=== PATIENT | male | born 2005 | race African-American/Black ===

== ENCOUNTER 2024-05-06 15:43 | Inpatient (IN) | payer MEDICAID, SELFPAY ==
--- NOTE | ~2024-05-06 | XR_ITS ---
XR abdomen obstructive series Ordering provider: MARY KAY Vides History: . Small bowel obstruction FU . Comparison: None. FINDINGS: BOWEL: Nasogastric tube with the tip in the fundus of the stomach. Dilated small bowel loops with air -fluid levels suggestive of early or incomplete obstruction. Ileus is also possible although less lik tia. Follow-up advised. ORGANOMEGALY: None. SIGNIFICANT PATHOLOGIC CALCIFICATIONS: None. OTHER: No free air is seen under the diaphragm. IMPRESSION: Early or incomplete obstruction. Other differential includes ileus and diarrhea. Clinical correlation and follow-up advised. Reviewed, dictated and finalized at location A. IMPRESSION: Early or incomplete obstruction. Other differential includes ileus and diarrhea . Clinical correlation and follow-up advised.
--- NOTE | ~2024-05-06 | XR_ITS ---
XR chest 2V Ordering provider: Ga Ramos MD History: 18 years Male with . r/o TBC . Comparison: None. FINDINGS: MEDIASTINUM: The cardiac silhouette is not enlarged. Nasogastric tube is seen in the inferior to the stomach. LUNGS: No infiltrates, effusions or pneumothorax. OTHER: No free air under the diaphragm. IMPRESSION: No acute cardiopulmonary pathology. Reviewed, dictated and finalized at location A.
--- NOTE | ~2024-05-06 | XR_ITS ---
EXAM: XR abdomen gastric tube insert DATE: 05/06/2024 21:43 HISTORY: NG TUBE . COMPARISON: CT abdomen pelvis, same date. FINDINGS: Clear lung bases. NG tube, tip projects over the stomach, side port at the distal esophagu s. No small bowel obstruction less well seen radiographically due to multiple fluid-filled loops of b owel. Excreted contrast in the renal collecting systems. Regional bones and soft tissues normal for a ge. IMPRESSION: Shallow positioning of the NG tube, consider 6 cm advancement. Reviewed, dictated and finalized at location K.
--- NOTE | ~2024-05-06 | XR_ITS ---
Upright portable view of the abdomen Clinical history: NG tube placement Findings: NG tube is in satisfactory position, side port below the diaphragm. Mildly distended centra l small bowel loops are noted. No free air evident. No abnormal mass lesion or calcification is seen. Osseous structures are intact. Impression: NG tube in satisfactory position. Reviewed, dictated and finalized at location . Impression: NG tube in satisfactory position.
--- NOTE | ~2024-05-06 | XR_ITS ---
EXAMINATION: XR sm bowel follow through [facility] DATE: 05/08/2024 14:41 INDICATION: Small bowel obstruction TECHNIQUE: Bed Teacher radiograph(s) of the abdomen was/were obtained. Oral contrast was administered, and sequential radiographs of the abdomen were obtained until oral contrast was noted to be in the proxi mal colon. COMPARISON: CT dated 05/06/2024 and obstructive series dated 05/08/2024 FINDINGS: Transit time from the stomach to proximal colon was approximately 1 hour. The proximal half of the sm all bowel is of normal caliber. There is increasing dilation of the more distal small bowel which rem ains most prominent at the terminal ileum which fills the pelvis. There is a normal mucosal fold segun idalmis throughout the small bowel with no evident nodularity or fold thickening. Contrast can be seen at the hepatic flexure the colon at 1 hour with contrast in the descending colon at 2 hours.. IMPRESSION: 1. Progressive dilation of the distal small bowel most prominent at the terminal ileum but without de layed transit time to the colon of one hour suggesting partial small bowel obstruction. Reviewed, dictated and finalized at location A. IMPRESSION: 1. Progressive dilation of the distal small bowel most prominent at the termina l ileum but without delayed transit time to the colon of one hour suggesting pa rtial small bowel obstruction.
--- NOTE | ~2024-05-06 | CT_ITS ---
EXAMINATION: CT abdomen pelvis w con DATE: 05/06/2024 19:28 INDICATION: ABD PAIN TECHNIQUE: Computed tomography (CT) of the abdomen and pelvis was performed with 100 mL Omnipaque-350 intravenous contrast. Automated exposure control and iterative reconstruction technique were employe d. The dose-length product was 208.02 mGy-cm. COMPARISON: None. FINDINGS: Lower thorax: Unremarkable Liver: Normal. Biliary/Gallbladder: Gallbladder is normal. No bile duct dilation. Pancreas: No mass or duct dilation. Spleen: Normal. Adrenals:No mass. Kidneys: No suspicious mass, obstructing stone, or hydronephrosis. GI tract: Moderate distal esophageal and gastric wall edema. Severe diffuse dilation of small bowel. Segmental irregular wall edema in the distal ileum, with irregular mucosal enhancement and possible b reakdown. Mid and distal small bowel mucosal hyperemia. No pneumatosis The cecum is displaced into th e right upper quadrant. The appendix is probably partially visualized and appears normal. Mesentery/Peritoneum: Diffuse mesenteric stranding. Small volume mesenteric fluid. No free air. Innum erable prominent mesenteric lymph nodes. Retroperitoneum: No mass. Multiple enlarged intraperitoneal lymph nodes. Pelvis: Pelvic organs are within normal limits. Soft Tissues: Soft tissues and body wall unremarkable. Bones: No acute osseous finding. IMPRESSION: Moderate esophagitis/gastritis. Severe segmental distal ileal enteritis, with findings concerning for wall breakdown and possible con tained or imminent perforation Severe obstruction of the more proximal small bowel. No definite evidence of bowel wall ischemia note d at this time. Small volume ascites. Reviewed, dictated and finalized at location K. IMPRESSION: Moderate esophagitis/gastritis. Severe segmental distal ileal enteritis, with findings concerning for wall mary kdown and possible contained or imminent perforation Severe obstruction of the more proximal small bowel. No definite evidence of ryne wel wall ischemia noted at this time. Small volume ascites.
[2024-05-06 15:48] VITALS: BP 126/91; PULSE 108; RESP 15; TEMP 36.9; O2SAT 98
--- NOTE | 2024-05-06 18:22 | ED.ABDPAIN ---
HPI - Abdominal Pain General Chief Complaint: Abdominal Pain <Ajay Marin MD - Last Filed: 05/07/24 10:55> Stated Complaint: abd pain <Ajay Marin MD - Last Filed: 05/07/24 10:55> Time Seen by Provider: 05/06/24 18:22 <Ajay Marin MD - Last Filed: 05/07/24 10:55> Source: patient <Ajay Marin MD - Last Filed: 05/07/24 10:55> History of Present Illness HPI narrative: 18 YEARS OLD MALE CAME TO THE EMERGENCY ROOM WITH INTERMITTENT SUPRAPUBIC SHARP STABBING PAIN, LAST 15-20 SECONDS. HE DENIES AGGRAVATING OR RELIEVING FACTORS. HE DENIES ANY FEVER, CHILLS, , DIARRHEA, CONSTIPATION OR URINARY SYMPTOMS. PATIENT DENIES ANY RECENT NEW PHYSICAL ACTIVITIES. HISTORY OF GERD ON OMEPRAZOLE NEEDED, NO HISTORY OF ABDOMINAL SURGERY, DOES NOT SMOKE OR DRINK OR USES DRUGS. PATIENT REPORT 4-5 EPISODES OF VOMITING OVER THE LAST 3 DAYS. <Ajay Marin MD - Last Filed: 05/07/24 10:55> Related Data Home Medications: Home Medications Medication Instructions Recorded Confirmed omeprazole 20 mg capsule,delayed 20 mg PO DAILY 05/06/24 05/06/24 release ondansetron HCl 4 mg tablet 4 mg PO Q4-6H PRN nausea/vomiting 05/06/24 05/06/24 <Ajay Marin MD - Last Filed: 05/07/24 10:55> Allergies/Adverse Reactions: Allergies Allergy/AdvReac Type Severity Reaction Status Date / Time No Known Allergies Allergy Verified 05/06/24 21:38 <Ajay Marin MD - Last Filed: 05/07/24 10:55> Review of Systems Review of Systems: All systems reviewed & are unremarkable except as noted in HPI and below <Ajay Marin MD - Last Filed: 05/07/24 10:55> [facility] Social History Social History: Social History Smoking status: Never smoker Do You Feel Safe in your Home?: Yes Lack of Transportation: No Lack of Food: Never True Current Housing: I Have Housing Concerned About Future Housing: No Difficulty Paying Gas/Electric Bills: No Difficulty Paying for Meds: No Currently Unemployed: No Education: High School Diploma/GED Difficulty w/ Childcare or Family Care: No Spiritual care concerns: No <Ajay Marin MD - Last Filed: 05/07/24 10:55> Exam Narrative: GENERAL APPEARANCE: WELL-DEVELOPED, WELL-NOURISHED SKIN: NORMAL COLOR HEAD: NORMOCEPHALIC, NONTRAUMATIC EYES: CLEAR CONJUNCTIVA ENT: OROPHARYNX NORMAL, EARS NORMAL, NOSE NORMAL NECK: SUPPLE, NONTENDER CHEST AND RESPIRATORY: AIRWAY PATENT, NO RESPIRATORY DISTRESS, NO ACCESSORY MUSCLE USE HEART: REGULAR RATE/RHYTHM ABDOMEN: SOFT, NONTENDER, NO ORGANOMEGALY, QUIET BOWEL SOUNDS VASCULAR: NORMAL PERIPHERAL PULSES, NORMAL CAPILLARY REFILL. MUSCULOSKELETAL: NORMAL RANGE OF MOTION, NONTENDER BACK NEUROLOGIC: ALERT AND ORIENTED ?3, STOCKROOM HELPER IS NORMAL TESTED, NO GROSS MOTOR DEFICIT <Ajay Marin MD - Last Filed: 05/07/24 10:55> Course SOUND DESIGNER/PA Physician Supervision Patient signed out to me for previous physician pending CT imaging and re-evaluation. Briefly patient is a 18-year-old male with a past medical history of GERD with as needed Protonix at home. He has had 3 days of nausea vomiting and 5 episodes of vomiting total. Endorses some suprapubic pain. Soft nontender nondistended abdomen. Normal vital signs without any fever, tachycardia, blood pressure concerns. CT scan is pending but I did review it independently and saw air-fluid levels and what looked to be a potential obstruction with small bowel loops dilated but I cant identify clear transition area. Awaiting full radiological read at this time. Patient was given being control nausea control and re-evaluated with
[2024-05-06 18:24] VITALS: BP 125/81; PULSE 93; RESP 18; O2SAT 100
[2024-05-06 18:41] LABS: Basophils Percent Auto 0.2 % (0.2-1.2); Hematocrit 35.7 % (42.0-52.0); Hemoglobin 10.9 g/dL (14.0-18.0); Immature Granulocyte Absolute 0.01 K/mm3 (0.00-0.031); Immature Granulocyte Percent A 0.2 % (0-0.5); Lymphocytes Absolute Auto 1.13 K/mm3 (0.9-3.2); Lymphocytes Percent Auto 18.2 % (18.3-44.2); Mean Corpuscular HGB Conc 30.5 g/dl (32-36); Mean Corpuscular Hemoglobin 24.4 pg (26-34); Mean Corpuscular Volume 79.9 fl (80-100); Monocytes Absolute Auto 1.2 K/mm3 (0.1-0.6); Monocytes Percent Auto 19.6 % (2.6-8.5); Neutrophils Absolute Auto 3.8 K/mm3 (1.3-6.7); Neutrophils Percent Auto 61.8 % (45.5-73.1); Platelet Count Result 562 k/mm3 (150-375); Red Blood Count 4.47 M/mm3 (4.6-6.20); Red Cell Distribution Width 14.2 % (11.5-14.5); White Blood Count 6.2 K/mm3 (4.5-10.0)
[2024-05-06] MEDS: HYDROmorphone HCL INJ (*CRX) 1 MG/ML SYR 0.5 MG IV PUSH (18:41)
[2024-05-06] MEDS: ONDANSETRON INJ 4 MG/2 ML VIAL IV PUSH (18:41)
[2024-05-06] MEDS: SODIUM CHLORIDE 0.9% IV 1,000 ML 999 ML IV CONT (18:41)
[2024-05-06 18:55] LABS: Alanine Aminotransferase 10 U/L (6-50); Albumin Level 4.4 g/dL (3.7-5.6); Alkaline Phosphatase 100 U/L (58-237); Anion Gap 11 mmol/L (4-12); Aspartate Amino Transferase 25 U/L (17-59); Bilirubin,Total 0.7 mg/dL (0.2-1.3); Blood Urea Nitrogen 13 mg/dL (8-21); Calcium 8.8 mg/dL (8.9-10.7); Carbon Dioxide 26 mmol/L (22-30); Chloride 96 mmol/L (98-107); Estimated CRCL calculation 114 ml/min; Estimated Glomerular Filt Rate > 60; Glucose 86 mg/dL (65-110); Lipase 303 U/L (23-300); Potassium 4.2 mmol/L (3.4-5.0); Sodium 133 mmol/L (134-143)
[2024-05-06 19:36] VITALS: BP 121/82; PULSE 92; RESP 18; O2SAT 100
[2024-05-06 19:57] LABS: Add Urine Microscopic? YES; Appearance Urine Clear (Clear); Bacteria Urine None Seen /hpf; Bilirubin Urine Negative (Negative); Blood Urine 2+ (Negative); Color Urine Yellow (Yellow); Glucose Urine UA Negative (Negative); Ketones Urine 2+ mg/dL (Negative); Leukocyte Esterase Ur Negative LEU/UL (Negative); Nitrate Urine Negative (Negative); Non Pathogenic Casts 0-2; Protein Urine 1+ mg/dL (Negative); RBC Urine 51-100 /hpf (0-2); Specific Grav Ur > 1.045 (1.001-1.035); Squamous Epithelial Cell Urine None Seen /hpf (Few); WBC Urine 0-5 /hpf (0-3); pH Urine 5.5 (5.0-9.0)
[2024-05-06 20:41] VITALS: BP 108/78; PULSE 97; RESP 18; TEMP 36.9; O2SAT 100
[2024-05-06 21:20] VITALS: BP 123/85; PULSE 88; RESP 18; O2SAT 99
--- NOTE | 2024-05-06 21:23 | WPDGICN ---
Assessment and Plan Assessment and plan (1) Anemia: Code(s): D64.9 - Anemia, unspecified Status: Acute (2) SBO (small bowel obstruction): Code(s): K56.609 - Unspecified intestinal obstruction, unspecified as to partial versus complete obstruction Status: Acute (3) Enteritis: Code(s): K52.9 - Noninfective gastroenteritis and colitis, unspecified Status: Acute Assessment and Plan: Patient with new onset acute obstruction secondary to ileal inflammation. There is associated anemia with thrombocytosis, more likely compatible with iron deficiency. Differential diagnosis includes Crohn disease, lymphoma or TB of that area, in his case, most likely Crohn's disease. Will obtain CRP, ESR, and stool calprotectin if there is stool output. Will also obtain iron studies to confirm suspicion of iron deficiency anemia. Agree with plan of placing NG tube, IV hydration, antibiotics. We might initiate corticosteroids upon re-evaluation tomorrow. When clinically stable and if resolution of current picture is achieved with current management, will plan on a colonoscopy. Surgical intervention might be needed if there is no resolution of the clinical picture with above mentioned measures. Thank you for the consult. GI Consult Note Consult date/time: 05/06/24 21:23 Reason for consult: intestinal obstruction HPI: Previously healthy 18-year-old patient who was in his usual state of health until approximately 3 days ago when he started to experience postprandial vomiting, which over the past 24 hours became darker and more abundant. This is accompanied by diffuse abdominal pain, colicky type, severe, rated 8 or 9/10 in intensity. There is no stool output in the past 24 hours, he denies diarrhea, fever, rectal bleeding. Of note, during last year he was complaining of backache, mid abdominal pain and a diagnosis of H pylori infection was made, being treated with 2 weeks of antibiotics with resolution of the symptoms. He has been experiencing excessive borborygmi for several months but no abdominal pain, change in bowel habits or other major GI symptoms. Review of Systems Review of Systems: All systems reviewed & are unremarkable except as noted in HPI and below PMFSH Social History Social History Smoking status: Never smoker Do You Feel Safe in your Home?: Yes Lack of Transportation: No Lack of Food: Never True Current Housing: I Have Housing Concerned About Future Housing: No Difficulty Paying Gas/Electric Bills: No Difficulty Paying for Meds: No Currently Unemployed: No Education: High School Diploma/GED Difficulty w/ Childcare or Family Care: No Spiritual care concerns: No Meds Home Medications and Allergies Allergies Allergy/AdvReac Type Severity Reaction Status Date / Time No Known Allergies Allergy Verified 05/06/24 19:36 Vital Signs Vital Signs - 24 hr 05/06/24 15:48 05/06/24 18:24 05/06/24 19:36 Temperature 98.4 F Pulse Rate 108 H 93 92 Respiratory Rate 15 18 18 Blood Pressure 126/91 H 125/81 121/82 Pulse Oximetry 98 100 100 05/06/24 20:41 05/06/24 21:20 Temperature 98.5 F Pulse Rate 97 88 Respiratory Rate 18 18 Blood Pressure 108/78 123/85 Pulse Oximetry 100 99 Exam Const: General: no acute distress Eyes: General: appearance normal, both eyes and all related structures Neck: Neck: supple Resp: Effort & Inspection: normal respiratory effort Cardio: Rate: regular rate Rhythm: regular rhythm GI: GI Palp: Yes Soft to palpation, Yes Firmness to palpation present (GI), Yes Tenderness to palpation present (GI) (diffusely, mainly in the lower quadrants), No Guarding due to palpation present (GI) and No Hernia present Psych: Mental Status: mental status grossly normal Results Labs 05/06/24 18:31 05/06/24 18:31 Labs: Short CBC 05/06/24 Range/Units
[2024-05-06 21:35] LABS: Lactic Acid Reflex 1.2 mmol/L (0.7-2.0)
[2024-05-06 21:56] LABS: CRP 3.4 mg/dL (<1.0)
[2024-05-06 22:00] VITALS: BP 124/83; PULSE 95; RESP 18; TEMP 37.7; O2SAT 100
--- NOTE | 2024-05-06 22:09 | PC.NURSE ---
NG tube advanced by 5 per radiology instructions.
[2024-05-06 22:12] LABS: Erythrocyte Sedimentation Rate 13 mm/hr (0-20)
[2024-05-06] MEDS: metroNIDAZOLE 500 MG/ISO 100ML 500 MG/100 ML BAG 100 MG IVPB (22:14)
--- NOTE | 2024-05-06 22:17 | PC.NURSE ---
Addendum entered by Tre Vergara RN 05/06/24 22:56: [address] Matias about NGT placement and had her review the new xray. Per Dr Matias NGT in place and good to be hooked up to low intermittent suction. Original Note: NGT placed in ER. KUB stated NGT needed to be advanced 6cm. When patient got to the floor I asked if they had advanced the ngt after insertion and pt stated that they had shoved it further down. New order for KUB placed for ngt placement verification. Radiology called and notified of new order. Once new KUB is read Dr order will be obtained for okay to use NGT and suction rate.
[2024-05-07 00:44] LABS: Iron 21 ug/dL (49-181)
[2024-05-07 00:53] LABS: Percent Iron Saturation 7 % (20-50)
[2024-05-07 05:39] VITALS: BP 122/84; PULSE 92; RESP 18; TEMP 37.3; O2SAT 100
[2024-05-07 08:00] VITALS: PULSE 92; RESP 18; O2SAT 98
[2024-05-07 08:44] VITALS: O2SAT 98
--- NOTE | 2024-05-07 09:25 | PM.CNGS ---
History of Present Illness Consult details Consult date: 05/07/24 Narrative: entered in error, see H loretta P PMFSH Social History Social History Smoking status: Never smoker Do You Feel Safe in your Home?: Yes Lack of Transportation: No Lack of Food: Never True Current Housing: I Have Housing Concerned About Future Housing: No Difficulty Paying Gas/Electric Bills: No Difficulty Paying for Meds: No Currently Unemployed: No Education: High School Diploma/GED Difficulty w/ Childcare or Family Care: No Spiritual care concerns: No Meds Home Medications and Allergies Home Medications Medication Instructions Recorded Confirmed Type omeprazole 20 mg capsule,delayed 20 mg PO DAILY 05/06/24 05/06/24 History release ondansetron HCl 4 mg tablet 4 mg PO Q4-6H PRN nausea/vomiting 05/06/24 05/06/24 History Allergies Allergy/AdvReac Type Severity Reaction Status Date / Time No Known Allergies Allergy Verified 05/06/24 21:38 Vital Signs Vital Signs - 24 hr 05/06/24 15:48 05/06/24 18:24 05/06/24 19:36 Temperature 36.9 C Pulse Rate 108 H 93 92 Respiratory Rate 15 18 18 Blood Pressure 126/91 H 125/81 121/82 Pulse Oximetry 98 100 100 Oxygen Delivery 05/06/24 20:41 05/06/24 21:20 05/06/24 22:00 Temperature 36.9 C 37.7 C H Pulse Rate 97 88 95 Respiratory Rate 18 18 18 Blood Pressure 108/78 123/85 124/83 Pulse Oximetry 100 99 100 Oxygen Delivery 05/07/24 05:39 05/06/24 22:00 05/07/24 08:44 Temperature 37.3 C Pulse Rate 92 Respiratory Rate 18 Blood Pressure 122/84 Pulse Oximetry 100 98 Oxygen Delivery Room Air Room Air Results Labs 05/06/24 18:31 05/06/24 18:31 Labs: Abnormal lab results 05/06/24 05/06/24 05/06/24 Range/Units 18:31 19:41 23:51 RBC 4.47 L (4.6-6.20) M/mm3 Hgb 10.9 L (14.0-18.0) g/dL Hct 35.7 L (42.0-52.0) % MCV 79.9 L (80-100) fl MCH 24.4 L (26-34) pg MCHC 30.5 L (32-36) g/dl Plt Count 562 H (150-375) k/mm3 Lymph % (Auto) 18.2 L (18.3-44.2) % [place] % (Auto) 19.6 H (2.6-8.5) % [place] # (Auto) 1.2 H (0.1-0.6) K/mm3 Sodium 133 L (134-143) mmol/L Chloride 96 L (98-107) mmol/L Calcium 8.8 L (8.9-10.7) mg/dL Iron 21 L (49-181) ug/dL % Saturation 7 L (20-50) % C-Reactive Protein 3.4 H (<1.0) mg/dL Lipase 303 H (23-300) U/L Ur Specific [place] > 1.045 H (1.001-1.035) Urine Protein 1+ H (Negative) mg/dL Urine Ketones 2+ H (Negative) mg/dL Ur Blood (Man) 2+ H (Negative) Urine RBC 51-100 H (0-2) /hpf Diabetes panel 05/06/24 Range/Units 18:31 Sodium 133 L (134-143) mmol/L Potassium 4.2 (3.4-5.0) mmol/L Chloride 96 L (98-107) mmol/L Carbon Dioxide 26 (22-30) mmol/L BUN 13 (8-21) mg/dL Creatinine 0.70 (0.7-1.3) mg/dL Glucose 86 (65-110) mg/dL Calcium 8.8 L (8.9-10.7) mg/dL AST 25 (17-59) U/L ALT 10 (6-50) U/L Alkaline Phosphatase 100 (58-237) U/L Total Protein 8.0 (6.3-8.6) g/dL Albumin 4.4 (3.7-5.6) g/dL Calcium panel 05/06/24 Range/Units 18:31 Calcium 8.8 L (8.9-10.7) mg/dL Albumin 4.4 (3.7-5.6) g/dL Pituitary panel 05/06/24 Range/Units 18:31 Sodium 133 L (134-143) mmol/L Potassium 4.2 (3.4-5.0) mmol/L Chloride 96 L (98-107) mmol/L Carbon Dioxide 26 (22-30) mmol/L BUN 13 (8-21) mg/dL Creatinine 0.70 (0.7-1.3) mg/dL Glucose 86 (65-110) mg/dL Calcium 8.8 L (8.9-10.7) mg/dL Adrenal panel 05/06/24 Range/Units 18:31 Sodium 133 L (134-143) mmol/L Potassium 4.2 (3.4-5.0) mmol/L Chloride 96 L (98-107) mmol/L Carbon Dioxide 26 (22-30) mmol/L BUN 13 (8-21) mg/dL Creatinine 0.70 (0.7-1.3) mg/dL Glucose 86 (65-110) mg/dL Calcium 8.8 L (8.9-10.7) mg/dL Total Bilirubin 0.7 (0.2-1.3) mg/dL AST 25 (17-59) U/L ALT 10
--- NOTE | 2024-05-07 09:26 | PM.IMHP ---
H&P: HPI History of Present Illness Date/Time: 05/07/24 09:26 Chief Complaint: Abdominal pain, obstipation Narrative: The patient is a previously healthy 18-year-old male presenting to the emergency department complaining severe abdominal pain, obstipation, nausea and vomiting. The patient reports approximately 3-4 days ago he began with some postprandial nausea. Over the next few days he has been unable to really keep anything down. He reports that his last bowel movement was probably 3-4 days ago and he is not really passed any flatus. The patient denies any previous similar symptoms. The patient also complains of severe colicky abdominal pain. The patient reports very poor appetite over this period. The patient was treated for H pylori a few months ago. Review of Systems Review of Systems: All systems reviewed & are unremarkable except as noted in HPI and below PMFSH Social History Social History Smoking status: Never smoker Do You Feel Safe in your Home?: Yes Lack of Transportation: No Lack of Food: Never True Current Housing: I Have Housing Concerned About Future Housing: No Difficulty Paying Gas/Electric Bills: No Difficulty Paying for Meds: No Currently Unemployed: No Education: High School Diploma/GED Difficulty w/ Childcare or Family Care: No Spiritual care concerns: No Comments PMH - none PSH - none FH - no IBD, CRC Meds Home Medications and Allergies Home Medications Medication Instructions Recorded Confirmed Type omeprazole 20 mg capsule,delayed 20 mg PO DAILY 05/06/24 05/06/24 History release ondansetron HCl 4 mg tablet 4 mg PO Q4-6H PRN nausea/vomiting 05/06/24 05/06/24 History Allergies Allergy/AdvReac Type Severity Reaction Status Date / Time No Known Allergies Allergy Verified 05/06/24 21:38 Vital Signs Vital Signs - 24 hr 05/06/24 15:48 05/06/24 18:24 05/06/24 19:36 Temperature 36.9 C Pulse Rate 108 H 93 92 Respiratory Rate 15 18 18 Blood Pressure 126/91 H 125/81 121/82 Pulse Oximetry 98 100 100 Oxygen Delivery 05/06/24 20:41 05/06/24 21:20 05/06/24 22:00 Temperature 36.9 C 37.7 C H Pulse Rate 97 88 95 Respiratory Rate 18 18 18 Blood Pressure 108/78 123/85 124/83 Pulse Oximetry 100 99 100 Oxygen Delivery 05/07/24 05:39 05/06/24 22:00 05/07/24 08:44 Temperature 37.3 C Pulse Rate 92 Respiratory Rate 18 Blood Pressure 122/84 Pulse Oximetry 100 98 Oxygen Delivery Room Air Room Air Exam Const: General: cooperative, ill appearing, uncomfortable and thin HENMT: Head: normal to inspection, normocephalic and atraumatic Eyes: General: appearance normal, both eyes and all related structures Neck: Neck: normal visual inspection, full ROM and no lymphadenopathy Resp: Auscultation: clear to auscultation bilaterally Cardio: Rate: regular rate Rhythm: regular rhythm GI: Inspection: normal to inspection and distended GI Palp: Yes abdominal tenderness, Yes Soft to palpation, Yes Tenderness to palpation present (GI), No Guarding due to palpation present (GI) and No Rigid due to palpation Skin: General skin exam: normal color and no rashes or lesions noted Neuro: General: patient oriented x3 and CN's II-XI intact bilaterally Extrem: General: normal to inspection and full ROM H&P: Results Labs Labs: Short CBC 05/06/24 Range/Units 18:31 WBC 6.2 (4.5-10.0) K/mm3 Hgb 10.9 L (14.0-18.0) g/dL Hct 35.7 L (42.0-52.0) % Plt Count 562 H (150-375) k/mm3 BMP 05/06/24 18:31 Sodium 133 L Potassium 4.2 Chloride 96 L Carbon Dioxide 26 BUN 13 Creatinine 0.70 Glucose 86 Calcium 8.8 L Liver Function 05/06/24 Range/Units 18:31 Total Bilirubin 0.7 (0.2-1.3) mg/dL AST 25 (17-59) U/L ALT 10 (6-50) U/L Alkaline Phosphatase 100 (58-237) U/L Albumin 4.4 (3.7-5.6) g/dL Urine 05/06/24 Range/Units
[2024-05-07] MEDS: PANTOPRAZOLE SODIUM IV 40 MG VIAL IV PUSH (10:13)
[2024-05-07] MEDS: WATER FOR IRRIGATION, STERILE 500 ML BOTTLE (10:13)
[2024-05-07] MEDS: SODIUM CHLORIDE 0.9% IV 1,000 ML 130 ML IV CONT ×2 (10:13→20:30)
[2024-05-07 10:14] LABS: Hematocrit 33.7 % (42.0-52.0); Hemoglobin 10.3 g/dL (14.0-18.0); Mean Corpuscular HGB Conc 30.6 g/dl (32-36); Mean Corpuscular Hemoglobin 24.4 pg (26-34); Mean Corpuscular Volume 79.9 fl (80-100); Mean Platelet Volume 8.2 fl (7.4-10.4); Platelet Count Result 459 k/mm3 (150-375); Red Blood Count 4.22 M/mm3 (4.6-6.20); Red Cell Distribution Width 14.3 % (11.5-14.5); White Blood Count 6.1 K/mm3 (4.5-10.0)
[2024-05-07] MEDS: metroNIDAZOLE 500 MG/ISO 100ML 500 MG/100 ML BAG 100 MG IVPB ×3 (10:16→22:08)
[2024-05-07 10:25] LABS: Anion Gap 8 mmol/L (4-12); Blood Urea Nitrogen 8 mg/dL (8-21); Calcium 8.6 mg/dL (8.9-10.7); Carbon Dioxide 27 mmol/L (22-30); Chloride 98 mmol/L (98-107); Estimated CRCL calculation 131 ml/min; Estimated Glomerular Filt Rate > 60; Glucose 77 mg/dL (65-110); Sodium 133 mmol/L (134-143)
--- NOTE | 2024-05-07 10:30 | WPDGIPROGNO ---
Progress Note: A&P Assessment and Plan (1) SBO (small bowel obstruction): Code(s): K56.609 - Unspecified intestinal obstruction, unspecified as to partial versus complete obstruction Status: Acute (2) Enteritis: Code(s): K52.9 - Noninfective gastroenteritis and colitis, unspecified Status: Acute (3) Anemia: Qualifiers: Anemia type: iron deficiency Iron deficiency anemia type: unspecified iron deficiency Qualified Code(s): D50.9 - Iron deficiency anemia, unspecified Code(s): D64.9 - Anemia, unspecified Status: Acute (4) Elevated lipase: Code(s): R74.8 - Abnormal levels of other serum enzymes Status: Acute Plan 1. Anemia/SBO/enteritis: Patient has never had an EGD or colonoscopy. No family Hx of CRC or IBD. Patient with new onset acute obstruction secondary to ileal inflammation. There is associated anemia with thrombocytosis, more likely compatible with iron deficiency. Labs today showed Hgb 11-->10, Hct 36-->34, MCV 80, platelets 459. Total iron 21, TIBC 318, iron sat 7%.Sodium 133, potassium 4.0, calcium 8.6, albumin 4.4. Case reviewed with surgery. Inflammatory marker elevated with ESR 13, CRP 3.4. Differential diagnosis includes Crohn disease, lymphoma or TB of that area, in his case, most likely Crohn's disease. Still pending fecal calprotectin SoluMedrol 60 mg IV daily, order placed keep NG in place continue IV antibiotics continue IV hydration No plan for surgery at this time continue supportive care with pain management and antiemetics as needed Will need colonoscopy in the near future, inpatient vs outpatient based on clinical picture Serial imaging being managed by surgery Will check Hep B and TB in the event that biologic treatment may be needed in the future 2. Elevated lipase: Lipase on admission 303. May be secondary to nausea and vomiting prior to admission vs acute inflammatory process. Pancreas normal on imaging Primary care team to continue monitoring Thank you very much for allowing me to share in the care of this very nice patient. Time Spent With Patient Time with patient: 15 - 25 minutes Subjective Date/time seen: 05/07/24 10:30 Interval history: Patient seen with mother Heavenly and father Cortes at bedside throughout the visit. Patient denies any GI complaints at this time other than discomfort with NG tube. Denies abdominal pain, nausea, vomiting, bloating, or regurgitation. No BM today. Patient has been NPO. Per patient and mother he was diagnosis with H-Pylori via stool study ordered by PCP last year and completed treatment, since that time he has been having episodes of nausea, vomiting and inability to gain weight. Prior to admission he was having daily BM's that were formed and non urgent, denied constipation, diarrhea, hematochezia or melena. No family Hx of CRC or IBD. Denies frequent NSAID use. Review of Systems Constitutional: Constitutional: Reports fatigue ENT: Comments: NG tube in right nare Cardiovascular: Cardiovascular: Denies chest pain, Denies leg edema and Denies palpitations Respiratory: Respiratory: Denies chest congestion, Denies cough and Denies dyspnea on exertion Gastrointestinal: Gastrointestinal: Reports as per HPI Genitourinary: Genitourinary: Reports no additional male genitourinary complaints Musculoskeletal: Musculoskeletal: Denies arthralgias Integumentary/Breasts: Skin/Breast: Reports system reviewed and no additional complaints, except as docu Neurologic: Denies Abnormal speech present and Denies confusion Exam Const: General: comfortable and no acute distress HENMT: Face/Nose/Sinus: nares abnormal (NG tube right nare) Eyes: General: appearance normal, both eyes and all related structures Sclera: sclerae normal Pupils: Equal, round and reactive pupils present Neck: Neck: supple and no JVD Resp: Effort & Inspection: normal respiratory effort
[2024-05-07] MEDS: methylPREDNISolone SOD SUCC 125 MG VIAL 60 MG IV PUSH (11:20)
[2024-05-07 12:00] VITALS: BMI 16.9
[2024-05-07 12:00] LABS: Hepatitis B Surface Antigen Negative (Negative)
[2024-05-07 12:05] LABS: Hepatitis B Core IgM Result Negative (Negative)
[2024-05-07 12:18] LABS: Hepatitis B Surface Anti Res Negative
[2024-05-07 14:00] VITALS: BP 111/38; PULSE 62; RESP 18; TEMP 36; O2SAT 100
[2024-05-07 19:34] LABS: Hepatitis C Virus Antibody Negative (Negative)
[2024-05-07 20:00] VITALS: PULSE 62; RESP 18; O2SAT 100
[2024-05-07 22:00] VITALS: BP 135/71; PULSE 77; RESP 16; TEMP 37.1; O2SAT 100
[2024-05-08] MEDS: SODIUM CHLORIDE 0.9% IV 1,000 ML 130 ML IV CONT (05:11)
[2024-05-08] MEDS: metroNIDAZOLE 500 MG/ISO 100ML 500 MG/100 ML BAG 100 MG IVPB ×3 (05:11→21:31)
[2024-05-08 05:55] VITALS: BP 118/70; PULSE 79; RESP 14; TEMP 37.1; O2SAT 98
--- NOTE | 2024-05-08 08:02 | WPDGIPROGNO ---
Progress Note: A&P Assessment and Plan (1) Anemia: Qualifiers: Anemia type: iron deficiency Iron deficiency anemia type: unspecified iron deficiency Qualified Code(s): D50.9 - Iron deficiency anemia, unspecified Code(s): D64.9 - Anemia, unspecified Status: Acute (2) SBO (small bowel obstruction): Code(s): K56.609 - Unspecified intestinal obstruction, unspecified as to partial versus complete obstruction Status: Acute (3) Enteritis: Code(s): K52.9 - Noninfective gastroenteritis and colitis, unspecified Status: Acute Plan Pt with suspected Crohn's disease, favorable clinical course. Pending abdominal X ray to check progress of SBO, pt going now. Will obtain Chest X ray in anticipation to possible biologic therapy in addition to other routine pre biologic labs. If there is a favorable radiologic picture we will discuss trying oral tolerance and possibly schedule colonoscopy for tomorrow. Time Spent With Patient Time with patient: less than 15 minutes Subjective Date/time seen: 05/08/24 08:02 Interval history: The patient feels much better, no abdominal pain. He passes flatus but not stool yet. NG tube drainage looks clearer than yesterday. Review of Systems Review of Systems: All systems reviewed & are unremarkable except as noted in HPI and below Exam Const: General: comfortable and no acute distress Cardio: Rate: regular rate Rhythm: regular rhythm GI: GI Palp: Yes Soft to palpation, No Firmness to palpation present (GI), No Tenderness to palpation present (GI) and No Guarding due to palpation present (GI) Auscultation: normal bowel sounds Objective Data Vital Signs Vital Signs: Vital Signs - 24 hr 05/07/24 08:44 05/07/24 14:00 05/07/24 20:00 Temperature 96.8 F L Pulse Rate 62 62 Respiratory Rate 18 18 Blood Pressure 111/38 L Pulse Oximetry 98 100 100 Oxygen Delivery Room Air Room Air 05/07/24 22:00 05/08/24 05:55 Temperature 98.8 F 98.8 F Pulse Rate 77 79 Respiratory Rate 16 14 Blood Pressure 135/71 118/70 Pulse Oximetry 100 98 Oxygen Delivery Intake/Output Intake/Output: Intake & Output 05/05/24 05/06/24 05/07/24 05/08/24 23:59 23:59 23:59 23:59 Intake Total 1100 2690 1000 Output Total 500 Balance 1100 2690 500 Meds/Results Medications: Active Medications Generic Name Dose Route Start Last Admin Trade Name Freq PRN Reason Stop Dose Admin Hydromorphone HCl 0.5 mg 05/07/24 10:05 Hydromorphone Hcl Inj (*Crx) 1 Mg/Ml Syr IV PUSH Q3H PRN Pain Rated 7-10 Sodium Chloride 1,000 mls @ 130 mls/hr 05/07/24 10:00 05/08/24 05:11 Normal Saline Iv IV CONT 130 mls/hr .Q7H42M KISHORE Administration Ceftriaxone Sodium 1 gm in 50 mls @ 100 mls/hr 05/07/24 21:00 05/07/24 20:30 Rocephin 1 Gm/Ns 50 Ml IVPB 100 mls/hr Q24H KISHORE Administration Metronidazole 500 mg in 100 mls @ 100 mls/hr 05/07/24 10:05 05/08/24 05:11 Flagyl 500 Mg/Iso Soln 100 Ml IVPB 100 mls/hr Q8HR KISHORE Administration Methylprednisolone Sodium Succinate 60 mg 05/07/24 10:15 05/07/24 11:20 Methylprednisolone Sod Succ 125 Mg Vial IV PUSH 60 mg DAILY KISHORE Administration Ondansetron HCl 4 mg 05/07/24 10:05 Ondansetron Inj 4 Mg/2 Ml Vial IV PUSH Q6H PRN Nausea And Vomiting Pantoprazole Sodium 40 mg 05/07/24 09:00 05/07/24 10:13 Pantoprazole Sodium Iv 40 Mg Vial IV PUSH 40 mg QAM KISHORE Administration Radiology Results: ITS Impressions Abdomen/Pelvis CT 05/06/24 20:00 IMPRESSION: Moderate esophagitis/gastritis. Severe segmental distal ileal enteritis, with findings concerning for wall breakdown and possible contained or imminent perforation Severe obstruction of the more proximal small bowel. No definite evidence of bowel wall ischemia noted at this time. Small volume ascites. Abdomen X-Ray 05/07/24 05:53 Impression: NG tube in satisfactory position.
[2024-05-08] MEDS: PANTOPRAZOLE SODIUM IV 40 MG VIAL IV PUSH (09:08)
[2024-05-08] MEDS: methylPREDNISolone SOD SUCC 125 MG VIAL 60 MG IV PUSH (09:08)
--- NOTE | 2024-05-08 12:12 | WPDGIPROGNO ---
Progress Note: A&P Assessment and Plan (1) SBO (small bowel obstruction): Code(s): K56.609 - Unspecified intestinal obstruction, unspecified as to partial versus complete obstruction Status: Acute (2) Anemia: Qualifiers: Anemia type: iron deficiency Iron deficiency anemia type: unspecified iron deficiency Qualified Code(s): D50.9 - Iron deficiency anemia, unspecified Code(s): D64.9 - Anemia, unspecified Status: Acute Plan Abdominal x-ray reviewed, there are still some air-fluid levels. The patient continues to do well clinically. Discussed with surgeon in charge, Dr. Lanier, we agreed to order a small-bowel follow-through with hydro soluble contrast to assess patency of GI tract. We will leave NG tube in place clamped, in order to administer colonoscopy prep if there is good passage of contrast. Subjective Date/time seen: 05/08/24 12:12 Objective Data Vital Signs Vital Signs: Vital Signs - 24 hr 05/07/24 14:00 05/07/24 20:00 05/07/24 22:00 Temperature 96.8 F L 98.8 F Pulse Rate 62 62 77 Respiratory Rate 18 18 16 Blood Pressure 111/38 L 135/71 Pulse Oximetry 100 100 100 Oxygen Delivery Room Air 05/08/24 05:55 Temperature 98.8 F Pulse Rate 79 Respiratory Rate 14 Blood Pressure 118/70 Pulse Oximetry 98 Oxygen Delivery Intake/Output Intake/Output: Intake & Output 05/05/24 05/06/24 05/07/24 05/08/24 23:59 23:59 23:59 23:59 Intake Total 1100 2690 1000 Output Total 500 Balance 1100 2690 500 Meds/Results Medications: Active Medications Generic Name Dose Route Start Last Admin Trade Name Freq PRN Reason Stop Dose Admin Hydromorphone HCl 0.5 mg 05/07/24 10:05 Hydromorphone Hcl Inj (*Crx) 1 Mg/Ml Syr IV PUSH Q3H PRN Pain Rated 7-10 Sodium Chloride 1,000 mls @ 130 mls/hr 05/07/24 10:00 05/08/24 05:11 Normal Saline Iv IV CONT 130 mls/hr .Q7H42M KISHORE Administration Ceftriaxone Sodium 1 gm in 50 mls @ 100 mls/hr 05/07/24 21:00 05/07/24 20:30 Rocephin 1 Gm/Ns 50 Ml IVPB 100 mls/hr Q24H KISHORE Administration Metronidazole 500 mg in 100 mls @ 100 mls/hr 05/07/24 10:05 05/08/24 05:11 Flagyl 500 Mg/Iso Soln 100 Ml IVPB 100 mls/hr Q8HR KISHORE Administration Methylprednisolone Sodium Succinate 60 mg 05/07/24 10:15 05/08/24 09:08 Methylprednisolone Sod Succ 125 Mg Vial IV PUSH 60 mg DAILY KISHORE Administration Ondansetron HCl 4 mg 05/07/24 10:05 Ondansetron Inj 4 Mg/2 Ml Vial IV PUSH Q6H PRN Nausea And Vomiting Pantoprazole Sodium 40 mg 05/07/24 09:00 05/08/24 09:08 Pantoprazole Sodium Iv 40 Mg Vial IV PUSH 40 mg QAM KISHORE Administration Radiology Results: ITS Impressions Abdomen/Pelvis CT 05/06/24 20:00 IMPRESSION: Moderate esophagitis/gastritis. Severe segmental distal ileal enteritis, with findings concerning for wall breakdown and possible contained or imminent perforation Severe obstruction of the more proximal small bowel. No definite evidence of bowel wall ischemia noted at this time. Small volume ascites. Chest X-Ray 05/08/24 08:29 IMPRESSION: No acute cardiopulmonary pathology. Abdomen X-Ray 05/08/24 09:18 IMPRESSION: Early or incomplete obstruction. Other differential includes ileus and diarrhea. Clinical correlation and follow-up advised. Labs Labs: Laboratory Results - last 24 hr 05/06/24 05/07/24 23:46 18:00 Hep Bs Antibody Negative Hepatitis C Ab Screen Negative
[2024-05-08 14:00] VITALS: BP 130/60; PULSE 68; RESP 20; TEMP 35.8; O2SAT 96
--- NOTE | 2024-05-08 16:02 | PM.PNGS ---
Progress Note: A&P Assessment and Plan (1) SBO (small bowel obstruction): Code(s): K56.609 - Unspecified intestinal obstruction, unspecified as to partial versus complete obstruction Status: Acute Assessment and Plan: much improved, cont steroids per GI, poss scope tomorrow, will try clears and clamp NG tonight Subjective Subjective Date/Time Seen: 05/08/24 16:02 Interval history: feels much better, +bowel fxn, hungry Review of Systems Review of Systems: All systems reviewed & are unremarkable except as noted in HPI and below Exam Const: General: cooperative, comfortable and no acute distress Resp: Auscultation: clear to auscultation bilaterally Cardio: Rate: regular rate Rhythm: regular rhythm GI: Inspection: normal to inspection and non-distended GI Palp: No abdominal tenderness and Yes Soft to palpation Objective Data Vital Signs Vital Signs: Vital Signs - 24 hr 05/07/24 20:00 05/07/24 22:00 05/08/24 05:55 Temperature 37.1 C 37.1 C Pulse Rate 62 77 79 Respiratory Rate 18 16 14 Blood Pressure 135/71 118/70 Pulse Oximetry 100 100 98 Oxygen Delivery Room Air 05/08/24 14:00 Temperature 35.8 C L Pulse Rate 68 Respiratory Rate 20 Blood Pressure 130/60 Pulse Oximetry 96 Oxygen Delivery Intake/Output Intake/Output: Intake & Output 05/05/24 05/06/24 05/07/24 05/08/24 23:59 23:59 23:59 23:59 Intake Total 1100 2690 1100 Output Total 500 Balance 1100 2690 600 Meds/Results Medications: Active Medications Generic Name Dose Route Start Last Admin Trade Name Freq PRN Reason Stop Dose Admin Hydromorphone HCl 0.5 mg 05/07/24 10:05 Hydromorphone Hcl Inj (*Crx) 1 Mg/Ml Syr IV PUSH Q3H PRN Pain Rated 7-10 Sodium Chloride 1,000 mls @ 130 mls/hr 05/07/24 10:00 05/08/24 05:11 Normal Saline Iv IV CONT 130 mls/hr .Q7H42M KISHORE Administration Ceftriaxone Sodium 1 gm in 50 mls @ 100 mls/hr 05/07/24 21:00 05/07/24 20:30 Rocephin 1 Gm/Ns 50 Ml IVPB 100 mls/hr Q24H KISHORE Administration Metronidazole 500 mg in 100 mls @ 100 mls/hr 05/07/24 10:05 05/08/24 15:10 Flagyl 500 Mg/Iso Soln 100 Ml IVPB 100 mls/hr Q8HR KISHORE Administration Methylprednisolone Sodium Succinate 60 mg 05/07/24 10:15 05/08/24 09:08 Methylprednisolone Sod Succ 125 Mg Vial IV PUSH 60 mg DAILY KISHORE Administration Ondansetron HCl 4 mg 05/07/24 10:05 Ondansetron Inj 4 Mg/2 Ml Vial IV PUSH Q6H PRN Nausea And Vomiting Pantoprazole Sodium 40 mg 05/07/24 09:00 05/08/24 09:08 Pantoprazole Sodium Iv 40 Mg Vial IV PUSH 40 mg QAM KISHORE Administration Radiology Results: ITS Impressions Abdomen/Pelvis CT 05/06/24 20:00 IMPRESSION: Moderate esophagitis/gastritis. Severe segmental distal ileal enteritis, with findings concerning for wall breakdown and possible contained or imminent perforation Severe obstruction of the more proximal small bowel. No definite evidence of bowel wall ischemia noted at this time. Small volume ascites. Chest X-Ray 05/08/24 08:29 IMPRESSION: No acute cardiopulmonary pathology. Abdomen X-Ray 05/08/24 09:18 IMPRESSION: Early or incomplete obstruction. Other differential includes ileus and diarrhea. Clinical correlation and follow-up advised. Small Bowel X-Ray 05/08/24 14:54 IMPRESSION: 1. Progressive dilation of the distal small bowel most prominent at the terminal ileum but without delayed transit time to the colon of one hour suggesting partial small bowel obstruction. Labs Labs: Laboratory Results - last 24 hr 05/07/24 18:00 Hepatitis C Ab Screen Negative
[2024-05-08 17:05] VITALS: BP 96/56; PULSE 100; RESP 20; TEMP 36.8; O2SAT 100
[2024-05-08] MEDS: BISACODYL 5 MG TABLET EC PO (18:27)
[2024-05-08] MEDS: polyethylene glycoL 3350 238 GM BOTTLE PO (18:27)
--- NOTE | 2024-05-08 21:49 | PC.NURSE ---
Bowel prep initiated during day shift and Mickie NANCE was able to get 1 bottle of mirilax power pio down NGT with good tolerance from patient. Bowel prep continued by this RN. At this time 3/4 mirilax power ades completed (route NGT) with great tolerance by patient. Last bottle of prep to be administered at 2230 and mag citrate to be administered at 2300.
[2024-05-08 22:00] VITALS: BP 112/67; PULSE 85; RESP 16; TEMP 37.8; O2SAT 100
[2024-05-08] MEDS: MAGNESIUM CITRATE 300 ML BTL PO (23:37)
[2024-05-09] VITALS (8 sets, daily range): BP systolic 81–112; BP diastolic 47–77; PULSE 50–78; RESP 14–20; TEMP 36.2–37; O2SAT 98–100; BMI 15.7
[2024-05-09] MEDS: metroNIDAZOLE 500 MG/ISO 100ML 500 MG/100 ML BAG 100 MG IVPB (06:16)
[2024-05-09] MEDS: methylPREDNISolone SOD SUCC 125 MG VIAL 60 MG IV PUSH (07:58)
[2024-05-09] MEDS: SODIUM CHLORIDE 0.9% IV 1,000 ML 130 ML IV CONT (07:58)
[2024-05-09] MEDS: PANTOPRAZOLE SODIUM IV 40 MG VIAL IV PUSH (07:59)
[2024-05-09] MEDS: LACTATED RINGERS 1,000 ML 150 ML IV CONT (10:02)
--- NOTE | 2024-05-09 10:54 | WPDANESEPPF ---
Anes - Initial Pre Proc Eval Procedure: Operation Date: 05/09/24 11:00 Proposed Procedures p Colonoscopy - Ga Ramos MD Date/Time: 05/09/24 10:54 Surgeon: Nasreen Lanier MD Pre Op Diagnosis: Bowel obstruction, Severe enteritis Patient Data Age: 18 Gender: M Height: 1.8 m Weight: 51 kg Last Vital Signs Temp 97.6 F 05/09/24 09:59 Pulse 75 05/09/24 09:59 Resp 18 05/09/24 09:59 BP 102/62 05/09/24 09:59 Pulse Ox 100 05/09/24 09:59 O2 Del Method Room Air 05/09/24 09:59 Allergies Allergy/AdvReac Type Severity Reaction Status Date / Time No Known Allergies Allergy Verified 05/09/24 09:56 Home Medications Medication Instructions Recorded Confirmed Type omeprazole 20 mg capsule,delayed 20 mg PO DAILY 05/06/24 05/09/24 History release Patient hx anesthesia problems: none Family hx anesthesia problems: none Results Review: All pre-operative results and documents have been reviewed as part of the pre-operative evaluation. REPLACED BY [facility] Social History Social History Smoking status: Never smoker Do You Feel Safe in your Home?: Yes Lack of Transportation: No Lack of Food: Never True Current Housing: I Have Housing Concerned About Future Housing: No Difficulty Paying Gas/Electric Bills: No Difficulty Paying for Meds: No Currently Unemployed: No Education: High School Diploma/GED Difficulty w/ Childcare or Family Care: No Spiritual care concerns: No Anes - Eval Final PreProcedure Day of Procedure 05/09/24 10:54 Patient weight: normal Heart: regular rate and rhythm Lungs: clear to auscultation Airway: Mallampati scale class II Neurological: alert and oriented Last oral intake: >/= 8 hours ASA classification: II Emergent: no Anesthetic plan: proceed Anesthesia type and monitoring: general GIVS and standard monitoring Results Review: All pre-operative results and documents have been reviewed as part of the pre-operative evaluation. Informed Consent: The patient's anesthetic plan and its attendant risks and benefits were discussed with the patient/family/POA. Questions were solicited and answers provided to the satisfaction of the patient/family/POA.
--- NOTE | 2024-05-09 11:07 | PM.PNGS ---
Progress Note: A&P Assessment and Plan (1) SBO (small bowel obstruction): Code(s): K56.609 - Unspecified intestinal obstruction, unspecified as to partial versus complete obstruction Status: Acute Assessment and Plan: resolving, will likely dc NG and ADAT once colonoscopy complete (2) Enteritis: Code(s): K52.9 - Noninfective gastroenteritis and colitis, unspecified Status: Acute Assessment and Plan: colonoscopy today, cont steroids per GI for now, exam benign Subjective Subjective Date/Time Seen: 05/09/24 11:07 Interval history: feels pretty good, no abd pain, +bowel fxn, salazar clears yest Review of Systems Review of Systems: All systems reviewed & are unremarkable except as noted in HPI and below Exam Const: General: cooperative, comfortable and no acute distress Resp: Auscultation: clear to auscultation bilaterally Cardio: Rate: regular rate Rhythm: regular rhythm GI: Inspection: normal to inspection and non-distended GI Palp: No abdominal tenderness and Yes Soft to palpation Objective Data Vital Signs Vital Signs: Vital Signs - 24 hr 05/08/24 14:00 05/08/24 17:05 05/08/24 22:00 Temperature 35.8 C L 36.8 C 37.8 C H Pulse Rate 68 100 85 Respiratory Rate 20 20 16 Blood Pressure 130/60 96/56 L 112/67 Pulse Oximetry 96 100 100 Oxygen Delivery 05/09/24 06:00 05/09/24 09:59 05/09/24 07:54 Temperature 37.0 C 36.4 C Pulse Rate 50 L 75 Respiratory Rate 14 18 Blood Pressure 101/60 102/62 Pulse Oximetry 98 100 Oxygen Delivery Room Air Room Air Intake/Output Intake/Output: Intake & Output 05/06/24 05/07/24 05/08/24 05/09/24 23:59 23:59 23:59 23:59 Intake Total 1100 2740 1780 1000 Output Total 900 Balance 1100 2740 880 1000 Meds/Results Medications: Active Medications Generic Name Dose Route Start Last Admin Trade Name Freq PRN Reason Stop Dose Admin Hydromorphone HCl 0.5 mg 05/07/24 10:05 Hydromorphone Hcl Inj (*Crx) 1 Mg/Ml Syr IV PUSH Q3H PRN Pain Rated 7-10 Sodium Chloride 1,000 mls @ 130 mls/hr 05/07/24 10:00 05/09/24 07:58 Normal Saline Iv IV CONT 130 mls/hr .Q7H42M KISHORE Administration Ceftriaxone Sodium 1 gm in 50 mls @ 100 mls/hr 05/07/24 21:00 05/08/24 20:22 Rocephin 1 Gm/Ns 50 Ml IVPB 100 mls/hr Q24H KISHORE Administration Metronidazole 500 mg in 100 mls @ 100 mls/hr 05/07/24 10:05 05/09/24 06:16 Flagyl 500 Mg/Iso Soln 100 Ml IVPB 100 mls/hr Q8HR KISHORE Administration Lactated Ringer's 1,000 mls @ 150 mls/hr 05/09/24 10:00 05/09/24 10:02 Lr - Lactated Ringers Iv IV CONT 150 mls/hr .Q6H40M KISHORE Administration Methylprednisolone Sodium Succinate 60 mg 05/07/24 10:15 05/09/24 07:58 Methylprednisolone Sod Succ 125 Mg Vial IV PUSH 60 mg DAILY KISHORE Administration Ondansetron HCl 4 mg 05/07/24 10:05 Ondansetron Inj 4 Mg/2 Ml Vial IV PUSH Q6H PRN Nausea And Vomiting Pantoprazole Sodium 40 mg 05/07/24 09:00 05/09/24 07:59 Pantoprazole Sodium Iv 40 Mg Vial IV PUSH 40 mg QAM KISHORE Administration Radiology Results: ITS Impressions Abdomen/Pelvis CT 05/06/24 20:00 IMPRESSION: Moderate esophagitis/gastritis. Severe segmental distal ileal enteritis, with findings concerning for wall breakdown and possible contained or imminent perforation Severe obstruction of the more proximal small bowel. No definite evidence of bowel wall ischemia noted at this time. Small volume ascites. Chest X-Ray 05/08/24 08:29 IMPRESSION: No acute cardiopulmonary pathology. Abdomen X-Ray 05/08/24 09:18 IMPRESSION: Early or incomplete obstruction. Other differential includes ileus and diarrhea. Clinical correlation and follow-up advised. Small Bowel X-Ray 05/08/24 14:54 IMPRESSION: 1. Progressive dilation of the distal small bowel most prominent at the terminal ileum but without delayed transit time to the colon of one hour s
[2024-05-09 11:44] LABS: NIL 0.04 IU/mL; Quantiferon TB Plus, 1T INDETERMINATE (NEGATIVE); TB2-NIL <0.00 IU/mL
[2024-05-09 12:38] LABS: NIL 0.03 IU/mL; Quantiferon TB Plus, 1T INDETERMINATE (NEGATIVE)
--- NOTE | 2024-05-09 13:03 | WPDGIPROGNO ---
Progress Note: A&P Assessment and Plan (1) Crohn's disease: Code(s): K50.90 - Crohn's disease, unspecified, without complications Status: Acute Plan The patient has confirmed Crohn's, explaining anemia and obstructive picture. Since he is iron deficient, I recommend administering a 1st dose of intravenous iron while he is in the hospital. He can be switched to prednisone 40 mg q.d.. I will see him in the office in 2 weeks to start tapering dose, while all the pre biologic labs are available. He has Medicaid coverage and we will try to see which biologic therapy will be covered by his insurance. In the meantime he could advance to soft diet and be discharged on PO steroids only. PPIs might be prescribed only if he does have heartburn or epigastric burning sensation on a p.r.n. basis. Subjective Date/time seen: 05/09/24 13:03 Interval history: Patient feels well, tolerating oral intake. Colonoscopy this morning showed severe ileocecal Crohn's. See report. Review of Systems Review of Systems: All systems reviewed & are unremarkable except as noted in HPI and below Exam Const: General: cooperative and healthy appearing Resp: Effort & Inspection: normal respiratory effort and able to speak in complete sentences Auscultation: clear to auscultation bilaterally Cardio: Rate: regular rate Rhythm: regular rhythm GI: Inspection: normal to inspection GI Palp: No No hepatosplenomegaly present Auscultation: normal bowel sounds Rectal Exam: deferred Skin: General skin exam: normal color Psych: Appearance: grossly normal Mental Status: mental status grossly normal Objective Data Vital Signs Vital Signs: Vital Signs - 24 hr 05/08/24 14:00 05/08/24 17:05 05/08/24 22:00 Temperature 96.4 F L 98.3 F 100.1 F H Pulse Rate 68 100 85 Respiratory Rate 20 20 16 Blood Pressure 130/60 96/56 L 112/67 Pulse Oximetry 96 100 100 Oxygen Delivery 05/09/24 06:00 05/09/24 09:59 05/09/24 07:54 Temperature 98.6 F 97.6 F Pulse Rate 50 L 75 Respiratory Rate 14 18 Blood Pressure 101/60 102/62 Pulse Oximetry 98 100 Oxygen Delivery Room Air Room Air 05/09/24 11:34 05/09/24 11:44 05/09/24 11:54 Temperature Pulse Rate 78 72 65 Respiratory Rate 18 18 20 Blood Pressure 81/47 L 91/60 L 106/77 Pulse Oximetry 98 98 100 Oxygen Delivery Room Air Room Air Room Air 05/09/24 12:30 Temperature 97.2 F L Pulse Rate 68 Respiratory Rate 20 Blood Pressure 100/63 Pulse Oximetry 100 Oxygen Delivery Intake/Output Intake/Output: Intake & Output 05/06/24 05/07/24 05/08/24 05/09/24 23:59 23:59 23:59 23:59 Intake Total 1100 2740 1780 1350 Output Total 900 Balance 1100 2740 880 1350 Meds/Results Medications: Active Medications Generic Name Dose Route Start Last Admin Trade Name Freq PRN Reason Stop Dose Admin Methylprednisolone Sodium Succinate 60 mg 05/07/24 10:15 05/09/24 07:58 Methylprednisolone Sod Succ 125 Mg Vial IV PUSH 60 mg DAILY KISHORE Administration Pantoprazole Sodium 40 mg 05/10/24 09:00 Pantoprazole 40 Mg Tablet PO DAILY [facility] Radiology Results: ITS Impressions Abdomen/Pelvis CT 05/06/24 20:00 IMPRESSION: Moderate esophagitis/gastritis. Severe segmental distal ileal enteritis, with findings concerning for wall breakdown and possible contained or imminent perforation Severe obstruction of the more proximal small bowel. No definite evidence of bowel wall ischemia noted at this time. Small volume ascites. Chest X-Ray 05/08/24 08:29 IMPRESSION: No acute cardiopulmonary pathology. Abdomen X-Ray 05/08/24 09:18 IMPRESSION: Early or incomplete obstruction. Other differential includes ileus and diarrhea. Clinical correlation and follow-up advised. Small Bowel X-Ray 05/08/24 14:54 IMPRESSION: 1. Progressive dilation of the distal small bowel most prominent at the terminal ileum but without delayed transit time to t
[2024-05-09] MEDS: IRON SUCROSE COMPLEX 100 MG in SODIUM CHLORIDE 0.9% IV 50 ML 220 MG IVPB (15:19)
[2024-05-10 04:16] VITALS: BP 110/74; PULSE 62; RESP 18; TEMP 36.4; O2SAT 100
[2024-05-10 08:00] VITALS: O2SAT 100
[2024-05-10] MEDS: PANTOPRAZOLE 40 MG TABLET PO (08:20)
[2024-05-10] MEDS: predniSONE 20 MG TABLET 40 MG PO (08:20)
--- NOTE | 2024-05-10 11:09 | PCNFU ---
Nutrition Follow-Up Complete: Inadequate energy intake related to NPO status as evidenced by diet order. Goal:Diet order with tolerance pt meeting goal, continue with diet advancement Pt current nutrition is Clear liquids to advance to full liquids at lunch. Nutrition recommendation: Add Ensure Enlive BID, chocolate Last recorded weight is 51 kg. Bowel Motility: +BM 05/09 Labs Reviewed: No new labs Meds Noted: prednison, protonix Skin: WNL Additional Notes: Pt diet advanced to clears, tolerating well, pt in pleasant mood during assessment, eager to advance to full liquids and willing to try Ensure Enlive for supplement. Prefers chocolate flavor. Encourage po intake. Monitor diet orders, intake, tolerance, wt, labs. Follow up in 3 days.
--- NOTE | 2024-05-10 12:19 | PM.DS ---
DS: Admitting Diagnosis Discharge Date 05/10/24 Admitting Diagnosis Small bowel obstruction Enteritis DS: Discharge Diagnosis Discharge Diagnosis (1) Crohn's disease: Code(s): K50.90 - Crohn's disease, unspecified, without complications Status: Acute (2) SBO (small bowel obstruction): Code(s): K56.609 - Unspecified intestinal obstruction, unspecified as to partial versus complete obstruction Status: Acute (3) Enteritis: Code(s): K52.9 - Noninfective gastroenteritis and colitis, unspecified Status: Acute DS: Summary Hospital Course Reason for hospitalization: This is a 18-year-old male who presented to the emergency department complaining severe abdominal pain, obstipation, nausea and vomiting. The patient was treated for H pylori a few months ago. Workup in the ED showed CT evidence of segmental distal ileal enteritis with possible contained or immanent perforation and small bowel obstruction. He was admitted in this setting. Hospital Course: He was admitted and started on broad-spectrum IV antibiotics for the enteritis. Findings on CT are concerning for Crohn's disease and GI was consulted for the enteritis. He was started on IV steroids as well. Small bowel obstruction was treated conservatively with NG tube decompression, bowel rest, and IV fluids. After decompression, he had a small bowel follow through that still showed some dilated small bowel but normal transit to the colon. He then had a colonoscopy on 05/09/24 that showed severe localized Crohn's disease in the terminal ileum, cecum, and proximal ascending colon with a deformed ileocecal valve. He also was found to have polyps which were biopsied. His NG tube was then removed and his diet has been advanced as tolerated. His bowels are moving and he is tolerating a diet well today. No longer having any abdominal pain. No nausea or vomiting. He is stable for discharge today. GI will follow-up with the patient as an outpatient. Status at Discharge Functional status at discharge: independent ambulation Overall status at discharge: patient is back to baseline Time Spent with Patient Time attestation: Total time spent providing and/or coordinating discharge services: Time spent: Greater than 30 minutes Exam Const: General: comfortable and no acute distress GI: Inspection: non-distended GI Palp: Yes Soft to palpation, No Tenderness to palpation present (GI), No Guarding due to palpation present (GI) and No Rebound tenderness present Auscultation: normal bowel sounds DS: Data Data Completed and Pending Completed studies during hospitalization: Pending at discharge 05/09/24 11:36 Surgical [PTH] Routine Labs on day of discharge: Labs from last 24 hours 05/07/24 18:00 TB Test (QFT) Gold Plus Indeterminate A TB Test (QFT) Nil 0.03 TB Test Mitogen - Nil 0.17 TB Test Ag - Nil 1 0.00 TB Test Ag - Nil 2 0.00 Procedures/Treatments: Procedures Operation Date: 05/09/24 11:00 Actual Procedure Side Surgeon p Colonoscopy- Cecal Bx's, cold biopsy forceps; Bx's ascending colon, cold biopsy forceps Ga Ramos MD Imaging Radiologist's impression: ITS Impressions Abdomen/Pelvis CT 05/06/24 20:00 IMPRESSION: Moderate esophagitis/gastritis. Severe segmental distal ileal enteritis, with findings concerning for wall breakdown and possible contained or imminent perforation Severe obstruction of the more proximal small bowel. No definite evidence of bowel wall ischemia noted at this time. Small volume ascites. Abdomen X-Ray 05/06/24 21:47 IMPRESSION: Shallow positioning of the NG tube, consider 6 cm advancement. Abdomen X-Ray 05/07/24 05:53 Impression: NG tube in satisfactory position. Chest X-Ray 05/08/24 08:29 IMPRESSION: No acute cardiopulmonary pathology. Abdomen X-Ray 05/08/24 09:18 IMPRESSION: Early or incomplete obstruction. Other differential inc
[2024-05-10 14:00] VITALS: BP 107/68; PULSE 96; RESP 14; TEMP 37.1; O2SAT 99
[2024-05-14 12:03] LABS: TPMT Activity 17
== END 2024-05-10 15:06 | disposition home or self-care (01) | DRG 245 ==
LOC: ANHED 20:40 → ANH3MEDSUR 21:22
PROVIDERS: Emergency Medicine; Internal Medicine Gastroenterology; Nurse Practitioner Family; Admitting Provider Surgery; Emergency Provider Student in an Organized Health Care Education/Training Program; Visit Provider Surgery
PROC: 0DJD8ZZ Inspection of Lower Intestinal Tract, Via Natural or Artificial Opening Endoscopic (ICD-10-PCS; CPT 45378; principal; 2024-05-09 11:00)
DX: K50.912 Crohn's disease, unspecified, with intestinal obstruction (principal); K52.9 Noninfective gastroenteritis and colitis, unspecified; K63.5 Polyp of colon; D50.9 Iron deficiency anemia, unspecified; K21.9 Gastro-esophageal reflux disease without esophagitis
CPT/HCPCS: 36415; 71046; 74019; 74177; 74250; 80048; 80053; 81001; 82657; 83540; 83550; 83605; 83690; 85025; 85027; 85652; 86140; 86480; 86705; 86706; 86803; 87340; 88305; 96361; 96374; 96375; 99285; A9270; J0696; J1171; J1756; J1836; J2003; J2405; J2470; J2704; J2919; J7030; J7120; J7512; Q9967

== ENCOUNTER 2024-05-22 08:33 | Outpatient (CLI) | payer MEDICAID, SELFPAY ==
[2024-05-22 09:29] LABS: Hematocrit 31.3 % (42.0-52.0); Hemoglobin 9.3 g/dL (14.0-18.0); Mean Corpuscular HGB Conc 29.7 g/dl (32-36); Mean Corpuscular Hemoglobin 24.2 pg (26-34); Mean Corpuscular Volume 81.5 fl (80-100); Mean Platelet Volume 10.6 fl (7.4-10.4); Platelet Count Result 277 k/mm3 (150-375); Red Blood Count 3.84 M/mm3 (4.6-6.20); Red Cell Distribution Width 16.6 % (11.5-14.5); White Blood Count 8.9 K/mm3 (4.5-10.0)
[2024-05-22 09:56] LABS: Alanine Aminotransferase 12 U/L (6-50); Albumin Level 3.6 g/dL (3.7-5.6); Alkaline Phosphatase 83 U/L (58-237); Anion Gap 7 mmol/L (4-12); Aspartate Amino Transferase 14 U/L (17-59); Bilirubin,Total 0.5 mg/dL (0.2-1.3); Blood Urea Nitrogen 9 mg/dL (8-21); Calcium 8.8 mg/dL (8.9-10.7); Carbon Dioxide 27 mmol/L (22-30); Chloride 104 mmol/L (98-107); Estimated Glomerular Filt Rate > 60; Glucose 91 mg/dL (65-110); Potassium 3.2 mmol/L (3.4-5.0); Sodium 138 mmol/L (134-143)
[2024-05-22 10:07] LABS: Iron 29 ug/dL (49-181)
[2024-05-22 10:18] LABS: Percent Iron Saturation 9 % (20-50)
== END 2024-05-22 08:34 | disposition home or self-care (01) ==
LOC: ANHLAB 08:34
PROVIDERS: Visit Provider Internal Medicine Gastroenterology
DX: K50.90 Crohn's disease, unspecified, without complications (principal)
CPT/HCPCS: 36415; 80053; 83540; 83550; 85027

== ENCOUNTER 2024-06-07 14:38 | Inpatient (IN) | payer MEDICAID, SELFPAY ==
[2024-06-07] VITALS (11 sets, daily range): BP systolic 101–130; BP diastolic 66–84; PULSE 108–140; RESP 13–20; TEMP 36.6–36.9; O2SAT 96–100
--- NOTE | ~2024-06-07 | XR_ITS ---
EXAMINATION: XR abdomen/kub 1V DATE: 06/09/2024 05:52 INDICATION: Small bowel obstruction. TECHNIQUE: A supine view of the abdomen on 2 radiographs was obtained. COMPARISON: Small bowel series 05/08/2024 FINDINGS: There are no dilated loops of bowel. The nasogastric tube tip is in the stomach. IMPRESSION: 1. Normal bowel gas pattern. Reviewed, dictated and finalized at location A. [employer] VENDOR
--- NOTE | ~2024-06-07 | XR_ITS ---
Exam: Abdomen 1V HISTORY: NG placement COMPARISON: None. TECHNIQUE: Supine images of the lower chest and upper abdomen FINDINGS: Nasogastric tube projects over the left upper quadrant, presumably within the stomach. IMPRESSION: Nasogastric tube in good position and ready for immediate use. Reviewed, dictated and finalized at location A. [employer]TE[employer] SUPERINTENDENT
--- NOTE | ~2024-06-07 | CT_ITS ---
CLINICAL INDICATION: 18-year-old gentleman with a history of Crohn's disease presents to the emergenc y department with abdominal pain, nausea and vomiting COMPARISON: 05/06/2024. TECHNIQUE: Multiple contiguous axial images of the abdomen and pelvis were performed following the ad ministration of with 100 mL Omnipaque-350 intravenous contrast The dose-length product (DLP) was 222.90 mGy-cm. Automated exposure control and iterative reconstruction technique were employed. FINDINGS/OBSERVATIONS: Visualized lower thorax: The bilateral lung bases are clear. The heart is of normal size, without pericardial effusion. Small hiatal hernia is present. Liver: The liver enhances homogeneously and is not enlarged measuring 16 cm in longitudinal dimension Gallbladder and biliary system: The gallbladder is only minimally distended, and otherwise unremarkable. Pancreas: The pancreas enhances homogeneously without ductal dilatation. Spleen: The spleen enhances homogeneously and is not enlarged measuring 8 cm in longitudinal dimension. Kidneys: The bilateral kidneys enhance symmetrically without hydronephrosis or renal calculi. Adrenal glands: Unremarkable. Gastrointestinal tract: Multiple loops of fluid-filled small bowel are identified with mural thickening and surrounding infla mmatory change consistent with high-grade small bowel obstruction. Mural thickening with hyperemic ryne wel wall and surrounding formation is identified within the distal small bowel suggesting a transitio n point in this location. Appendix: Appendix not seen Vasculature: Unremarkable. Lymph nodes: No pathologically enlarged or morphologically suspicious lymph nodes within the retroperitoneum or at the root of the mesentery. Pelvic structures: The bladder is decompressed and otherwise unremarkable. The prostate gland is not enlarged. Body wall and musculoskeletal: No significant degenerative disease within the lower thoracic or lumbosacral spine. IMPRESSION: High-grade small bowel obstruction with the transition point in the distal small bowel, as detailed a lino. Reviewed, dictated and finalized at location A. [place] MANAGER IMPRESSION: High-grade small bowel obstruction with the transition point in the distal smal l bowel, as detailed above.
--- NOTE | ~2024-06-07 | CT_ITS ---
Clinical indication:Indeterminate quantiferon. Latent TB suspected clinically. COMPARISON:Reference was made to plain film evaluation of the chest dated 05/08/2024 TECHNIQUE: Multiple contiguous axial images of the chest were performed following the administration of intravenous contrast. FINDINGS: LUNG:The bilateral lung brewer are clear. MEDIASTINUM:Mediastinum is unremarkable, without lymphadenopathy. HEART:The heart is of normal size, without pericardial effusion SOFT TISSUES OF THE CHEST: Unremarkable BONES OF THE CHEST: Unremarkable VISUALIZED PORTION OF THE UPPER ABDOMEN: Nasogastric tube within the stomach. Vicarious excretion of contrast into the gallbladder. IMPRESSION: Unremarkable CT examination of the chest, as detailed above. Reviewed, dictated and finalized at location A. UMER INSIGHT MANAGER
--- NOTE | 2024-06-07 15:04 | ED.ABDPAIN ---
HPI - Abdominal Pain General Chief Complaint: Abdominal Pain <Rhea Powers PA-C - Last Filed: 06/07/24 15:05> Stated Complaint: abd pain, n/v <Rhea Powers PA-C - Last Filed: 06/07/24 15:05> Time Seen by Provider: 06/07/24 18:20 <Rhea Powers PA-C - Last Filed: 06/07/24 15:05> Focused HPI: 18-year-old male with history of GERD presents to the emergency department for nausea, vomiting and diffuse abdominal pain that started 1 day ago. Patient denies prior abdominal surgeries, fever, diarrhea, dysuria or hematuria. Last bowel movement was yesterday normal. Denies alcohol or drug use. GENERAL: Well-appearing, well-nourished, and in no acute distress. HEAD: Normocephalic, atraumatic. CHEST: Clear to auscultation. ?No respiratory distress. ABD: Diffuse abdominal tenderness with voluntary guarding. No rebound or rigidity. HEART: Regular rate and rhythm.? NEURO: ?Alert and oriented x3. Patient screened in triage and initial orders placed.? ?Additional care and disposition to be based upon?diagnostic testing and treatment. <Rhea Powers PA-C - Last Filed: 06/07/24 15:05> Focused HPI: 18-year-old male with history of GERD presents to the emergency department for nausea, vomiting and diffuse abdominal pain that started 1 day ago. Patient denies prior abdominal surgeries, fever, diarrhea, dysuria or hematuria. Last bowel movement was yesterday normal. Denies alcohol or drug use. GENERAL: Well-appearing, well-nourished, and in no acute distress. HEAD: Normocephalic, atraumatic. CHEST: Clear to auscultation. ?No respiratory distress. ABD: Diffuse abdominal tenderness with voluntary guarding. No rebound or rigidity. HEART: Regular rate and rhythm.? NEURO: ?Alert and oriented x3. Patient screened in triage and initial orders placed.? ?Additional care and disposition to be based upon?diagnostic testing and treatment. <Elenita Abrams PA-C - Last Filed: 06/07/24 23:06> Source: patient <CHRISTELLE VaughnC - Last Filed: 06/07/24 23:06> Mode of arrival: ambulatory <Elenita Abrams PA-C - Last Filed: 06/07/24 23:06> Limitations: no limitations <Elenita Abrams PA-C - Last Filed: 06/07/24 23:06> History of Present Illness HPI narrative: Agree with above HPI. States pain began yesterday and became significantly worse today. Present throughout periumbilical and right lower abdomen. Patient reports he is being worked up for Crohn's disease. Is on prednisone. Sees Dr. Ramos. Denies rectal bleeding. <Elenita Abrams PA-C - Last Filed: 06/07/24 23:06> Related Data Allergies/Adverse Reactions: Allergies Allergy/AdvReac Type Severity Reaction Status Date / Time No Known Allergies Allergy Verified 05/22/24 08:01 <Rhea Powers PA-C - Last Filed: 06/07/24 15:05> Review of Systems Review of Systems: All systems reviewed & are unremarkable except as noted in HPI. <Elenita Abrams PA-C - Last Filed: 06/07/24 23:06> All systems reviewed & are unremarkable except as noted in HPI and below <Elenita Abrams PA-C - Last Filed: 06/07/24 23:06> [facility] Social History Social History: Social History Smoking status: Never smoker Alcohol intake: never Substance use: never Substance use type: does not use Do You Feel Safe in your Home?: Yes Lack of Transportation: No Lack of Food: Never True Current Housing: I Have Housing Concerned About Future Housing: No Difficulty Paying Gas/Electric Bills: No Difficulty Paying for Meds: No Currently Unemployed: No Education: High School Diploma/GED Difficulty w/ Childcare or Family Care: No Spiritual care concerns: No <Rhea Powers PA-C - Last Filed: 06/07/24 15:05> Exam Narrative: GENERAL: Mildly uncomfortable appearing, thin, non-toxic, in no acute distress. HEAD: Normocephalic, atraumatic. RESPIRATORY: Airway patent, respirations nonlabored. Clear to auscultation bilaterally, no rales, rhonchi, wheezing. CARDIOVASCULAR: Tachycardic with regular rhythm without murmurs, rubs, or gallops. ABDOMINAL: Soft, diffuse tenderness throughout abdomen, TTP in LLQ/periumbilical region/RLQ. Nondistended. Mild hypoactive BS. MUSCULOSKELETAL: Moves all extremities. No gross deformities. SKIN: Warm, dry, normal color. NEURO: A&O X3. Speech clear. PSYCHIATRIC: Appropriate mood and affect. Normal interaction. <AGNIESZKA Vaughn Last Filed: 06/07/24 23:06> Course Vital Signs Vital signs: Vital Signs Temperature 98.4 F 06/07/24 15:00 Pulse Rate 130 H 06/07/24 15:00 Respiratory Rate 18 06/07/24 15:00 Blood Pressure 101/66 06/07/24 15:00 Pulse Oximetry 100 06/07/24 15:00 Oxygen Delivery Room Air 06/07/24 15:00 Temperature 97.9 F 06/07/24 18:07 Pulse Rate 123 H 06/07/24 21:28 Respiratory Rate 13 06/07/24 21:28 Blood Pressure 126/81 06/07/24 21:28 Pulse Oximetry 99 06/07/24 21:28 Oxygen Delivery Room Air 06/07/24 19:24 <AGNIESZKA Mejia Last Filed: 06/07/24 15:05> Vital Signs Temperature 98.4 F 06/07/24 15:00 Pulse Rate 130 H 06/07/24 15:00 Respiratory Rate 18 06/07/24 15:00 Blood Pressure 101/66 06/07/24 15:00 Pulse Oximetry 100 06/07/24 15:00 Oxygen Delivery Room Air 06/07/24 15:00 Temperature 97.9 F 06/07/24 18:07 Pulse Rate 123 H 06/07/24 21:28 Respiratory Rate 13 06/07/24 21:28 Blood Pressure 126/81 06/07/24 21:28 Pulse Oximetry 99 06/07/24 21:28 Oxygen Delivery Room Air 06/07/24 19:24 <AGNIESZKA Vaughn Last Filed: 06/07/24 23:06> MDM - Abdominal Pain MDM Narrative Medical decision making narrative: Patient presented to ED with lower abdomen/periumbilical pain that began yesterday, worsening today, associated with nausea, vomiting. Patient is tachycardic upon arrival into the 130s and 140s. He is afebrile here. Resting fairly comfortably upon my exam with but diffuse tenderness on exam. Fluids initiated. Pain and nausea medicine given. Laboratory studies show marked leukocytosis of 23.5. Neutrophil predominance. 7% bands. Patient has been on steroids recently, likely at least contributing to this. Likely hemoconcentration with elevated hemoglobin and thrombocytosis. Fluids ongoing. CMP with anion gap of 14. Otherwise unremarkable. Normal electrolytes. Normal LFTs and lipase. Urinalysis with elev SG and 1+ ketones, fluids ongoing. CT scan of abdomen/pelvis was obtained and showing SBO with transition point. Consistent with clinical picture. Patient reports last bowel movement was yesterday and was small. He does report he was diagnosed with Crohn's only last month when he also had a SBO. He was seen here by surgery and GI. Will place NG tube and admit for further evaluation. Given profound leukocytosis, Zosyn was started in the ED. Blood cultures were obtained. Lactic acid is elevated to 2.8. Fluids ongoing. Patient is meeting sepsis criteria. Discussed case with Iveth WILSON hospitalist, accepted patient for admission. Discussed case with Dr. Wagn, general surgery, will consult. Advised will need GI on board. Discussed case with Dr. Paul, GI, will consult. No recommendation for steroids at this time. Will see tomorrow. Patient is in agreement with plan and need for admission. I discussed findings with patient's mother via phone as well. All questions answered at this time. <Elenita Abrams PA-C - Last Filed: 06/07/24 23:06> Medical Records Attestation: I reviewed the patient's medical records. <Elenita Abrams PA-C - Last Filed: 06/07/24 23:06> Lab Data Attestation: I reviewed the patient's lab results. <Elenita Abrams PA-C - Last Filed: 06/07/24 23:06> Result diagrams: 06/07/24 19:37 06/07/24 19:37 <Rhea Powers PA-C - Last Filed: 06/07/24 15:05> Labs: Lab Results 06/07/24 06/07/24 06/07/24 Range/Units 19:37 20:23 21:43 WBC 23.5 H (4.5-10.0) K/mm3 RBC 5.15 (4.6-6.20) M/mm3 Hgb 12.2 L (14.0-18.0) g/dL Hct 40.0 L (42.0-52.0) % MCV 77.7 L (80-100) fl MCH 23.7 L (26-34) pg MCHC 30.5 L (32-36) g/dl RDW 15.9 H (11.5-14.5) % Plt Count 656 H D (150-375) k/mm3 MPV 8.3 (7.4-10.4) fl Immature Gran % (Auto) Not Reportable Neut % (Auto) Not Reportable Lymph % (Auto) Not Reportable [place] % (Auto) Not Reportable Eos % (Auto) Not Reportable Baso % (Auto) Not Reportable Lymph # (Auto) Not Reportable [place] # (Auto) Not Reportable Eos # (Auto) Not Reportable Baso # (Auto) Not Reportable Abs Immat Gran (auto) Not Reportable Absolute Neuts (auto) Not Reportable Absolute Nucleated RBC Not Reportable Total Counted 100 Neutrophils % (Manual) 84 H (46-73) % Band Neutrophils % 7 H (0-6) % Lymphocytes % (Manual) 3.0 L (18-44) % Monocytes % (Manual) 5 (3-9) % Basophils % (Manual) 1 (0-1) % Nucleated RBC % Not Reportable Abs Neuts (Manual) 21.38 H (1.3-6.7) K/mm3 Abs Lymphs (Manual) 0.70 L (1.1-4.5) K/mm3 Abs Monocytes (Manual) 1.17 H (0.1-0.90) K/mm3 Abs Basophils (Manual) 0.23 H (0.0-0.1) K/mm3 Platelet Estimate Increased (Adequate) Hypochromasia 1+ Anisocytosis 1+ Schistocytes None seen Sodium 136 (134-143) mmol/L Potassium 5.0 (3.4-5.0) mmol/L Chloride 97 L (98-107) mmol/L Carbon Dioxide 25 (22-30) mmol/L Anion Gap 14 H (4-12) mmol/L BUN 14 D (8-21) mg/dL Creatinine 0.70 (0.7-1.3) mg/dL Estim Creat Clear Calc 111 ml/min Estimated GFR > 60 (59 - ) Glucose 106 (65-110) mg/dL Lactic Acid 2.8 H (0.7-2.0) mmol/L Calcium 9.2 (8.9-10.7) mg/dL Magnesium 2.1 (1.6-2.3) mg/dL Total Bilirubin 0.5 (0.2-1.3) mg/dL AST 20 (17-59) U/L ALT 11 (6-50) U/L Alkaline Phosphatase 98 (58-237) U/L Total Protein 8.0 (6.3-8.6) g/dL Albumin 4.3 (3.7-5.6) g/dL Lipase 28 (23-300) U/L Urine Color Dark yellow (Yellow) Urine Appearance Cloudy H (Clear) Urine pH 5.5 (5.0-9.0) Ur Specific [place] 1.039 H (1.001-1.035) Urine Protein 1+ H (Negative) mg/dL Urine Glucose (UA) Negative (Negative) mg/dL Urine Ketones 1+ H (Negative) mg/dL Ur Blood (Man) Trace (Negative) Urine Nitrate Negative (Negative) Urine Bilirubin 2+ H (Negative) Urine Urobilinogen 1.0 (<2.0) mg/dL Leukocyte Esterase Rfl Negative (Negative) LEISA/UL Urine RBC 3-5 H (0-2) /hpf Urine WBC 0-5 (0-3) /hpf Ur Squamous Epith Cells Few (Few) /hpf Urine Bacteria 1+ /hpf Urine Casts ---- <Rhea Powers PA-C - Last Filed: 06/07/24 15:05> Lab Results 06/07/24 06/07/24 06/07/24 Range/Units 19:37 20:23 21:43 WBC 23.5 H (4.5-10.0) K/mm3 RBC 5.15 (4.6-6.20) M/mm3 Hgb 12.2 L (14.0-18.0) g/dL Hct 40.0 L (42.0-52.0) % MCV 77.7 L (80-100) fl MCH 23.7 L (26-34) pg MCHC 30.5 L (32-36) g/dl RDW 15.9 H (11.5-14.5) % Plt Count 656 H D (150-375) k/mm3 MPV 8.3 (7.4-10.4) fl Immature Gran % (Auto) Not Reportable Neut % (Auto) Not Reportable Lymph % (Auto) Not Reportable [place] % (Auto) Not Reportable Eos % (Auto) Not Reportable Baso % (Auto) Not Reportable Lymph # (Auto) Not Reportable [place] # (Auto) Not Reportable Eos # (Auto) Not Reportable Baso # (Auto) Not Reportable Abs Immat Gran (auto) Not Reportable Absolute Neuts (auto) Not Reportable Absolute Nucleated RBC Not Reportable Total Counted 100 Neutrophils % (Manual) 84 H (46-73) % Band Neutrophils % 7 H (0-6) % Lymphocytes % (Manual) 3.0 L (18-44) % Monocytes % (Manual) 5 (3-9) % Basophils % (Manual) 1 (0-1) % Nucleated RBC % Not Reportable Abs Neuts (Manual) 21.38 H (1.3-6.7) K/mm3 Abs Lymphs (Manual) 0.70 L (1.1-4.5) K/mm3 Abs Monocytes (Manual) 1.17 H (0.1-0.90) K/mm3 Abs Basophils (Manual) 0.23 H (0.0-0.1) K/mm3 Platelet Estimate Increased (Adequate) Hypochromasia 1+ Anisocytosis 1+ Schistocytes None seen Sodium 136 (134-143) mmol/L Potassium 5.0 (3.4-5.0) mmol/L Chloride 97 L (98-107) mmol/L Carbon Dioxide 25 (22-30) mmol/L Anion Gap 14 H (4-12) mmol/L BUN 14 D (8-21) mg/dL Creatinine 0.70 (0.7-1.3) mg/dL Estim Creat Clear Calc 111 ml/min Estimated GFR > 60 (59 - ) Glucose 106 (65-110) mg/dL Lactic Acid 2.8 H (0.7-2.0) mmol/L Calcium 9.2 (8.9-10.7) mg/dL Magnesium 2.1 (1.6-2.3) mg/dL Total Bilirubin 0.5 (0.2-1.3) mg/dL AST 20 (17-59) U/L ALT 11 (6-50) U/L Alkaline Phosphatase 98 (58-237) U/L Total Protein 8.0 (6.3-8.6) g/dL Albumin 4.3 (3.7-5.6) g/dL Lipase 28 (23-300) U/L Urine Color Dark yellow (Yellow) Urine Appearance Cloudy H (Clear) Urine pH 5.5 (5.0-9.0) Ur Specific [place] 1.039 H (1.001-1.035) Urine Protein 1+ H (Negative) mg/dL Urine Glucose (UA) Negative (Negative) mg/dL Urine Ketones 1+ H (Negative) mg/dL Ur Blood (Man) Trace (Negative) Urine Nitrate Negative (Negative) Urine Bilirubin 2+ H (Negative) Urine Urobilinogen 1.0 (<2.0) mg/dL Leukocyte Esterase Rfl Negative (Negative) LEISA/UL Urine RBC 3-5 H (0-2) /hpf Urine WBC 0-5 (0-3) /hpf Ur Squamous Epith Cells Few (Few) /hpf Urine Bacteria 1+ /hpf Urine Casts ---- <Elenita Abrams PA-C - Last Filed: 06/07/24 23:06> Imaging Data Attestation: I personally reviewed and interpreted this imaging study as follows: <Elenita Abrams PA-C - Last Filed: 06/07/24 23:06> Radiologist's impression: ITS Impressions Abdomen/Pelvis CT 06/07/24 21:16 IMPRESSION: High-grade small bowel obstruction with the transition point in the distal small bowel, as detailed above. Abdomen X-Ray 06/07/24 22:26 IMPRESSION: Nasogastric tube in good position and ready for immediate use. <AGNIESZKA Mejia Last Filed: 06/07/24 15:05> ITS Impressions Abdomen/Pelvis CT 06/07/24 21:16 IMPRESSION: High-grade small bowel obstruction with the transition point in the distal small bowel, as detailed above. Abdomen X-Ray 06/07/24 22:26 IMPRESSION: Nasogastric tube in good position and ready for immediate use. <AGNIESZKA Vaughn Last Filed: 06/07/24 23:06> Discharge Plan Discharge Clinical Impression: SBO (small bowel obstruction), Crohn's disease, Sepsis <AGNIESZKA Mejia Last Filed: 06/07/24 15:05> Patient Disposition: Still a Patient <AGNIESZKA Mejia Last Filed: 06/07/24 15:05> Condition: Serious <AGNIESZKA Mejia Last Filed: 06/07/24 15:05> Prescriptions: No Action prednisone 20 mg Tablet 40 mg PO DAILY@0800 14 Days Qty: 30 0RF omeprazole 20 mg capsule,delayed release(DR/EC) 20 mg PO DAILY PRN (Reason: Indigestion) Qty: 14 0RF <AGNIESZKA Mejia Last Filed: 06/07/24 15:05> Follow-up/Referrals: PHYSICIAN NOT ON STAFF,NONSTAFF [Non-Staff] - <AGNIESZKA Mejia Last Filed: 06/07/24 15:05>
--- NOTE | 2024-06-07 17:00 | PC.NURSE ---
Pt refusing IV, lab draw and UA at this time.
[2024-06-07] MEDS: SODIUM CHLORIDE 0.9% IV 1,000 ML 999 ML IV CONT ×2 (19:36→21:42)
[2024-06-07] MEDS: ONDANSETRON INJ 4 MG/2 ML VIAL IV PUSH (19:36)
[2024-06-07] MEDS: MORPHINE SULFATE (*CRX) 2 MG/ML INJ IV PUSH ×2 (19:36→21:42)
[2024-06-07 19:43] LABS: Hemoglobin 12.2 g/dL (14.0-18.0); Mean Corpuscular HGB Conc 30.5 g/dl (32-36); Mean Corpuscular Hemoglobin 23.7 pg (26-34); Mean Corpuscular Volume 77.7 fl (80-100); Mean Platelet Volume 8.3 fl (7.4-10.4); Platelet Count Result 656 k/mm3 (150-375); Red Blood Count 5.15 M/mm3 (4.6-6.20); Red Cell Distribution Width 15.9 % (11.5-14.5); White Blood Count 23.5 K/mm3 (4.5-10.0)
[2024-06-07 20:08] LABS: Anisocytosis 1+; Band Neutrophils Percent 7 % (0-6); Basophils Absolute Manual 0.23 K/mm3 (0.0-0.1); Basophils Percent Manual 1 % (0-1); Hypochromasia 1+; Monocytes Absolute Manual 1.17 K/mm3 (0.1-0.90); Monocytes Percent Manual 5 % (3-9); Neutrophils Absolute Manual 21.38 K/mm3 (1.3-6.7); Neutrophils Percent Manual 84 % (46-73); Platelet Estimate Increased (Adequate); Schistocytes None Seen; Total Cells Counted 100
[2024-06-07 20:12] LABS: Alanine Aminotransferase 11 U/L (6-50); Albumin Level 4.3 g/dL (3.7-5.6); Alkaline Phosphatase 98 U/L (58-237); Anion Gap 14 mmol/L (4-12); Aspartate Amino Transferase 20 U/L (17-59); Bilirubin,Total 0.5 mg/dL (0.2-1.3); Blood Urea Nitrogen 14 mg/dL (8-21); Calcium 9.2 mg/dL (8.9-10.7); Carbon Dioxide 25 mmol/L (22-30); Chloride 97 mmol/L (98-107); Estimated CRCL calculation 111 ml/min; Estimated Glomerular Filt Rate > 60; Glucose 106 mg/dL (65-110); Lipase 28 U/L (23-300); Magnesium 2.1 mg/dL (1.6-2.3); Sodium 136 mmol/L (134-143)
[2024-06-07 20:42] LABS: Add Urine Microscopic? YES; Appearance Urine Cloudy (Clear); Bilirubin Urine 2+ (Negative); Blood Urine Trace (Negative); Color Urine Dark Yellow (Yellow); Glucose Urine UA Negative (Negative); Ketones Urine 1+ mg/dL (Negative); Leukocyte Esterase Ur Negative LEU/UL (Negative); Nitrate Urine Negative (Negative); Protein Urine 1+ mg/dL (Negative); Specific Grav Ur 1.039 (1.001-1.035); pH Urine 5.5 (5.0-9.0)
[2024-06-07 20:43] LABS: Bacteria Urine 1+ /hpf; Squamous Epithelial Cell Urine Few /hpf (Few); WBC Urine 0-5 /hpf (0-3)
[2024-06-07] MEDS: LORazepam INJ (*CRX) 2 MG/ML VIAL 0.5 MG IV PUSH (22:10)
[2024-06-07] MEDS: HYDROmorphone HCL INJ (*CRX) 1 MG/ML SYR 0.5 MG IV PUSH (22:10)
[2024-06-07 22:13] LABS: Lactic Acid Reflex 2.8 mmol/L (0.7-2.0)
[2024-06-07] MEDS: PIPERACILLN/TAZ 3.375GM/NS50ML 3.375 GM/50 ML BAG IVPB (22:25)
[2024-06-08] VITALS (11 sets, daily range): BP systolic 104–133; BP diastolic 62–80; PULSE 94–133; RESP 12–20; TEMP 36.9–37.6; O2SAT 97–100; BMI 16.8; BMI 17.9
--- NOTE | 2024-06-08 00:32 | ADMGEN ---
This patient, Cortes Orellana, was admitted to 3 [facility] Surg Room 302-01. Patient/family oriented to hospital policies and general routines including ID bracelet, bed and alarms, visiting hours, pain management, procedures, bathroom and other care routines, personal items, smoking policy, room service/diet, and visiting hours. Information on how to activate the Rapid Response Team has been discussed. Patient/Family are encouraged to report perceived risks to care and to ask questions if they do not understand what they are told or what they should do.
[2024-06-08] MEDS: HYDROmorphone HCL INJ (*CRX) 1 MG/ML SYR IV PUSH ×3 (00:55→10:42)
[2024-06-08] MEDS: SODIUM CHLORIDE 0.9% IV 1,000 ML 100 ML IV CONT ×3 (01:00→22:03)
[2024-06-08 01:02] LABS: Reflex Lactic Acid Yes or No Add Lactic
[2024-06-08 03:38] LABS: Hematocrit 34.2 % (42.0-52.0); Hemoglobin 10.2 g/dL (14.0-18.0); Mean Corpuscular HGB Conc 29.8 g/dl (32-36); Mean Corpuscular Hemoglobin 23.2 pg (26-34); Mean Corpuscular Volume 77.7 fl (80-100); Mean Platelet Volume 8.6 fl (7.4-10.4); Platelet Count Result 566 k/mm3 (150-375); White Blood Count 17.6 K/mm3 (4.5-10.0)
[2024-06-08 03:45] LABS: Anion Gap 8 mmol/L (4-12); Blood Urea Nitrogen 13 mg/dL (8-21); Carbon Dioxide 24 mmol/L (22-30); Chloride 104 mmol/L (98-107); Estimated CRCL calculation 130 ml/min; Estimated Glomerular Filt Rate > 60; Glucose 100 mg/dL (65-110); Lactic Acid Reflex 1.4 mmol/L (0.7-2.0); Potassium 4.2 mmol/L (3.4-5.0); Sodium 136 mmol/L (134-143)
[2024-06-08] MEDS: PIPERACILLN/TAZ 3.375GM/NS50ML 3.375 GM/50 ML BAG IVPB ×2 (05:23→12:08)
--- NOTE | 2024-06-08 08:11 | P.PNIM_ITS ---
Progress Note: A&P Assessment and Plan (1) Sepsis: Qualifiers: Sepsis acute organ dysfunction status: unspecified Sepsis type: sepsis due to unspecified organism Qualified Code(s): A41.9 - Sepsis, unspecified o rganism Code(s): A41.9 - Sepsis, unspecified organism Status: Acute Assessment and Plan: Patient initially meeting sepsis criteria with heart rate of 130, initial white blood cell count 23.5 with bandemia, lactic acidosis with a lactic acid level of 2.8, enteritis with history of Crohn's disease-here with Crohn's flare up. Patient was given IV fluids while in the ED and lactic acid improved back to baseline however patient remained tachycardic. * Continue Zosyn * Continue IV fluids * Blood cultures were obtained and are pending * White blood cell count today down to 17.6, likely reactive * Procalcitonin 0.4 (2) SBO (small bowel obstruction): Code(s): K56.609 - Unspecified intestinal obstruction, unspecified as to partial versus complete obstruction Status: Acute Assessment and Plan: * CT of the abdomen and pelvis show high-grade small bowel obstruction with a transition point in the distal small bowel. Multiple loops of fluid-filled small bowel with moral thickening and surrounding inflammatory changes seen. * Discontinue Zosyn as white blood cell count is likely reactive due to Crohn's disease and procalcitonin is less than 0.5 * GI consulted * General surgery consulted * NG tube to low intermittent suction * Continue NPO status * Continue pain and nausea control (3) Crohn's disease: Qualifiers: Digestive disease complication type: with intestinal obstruction Gastrointestinal tract location: unspecified location Qualified Code(s): K50.912 - Crohn's disease, unspecified, with intestinal obstruction Code(s): K50.90 - Crohn's disease, unspecified, without complications Status: Acute Assessment and Plan: * Hold prednisone * Continue Solu-Medrol 60 mg IV push daily per GI recommendation * GI consulted (4) Enteritis: Code(s): K52.9 - Noninfective gastroenteritis and colitis, unspecified Status: Acute Assessment and Plan: * See above for detail, likely secondary to Crohn's (5) Anemia: Qualifiers: Anemia type: iron deficiency Iron deficiency anemia type: unspecified iron deficiency Qualified Code(s): D50.9 - Iron deficiency anemia, unspecified Code(s): D64.9 - Anemia, unspecified Status: Chronic Assessment and Plan: * Hemoglobin currently 10.2 * Appears to be chronic * Labs from 05/22/2024 showing iron level of 29 * Will check vitamin B12, folic acid, ferritin today * TSH 3.100 Time Spent With Patient Time with patient: 25 - 35 minutes Subjective Date/time seen: 06/08/24 08:11 Interval history: Interval history: This is a 18-year-old male who presented to the hospital on 06/07/2024 with complaints of diffuse abdominal pain that started 1 day ago. Patient has histor y of Crohn's disease and is already on prednisone 40 mg daily. He is a patient of Dr. Ramos. Workup in the hospital included an abdomen/pelvis CT which shows high-grade small-bowel obstruction with a transition point in the distal small bowel. NG tube was placed. Initial labs showed a white blood cell count of 23.5 with bandemia, hemoglobin 12.2, platelet count 656, anion gap 14, creatinine 0.7. UA was obtained which showed cloudy urine appearance, urine specific gravity of 1.039, 1+ urine protein, 1+ urine ketone, 2+ urine bili, 3-5 urine RBC, 1+ bacteria. Lactic acid 2.8> 1.4. Blood cultures were obtained and are pending. Patient was given IV fluids, antiemetics, pain medication, and started on Zosyn while in the ED. GI and General surgery was consulted. Subjective: Patient denies any fever, chills, nausea, vomiting, diarrhea, abdominal pain, chest pain, shortness a breath. Patient endorses passing gas and having bowel movements today. Labs and imaging reviewed. Review of Systems Review of Systems: All systems reviewed & are unremarkable except as noted in HPI and below Constitutional: Constitutional: Reports as per HPI and Reports no additional constitutional complaints Eyes: Eyes: Reports as per HPI and Reports no additional eye complaints ENT: Reports system reviewed and no additional complaints, except as documented and Reports as per HPI Cardiovascular: Cardiovascular: Reports as per HPI and Reports no additional cardiovascular complaints Respiratory: Respiratory: Reports as per HPI and Reports no additional respiratory complaints Gastrointestinal: Gastrointestinal: Reports as per HPI and Reports no additional gastrointestinal complaints Genitourinary: Genitourinary: Reports no additional male genitourinary complaints and Reports as per HPI Musculoskeletal: Musculoskeletal: Reports no additional musculoskeletal complaints and Reports as per HPI Integumentary/Breasts: Skin/Breast: Reports system reviewed and no additional complaints, except as docu and Reports as per HPI Neurologic: Reports system reviewed and no additional complaints, except as documented and Reports as per HPI Psychiatric: Psychiatric: Reports no additional psychiatric complaints and Reports as per HPI Exam Narrative: General: In no acute distress, malnourished Head: atraumatic, no encephalopathy Eyes: PERRLA, sclera clear ENT: moist mucous membranes, nasal passages clear Neck: supple, no JVD, no adenopathy, trachea midline Cardiac: Normal S1 and S2. RRR, No murmur, gallops or friction rubs, peripheral pulses intact. Respiratory: Lungs clear to auscultation, no adventitious lung sounds, currently on room air Gastrointestinal: soft, non-distended, non-tender, normoactive bowel sounds. NG tube to low intermittent suction bilious fluid in tubing : voiding without difficulty. Extremities: moves all extremities well, no edema, good ROM, strength 5/5 Skin: clean, dry, intact. No wounds or lesions. Neuro: Alert and oriented x4, cranial nerves intact, no neuro deficits. Psych: normal mood, normal affect, interactive Objective Data Vital Signs Vital Signs: Vital Signs - 24 hr 06/07/24 15:00 06/07/24 18:07 06/07/24 19:24 Temperature 98.4 F 97.9 F Pulse Rate 130 H 140 H 125 H Respiratory Rate 18 20 14 Blood Pressure 101/66 130/84 101/66 Pulse Oximetry 100 96 100 Oxygen Delivery Room Air Room Air 06/07/24 18:31 06/07/24 19:12 06/07/24 19:15 Temperature Pulse Rate 122 H 118 H 119 H Respiratory Rate 20 20 20 Blood Pressure 104/79 Pulse Oximetry 100 98 99 Oxygen Delivery 06/07/24 19:16 06/07/24 20:00 06/07/24 20:15 Temperature Pulse Rate 121 H 108 H 121 H Respiratory Rate 18 18 20 Blood Pressure 101/66 Pulse Oximetry 99 99 100 Oxygen Delivery 06/07/24 21:14 06/07/24 21:28 06/08/24 00:00 Temperature Pulse Rate 118 H 123 H 114 H Respiratory Rate 20 13 17 Blood Pressure 126/81 133/79 Pulse Oximetry 99 99 98 Oxygen Delivery 06/08/24 00:31 06/08/24 03:40 06/08/24 04:50 Temperature 98.7 F 99.1 F Pulse Rate 118 H 122 H Respiratory Rate 20 18 Blood Pressure 125/80 104/62 Pulse Oximetry 99 97 Oxygen Delivery Room Air 06/08/24 04:00 Temperature Pulse Rate 108 H Respiratory Rate Blood Pressure Pulse Oximetry Oxygen Delivery Intake/Output Intake/Output: Intake & Output 06/05/24 06/06/24 06/07/24 06/08/24 23:59 23:59 23:59 23:59 Intake Total 2049 0 Balance 2049 0 Meds/Results Medications: Active Medications Generic Name Dose Route Start Last Admin Trade Name Freq PRN Reason Stop Dose Admin Acetaminophen 650 mg 06/07/24 22:30 Acetaminophen 650 Mg Suppository RECTAL Q6H PRN Mild Pain (1-3) or Fever Dextrose 12.5 gm 06/07/24 22:30 Dextrose 50% 25 Gm/50 Ml Syringe IV PUSH PRN PRN Hypoglycemia Protocol Glucagon 1 mg 06/07/24 22:30 Glucagon For Inj 1 Mg Vial IM PRN PRN Hypoglycemia Protocol Glucose 15 gm 06/07/24 22:30 Glucose Oral Gel 15 Gm Of Glucse In 37.5 Gm Tube PO PRN PRN Hypoglycemia Protocol Hydromorphone HCl 1 mg 06/08/24 00:40 06/08/24 06:13 Hydromorphone Hcl Inj (*Crx) 1 Mg/Ml Syr IV PUSH 1 mg Q3H PRN Administration Pain Rated 7-10 Hydromorphone HCl 0.5 mg 06/08/24 00:41 Hydromorphone Hcl Inj (*Crx) 1 Mg/Ml Syr IV PUSH Q3H PRN Pain Rated 4-6 Piperacillin/Tazobactam/Dextrose 3.375 gm in 50 mls @ 100 mls/hr 06/07/24 05:00 06/08/24 05:23 Zosyn 3.375 Gm/Ns 50 Ml IVPB 100 mls/hr Q6HR KISHORE Administration Sodium Chloride 1,000 mls @ 100 mls/hr 06/07/24 22:30 06/08/24 01:00 Normal Saline Iv IV CONT 100 mls/hr .Q10H KISHORE Administration Dextrose 1,000 mls @ 100 mls/hr 06/07/24 22:30 Dextrose 5% 1,000 Ml IVPB PRN PRN Hypoglycemia Protocol Ondansetron HCl 4 mg 06/08/24 00:40 Ondansetron Inj 4 Mg/2 Ml Vial IV PUSH Q6H PRN Nausea And Vomiting Pantoprazole Sodium 40 mg 06/08/24 09:00 06/08/24 07:27 Pantoprazole 40 Mg Tablet PO Not Given QAM [facility] Prednisone 40 mg 06/08/24 08:00 06/08/24 07:27 Prednisone 20 Mg Tablet PO Not Given DAILY@0800 [facility] Radiology Results: ITS Impressions Abdomen/Pelvis CT 06/07/24 21:16 IMPRESSION: High-grade small bowel obstruction with the transition point in the distal small bowel, as detailed above. Abdomen X-Ray 06/07/24 22:26 IMPRESSION: Nasogastric tube in good position and ready for immediate use. Labs Labs: Laboratory Results - last 24 hr 06/07/24 06/07/24 06/07/24 19:37 20:23 21:43 WBC 23.5 H RBC 5.15 Hgb 12.2 L Hct 40.0 L MCV 77.7 L MCH 23.7 L MCHC 30.5 L RDW 15.9 H Plt Count 656 H D MPV 8.3 Immature Gran % (Auto) Not Reportable Neut % (Auto) Not Reportable Lymph % (Auto) Not Reportable [place] % (Auto) Not Reportable Eos % (Auto) Not Reportable Baso % (Auto) Not Reportable Lymph # (Auto) Not Reportable [place] # (Auto) Not Reportable Eos # (Auto) Not Reportable Baso # (Auto) Not Reportable Abs Immat Gran (auto) Not Reportable Absolute Neuts (auto) Not Reportable Absolute Nucleated RBC Not Reportable Total Counted 100 Neutrophils % (Manual) 84 H Band Neutrophils % 7 H Lymphocytes % (Manual) 3.0 L Monocytes % (Manual) 5 Basophils % (Manual) 1 Nucleated RBC % Not Reportable Abs Neuts (Manual) 21.38 H Abs Lymphs (Manual) 0.70 L Abs Monocytes (Manual) 1.17 H Abs Basophils (Manual) 0.23 H Platelet Estimate Increased Hypochromasia 1+ Anisocytosis 1+ Schistocytes None seen Sodium 136 Potassium 5.0 Chloride 97 L Carbon Dioxide 25 Anion Gap 14 H BUN 14 D Creatinine 0.70 Estim Creat Clear Calc 111 Estimated GFR > 60 Glucose 106 Lactic Acid 2.8 H Calcium 9.2 Magnesium 2.1 Total Bilirubin 0.5 AST 20 ALT 11 Alkaline Phosphatase 98 Total Protein 8.0 Albumin 4.3 Lipase 28 TSH (Reflex) Urine Color Dark yellow Urine Appearance Cloudy H Urine pH 5.5 Ur Specific [place] 1.039 H Urine Protein 1+ H Urine Glucose (UA) Negative Urine Ketones 1+ H Ur Blood (Man) Trace Urine Nitrate Negative Urine Bilirubin 2+ H Urine Urobilinogen 1.0 Leukocyte Esterase Rfl Negative Urine RBC 3-5 H Urine WBC 0-5 Ur Squamous Epith Cells Few Urine Bacteria 1+ Urine Casts ---- 06/08/24 06/08/24 01:10 01:17 WBC 17.6 H RBC 4.40 L Hgb 10.2 L Hct 34.2 L MCV 77.7 L MCH 23.2 L MCHC 29.8 L RDW 16.0 H Plt Count 566 H MPV 8.6 Immature Gran % (Auto) Neut % (Auto) Lymph % (Auto) [place] % (Auto) Eos % (Auto) Baso % (Auto) Lymph # (Auto) [place] # (Auto) Eos # (Auto) Baso # (Auto) Abs Immat Gran (auto) Absolute Neuts (auto) Absolute Nucleated RBC Total Counted Neutrophils % (Manual) Band Neutrophils % Lymphocytes % (Manual) Monocytes % (Manual) Basophils % (Manual) Nucleated RBC % Abs Neuts (Manual) Abs Lymphs (Manual) Abs Monocytes (Manual) Abs Basophils (Manual) Platelet Estimate Hypochromasia Anisocytosis Schistocytes Sodium 136 Potassium 4.2 Chloride 104 Carbon Dioxide 24 Anion Gap 8 BUN 13 Creatinine 0.60 L Estim Creat Clear Calc 130 Estimated GFR > 60 Glucose 100 Lactic Acid 1.4 Calcium 8.0 L Magnesium Total Bilirubin AST ALT Alkaline Phosphatase Total Protein Albumin Lipase TSH (Reflex) 3.100 Urine Color Urine Appearance Urine pH Ur Specific [place] Urine Protein Urine Glucose (UA) Urine Ketones Ur Blood (Man) Urine Nitrate Urine Bilirubin Urine Urobilinogen Leukocyte Esterase Rfl Urine RBC Urine WBC Ur Squamous Epith Cells Urine Bacteria Urine Casts Imaging Radiologist's impression: Procedure(s): CT abdomen pelvis w con Accession Number(s): [id number] cc: Elenita Abrams PA-C; Rhea Powers PA-C; UNKNOWN,DOCTOR~ CLINICAL INDICATION: 18-year-old gentleman with a history of Crohn's disease presents to the emergency department with abdominal pain, nausea and vomiting COMPARISON: 05/06/2024. TECHNIQUE: Multiple contiguous axial images of the abdomen and pelvis were performed following the administration of with 100 mL Omnipaque-350 intravenous contrast The dose-length product (DLP) was 222.90 mGy-cm. Automated exposure control and iterative reconstruction technique were employed. FINDINGS/OBSERVATIONS: Visualized lower thorax: The bilateral lung bases are clear. The heart is of normal size, without pericardial effusion. Small hiatal hernia is present. Liver: The liver enhances homogeneously and is not enlarged measuring 16 cm in longitudinal dimension Gallbladder and biliary system: The gallbladder is only minimally distended, and otherwise unremarkable. Pancreas: The pancreas enhances homogeneously without ductal dilatation. Spleen: The spleen enhances homogeneously and is not enlarged measuring 8 cm in longitudinal dimension. Kidneys: The bilateral kidneys enhance symmetrically without hydronephrosis or renal calculi. Adrenal glands: Unremarkable. Gastrointestinal tract: Multiple loops of fluid-filled small bowel are identified with mural thickening and surrounding inflammatory change consistent with high-grade small bowel obstruction. Mural thickening with hyperemic bowel wall and surrounding formation is identified within the distal small bowel suggesting a transition point in this location. Appendix: Appendix not seen Vasculature: Unremarkable. Lymph nodes: No pathologically enlarged or morphologically suspicious lymph nodes within the retroperitoneum or at the root of the mesentery. Pelvic structures: The bladder is decompressed and otherwise unremarkable. The prostate gland is not enlarged. Body wall and musculoskeletal: No significant degenerative disease within the lower thoracic or lumbosacral spine. IMPRESSION: High-grade small bowel obstruction with the transition point in the distal small bowel, as detailed above. Reviewed, dictated and finalized at location A. E LININGS COATER Exam: Abdomen 1V HISTORY: NG placement COMPARISON: None. TECHNIQUE: Supine images of the lower chest and upper abdomen FINDINGS: Nasogastric tube projects over the left upper quadrant, presumably within the stomach. IMPRESSION: Nasogastric tube in good position and ready for immediate use. Reviewed, dictated and finalized at location A. E LININGS COATER Quality VTE Prophylaxis VTE prophylaxis: mechanical ordered
[2024-06-08 08:40] LABS: Immature Reticulocyte Fraction 24.5 % (3.0-15.9); Reticulocyte Hemoglobin Conten 24.3 pg (28.2-36.6); Reticulocytes Absolute 0.06 10^6/uL (0.02-0.10)
[2024-06-08 08:45] LABS: Iron 22 ug/dL (49-181)
[2024-06-08 08:55] LABS: Percent Iron Saturation 8 % (20-50)
--- NOTE | 2024-06-08 08:55 | WPDGICN ---
Assessment and Plan Assessment and plan (1) Crohn's disease: Qualifiers: Digestive disease complication type: with intestinal obstruction Gastrointestinal tract location: unspecified location Qualified Code(s): K50.912 - Crohn's disease, unspecified, with intestinal obstruction <Kenya MarxKateryna Ambriz APRN - Last Filed: 06/08/24 09:54> Code(s): K50.90 - Crohn's disease, unspecified, without complications <Kenya DKateryna Ambriz YOUTH CARE PROFESSIONAL - Last Filed: 06/08/24 09:54> Status: Acute <Kenya D. Monsejackie YOUTH CARE PROFESSIONAL - Last Filed: 06/08/24 09:54> (2) SBO (small bowel obstruction): Code(s): K56.609 - Unspecified intestinal obstruction, unspecified as to partial versus complete obstruction <Kenya D. VANGIE AmbrizN - Last Filed: 06/08/24 09:54> Status: Acute <Kenya DKateryna Ambriz YOUTH CARE PROFESSIONAL - Last Filed: 06/08/24 09:54> (3) Abnormal digestive system diagnostic imaging: Code(s): R93.3 - Abnormal findings on diagnostic imaging of other parts of digestive tract <Kenya D. VANGIE AmbrizN - Last Filed: 06/08/24 09:54> Status: Acute <Kenya D. Monsejackie YOUTH CARE PROFESSIONAL - Last Filed: 06/08/24 09:54> (4) Nausea and vomiting: Qualifiers: Vomiting type: unspecified Qualified Code(s): R11.2 - Nausea with vomiting, unspecified <Kenya D. VANGIE AmbrizN - Last Filed: 06/08/24 09:54> Code(s): R11.2 - Nausea with vomiting, unspecified <Kenya D. VANGIE AmbrizN - Last Filed: 06/08/24 09:54> Status: Acute <Kenya D. VANGIE AmbrizN - Last Filed: 06/08/24 09:54> (5) Abdominal pain: Qualifiers: Abdominal location: periumbilical Qualified Code(s): R10.33 - Periumbilical pain <Kenya D. VANGIE AmbrizN - Last Filed: 06/08/24 09:54> Code(s): R10.9 - Unspecified abdominal pain <Kenya D. VANGIE AmbrizN - Last Filed: 06/08/24 09:54> Status: Acute <Kenya D. VANGIE AmbrizN - Last Filed: 06/08/24 09:54> (6) Esophagitis: Code(s): K20.90 - Esophagitis, unspecified without bleeding <Kenya D. Pb, YOUTH CARE PROFESSIONAL - Last Filed: 06/08/24 09:54> Status: Acute <Kenya D. Pb YOUTH CARE PROFESSIONAL - Last Filed: 06/08/24 09:54> (7) Gastritis: Qualifiers: Chronicity: unspecified Gastritis bleeding: without bleeding Gastritis type: unspecified gastritis Qualified Code(s): K29.70 - Gastritis, unspecified, without bleeding <Kenya D. Pb, YOUTH CARE PROFESSIONAL - Last Filed: 06/08/24 09:54> Code(s): K29.70 - Gastritis, unspecified, without bleeding <Kenya D. Pb, YOUTH CARE PROFESSIONAL - Last Filed: 06/08/24 09:54> Status: Acute <Kenya Ambriz, YOUTH CARE PROFESSIONAL - Last Filed: 06/08/24 09:54> (8) LULU (iron deficiency anemia): Qualifiers: Iron deficiency anemia type: unspecified iron deficiency Qualified Code(s): D50.9 - Iron deficiency anemia, unspecified <Kenya Ambriz YOUTH CARE PROFESSIONAL - Last Filed: 06/08/24 09:54> Code(s): D50.9 - Iron deficiency anemia, unspecified <Kenya D. Pb, YOUTH CARE PROFESSIONAL - Last Filed: 06/08/24 09:54> Status: Acute <Kenya DKateryna Ambriz YOUTH CARE PROFESSIONAL - Last Filed: 06/08/24 09:54> Assessment and Plan: 1. Crohn's Disease/ Abnormal imaging digestive- SBO/ nausea/vomiting: Patient with new Crohn's disease Dx. No family Hx of CRC or IBD. Colonoscopy 05/06/2024 severe localized Crohn's disease was seen at the terminal ileum, and the cecum, and in the proximal ascending. Multiple pseudopolyps of average size 1 cm with whitish, scarred mucosa in between. Deformed ileocecal valve, could not visualized terminal ileum. There were some smaller pseudopolyps in the proximal ascending colon. TB QuantiFERON gold indeterminate and hepatitis B negative. Chest x-ray 05/08/2024 showed no acute cardiopulmonary pathology. Patient had improved on PO steroids outpatient until yesterday when he started having abdominal pain, nausea and vomiting. CT on admission showed high-grade small bowel obstruction with the transition point in the distal small bowel. Lactic acid 2.8-->1.4. NG tube in place to LIS. Denies nausea or vomiting since admission. Liquid BM today. Still having pain 03/03 on Dilaudid. Denies recent fevers, elevated WBC's likely secondary to steroids. Continue supportive care with pain management and antiemetics. Care with narcotics Continue NG to LIS Surgery consulted Change PO steroids to IV solumedrol 60 mg daily Check procalcitonin and if normal will discontinue Zosyn Plan is to start biologic outpatient if able to get it covered by insurance 2. LULU: Labs today show HGB 10, HCT 34, MCV 78, platelets 566. Recent work up with iron 29, TIBC 318, iron sat 9%. No signs of active GI bleeding. Anemia likely secondary to problem #1 Primary care team to continue monitoring and transfuse as needed to keep Hgb >7 3. Esophagitis/gastritis: CT 05/06/2024 showed moderate esophagitis/gastritis. 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 Protonix 40 mg IV daily Consider EGD as outpatient once stable Thank you very much for allowing me to share in the care of this very nice patient. This report may have been done utilizing a voice recognition system. Attempts have been made to correct errors. However, there may be uncorrected grammatical, spelling, and recognition errors present. <Kenya Ambriz, YOUTH CARE PROFESSIONAL - Last Filed: 06/08/24 09:54> GI Consult Note Consult date/time: 06/08/24 08:55 <Kenya Ambriz APRN - Last Filed: 06/08/24 09:54> Reason for consult: Crohns disease and SBO <Kenya Ambriz APRN - Last Filed: 06/08/24 09:54> Crohns disease and SBO Addedum : I have reviewed the note from our YOUTH CARE PROFESSIONAL, and saw the patient, physical examination performed, labs and imaging studies reviewed. The patient was seen by me on 05/22. He was asymptomatic on prednisone 40 mg and told to decrease dose by 5 mg each week, however apparently he misunderstood and he was now down to 5 mg daily (too quick taper). In any case, he started 48 h ago to have RLQ abdominal pain, very severe with vomiting. He was admitted last night with a recurrence of SBO. He is currently with an NG tube not draining dark fluid, and is comfortable after Dilaudid is given. He is covered with Zosyn due to fulltillment of sepsis criteria (probably from bacterial translocation secondary to SBO). The patient is currently receiving IV solumedrol, will continue NG suction and await surgical consultation. If there is no resolution within 24-36 h he might need ileal resection with right hemicolectomy since that is the area where the Crohn's disease was found during his last admission on colonoscopy. If there is resolution will give a few days-weeks to see if Skyrizi is covered by is insurance, and in the meanting will keep steroids. Semi elective surgery is also an attractive option. Will discuss with surgery once evaluated. <Ga Ramos MD - Last Filed: 06/08/24 11:56> HPI: Cortes Orellana is a 18 year old male with newly diagnosed Crohn's disease but otherwise unremarkable medical surgical history. He presented to the ER yesterday with complaints of abdominal pain, nausea and vomiting. GI has been consulted for Crohn's disease with SBO. Patient was last seen in the office by Dr. Ramos 05/17/2024 following a hospital admission May 06 for SBO and during that hospitalization he had a colonoscopy which showed some severe localized Crohn's disease was seen at the terminal ileum, and the cecum, and in the proximal ascending. Deformed ileocecal valve, could not visualized terminal ileum. At this office visit the patient was doing well on PO prednisone and the process was started to get the patient started on Skyrizi. TB QuantiFERON gold was indeterminate and hepatitis-B was negative. During today's visit the patient complains of sharp umbilical pain rated a 8/10 even after receiving pain medication. He was having nausea and vomiting prior to admission but denies any nausea or vomiting since admission. He has an NG tube in the right nare draining dark brown fluid. Admits to decreased appetite x 2 days. He was having formed non urgent BM's prior to admission. Liquid BM today. Denies fevers, bloating, odynophagia, dysphagia, reflux, regurgitation, early satiety, constipation, hematochezia, or melena. No family Hx of CRC or IBD. ENDOSCOPY HISTORY: EGD: Patient has never had an EGD COLONOSCOPY: 05/09/[address] Ramos for abnormal CT and suspected Crohn's disease Findings: Some severe localized Crohn's disease was seen at the terminal ileum, and the cecum, and in the proximal ascending. Multiple pseudopolyps of average size 1 cm with whitish, scarred mucosa in between. Deformed ileocecal valve, could not visualized terminal ileum. There were some smaller pseudopolyps in the proximal ascending colon The rest of the colonic mucosa appeared normal Multiple cold forceps biopsies were taken from the cecum in the ascending colon for pathology Bx results: A. Ascending colon, random biopsies: - Mild acute colitis with crypt abscess formation - No evidence of granulomatous or transmural inflammation. B. Cecum, random biopsies: - Chronic lymphocytic colitis with marked crypt distortion - No acute cryptitis, crypt abscess formation, granulomas or transmural inflammation is observed LABS AND STOOL STUDIES: Labs 06/08/2024: sodium 136, potassium 4.2, BUN 13, creatinine 0.60, GFR > 60. WBC is 18, HGB 10, HCT 34, MCV 78, platelets 566. Total bilirubin 0.5, AST 20, ALT 11, alkaline phosphatase 98, albumin 4.3 Lactic acid 2.8 -->1.4, calcium 8.0, magnesium 2.1, TSH 3.100. Labs 05/22/2024 showed iron 29, TIBC 318, iron saturation 9%. TB QuantiFERON gold indeterminate and hepatitis-B negative IMAGING: Abdominal Xray 06/07/2024 IMPRESSION: Nasogastric tube in good position and ready for immediate use. CT abd/pelvis w/contrast 06/07/2024 Visualized lower thorax: The bilateral lung bases are clear. The heart is of normal size, without pericardial effusion. Small hiatal hernia is present. Liver: The liver enhances homogeneously and is not enlarged measuring 16 cm in longitudinal dimension Gallbladder and biliary system: The gallbladder is only minimally distended, and otherwise unremarkable. Pancreas: The pancreas enhances homogeneously without ductal dilatation. Spleen: The spleen enhances homogeneously and is not enlarged measuring 8 cm in longitudinal dimension. Kidneys: The bilateral kidneys enhance symmetrically without hydronephrosis or renal calculi. Adrenal glands: Unremarkable. Gastrointestinal tract: Multiple loops of fluid-filled small bowel are identified with mural thickening and surrounding inflammatory change consistent with high-grade small bowel obstruction. Mural thickening with hyperemic bowel wall and surrounding formation is identified within the distal small bowel suggesting a transition point in this location. Appendix: Appendix not seen Vasculature: Unremarkable. Lymph nodes: No pathologically enlarged or morphologically suspicious lymph nodes within the retroperitoneum or at the root of the mesentery. Pelvic structures: The bladder is decompressed and otherwise unremarkable. The prostate gland is not enlarged. Body wall and musculoskeletal: No significant degenerative disease within the lower thoracic or lumbosacral spine. IMPRESSION: High-grade small bowel obstruction with the transition point in the distal small bowel, as detailed above. Small bowel Xray 05/08/2024 IMPRESSION: 1. Progressive dilation of the distal small bowel most prominent at the terminal ileum but without delayed transit time to the colon of one hour suggesting partial small bowel obstruction. Chest Xray 05/08/2024 MEDIASTINUM: The cardiac silhouette is not enlarged. Nasogastric tube is seen in the inferior to the stomach. LUNGS: No infiltrates, effusions or pneumothorax. OTHER: No free air under the diaphragm. IMPRESSION: No acute cardiopulmonary pathology. CT abd/pelvis w/contrast 05/06/2024 IMPRESSION: Moderate esophagitis/gastritis. Severe segmental distal ileal enteritis, with findings concerning for wall breakdown and possible contained or imminent perforation Severe obstruction of the more proximal small bowel. No definite evidence of bowel wall ischemia noted at this time. Small volume ascites. <Kenya Ambriz APRN - Last Filed: 06/08/24 09:54> Review of Systems Constitutional: Constitutional: Reports as per HPI and Reports fatigue <Kenya Ambriz APRN - Last Filed: 06/08/24 09:54> ENT: Reports as per HPI <Kenya Ambriz APRN Last Filed: 06/08/24 09:54> Cardiovascular: Cardiovascular: Reports as per HPI, Denies chest pain, Denies leg edema and Denies dyspnea <Kenya Ambriz APRN Last Filed: 06/08/24 09:54> Respiratory: Respiratory: Denies cough, Denies hemoptysis and Denies dyspnea <Kenya Ambriz APRN Last Filed: 06/08/24 09:54> Gastrointestinal: Gastrointestinal: Reports as per HPI, Reports abdominal pain, Denies melena, Denies bloating, Denies hematochezia, Reports nausea, Reports vomiting and Denies hematemesis <Kenya Ambriz APRN Last Filed: 06/08/24 09:54> Musculoskeletal: Musculoskeletal: Reports as per HPI <Kenya Ambriz APRN Last Filed: 06/08/24 09:54> Integumentary/Breasts: Skin/Breast: Reports as per HPI <Kenya Ambriz APRN Last Filed: 06/08/24 09:54> Psychiatric: Psychiatric: Reports as per HPI <Kenya Ambriz APRN Last Filed: 06/08/24 09:54> Endocrine: Endocrine: Reports no additional endocrine complaints <Kenya Ambriz APR Last Filed: 06/08/24 09:54> Hematologic/Lymphatic: Hematologic/Lymphatic: Reports no additional hematologic/lymphatic complaints <Kenya Ambriz APR Last Filed: 06/08/24 09:54> [facility] Social History Social History: Social History Smoking status: Never smoker Alcohol intake: never Substance use: never Substance use type: does not use Do You Feel Safe in your Home?: Yes Lack of Transportation: No Lack of Food: Never True Current Housing: I Have Housing Concerned About Future Housing: No Difficulty Paying Gas/Electric Bills: No Difficulty Paying for Meds: No Currently Unemployed: No Education: High School Diploma/GED Difficulty w/ Childcare or Family Care: No Spiritual care concerns: No <Kenya Ambriz APRN - Last Filed: 06/08/24 09:54> Meds Home Medications and Allergies Home medications: Home Medications Medication Instructions Recorded Confirmed Type omeprazole 20 mg capsule,delayed 20 mg PO DAILY PRN Indigestion #14 05/10/24 06/08/24 Rx release caps prednisone 20 mg tablet 40 mg PO DAILY@0800 14 days #30 05/10/24 06/08/24 Rx tabs <Kenya Ambriz APRN - Last Filed: 06/08/24 09:54> Allergies/Adverse reactions: Allergies Allergy/AdvReac Type Severity Reaction Status Date / Time No Known Allergies Allergy Verified 05/22/24 08:01 <Kenya Ambriz APRN - Last Filed: 06/08/24 09:54> Vital Signs Vital Signs - 24 hr 06/07/24 15:00 06/07/24 18:07 06/07/24 19:24 Temperature 98.4 F 97.9 F Pulse Rate 130 H 140 H 125 H Respiratory Rate 18 20 14 Blood Pressure 101/66 130/84 101/66 Pulse Oximetry 100 96 100 Oxygen Delivery Room Air Room Air 06/07/24 18:31 06/07/24 19:12 06/07/24 19:15 Temperature Pulse Rate 122 H 118 H 119 H Respiratory Rate 20 20 20 Blood Pressure 104/79 Pulse Oximetry 100 98 99 Oxygen Delivery 06/07/24 19:16 06/07/24 20:00 06/07/24 20:15 Temperature Pulse Rate 121 H 108 H 121 H Respiratory Rate 18 18 20 Blood Pressure 101/66 Pulse Oximetry 99 99 100 Oxygen Delivery 06/07/24 21:14 06/07/24 21:28 06/08/24 00:00 Temperature Pulse Rate 118 H 123 H 114 H Respiratory Rate 20 13 17 Blood Pressure 126/81 133/79 Pulse Oximetry 99 99 98 Oxygen Delivery 06/08/24 00:31 06/08/24 03:40 06/08/24 04:50 Temperature 98.7 F 99.1 F Pulse Rate 118 H 122 H Respiratory Rate 20 18 Blood Pressure 125/80 104/62 Pulse Oximetry 99 97 Oxygen Delivery Room Air 06/08/24 04:00 Temperature Pulse Rate 108 H Respiratory Rate Blood Pressure Pulse Oximetry Oxygen Delivery <Kenya Ambriz APRN - Last Filed: 06/08/24 09:54> Exam Const: General: cooperative, healthy appearing, comfortable, no acute distress, well developed and uncomfortable <PRABHAKAR Ferrer Last Filed: 06/08/24 09:54> Orientation/consciousness: oriented to person, oriented to place, oriented to time and patient oriented x3 <Kenya Ambriz APRN Last Filed: 06/08/24 09:54> HENMT: Head: normal to inspection, normocephalic and atraumatic <PRABHAKAR Ferrer Last Filed: 06/08/24 09:54> Face/Nose/Sinus: nares abnormal (NG tube in right nare to LIS draining brown fluid) <PRABHAKAR Ferrer Last Filed: 06/08/24 09:54> Mouth: Yes Normal oral and palatal mucosa present and Yes moist mucous membranes <Kenya Ambriz APRN Last Filed: 06/08/24 09:54> Eyes: General: appearance normal, both eyes and all related structures <PRABHAKAR Ferrer Last Filed: 06/08/24 09:54> Conjunctivae: conjunctivae normal <Kenya Ambriz APRN Last Filed: 06/08/24 09:54> Sclera: sclerae normal <Kenya Ambriz APRN Last Filed: 06/08/24 09:54> Pupils: Equal, round and reactive pupils present <Kenya Ambriz APRN Last Filed: 06/08/24 09:54> Neck: Neck: normal visual inspection <PRABHAKAR Ferrer Last Filed: 06/08/24 09:54> Chest: Chest palpation & inspection: normal inspection of the chest <PRABHAKAR Ferrer Last Filed: 06/08/24 09:54> Resp: Effort & Inspection: normal respiratory effort and able to speak in complete sentences <PRABHAKAR Ferrer Last Filed: 06/08/24 09:54> Auscultation: clear to auscultation bilaterally <Kenya Ambriz APRN - Last Filed: 06/08/24 09:54> Cardio: Jugular venous distension: no JVD <Kenya MarxKateryna Monesjackie YOUTH CARE PROFESSIONAL Last Filed: 06/08/24 09:54> Rate: regular rate <Kenya MarxKateryna Monseyaotristan YOUTH CARE PROFESSIONAL Last Filed: 06/08/24 09:54> Rhythm: regular rhythm <Kenya MarxKateryna Monseyaotristan YOUTH CARE PROFESSIONAL Last Filed: 06/08/24 09:54> Heart sounds: S1 normal heart sound present and S2 normal heart sound present <Kenya MarxKateryna Monseyaotristan YOUTH CARE PROFESSIONAL Last Filed: 06/08/24 09:54> GI: Inspection: normal to inspection <Kenya MarxKateryna Monsejackie YOUTH CARE PROFESSIONAL Last Filed: 06/08/24 09:54> GI Palp: Yes Soft to palpation, No Firmness to palpation present (GI), Yes Tenderness to palpation present (GI), No Guarding due to palpation present (GI) and Yes No hepatosplenomegaly present <Kenya MarxKateryna Monseyaotristan YOUTH CARE PROFESSIONAL Last Filed: 06/08/24 09:54> Auscultation: bowels sounds normal (hypoactive) <Kenya MarxKateryna Monseyaotristan YOUTH CARE PROFESSIONAL Last Filed: 06/08/24 09:54> Rectal Exam: deferred <Kenya MarxKateryna Monsejackie YOUTH CARE PROFESSIONAL Last Filed: 06/08/24 09:54> Skin: General skin exam: normal color and no rashes or lesions noted <Kenya MarxKateryna Monsejackie YOUTH CARE PROFESSIONAL Last Filed: 06/08/24 09:54> Neuro: General: oriented to person, oriented to place, oriented to time and patient oriented x3 <Kenya MarxKateryna Monsejackie YOUTH CARE PROFESSIONAL Last Filed: 06/08/24 09:54> Cranial nerves: Yes Equal, round and reactive pupils present <Kenya MarxKateryna MonseVANGIE mjeiaN Last Filed: 06/08/24 09:54> Speech: normal speech <Kenya MarxKateryna Monsejackie YOUTH CARE PROFESSIONAL Last Filed: 06/08/24 09:54> Extrem: General: normal to inspection and no clubbing, cyanosis or edema <Kenya Susanne Ambirz APRN Last Filed: 06/08/24 09:54> Psych: Appearance: grossly normal and well kempt <Kenya Ambriz APRN - Last Filed: 06/08/24 09:54> Affect: normal affect <Kenya Ambriz APRN - Last Filed: 06/08/24 09:54> Results Labs CBC & Chem 7: 06/08/24 01:17 06/08/24 01:10 <Kenya Ambriz APRN - Last Filed: 06/08/24 09:54> Labs: Short CBC 06/07/24 06/08/24 Range/Units 19:37 01:17 WBC 23.5 H 17.6 H (4.5-10.0) K/mm3 Hgb 12.2 L 10.2 L (14.0-18.0) g/dL Hct 40.0 L 34.2 L (42.0-52.0) % Plt Count 656 H D 566 H (150-375) k/mm3 BMP 06/07/24 06/08/24 19:37 01:10 Sodium 136 136 Potassium 5.0 4.2 Chloride 97 L 104 Carbon Dioxide 25 24 BUN 14 D 13 Creatinine 0.70 0.60 L Glucose 106 100 Calcium 9.2 8.0 L Liver Function 06/07/24 Range/Units 19:37 Total Bilirubin 0.5 (0.2-1.3) mg/dL AST 20 (17-59) U/L ALT 11 (6-50) U/L Alkaline Phosphatase 98 (58-237) U/L Albumin 4.3 (3.7-5.6) g/dL Urine 06/07/24 Range/Units 20:23 Urine Color Dark yellow (Yellow) Urine Appearance Cloudy H (Clear) Urine pH 5.5 (5.0-9.0) Ur Specific [place] 1.039 H (1.001-1.035) Urine Protein 1+ H (Negative) mg/dL Urine Glucose (UA) Negative (Negative) mg/dL <Kenya Ambriz APRN - Last Filed: 06/08/24 09:54>
[2024-06-08 10:00] LABS: Procalcitonin 0.4 ng/mL
[2024-06-08] MEDS: methylPREDNISolone SOD SUCC 125 MG VIAL 60 MG IV PUSH (10:41)
--- NOTE | 2024-06-08 16:00 | WPDGIPROGNO ---
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 therefore, Biologic therapy might remain ON HOLD until we balance risks and benefits. will obtain a chest CT scan and see if we can get a tuberculin skin test. In the meantime patient is receiving steroids por Crohn's. However, the possibility of intestinal TB is still something to consider.... Subjective Date/time seen: 06/08/24 16:00 Objective Data Vital Signs Vital Signs: Vital Signs - 24 hr 06/07/24 18:07 06/07/24 19:24 06/07/24 18:31 Temperature 97.9 F Pulse Rate 140 H 125 H 122 H Respiratory Rate 20 14 20 Blood Pressure 130/84 101/66 104/79 Pulse Oximetry 96 100 100 Oxygen Delivery Room Air Fraction of Inspired Oxygen 06/07/24 19:12 06/07/24 19:15 06/07/24 19:16 Temperature Pulse Rate 118 H 119 H 121 H Respiratory Rate 20 20 18 Blood Pressure 101/66 Pulse Oximetry 98 99 99 Oxygen Delivery Fraction of Inspired Oxygen 06/07/24 20:00 06/07/24 20:15 06/07/24 21:14 Temperature Pulse Rate 108 H 121 H 118 H Respiratory Rate 18 20 20 Blood Pressure Pulse Oximetry 99 100 99 Oxygen Delivery Fraction of Inspired Oxygen 06/07/24 21:28 06/08/24 00:00 06/08/24 00:31 Temperature 98.7 F Pulse Rate 123 H 114 H 118 H Respiratory Rate 13 17 20 Blood Pressure 126/81 133/79 125/80 Pulse Oximetry 99 98 99 Oxygen Delivery Fraction of Inspired Oxygen 06/08/24 03:40 06/08/24 04:50 06/08/24 04:00 Temperature 99.1 F Pulse Rate 122 H 108 H Respiratory Rate 18 Blood Pressure 104/62 Pulse Oximetry 97 Oxygen Delivery Room Air Fraction of Inspired Oxygen 06/08/24 08:00 06/08/24 08:42 06/08/24 08:03 Temperature Pulse Rate 133 H Respiratory Rate Blood Pressure Pulse Oximetry 98 Oxygen Delivery Room Air Room Air Fraction of Inspired Oxygen 21 06/08/24 12:02 06/08/24 14:00 Temperature 99.6 F Pulse Rate 112 H 102 H Respiratory Rate 18 Blood Pressure 109/74 Pulse Oximetry 98 Oxygen Delivery Fraction of Inspired Oxygen Intake/Output Intake/Output: Intake & Output 06/05/24 06/06/24 06/07/24 06/08/24 23:59 23:59 23:59 23:59 Intake Total 2049 105 Balance 2049 105 Meds/Results Medications: Active Medications Generic Name Dose Route Start Last Admin Trade Name Freq PRN Reason Stop Dose Admin Acetaminophen 650 mg 06/07/24 22:30 Acetaminophen 650 Mg Suppository RECTAL Q6H PRN Mild Pain (1-3) or Fever Dextrose 12.5 gm 06/07/24 22:30 Dextrose 50% 25 Gm/50 Ml Syringe IV PUSH PRN PRN Hypoglycemia Protocol Glucagon 1 mg 06/07/24 22:30 Glucagon For Inj 1 Mg Vial IM PRN PRN Hypoglycemia Protocol Glucose 15 gm 06/07/24 22:30 Glucose Oral Gel 15 Gm Of Glucse In 37.5 Gm Tube PO PRN PRN Hypoglycemia Protocol Hydromorphone HCl 1 mg 06/08/24 00:40 06/08/24 10:42 Hydromorphone Hcl Inj (*Crx) 1 Mg/Ml Syr IV PUSH 1 mg Q3H PRN Administration Pain Rated 7-10 Hydromorphone HCl 0.5 mg 06/08/24 00:41 Hydromorphone Hcl Inj (*Crx) 1 Mg/Ml Syr IV PUSH Q3H PRN Pain Rated 4-6 Sodium Chloride 1,000 mls @ 100 mls/hr 06/07/24 22:30 06/08/24 10:42 Normal Saline Iv IV CONT 100 mls/hr .Q10H KISHORE Administration Dextrose 1,000 mls @ 100 mls/hr 06/07/24 22:30 Dextrose 5% 1,000 Ml IVPB PRN PRN Hypoglycemia Protocol Methylprednisolone Sodium Succinate 60 mg 06/08/24 09:55 06/08/24 10:41 Methylprednisolone Sod Succ 125 Mg Vial IV PUSH 60 mg DAILY KISHORE Administration Ondansetron HCl 4 mg 06/08/24 00:40 Ondansetron Inj 4 Mg/2 Ml Vial IV PUSH Q6H PRN Nausea And Vomiting Pantoprazole Sodium 40 mg 06/08/24 09:00 06/08/24 07:27 Pantoprazole 40 Mg Table[place] [facility] [place] [facility] Sodium 40 mg 06/09/24 09:00 Pantoprazole Sodium Iv 40 Mg Vial IV [facility] [facility] [place]nisone 40 mg 06/08/24 08:00 06/08/24 07:27 Prednisone 20 Mg Tablet PO Not Given DAILY@0800 [facility] Radiology Results: ITS Impressions Abdomen/Pelvis CT 06/07/24 21:16 IMPRESSION: High-grade small bowel obstruction with the transition point in the distal small bowel, as detailed above. Abdomen X-Ray 06/07/24 22:26 IMPRESSION: Nasogastric tube in good position and ready for immediate use. Labs Labs: Laboratory Results - last 24 hr 06/07/24 06/07/24 06/07/24 19:37 20:23 21:43 WBC 23.5 H RBC 5.15 Hgb 12.2 L Hct 40.0 L MCV 77.7 L MCH 23.7 L MCHC 30.5 L RDW 15.9 H Plt Count 656 H D MPV 8.3 Immature Gran % (Auto) Not Reportable Neut % (Auto) Not Reportable Lymph % (Auto) Not Reportable Wallace % (Auto) Not Reportable Eos % (Auto) Not Reportable Baso % (Auto) Not Reportable Lymph # (Auto) Not Reportable Wallace # (Auto) Not Reportable Eos # (Auto) Not Reportable Baso # (Auto) Not Reportable Abs Immat Gran (auto) Not Reportable Absolute Neuts (auto) Not Reportable Absolute Nucleated RBC Not Reportable Total Counted 100 Neutrophils % (Manual) 84 H Band Neutrophils % 7 H Lymphocytes % (Manual) 3.0 L Monocytes % (Manual) 5 Basophils % (Manual) 1 Nucleated RBC % Not Reportable Abs Neuts (Manual) 21.38 H Abs Lymphs (Manual) 0.70 L Abs Monocytes (Manual) 1.17 H Abs Basophils (Manual) 0.23 H Platelet Estimate Increased Hypochromasia 1+ Anisocytosis 1+ Schistocytes None seen Absolute Retic Percent Retic Immature Retic Fraction Retic Hgb Content Sodium 136 Potassium 5.0 Chloride 97 L Carbon Dioxide 25 Anion Gap 14 H BUN 14 D Creatinine 0.70 Estim Creat Clear Calc 111 Estimated GFR > 60 Glucose 106 Lactic Acid 2.8 H Calcium 9.2 Magnesium 2.1 Iron TIBC % Saturation Ferritin Total Bilirubin 0.5 AST 20 ALT 11 Alkaline Phosphatase 98 Total Protein 8.0 Albumin 4.3 Lipase 28 Vitamin B12 Folate Procalcitonin TSH (Reflex) Urine Color Dark yellow Urine Appearance Cloudy H Urine pH 5.5 Ur Specific [place] 1.039 H Urine Protein 1+ H Urine Glucose (UA) Negative Urine Ketones 1+ H Ur Blood (Man) Trace Urine Nitrate Negative Urine Bilirubin 2+ H Urine Urobilinogen 1.0 Leukocyte Esterase Rfl Negative Urine RBC 3-5 H Urine WBC 0-5 Ur Squamous Epith Cells Few Urine Bacteria 1+ Urine Casts ---- 06/08/24 06/08/24 06/08/24 01:05 01:10 01:17 WBC 17.6 H RBC 4.40 L Hgb 10.2 L Hct 34.2 L MCV 77.7 L MCH 23.2 L MCHC 29.8 L RDW 16.0 H Plt Count 566 H MPV 8.6 Immature Gran % (Auto) Neut % (Auto) Lymph % (Auto) Wallace % (Auto) Eos % (Auto) Baso % (Auto) Lymph # (Auto) Wallace # (Auto) Eos # (Auto) Baso # (Auto) Abs Immat Gran (auto) Absolute Neuts (auto) Absolute Nucleated RBC Total Counted Neutrophils % (Manual) Band Neutrophils % Lymphocytes % (Manual) Monocytes % (Manual) Basophils % (Manual) Nucleated RBC % Abs Neuts (Manual) Abs Lymphs (Manual) Abs Monocytes (Manual) Abs Basophils (Manual) Platelet Estimate Hypochromasia Anisocytosis Schistocytes Absolute Retic 0.06 Percent Retic 1.40 Immature Retic Fraction 24.5 H Retic Hgb Content 24.3 L Sodium 136 Potassium 4.2 Chloride 104 Carbon Dioxide 24 Anion Gap 8 BUN 13 Creatinine 0.60 L Estim Creat Clear Calc 130 Estimated GFR > 60 Glucose 100 Lactic Acid 1.4 Calcium 8.0 L Magnesium Iron 22 L TIBC 284 % Saturation 8 L Ferritin 14.00 L Total Bilirubin AST ALT Alkaline Phosphatase Total Protein Albumin Lipase Vitamin B12 662.0 Folate 10.0 Procalcitonin 0.4 TSH (Reflex) 3.100 Urine Color Urine Appearance Urine pH Ur Specific [place] Urine Protein Urine Glucose (UA) Urine Ketones Ur Blood (Man) Urine Nitrate Urine Bilirubin Urine Urobilinogen Leukocyte Esterase Rfl Urine RBC Urine WBC Ur Squamous Epith Cells Urine Bacteria Urine Casts
[2024-06-08] MEDS: TUBERCULIN, PPD INJ 5 TU/0.1 ML INTRADERM (16:29)
--- NOTE | 2024-06-08 16:34 | PC.NURSE ---
Tuberculin skin test given on 06/08/2024 at 16:30. Administration site in left forearm, covered with bandaid.
--- NOTE | 2024-06-08 17:29 | PM.CNGS ---
Assessment and Plan Assessment and plan (1) Crohn's ileocolitis: Qualifiers: Digestive disease complication type: with intestinal obstruction Qualified Code(s): K50.812 - Crohn's disease of both small and large intestine with intestinal obstruction Code(s): K50.80 - Crohn's disease of both small and large intestine without complications Status: Acute Assessment and Plan: Even with severe Crohn's and high-grade small-bowel obstruction, this usually responds to medical treatment. Will continue to follow but hopefully no surgery will be required. (2) SBO (small bowel obstruction): Code(s): K56.609 - Unspecified intestinal obstruction, unspecified as to partial versus complete obstruction Status: Acute Assessment and Plan: Secondary to ileo colic Crohn's disease of a severe nature. Continue NPO NG tube and IV fluids. Consider TPN if not able to eat for prolonged period. (3) Anemia: Qualifiers: Anemia type: iron deficiency Iron deficiency anemia type: unspecified iron deficiency Qualified Code(s): D50.9 - Iron deficiency anemia, unspecified Code(s): D64.9 - Anemia, unspecified Status: Chronic Assessment and Plan: Appears to be iron deficient. History of Present Illness Consult details Consult date: 06/08/24 Reason for consult: abdominal pain Requesting physician: Elenita Abrams PA-C Narrative: Patient is a 18-year-old man who almost exactly 1 month ago was admitted with a small-bowel obstruction. There were suspicions of segmental enteritis on the CT scan. As he improved, he had a colonoscopy which showed Crohn's ileitis and colitis. He was treated with Solu-Medrol and made good progress eventually being discharged. He was followed by gastroenterology and seen in the office a couple of times doing well, will decreasing his prednisone dose steadily. Unfortunately, two days ago he began having more abdominal pain nausea vomiting and retching. He came back to the emergency room yesterday and again was found to have a high-grade small-bowel obstruction with evidence of severe acute Crohn's ileocolitis. He has been readmitted and restarted on Solu-Medrol. Gastroenterology is seeing and managing his inflammatory bowel disease. I was asked to see the patient in consultation due to the small bowel obstruction and the potential for possibly needing surgery. Patient denies any history of similar episodes prior to 1 month ago. He is exceedingly thin, suspicious for malnutrition of some source with a BMI of 18. Review of Systems Review of Systems: All systems reviewed & are unremarkable except as noted in HPI and below (HPI and those items noted below) Constitutional: Constitutional: Denies chills and Denies fever(s) Cardiovascular: Cardiovascular: Denies chest pain, Denies diaphoresis, Denies dyspnea and Denies paroxysmal nocturnal dyspnea Respiratory: Respiratory: Denies chest congestion, Denies cough and Denies dyspnea Integumentary/Breasts: Skin/Breast: Denies lesions and Denies rash PMFSH Social History Social History Smoking status: Never smoker Alcohol intake: never Substance use: never Substance use type: does not use Do You Feel Safe in your Home?: Yes Lack of Transportation: No Lack of Food: Never True Current Housing: I Have Housing Concerned About Future Housing: No Difficulty Paying Gas/Electric Bills: No Difficulty Paying for Meds: No Currently Unemployed: No Education: High School Diploma/GED Difficulty w/ Childcare or Family Care: No Spiritual care concerns: No Meds Home Medications and Allergies Home Medications Medication Instructions Recorded Confirmed Type omeprazole 20 mg capsule,delayed 20 mg PO DAILY PRN Indigestion #14 05/10/24 06/08/24 Rx release caps prednisone 20 mg tablet 40 mg PO DAILY@0800 14 days #30 05/10/24 06/08/24 Rx tabs Allergies Allergy/AdvReac Type Severity Reaction Status Date / Time No Known Allergies Allergy Verified 05/22/24 08:01 Vital Signs Vital Signs - 24 hr 06/07/24 18:07 06/07/24 19:24 06/07/24 18:31 Temperature 36.6 C Pulse Rate 140 H 125 H 122 H Respiratory Rate 20 14 20 Blood Pressure 130/84 101/66 104/79 Pulse Oximetry 96 100 100 Oxygen Delivery Room Air Fraction of Inspired Oxygen 06/07/24 19:12 06/07/24 19:15 06/07/24 19:16 Temperature Pulse Rate 118 H 119 H 121 H Respiratory Rate 20 20 18 Blood Pressure 101/66 Pulse Oximetry 98 99 99 Oxygen Delivery Fraction of Inspired Oxygen 06/07/24 20:00 06/07/24 20:15 06/07/24 21:14 Temperature Pulse Rate 108 H 121 H 118 H Respiratory Rate 18 20 20 Blood Pressure Pulse Oximetry 99 100 99 Oxygen Delivery Fraction of Inspired Oxygen 06/07/24 21:28 06/08/24 00:00 06/08/24 00:31 Temperature 37.1 C Pulse Rate 123 H 114 H 118 H Respiratory Rate 13 17 20 Blood Pressure 126/81 133/79 125/80 Pulse Oximetry 99 98 99 Oxygen Delivery Fraction of Inspired Oxygen 06/08/24 03:40 06/08/24 04:50 06/08/24 04:00 Temperature 37.3 C Pulse Rate 122 H 108 H Respiratory Rate 18 Blood Pressure 104/62 Pulse Oximetry 97 Oxygen Delivery Room Air Fraction of Inspired Oxygen 06/08/24 08:00 06/08/24 08:42 06/08/24 08:03 Temperature Pulse Rate 133 H Respiratory Rate Blood Pressure Pulse Oximetry 98 Oxygen Delivery Room Air Room Air Fraction of Inspired Oxygen 21 06/08/24 12:02 06/08/24 14:00 Temperature 37.6 C Pulse Rate 112 H 102 H Respiratory Rate 18 Blood Pressure 109/74 Pulse Oximetry 98 Oxygen Delivery Fraction of Inspired Oxygen Exam Const: General: comfortable, no acute distress, alert, awake and malnourished Nutritional Appearance: underweight Orientation/consciousness: patient oriented x3 and No confusion HENMT: Head: normocephalic and atraumatic Mouth: Yes Normal oral and palatal mucosa present Eyes: Conjunctivae: conjunctivae normal Pupils: Equal, round and reactive pupils present EOM: EOMs intact bilaterally Neck: Neck: normal visual inspection, no lymphadenopathy and nontender Resp: Effort & Inspection: normal respiratory effort Auscultation: clear to auscultation bilaterally Cardio: Rate: regular rate Rhythm: regular rhythm Heart sounds: no gallops, no murmurs and no rubs GI: Inspection: normal to inspection, non-distended, scaphoid and no scars GI Palp: Yes Firmness to palpation present (GI), Yes Tenderness to palpation present (GI) (Very tender right lower quadrant with inflammatory mass palpable), No Hepatomegaly present, No Splenomegaly present and Yes Palpable mass present (Right lower quadrant inflammatory mass) Auscultation: Hypoactive bowel sounds present Skin: Lesions: no lesions Rashes: no rashes Neuro: General: no focal motor deficits and CN's II-XI intact bilaterally Cranial nerves: Yes Equal, round and reactive pupils present, Yes Bilaterally intact EOM present, Yes facial symmetry and Yes Midline tongue present Speech: normal speech Motor exam (neuro): 5/5 motor strength present throughout and Motor abnormalities not present Extrem: General: no clubbing, cyanosis or edema and edema Psych: Affect: normal affect Thought process: Normal thought process present Insight: Good insight present (Psych) Results Labs 06/08/24 01:17 06/08/24 01:10 Labs: Abnormal lab results 06/07/24 06/07/24 06/07/24 Range/Units 19:37 20:23 21:43 WBC 23.5 H (4.5-10.0) K/mm3 RBC (4.6-6.20) M/mm3 Hgb 12.2 L (14.0-18.0) g/dL Hct 40.0 L (42.0-52.0) % MCV 77.7 L (80-100) fl MCH 23.7 L (26-34) pg MCHC 30.5 L (32-36) g/dl RDW 15.9 H (11.5-14.5) % Plt Count 656 H D (150-375) k/mm3 Neutrophils % (Manual) 84 H (46-73) % Band Neutrophils % 7 H (0-6) % Lymphocytes % (Manual) 3.0 L (18-44) % Abs Neuts (Manual) 21.38 H (1.3-6.7) K/mm3 Abs Lymphs (Manual) 0.70 L (1.1-4.5) K/mm3 Abs Monocytes (Manual) 1.17 H (0.1-0.90) K/mm3 Abs Basophils (Manual) 0.23 H (0.0-0.1) K/mm3 Immature Retic Fraction (3.0-15.9) % Retic Hgb Content (28.2-36.6) pg Chloride 97 L (98-107) mmol/L Anion Gap 14 H (4-12) mmol/L Creatinine (0.7-1.3) mg/dL Lactic Acid 2.8 H (0.7-2.0) mmol/L Calcium (8.9-10.7) mg/dL Iron (49-181) ug/dL % Saturation (20-50) % Ferritin (17.9-464) ng/mL Urine Appearance Cloudy H (Clear) Ur Specific [place] 1.039 H (1.001-1.035) Urine Protein 1+ H (Negative) mg/dL Urine Ketones 1+ H (Negative) mg/dL Urine Bilirubin 2+ H (Negative) Urine RBC 3-5 H (0-2) /hpf 06/08/24 06/08/24 06/08/24 Range/Units 01:05 01:10 01:17 WBC 17.6 H (4.5-10.0) K/mm3 RBC 4.40 L (4.6-6.20) M/mm3 Hgb 10.2 L (14.0-18.0) g/dL Hct 34.2 L (42.0-52.0) % MCV 77.7 L (80-100) fl MCH 23.2 L (26-34) pg MCHC 29.8 L (32-36) g/dl RDW 16.0 H (11.5-14.5) % Plt Count 566 H (150-375) k/mm3 Neutrophils % (Manual) (46-73) % Band Neutrophils % (0-6) % Lymphocytes % (Manual) (18-44) % Abs Neuts (Manual) (1.3-6.7) K/mm3 Abs Lymphs (Manual) (1.1-4.5) K/mm3 Abs Monocytes (Manual) (0.1-0.90) K/mm3 Abs Basophils (Manual) (0.0-0.1) K/mm3 Immature Retic Fraction 24.5 H (3.0-15.9) % Retic Hgb Content 24.3 L (28.2-36.6) pg Chloride (98-107) mmol/L Anion Gap (4-12) mmol/L Creatinine 0.60 L (0.7-1.3) mg/dL Lactic Acid (0.7-2.0) mmol/L Calcium 8.0 L (8.9-10.7) mg/dL Iron 22 L (49-181) ug/dL % Saturation 8 L (20-50) % Ferritin 14.00 L (17.9-464) ng/mL Urine Appearance (Clear) Ur Specific [place] (1.001-1.035) Urine Protein (Negative) mg/dL Urine Ketones (Negative) mg/dL Urine Bilirubin (Negative) Urine RBC (0-2) /hpf Diabetes panel 06/07/24 06/08/24 Range/Units 19:37 01:10 Sodium 136 136 (134-143) mmol/L Potassium 5.0 4.2 (3.4-5.0) mmol/L Chloride 97 L 104 (98-107) mmol/L Carbon Dioxide 25 24 (22-30) mmol/L BUN 14 D 13 (8-21) mg/dL Creatinine 0.70 0.60 L (0.7-1.3) mg/dL Glucose 106 100 (65-110) mg/dL Calcium 9.2 8.0 L (8.9-10.7) mg/dL AST 20 (17-59) U/L ALT 11 (6-50) U/L Alkaline Phosphatase 98 (58-237) U/L Total Protein 8.0 (6.3-8.6) g/dL Albumin 4.3 (3.7-5.6) g/dL Calcium panel 06/07/24 06/08/24 Range/Units 19:37 01:10 Calcium 9.2 8.0 L (8.9-10.7) mg/dL Albumin 4.3 (3.7-5.6) g/dL Pituitary panel 06/07/24 06/08/24 Range/Units 19:37 01:10 Sodium 136 136 (134-143) mmol/L Potassium 5.0 4.2 (3.4-5.0) mmol/L Chloride 97 L 104 (98-107) mmol/L Carbon Dioxide 25 24 (22-30) mmol/L BUN 14 D 13 (8-21) mg/dL Creatinine 0.70 0.60 L (0.7-1.3) mg/dL Glucose 106 100 (65-110) mg/dL Calcium 9.2 8.0 L (8.9-10.7) mg/dL Adrenal panel 06/07/24 06/08/24 Range/Units 19:37 01:10 Sodium 136 136 (134-143) mmol/L Potassium 5.0 4.2 (3.4-5.0) mmol/L Chloride 97 L 104 (98-107) mmol/L Carbon Dioxide 25 24 (22-30) mmol/L BUN 14 D 13 (8-21) mg/dL Creatinine 0.70 0.60 L (0.7-1.3) mg/dL Glucose 106 100 (65-110) mg/dL Calcium 9.2 8.0 L (8.9-10.7) mg/dL Total Bilirubin 0.5 (0.2-1.3) mg/dL AST 20 (17-59) U/L ALT 11 (6-50) U/L Alkaline Phosphatase 98 (58-237) U/L Total Protein 8.0 (6.3-8.6) g/dL Albumin 4.3 (3.7-5.6) g/dL All other labs normal. Imaging Abdominal x-ray: report reviewed and image reviewed (NG tube in good position) Abdomen CT scan report/results: report reviewed (Gastrointestinal tract: Multiple loops of fluid-filled small bowel are identified with mural thickening and surrounding inflammatory change consistent with high-grade small bowel obstruction. Mural thickening with hyperemic bowel wall and surrounding formation is identified within the distal small b) and image reviewed (Severe inflammation with mass effect, most likely phlegmon, right lower quadrant. Dilated fluid-filled loops of small intestine consistent with SBO.) CT scan - pelvis: report reviewed and image reviewed
[2024-06-09] VITALS (9 sets, daily range): BP systolic 99–106; BP diastolic 56–74; PULSE 76–100; RESP 12–18; TEMP 36.7–37.2; O2SAT 96–100
[2024-06-09 06:45] LABS: Hematocrit 28.4 % (42.0-52.0); Hemoglobin 8.3 g/dL (14.0-18.0); Mean Corpuscular HGB Conc 29.2 g/dl (32-36); Mean Corpuscular Volume 78.7 fl (80-100); Mean Platelet Volume 8.7 fl (7.4-10.4); Platelet Count Result 421 k/mm3 (150-375); Red Blood Count 3.61 M/mm3 (4.6-6.20); White Blood Count 9.1 K/mm3 (4.5-10.0)
[2024-06-09 07:09] LABS: Alanine Aminotransferase 7 U/L (6-50); Albumin Level 2.8 g/dL (3.7-5.6); Alkaline Phosphatase 70 U/L (58-237); Anion Gap 4 mmol/L (4-12); Aspartate Amino Transferase 15 U/L (17-59); Bilirubin,Total 0.6 mg/dL (0.2-1.3); Blood Urea Nitrogen 8 mg/dL (8-21); Carbon Dioxide 28 mmol/L (22-30); Chloride 103 mmol/L (98-107); Estimated CRCL calculation 111 ml/min; Estimated Glomerular Filt Rate > 60; Glucose 89 mg/dL (65-110); Lipase 55 U/L (23-300); Potassium 3.6 mmol/L (3.4-5.0); Sodium 135 mmol/L (134-143)
[2024-06-09 08:06] LABS: Band Neutrophils Percent 9 % (0-6); Eosinophils Absolute Manual 0.18 K/mm3 (0.02-0.50); Eosinophils Percent Manual 2 % (0-4); Hypochromasia 1+; Lymphocytes Absolute Manual 0.72 K/mm3 (1.1-4.5); Monocytes Absolute Manual 1.18 K/mm3 (0.1-0.90); Monocytes Percent Manual 13 % (3-9); Neutrophils Percent Manual 68 % (46-73); Platelet Estimate Increased (Adequate); Schistocytes None Seen; Total Cells Counted 100
[2024-06-09] MEDS: methylPREDNISolone SOD SUCC 125 MG VIAL 60 MG IV PUSH (09:44)
[2024-06-09] MEDS: SODIUM CHLORIDE 0.9% IV 1,000 ML 100 ML IV CONT ×2 (09:44→19:03)
[2024-06-09] MEDS: ENOXAPARIN 40 MG/0.4 ML SYRINGE SUB-Q (09:45)
[2024-06-09] MEDS: PANTOPRAZOLE SODIUM IV 40 MG VIAL IV PUSH (09:45)
--- NOTE | 2024-06-09 10:26 | P.PNGS_ITS ---
Progress Note: A&P Assessment and Plan (1) Crohn's ileocolitis: Qualifiers: Digestive disease complication type: with intestinal obstruction Qualified Code(s): K50.812 - Crohn's disease of both small and large intestine with intestinal obstruction Code(s): K50.80 - Crohn's disease of both small and large intestine without complications Status: Acute Assessment and Plan: Seems to be responding to treatment. No plans for surgery at this time. Removal of NGT tube and starting oral intake per gastroenterology. (2) SBO (small bowel obstruction): Code(s): K56.609 - Unspecified intestinal obstruction, unspecified as to partial versus complete obstruction Status: Acute Subjective Subjective Date/Time Seen: 06/09/24 10:26 Patient reports: pain is less (Denies abdominal pain or nausea) Review of Systems Review of Systems: All systems reviewed & are unremarkable except as noted in HPI and below (HPI) Exam Const: General: comfortable, alert and awake Nutritional Appearance: underweight GI: Inspection: normal to inspection and scaphoid GI Palp: Yes Soft to palpation, Yes Tenderness to palpation present (GI) (Still some right lower quadrant tenderness but less than before) and Yes Palpable mass present (Inflammatory mass still appreciated) Objective Data Vital Signs Vital Signs: Vital Signs - 24 hr 06/08/24 12:02 06/08/24 14:00 06/08/24 16:00 Temperature 37.6 C Pulse Rate 112 H 102 H 94 Respiratory Rate 18 Blood Pressure 109/74 Pulse Oximetry 98 Oxygen Delivery 06/08/24 20:00 06/08/24 20:00 06/08/24 22:00 Temperature 36.9 C Pulse Rate 103 H 98 Respiratory Rate 12 Blood Pressure 124/73 Pulse Oximetry 100 Oxygen Delivery Room Air 06/09/24 00:00 06/09/24 04:00 06/09/24 06:00 Temperature 37.2 C Pulse Rate 80 82 100 Respiratory Rate 13 Blood Pressure 99/74 L Pulse Oximetry 100 Oxygen Delivery 06/09/24 08:00 Temperature Pulse Rate 83 Respiratory Rate Blood Pressure Pulse Oximetry Oxygen Delivery Intake/Output Intake/Output: Intake & Output 06/06/24 06/07/24 06/08/24 06/09/24 23:59 23:59 23:59 23:59 Intake Total 2049 2169 1000 Output Total 300 Balance 2050 2170 700 Meds/Results Medications: Active Medications Generic Name Dose Route Start Last Admin Trade Name Freq PRN Reason Stop Dose Admin Acetaminophen 650 mg 06/07/24 22:30 Acetaminophen 650 Mg Suppository RECTAL Q6H PRN Mild Pain (1-3) or Fever Dextrose 12.5 gm 06/07/24 22:30 Dextrose 50% 25 Gm/50 Ml Syringe IV PUSH PRN PRN Hypoglycemia Protocol Enoxaparin Sodium 40 mg 06/09/24 09:00 06/09/24 09:45 Enoxaparin 40 Mg/0.4 Ml Syringe SUB-Q 40 mg DAILY KISHORE Administration Glucagon 1 mg 06/07/24 22:30 Glucagon For Inj 1 Mg Vial IM PRN PRN Hypoglycemia Protocol Glucose 15 gm 06/07/24 22:30 Glucose Oral Gel 15 Gm Of Glucse In 37.5 Gm Tube PO PRN PRN Hypoglycemia Protocol Hydromorphone HCl 1 mg 06/08/24 00:40 06/08/24 10:42 Hydromorphone Hcl Inj (*Crx) 1 Mg/Ml Syr IV PUSH 1 mg Q3H PRN Administration Pain Rated 7-10 Hydromorphone HCl 0.5 mg 06/08/24 00:41 Hydromorphone Hcl Inj (*Crx) 1 Mg/Ml Syr IV PUSH Q3H PRN Pain Rated 4-6 Sodium Chloride 1,000 mls @ 100 mls/hr 06/07/24 22:30 06/09/24 09:44 Normal Saline Iv IV CONT 100 mls/hr .Q10H KISHORE Administration Dextrose 1,000 mls @ 100 mls/hr 06/07/24 22:30 Dextrose 5% 1,000 Ml IVPB PRN PRN Hypoglycemia Protocol Methylprednisolone Sodium Succinate 60 mg 06/08/24 09:55 06/09/24 09:44 Methylprednisolone Sod Succ 125 Mg Vial IV PUSH 60 mg DAILY KISHORE Administration Ondansetron HCl 4 mg 06/08/24 00:40 Ondansetron Inj 4 Mg/2 Ml Vial IV PUSH Q6H PRN Nausea And Vomiting Pantoprazole Sodium 40 mg 06/08/24 09:00 06/08/24 07:27 Pantoprazole 40 Mg Tablet PO Not Given QAM KISHORE Pantoprazole Sodium 40 mg 06/09/24 09:00 06/09/24 09:45 Pantoprazole Sodium Iv 40 Mg Vial IV PUSH 40 mg QAM [facility] Administration Prednisone 40 mg 06/08/24 08:00 06/08/24 07:27 Prednisone 20 Mg Tablet PO Not Given DAILY@0800 [facility] Radiology Results: ITS Impressions Abdomen/Pelvis CT 06/07/24 21:16 IMPRESSION: High-grade small bowel obstruction with the transition point in the distal small bowel, as detailed above. Chest CT 06/08/24 22:21 IMPRESSION: Unremarkable CT examination of the chest, as detailed above. Abdomen X-Ray 06/09/24 06:15 IMPRESSION: 1. Normal bowel gas pattern. Labs Labs: Laboratory Results - last 24 hr 06/09/24 06:18 WBC 9.1 RBC 3.61 L Hgb 8.3 L Hct 28.4 L MCV 78.7 L MCH 23.0 L MCHC 29.2 L RDW 16.0 H Plt Count 421 H MPV 8.7 Immature Gran % (Auto) Not Reportable Neut % (Auto) Not Reportable Lymph % (Auto) Not Reportable [place] % (Auto) Not Reportable Eos % (Auto) Not Reportable Baso % (Auto) Not Reportable Lymph # (Auto) Not Reportable [place] # (Auto) Not Reportable Eos # (Auto) Not Reportable Baso # (Auto) Not Reportable Abs Immat Gran (auto) Not Reportable Absolute Neuts (auto) Not Reportable Absolute Nucleated RBC Not Reportable Total Counted 100 Neutrophils % (Manual) 68 Band Neutrophils % 9 H Lymphocytes % (Manual) 8.0 L Monocytes % (Manual) 13 H Eosinophils % (Manual) 2 Nucleated RBC % Not Reportable Abs Neuts (Manual) 7.00 H Abs Lymphs (Manual) 0.72 L Abs Monocytes (Manual) 1.18 H Absolute Eos (Manual) 0.18 Platelet Estimate Increased Hypochromasia 1+ Schistocytes None seen Sodium 135 Potassium 3.6 Chloride 103 Carbon Dioxide 28 Anion Gap 4 BUN 8 D Creatinine 0.70 Estim Creat Clear Calc 111 Estimated GFR > 60 Glucose 89 Calcium 8.0 L Total Bilirubin 0.6 AST 15 L ALT 7 Alkaline Phosphatase 70 Total Protein 6.0 L Albumin 2.8 L Lipase 55
--- NOTE | 2024-06-09 11:49 | P.PNGI_ITS ---
Progress Note: A&P Assessment and Plan (1) Crohn's ileocolitis: Qualifiers: Digestive disease complication type: with intestinal obstruction Qualified Code(s): K50.812 - Crohn's disease of both small and large intestine with intestinal obstruction Code(s): K50.80 - Crohn's disease of both small and large intestine without complications Status: Acute Plan Patient with ileo cecal Crohn's doing well on NG suction and IV Solumedrol. Results of intermediate Quantiferon commented yesterday. Chest CT normal, and P PD placed. will repeat quantiferon. If still intermediate, still reluctant to prescribe biologic therapy or even corticosteroids due to the risk of exacerbating latent TB. Will have a discussion with surgical team regarding semi elective surgical approach once more stable. For today, will keep NG tube clamped and try clear liquid diet. If tolerated, will advance tomorrow, remove NG tube and keep advancing diet. May switch to oral steroids on Tuesday. Time Spent With Patient Time with patient: less than 15 minutes Subjective Date/time seen: 06/09/24 11:49 Interval history: Cortes is doing much better today, no abdominal pain, passed gas and had 4 semi liquid bowel movements this morning. He is hungry and willing to try oral tolerance. Review of Systems Review of Systems: All systems reviewed & are unremarkable except as noted in HPI and below Exam Const: General: comfortable, alert and awake Nutritional Appearance: underweight GI: Inspection: normal to inspection GI Palp: Yes Soft to palpation, Yes Tenderness to palpation present (GI) (Still some right lower quadrant tenderness but less than before) and Yes Palpable mass present (Inflammatory mass still appreciated) Objective Data Vital Signs Vital Signs: Vital Signs - 24 hr 06/08/24 12:02 06/08/24 14:00 06/08/24 16:00 Temperature 99.6 F Pulse Rate 112 H 102 H 94 Respiratory Rate 18 Blood Pressure 109/74 Pulse Oximetry 98 Oxygen Delivery 06/08/24 20:00 06/08/24 20:00 06/08/24 22:00 Temperature 98.5 F Pulse Rate 103 H 98 Respiratory Rate 12 Blood Pressure 124/73 Pulse Oximetry 100 Oxygen Delivery Room Air 06/09/24 00:00 06/09/24 04:00 06/09/24 06:00 Temperature 98.9 F Pulse Rate 80 82 100 Respiratory Rate 13 Blood Pressure 99/74 L Pulse Oximetry 100 Oxygen Delivery 06/09/24 08:00 Temperature Pulse Rate 83 Respiratory Rate Blood Pressure Pulse Oximetry Oxygen Delivery Intake/Output Intake/Output: Intake & Output 06/06/24 06/07/24 06/08/24 06/09/24 23:59 23:59 23:59 23:59 Intake Total 2049 2169 1000 Output Total 300 Balance 2049 2169 700 Meds/Results Medications: Active Medications Generic Name Dose Route Start Last Admin Trade Name Freq PRN Reason Stop Dose Admin Acetaminophen 650 mg 06/07/24 22:30 Acetaminophen 650 Mg Suppository RECTAL Q6H PRN Mild Pain (1-3) or Fever Dextrose 12.5 gm 06/07/24 22:30 Dextrose 50% 25 Gm/50 Ml Syringe IV PUSH PRN PRN Hypoglycemia Protocol Enoxaparin Sodium 40 mg 06/09/24 09:00 06/09/24 09:45 Enoxaparin 40 Mg/0.4 Ml Syringe SUB-Q 40 mg DAILY KISHORE Administration Glucagon 1 mg 06/07/24 22:30 Glucagon For Inj 1 Mg Vial IM PRN PRN Hypoglycemia Protocol Glucose 15 gm 06/07/24 22:30 Glucose Oral Gel 15 Gm Of Glucse In 37.5 Gm Tube PO PRN PRN Hypoglycemia Protocol Hydromorphone HCl 1 mg 06/08/24 00:40 06/08/24 10:42 Hydromorphone Hcl Inj (*Crx) 1 Mg/Ml Syr IV PUSH 1 mg Q3H PRN Administration Pain Rated 7-10 Hydromorphone HCl 0.5 mg 06/08/24 00:41 Hydromorphone Hcl Inj (*Crx) 1 Mg/Ml Syr IV PUSH Q3H PRN Pain Rated 4-6 Sodium Chloride 1,000 mls @ 100 mls/hr 06/07/24 22:30 06/09/24 09:44 Normal Saline Iv IV CONT 100 mls/hr .Q10H KISHORE Administration Dextrose 1,000 mls @ 100 mls/hr 06/07/24 22:30 Dextrose 5% 1,000 Ml IVPB PRN PRN Hypoglycemia Protocol Methylprednisolone Sodium Succinate 60 mg 06/08/24 09:55 06/09/24 09:44 Methylprednisolone Sod Succ 125 Mg Vial IV PUSH 60 mg DAILY KISHORE Administration Ondansetron HCl 4 mg 06/08/24 00:40 Ondansetron Inj 4 Mg/2 Ml Vial IV PUSH Q6H PRN Nausea And Vomiting Pantoprazole Sodium 40 mg 06/08/24 09:00 06/08/24 07:27 Pantoprazole 40 Mg Tablet PO Not Given QAM [facility] Pantoprazole Sodium 40 mg 06/09/24 09:00 06/09/24 09:45 Pantoprazole Sodium Iv 40 Mg Vial IV PUSH 40 mg QAM [facility] Administration Prednisone 40 mg 06/08/24 08:00 06/08/24 07:27 Prednisone 20 Mg Tablet PO Not Given DAILY@0800 [facility] Radiology Results: ITS Impressions Abdomen/Pelvis CT 06/07/24 21:16 IMPRESSION: High-grade small bowel obstruction with the transition point in the distal small bowel, as detailed above. Chest CT 06/08/24 22:21 IMPRESSION: Unremarkable CT examination of the chest, as detailed above. Abdomen X-Ray 06/09/24 06:15 IMPRESSION: 1. Normal bowel gas pattern. Labs Labs: Laboratory Results - last 24 hr 06/09/24 06:18 WBC 9.1 RBC 3.61 L Hgb 8.3 L Hct 28.4 L MCV 78.7 L MCH 23.0 L MCHC 29.2 L RDW 16.0 H Plt Count 421 H MPV 8.7 Immature Gran % (Auto) Not Reportable Neut % (Auto) Not Reportable Lymph % (Auto) Not Reportable [place] % (Auto) Not Reportable Eos % (Auto) Not Reportable Baso % (Auto) Not Reportable Lymph # (Auto) Not Reportable [place] # (Auto) Not Reportable Eos # (Auto) Not Reportable Baso # (Auto) Not Reportable Abs Immat Gran (auto) Not Reportable Absolute Neuts (auto) Not Reportable Absolute Nucleated RBC Not Reportable Total Counted 100 Neutrophils % (Manual) 68 Band Neutrophils % 9 H Lymphocytes % (Manual) 8.0 L Monocytes % (Manual) 13 H Eosinophils % (Manual) 2 Nucleated RBC % Not Reportable Abs Neuts (Manual) 7.00 H Abs Lymphs (Manual) 0.72 L Abs Monocytes (Manual) 1.18 H Absolute Eos (Manual) 0.18 Platelet Estimate Increased Hypochromasia 1+ Schistocytes None seen Sodium 135 Potassium 3.6 Chloride 103 Carbon Dioxide 28 Anion Gap 4 BUN 8 D Creatinine 0.70 Estim Creat Clear Calc 111 Estimated GFR > 60 Glucose 89 Calcium 8.0 L Total Bilirubin 0.6 AST 15 L ALT 7 Alkaline Phosphatase 70 Total Protein 6.0 L Albumin 2.8 L Lipase 55
--- NOTE | 2024-06-09 12:01 | P.PNIM_ITS ---
Progress Note: A&P Assessment and Plan (1) Sepsis: Qualifiers: Sepsis acute organ dysfunction status: unspecified Sepsis type: sepsis due to unspecified organism Qualified Code(s): A41.9 - Sepsis, unspecified o rganism Code(s): A41.9 - Sepsis, unspecified organism Status: Acute Assessment and Plan: Patient initially meeting sepsis criteria with heart rate of 130, initial white blood cell count 23.5 with bandemia, lactic acidosis with a lactic acid level of 2.8, enteritis with history of Crohn's disease-here with Crohn's flare up. Patient was given IV fluids while in the ED and lactic acid improved back to baseline however patient remained tachycardic. * Zosyn discontinued * Continue IV fluids * Blood cultures were obtained and are pending * White blood cell count today down to 9.1 * Procalcitonin 0.4 (2) SBO (small bowel obstruction): Code(s): K56.609 - Unspecified intestinal obstruction, unspecified as to partial versus complete obstruction Status: Acute Assessment and Plan: * CT of the abdomen and pelvis show high-grade small bowel obstruction with a transition point in the distal small bowel. Multiple loops of fluid-filled small bowel with moral thickening and surrounding inflammatory changes seen. * Discontinue Zosyn as white blood cell count is likely reactive due to Crohn's disease and procalcitonin is less than 0.5 * GI following * General surgery following * NG tube to low intermittent suction bilious drainage * Continue NPO status * Continue pain and nausea control (3) Crohn's disease: Qualifiers: Digestive disease complication type: with intestinal obstruction Gastrointestinal tract location: unspecified location Qualified Code(s): K50.912 - Crohn's disease, unspecified, with intestinal obstruction Code(s): K50.90 - Crohn's disease, unspecified, without complications Status: Acute Assessment and Plan: * Hold prednisone * Continue Solu-Medrol 60 mg IV push daily per GI recommendation * GI consulted (4) Enteritis: Code(s): K52.9 - Noninfective gastroenteritis and colitis, unspecified Status: Acute Assessment and Plan: * See above for detail, likely secondary to Crohn's (5) Anemia: Qualifiers: Anemia type: iron deficiency Iron deficiency anemia type: unspecified iron deficiency Qualified Code(s): D50.9 - Iron deficiency anemia, unspecified Code(s): D64.9 - Anemia, unspecified Status: Chronic Assessment and Plan: * Hemoglobin currently 8.3 * MCV 78.7 * Appears to be chronic * Labs from 05/22/2024 showing iron level of 29 * vitamin B12, folic acid, ferritin normal * TSH 3.100 Subjective Date/time seen: 06/09/24 12:01 Interval history: Interval history: This is a 18-year-old male who presented to the hospital on 06/07/2024 with complaints of diffuse abdominal pain that started 1 day ago. Patient has history of Crohn's disease and is already on prednisone 40 mg daily. He is a patient of Dr. Ramos. Workup in the hospital included an abdomen/pelvis CT which shows high-grade small-bowel obstruction with a transition point in the distal small bowel. NG tube was placed. Initial labs showed a white blood cell count of 23.5 with bandemia, hemoglobin 12.2, platelet count 656, anion gap 14, creatinine 0.7. UA was obtained which showed cloudy urine appearance, urine specific gravity of 1.039, 1+ urine protein, 1+ urine ketone, 2+ urine bili, 3-5 urine RBC, 1+ bacteria. Lactic acid 2.8> 1.4. Blood cultures were obtained and are pending. Patient was given IV fluids, antiemetics, pain medication, and sta rted on Zosyn while in the ED. GI and General surgery was consulted. Subjective: Denies any new complaints overnight. Bowel sounds are absent. He remains with NGT to [facility]. Labs reviewed. Review of Systems Review of Systems: All systems reviewed & are unremarkable except as noted in HPI and below Constitutional: Constitutional: Reports as per HPI and Reports no additional constitutional complaints Eyes: Eyes: Reports as per HPI and Reports no additional eye complaints ENT: Reports system reviewed and no additional complaints, except as documented and Reports as per HPI Cardiovascular: Cardiovascular: Reports as per HPI and Reports no additional cardiovascular complaints Respiratory: Respiratory: Reports as per HPI and Reports no additional respiratory complaints Gastrointestinal: Gastrointestinal: Reports as per HPI and Reports no additional gastrointestinal complaints Genitourinary: Genitourinary: Reports no additional male genitourinary complaints and Reports as per HPI Musculoskeletal: Musculoskeletal: Reports no additional musculoskeletal complaints and Reports as per HPI Integumentary/Breasts: Skin/Breast: Reports system reviewed and no additional complaints, except as docu and Reports as per HPI Neurologic: Reports system reviewed and no additional complaints, except as documented and Reports as per HPI Psychiatric: Psychiatric: Reports no additional psychiatric complaints and Reports as per HPI Exam Narrative: General: In no acute distress, malnourished Cardiac: Normal S1 and S2. RRR, No murmur, gallops or friction rubs, peripheral pulses intact. Respiratory: Lungs clear to auscultation, no adventitious lung sounds, currently on room air Gastrointestinal: soft, non-distended, non-tender, normoactive bowel sounds. NG tube to low intermittent suction bilious fluid in tubing Neuro: Alert and oriented x4 Objective Data Vital Signs Vital Signs: Vital Signs - 24 hr 06/08/24 12:02 06/08/24 14:00 06/08/24 16:00 Temperature 99.6 F Pulse Rate 112 H 102 H 94 Respiratory Rate 18 Blood Pressure 109/74 Pulse Oximetry 98 Oxygen Delivery 06/08/24 20:00 06/08/24 20:00 06/08/24 22:00 Temperature 98.5 F Pulse Rate 103 H 98 Respiratory Rate 12 Blood Pressure 124/73 Pulse Oximetry 100 Oxygen Delivery Room Air 06/09/24 00:00 06/09/24 04:00 06/09/24 06:00 Temperature 98.9 F Pulse Rate 80 82 100 Respiratory Rate 13 Blood Pressure 99/74 L Pulse Oximetry 100 Oxygen Delivery 06/09/24 08:00 Temperature Pulse Rate 83 Respiratory Rate Blood Pressure Pulse Oximetry Oxygen Delivery Intake/Output Intake/Output: Intake & Output 06/06/24 06/07/24 06/08/24 06/09/24 23:59 23:59 23:59 23:59 Intake Total 20490 1000 Output Total 300 Balance 20490 700 Meds/Results Medications: Active Medications Generic Name Dose Route Start Last Admin Trade Name Freq PRN Reason Stop Dose Admin Acetaminophen 650 mg 06/07/24 22:30 Acetaminophen 650 Mg Suppository RECTAL Q6H PRN Mild Pain (1-3) or Fever Dextrose 12.5 gm 06/07/24 22:30 Dextrose 50% 25 Gm/50 Ml Syringe IV PUSH PRN PRN Hypoglycemia Protocol Enoxaparin Sodium 40 mg 06/09/24 09:00 06/09/24 09:45 Enoxaparin 40 Mg/0.4 Ml Syringe SUB-Q 40 mg DAILY KISHORE Administration Glucagon 1 mg 06/07/24 22:30 Glucagon For Inj 1 Mg Vial IM PRN PRN Hypoglycemia Protocol Glucose 15 gm 06/07/24 22:30 Glucose Oral Gel 15 Gm Of Glucse In 37.5 Gm Tube PO PRN PRN Hypoglycemia Protocol Hydromorphone HCl 1 mg 06/08/24 00:40 06/08/24 10:42 Hydromorphone Hcl Inj (*Crx) 1 Mg/Ml Syr IV PUSH 1 mg Q3H PRN Administration Pain Rated 7-10 Hydromorphone HCl 0.5 mg 06/08/24 00:41 Hydromorphone Hcl Inj (*Crx) 1 Mg/Ml Syr IV PUSH Q3H PRN Pain Rated 4-6 Sodium Chloride 1,000 mls @ 100 mls/hr 06/07/24 22:30 06/09/24 09:44 Normal Saline Iv IV CONT 100 mls/hr .Q10H KISHORE Administration Dextrose 1,000 mls @ 100 mls/hr 06/07/24 22:30 Dextrose 5% 1,000 Ml IVPB PRN PRN Hypoglycemia Protocol Methylprednisolone Sodium Succinate 60 mg 06/08/24 09:55 06/09/24 09:44 Methylprednisolone Sod Succ 125 Mg Vial IV PUSH 60 mg DAILY KISHORE Administration Ondansetron HCl 4 mg 06/08/24 00:40 Ondansetron Inj 4 Mg/2 Ml Vial IV PUSH Q6H PRN Nausea And Vomiting Pantoprazole Sodium 40 mg 06/08/24 09:00 06/08/24 07:27 Pantoprazole 40 Mg Tablet PO Not Given QAM [facility] Pantoprazole Sodium 40 mg 06/09/24 09:00 06/09/24 09:45 Pantoprazole Sodium Iv 40 Mg Vial IV PUSH 40 mg QAM [facility] Administration Prednisone 40 mg 06/08/24 08:00 06/08/24 07:27 Prednisone 20 Mg Tablet PO Not Given DAILY@0800 [facility] Radiology Results: ITS Impressions Abdomen/Pelvis CT 06/07/24 21:16 IMPRESSION: High-grade small bowel obstruction with the transition point in the distal small bowel, as detailed above. Chest CT 06/08/24 22:21 IMPRESSION: Unremarkable CT examination of the chest, as detailed above. Abdomen X-Ray 06/09/24 06:15 IMPRESSION: 1. Normal bowel gas pattern. Labs Labs: Laboratory Results - last 24 hr 06/09/24 06:18 WBC 9.1 RBC 3.61 L Hgb 8.3 L Hct 28.4 L MCV 78.7 L MCH 23.0 L MCHC 29.2 L RDW 16.0 H Plt Count 421 H MPV 8.7 Immature Gran % (Auto) Not Reportable Neut % (Auto) Not Reportable Lymph % (Auto) Not Reportable [place] % (Auto) Not Reportable Eos % (Auto) Not Reportable Baso % (Auto) Not Reportable Lymph # (Auto) Not Reportable [place] # (Auto) Not Reportable Eos # (Auto) Not Reportable Baso # (Auto) Not Reportable Abs Immat Gran (auto) Not Reportable Absolute Neuts (auto) Not Reportable Absolute Nucleated RBC Not Reportable Total Counted 100 Neutrophils % (Manual) 68 Band Neutrophils % 9 H Lymphocytes % (Manual) 8.0 L Monocytes % (Manual) 13 H Eosinophils % (Manual) 2 Nucleated RBC % Not Reportable Abs Neuts (Manual) 7.00 H Abs Lymphs (Manual) 0.72 L Abs Monocytes (Manual) 1.18 H Absolute Eos (Manual) 0.18 Platelet Estimate Increased Hypochromasia 1+ Schistocytes None seen Sodium 135 Potassium 3.6 Chloride 103 Carbon Dioxide 28 Anion Gap 4 BUN 8 D Creatinine 0.70 Estim Creat Clear Calc 111 Estimated GFR > 60 Glucose 89 Calcium 8.0 L Total Bilirubin 0.6 AST 15 L ALT 7 Alkaline Phosphatase 70 Total Protein 6.0 L Albumin 2.8 L Lipase 55 Quality VTE Prophylaxis VTE prophylaxis: mechanical ordered
[2024-06-09] MEDS: IRON SUCROSE COMPLEX 400 MG, IRON SUCROSE COMPLEX 100 MG in SODIUM CHLORIDE 0.9% IV 250 ML 68 MG IVPB (21:53)
[2024-06-10] VITALS: PULSE 85
[2024-06-10 04:00] VITALS: PULSE 91
[2024-06-10 05:44] VITALS: BP 114/69; PULSE 78; RESP 16; TEMP 36.9; O2SAT 99
[2024-06-10 06:46] LABS: Iron 781 ug/dL (49-181); Percent Iron Saturation 343 % (20-50)
[2024-06-10 08:00] VITALS: PULSE 74
[2024-06-10] MEDS: PANTOPRAZOLE SODIUM IV 40 MG VIAL IV PUSH (08:47)
[2024-06-10] MEDS: methylPREDNISolone SOD SUCC 125 MG VIAL 60 MG IV PUSH (08:47)
[2024-06-10] MEDS: ENOXAPARIN 40 MG/0.4 ML SYRINGE SUB-Q (08:47)
[2024-06-10] MEDS: SODIUM CHLORIDE 0.9% IV 1,000 ML 100 ML IV CONT ×2 (08:52→17:43)
--- NOTE | 2024-06-10 10:19 | WPDGIPROGNO ---
Progress Note: A&P Assessment and Plan (1) Crohn's ileocolitis: Qualifiers: Digestive disease complication type: with intestinal obstruction Qualified Code(s): K50.812 - Crohn's disease of both small and large intestine with intestinal obstruction Code(s): K50.80 - Crohn's disease of both small and large intestine without complications Status: Acute Assessment and Plan: Patient with ileocecal Crohn's, doing well on Intravenous steroids. He tolerated liquid diet very well, therefore will remove nasogastric tube and advance to bland diet today. Tomorrow we will switch to prednisone, 40 mg q.d. and will wait for QuantiFERON results which are repeated since the previous one was indeterminate. Fortunately, his PPD is negative as well as his chest CT scan. He does not need to be in isolation since there was no active tuberculosis. His new insurance company will start covering him on June 24. Therefore, we will see if biologic therapy is approved, and, if that is the case, will start Humira injections. It does not seem like he has occult tuberculosis. In case there are difficulties with insurance company coverage, will present him to surgery for elective resection of the ileocecal diseased segment. Plan D/C NG tube and isolation (no active TB) - Tomorrow will start prednisone 40 mg qD - Advance to full liquid diet today Time Spent With Patient Time with patient: 15 - 25 minutes Subjective Date/time seen: 06/10/24 10:19 Interval history: The patient feels well today, tolerated feedings, and had a bowel movement this morning. Review of Systems Review of Systems: All systems reviewed & are unremarkable except as noted in HPI and below Exam Narrative: General: In no acute distress, malnourished Cardiac: Normal S1 and S2. RRR, No murmur, gallops or friction rubs, peripheral pulses intact. Respiratory: Lungs clear to auscultation, no adventitious lung sounds, currently on room air Gastrointestinal: soft, non-distended, non-tender, normoactive bowel sounds. NG tube to low intermittent suction bilious fluid in tubing Neuro: Alert and oriented x4 Objective Data Vital Signs Vital Signs: Vital Signs - 24 hr 06/09/24 14:00 06/09/24 12:00 06/09/24 16:00 Temperature 98.0 F Pulse Rate 93 86 97 Respiratory Rate 18 Blood Pressure 106/56 L Pulse Oximetry 96 Oxygen Delivery 11/16/24 21:16 06/09/24 20:00 06/09/24 20:00 Temperature 99.0 F Pulse Rate 79 76 Respiratory Rate 12 Blood Pressure 104/62 Pulse Oximetry 100 Oxygen Delivery Room Air 06/10/24 00:00 06/10/24 04:00 06/10/24 05:44 Temperature 98.5 F Pulse Rate 85 91 78 Respiratory Rate 16 Blood Pressure 114/69 Pulse Oximetry 99 Oxygen Delivery Intake/Output Intake/Output: Intake & Output 06/07/24 06/08/24 06/09/24 06/10/24 23:59 23:59 23:59 23:59 Intake Total 2049 2169 2681.7 1461.3 Output Total 500 Balance 2049 2169 2181.7 1461.3 Meds/Results Medications: Active Medications Generic Name Dose Route Start Last Admin Trade Name Freq PRN Reason Stop Dose Admin Acetaminophen 650 mg 06/07/24 22:30 Acetaminophen 650 Mg Suppository RECTAL Q6H PRN Mild Pain (1-3) or Fever Dextrose 12.5 gm 06/07/24 22:30 Dextrose 50% 25 Gm/50 Ml Syringe IV PUSH PRN PRN Hypoglycemia Protocol Enoxaparin Sodium 40 mg 06/09/24 09:00 06/10/24 08:47 Enoxaparin 40 Mg/0.4 Ml Syringe SUB-Q 40 mg DAILY KISHORE Administration Glucagon 1 mg 06/07/24 22:30 Glucagon For Inj 1 Mg Vial IM PRN PRN Hypoglycemia Protocol Glucose 15 gm 06/07/24 22:30 Glucose Oral Gel 15 Gm Of Glucse In 37.5 Gm Tube PO PRN PRN Hypoglycemia Protocol Hydromorphone HCl 1 mg 06/08/24 00:40 06/08/24 10:42 Hydromorphone Hcl Inj (*Crx) 1 Mg/Ml Syr IV PUSH 1 mg Q3H PRN Administration Pain Rated 7-10 Hydromorphone HCl 0.5 mg 06/08/24 00:41 Hydromorphone Hcl Inj (*Crx) 1 Mg/Ml Syr IV PUSH Q3H PRN Pain Rated 4-6 Sodium Chloride 1,000 mls @ 100 mls/hr 06/07/24 22:30 06/10/24 08:52 Normal Saline Iv IV CONT 100 mls/hr .Q10H K[facility] Administration Dextrose 1,000 mls @ 100 mls/hr 06/07/24 22:30 Dextrose 5% 1,000 Ml IVPB PRN PRN Hypoglycemia Protocol Iron Sucrose 400 mg/ Iron 275 mls @ 68.75 mls/hr 06/09/24 22:00 06/10/24 03:04 Sucrose 100 mg/ Sodium IVPB 06/24/24 01:59 Infused Chloride Q14D [facility] Infusion Methylprednisolone Sodium Succinate 60 mg 06/08/24 09:55 06/10/24 08:47 Methylprednisolone Sod Succ 125 Mg Vial IV PUSH 60 mg DAILY K[facility] Administration Ondansetron HCl 4 mg 06/08/24 00:40 Ondansetron Inj 4 Mg/2 Ml Vial IV PUSH Q6H PRN Nausea And Vomiting Pantoprazole Sodium 40 mg 06/08/24 09:00 06/08/24 07:27 Pantoprazole 40 Mg Tablet PO Not Given QAM [facility] Pantoprazole Sodium 40 mg 06/09/24 09:00 06/10/24 08:47 Pantoprazole Sodium Iv 40 Mg Vial IV PUSH 40 mg QAM [facility] Administration Prednisone 40 mg 06/08/24 08:00 06/08/24 07:27 Prednisone 20 Mg Tablet PO Not Given DAILY@0800 [facility] Radiology Results: ITS Impressions Abdomen/Pelvis CT 06/07/24 21:16 IMPRESSION: High-grade small bowel obstruction with the transition point in the distal small bowel, as detailed above. Chest CT 06/08/24 22:21 IMPRESSION: Unremarkable CT examination of the chest, as detailed above. Abdomen X-Ray 06/09/24 06:15 IMPRESSION: 1. Normal bowel gas pattern. Labs Labs: Laboratory Results - last 24 hr 06/10/24 06:03 Iron 781 H TIBC 228 L % Saturation 343 H
--- NOTE | 2024-06-10 13:51 | PM.PNGS ---
Progress Note: A&P Assessment and Plan (1) Crohn's ileocolitis: Qualifiers: Digestive disease complication type: with intestinal obstruction Qualified Code(s): K50.812 - Crohn's disease of both small and large intestine with intestinal obstruction Code(s): K50.80 - Crohn's disease of both small and large intestine without complications Status: Acute Assessment and Plan: improving. Patient tells me that he misunderstood how it was to take his prednisone after his discharge previously. He was taking 5 mg daily rather than tapering it by 5 mg daily. He feels much better and is tolerating oral intake. I talked to yesterday regarding long-term management of his Crohn's ileocolitis and resultant small bowel obstruction. Dr. Alex Whitt recommends that we resolve the acute inflammation or flare of Crohn's ileitis and proceed with ileocolic resection electively. I did discuss this with the patient. He called his mother and I spoke to her on the phone. I will see him in the office in 2 weeks. Unless treatment strategy changes, we will probably go ahead with laparoscopic ileocolic resection after that office visit. (2) SBO (small bowel obstruction): Code(s): K56.609 - Unspecified intestinal obstruction, unspecified as to partial versus complete obstruction Status: Acute Assessment and Plan: Resolved with steroid treatment of Crohn's. NG out and tolerating liquids. Home when okay with Dr. Alex Anna. Subjective Subjective Date/Time Seen: 06/10/24 13:51 Patient reports: feels better, pain is less and bowel movement Review of Systems Review of Systems: All systems reviewed & are unremarkable except as noted in HPI and below ( HPI) Exam Const: General: cooperative, comfortable, alert, awake, well groomed and thin; No ill appearing Orientation/consciousness: patient oriented x3 and No confusion GI: Inspection: normal to inspection and scaphoid GI Palp: Yes Soft to palpation, Yes Tenderness to palpation present (GI) ( minimal right lower quadrant tenderness) and Yes Palpable mass present ( still sensation of a mass in the right lower quadrant, probably phlegmon) Objective Data Vital Signs Vital Signs: Vital Signs - 24 hr 06/09/24 14:00 06/09/24 16:00 06/09/24 21:16 Temperature 36.7 C 37.2 C Pulse Rate 93 97 79 Respiratory Rate 18 12 Blood Pressure 106/56 L 104/62 Pulse Oximetry 96 100 Oxygen Delivery 06/09/24 20:00 06/09/24 20:00 06/10/24 00:00 Temperature Pulse Rate 76 85 Respiratory Rate Blood Pressure Pulse Oximetry Oxygen Delivery Room Air 06/10/24 04:00 06/10/24 05:44 06/10/24 08:00 Temperature 36.9 C Pulse Rate 91 78 74 Respiratory Rate 16 Blood Pressure 114/69 Pulse Oximetry 99 Oxygen Delivery Intake/Output Intake/Output: Intake & Output 06/07/24 06/08/24 06/09/24 06/10/24 23:59 23:59 23:59 23:59 Intake Total 2049 2169 2681.7 1701.3 Output Total 500 Balance 2049 2169 2181.7 1701.3 Meds/Results Medications: Active Medications Generic Name Dose Route Start Last Admin Trade Name Freq PRN Reason Stop Dose Admin Acetaminophen 650 mg 06/07/24 22:30 Acetaminophen 650 Mg Suppository RECTAL Q6H PRN Mild Pain (1-3) or Fever Dextrose 12.5 gm 06/07/24 22:30 Dextrose 50% 25 Gm/50 Ml Syringe IV PUSH PRN PRN Hypoglycemia Protocol Enoxaparin Sodium 40 mg 06/09/24 09:00 06/10/24 08:47 Enoxaparin 40 Mg/0.4 Ml Syringe SUB-Q 40 mg DAILY KISHORE Administration Glucagon 1 mg 06/07/24 22:30 Glucagon For Inj 1 Mg Vial IM PRN PRN Hypoglycemia Protocol Glucose 15 gm 06/07/24 22:30 Glucose Oral Gel 15 Gm Of Glucse In 37.5 Gm Tube PO PRN PRN Hypoglycemia Protocol Hydromorphone HCl 1 mg 06/08/24 00:40 06/08/24 10:42 Hydromorphone Hcl Inj (*Crx) 1 Mg/Ml Syr IV PUSH 1 mg Q3H PRN Administration Pain Rated 7-10 Hydromorphone HCl 0.5 mg 06/08/24 00:41 Hydromorphone Hcl Inj (*Crx) 1 Mg/Ml Syr IV PUSH Q3H PRN Pain Rated 4-6 Sodium Chloride 1,000 mls @ 100 mls/hr 06/07/24 22:30 06/10/24 08:52 Normal Saline Iv IV CONT 100 mls/hr .Q10H KISHORE Administration Dextrose 1,000 mls @ 100 mls/hr 06/07/24 22:30 Dextrose 5% 1,000 Ml IVPB PRN PRN Hypoglycemia Protocol Iron Sucrose 400 mg/ Iron 275 mls @ 68.75 mls/hr 06/09/24 22:00 06/10/24 03:04 Sucrose 100 mg/ Sodium IVPB 06/24/24 01:59 Infused Chloride Q14D [facility] Infusion Methylprednisolone Sodium Succinate 60 mg 06/08/24 09:55 06/10/24 08:47 Methylprednisolone Sod Succ 125 Mg Vial IV PUSH 60 mg DAILY K[facility] Administration Ondansetron HCl 4 mg 06/08/24 00:40 Ondansetron Inj 4 Mg/2 Ml Vial IV PUSH Q6H PRN Nausea And Vomiting Pantoprazole Sodium 40 mg 06/08/24 09:00 06/08/24 07:27 Pantoprazole 40 Mg Tablet PO Not Given QAM [facility] Pantoprazole Sodium 40 mg 06/09/24 09:00 06/10/24 08:47 Pantoprazole Sodium Iv 40 Mg Vial IV PUSH 40 mg QAM [facility] Administration Prednisone 40 mg 06/08/24 08:00 06/08/24 07:27 Prednisone 20 Mg Tablet PO Not Given DAILY@0800 [facility] Radiology Results: ITS Impressions Abdomen/Pelvis CT 06/07/24 21:16 IMPRESSION: High-grade small bowel obstruction with the transition point in the distal small bowel, as detailed above. Chest CT 06/08/24 22:21 IMPRESSION: Unremarkable CT examination of the chest, as detailed above. Abdomen X-Ray 06/09/24 06:15 IMPRESSION: 1. Normal bowel gas pattern. Labs Labs: Laboratory Results - last 24 hr 06/10/24 06:03 Iron 781 H TIBC 228 L % Saturation 343 H
[2024-06-10 14:00] VITALS: BP 111/66; PULSE 82; RESP 18; TEMP 36.7; O2SAT 100
--- NOTE | 2024-06-10 14:02 | P.PNIM_ITS ---
Progress Note: A&P Assessment and Plan (1) Sepsis: Qualifiers: Sepsis acute organ dysfunction status: unspecified Sepsis type: sepsis due to unspecified organism Qualified Code(s): A41.9 - Sepsis, unspecified o rganism Code(s): A41.9 - Sepsis, unspecified organism Status: Acute Assessment and Plan: Patient initially meeting sepsis criteria with heart rate of 130, initial white blood cell count 23.5 with bandemia, lactic acidosis with a lactic acid level of 2.8, enteritis with history of Crohn's disease-here with Crohn's flare up. Patient was given IV fluids while in the ED and lactic acid improved back to baseline however patient remained tachycardic. * Zosyn discontinued * Continue IV fluids * Blood cultures were obtained and are pending * White blood cell count today down to 9.1 * Procalcitonin 0.4 (2) SBO (small bowel obstruction): Code(s): K56.609 - Unspecified intestinal obstruction, unspecified as to partial versus complete obstruction Status: Acute Assessment and Plan: * CT of the abdomen and pelvis show high-grade small bowel obstruction with a transition point in the distal small bowel. Multiple loops of fluid-filled small bowel with moral thickening and surrounding inflammatory changes seen. * Discontinue Zosyn as white blood cell count is likely reactive due to Crohn's disease and procalcitonin is less than 0.5 * GI following * General surgery following * NG tube discontinued * Advance diet as tolerated * Continue pain and nausea control (3) Crohn's disease: Qualifiers: Digestive disease complication type: with intestinal obstruction Gastrointestinal tract location: unspecified location Qualified Code(s): K50.912 - Crohn's disease, unspecified, with intestinal obstruction Code(s): K50.90 - Crohn's disease, unspecified, without complications Status: Acute Assessment and Plan: * Hold prednisone * Continue Solu-Medrol 60 mg IV push daily per GI recommendation * GI consulted (4) Enteritis: Code(s): K52.9 - Noninfective gastroenteritis and colitis, unspecified Status: Acute Assessment and Plan: * See above for detail, likely secondary to Crohn's (5) Anemia: Qualifiers: Anemia type: iron deficiency Iron deficiency anemia type: unspecified iron deficiency Qualified Code(s): D50.9 - Iron deficiency anemia, unspecified Code(s): D64.9 - Anemia, unspecified Status: Chronic Assessment and Plan: * Hemoglobin currently 8.3 * MCV 78.7 * Appears to be chronic * Labs from 05/22/2024 showing iron level of 29 * vitamin B12, folic acid, ferritin normal * TSH 3.100 * Iron 781 after iron infusion Time Spent With Patient Time with patient: 25 - 35 minutes Subjective Date/time seen: 06/10/24 14:02 Interval history: Interval history: This is a 18-year-old male who presented to the hospital on 06/07/2024 with complaints of diffuse abdominal pain that started 1 day ago. Patient has history of Crohn's disease and is already on prednisone 40 mg daily. He is a patient of Dr. Ramos. Workup in the hospital included an abdomen/pelvis CT which shows high-grade small-bowel obstruction with a transition point in the distal small bowel. NG tube was placed. Initial labs showed a white blood cell count of 23.5 with bandemia, hemoglobin 12.2, platelet count 656, anion gap 14, creatinine 0.7. UA was obtained which showed cloudy urine appearance, urine specific gravity of 1.039, 1+ urine protein, 1+ urine ketone, 2+ urine bili, 3-5 urine RBC, 1+ bacteria. Lactic acid 2.8> 1.4. Blood cultures were obtained and are pending. Patient was given IV fluids, antiemetics, pain medication, and started on Zosyn while in the ED. GI and General surgery was consulted. Subjective: Denies any new complaints overnight. Bowel sounds hypoactive. NGT removed and he is now tolerating increase in his diet. Labs reviewed. Review of Systems Review of Systems: All systems reviewed & are unremarkable except as noted in HPI and below Constitutional: Constitutional: Reports as per HPI and Reports no additional constitutional complaints Eyes: Eyes: Reports as per HPI and Reports no additional eye complaints ENT: Reports system reviewed and no additional complaints, except as documented and Reports as per HPI Cardiovascular: Cardiovascular: Reports as per HPI and Reports no additional cardiovascular complaints Respiratory: Respiratory: Reports as per HPI and Reports no additional respiratory complaints Gastrointestinal: Gastrointestinal: Reports as per HPI and Reports no additional gastrointestinal complaints Genitourinary: Genitourinary: Reports no additional male genitourinary complaints and Reports as per HPI Musculoskeletal: Musculoskeletal: Reports no additional musculoskeletal complaints and Reports as per HPI Integumentary/Breasts: Skin/Breast: Reports system reviewed and no additional complaints, except as docu and Reports as per HPI Neurologic: Reports system reviewed and no additional complaints, except as documented and Reports as per HPI Psychiatric: Psychiatric: Reports no additional psychiatric complaints and Reports as per HPI Exam Narrative: General: In no acute distress, malnourished Cardiac: Normal S1 and S2. RRR, No murmur, gallops or friction rubs, peripheral pulses intact. Respiratory: Lungs clear to auscultation, no adventitious lung sounds, currently on room air Gastrointestinal: soft, non-distended, non-tender, hypoactive bowel sounds. Neuro: Alert and oriented x4 Objective Data Vital Signs Vital Signs: Vital Signs - 24 hr 06/09/24 16:00 06/09/24 21:16 06/09/24 20:00 Temperature 99.0 F Pulse Rate 97 79 Respiratory Rate 12 Blood Pressure 104/62 Pulse Oximetry 100 Oxygen Delivery Room Air 06/09/24 20:00 06/10/24 00:00 06/10/24 04:00 Temperature Pulse Rate 76 85 91 Respiratory Rate Blood Pressure Pulse Oximetry Oxygen Delivery 06/10/24 05:44 06/10/24 08:00 Temperature 98.5 F Pulse Rate 78 74 Respiratory Rate 16 Blood Pressure 114/69 Pulse Oximetry 99 Oxygen Delivery Intake/Output Intake/Output: Intake & Output 06/07/24 06/08/24 06/09/24 06/10/24 23:59 23:59 23:59 23:59 Intake Total 2049 2169 2681.7 1701.3 Output Total 500 Balance 2049 2169 2181.7 1701.3 Meds/Results Medications: Active Medications Generic Name Dose Route Start Last Admin Trade Name Freq PRN Reason Stop Dose Admin Acetaminophen 650 mg 06/07/24 22:30 Acetaminophen 650 Mg Suppository RECTAL Q6H PRN Mild Pain (1-3) or Fever Dextrose 12.5 gm 06/07/24 22:30 Dextrose 50% 25 Gm/50 Ml Syringe IV PUSH PRN PRN Hypoglycemia Protocol Enoxaparin Sodium 40 mg 06/09/24 09:00 06/10/24 08:47 Enoxaparin 40 Mg/0.4 Ml Syringe SUB-Q 40 mg DAILY KISHORE Administration Glucagon 1 mg 06/07/24 22:30 Glucagon For Inj 1 Mg Vial IM PRN PRN Hypoglycemia Protocol Glucose 15 gm 06/07/24 22:30 Glucose Oral Gel 15 Gm Of Glucse In 37.5 Gm Tube PO PRN PRN Hypoglycemia Protocol Hydromorphone HCl 1 mg 06/08/24 00:40 06/08/24 10:42 Hydromorphone Hcl Inj (*Crx) 1 Mg/Ml Syr IV PUSH 1 mg Q3H PRN Administration Pain Rated 7-10 Hydromorphone HCl 0.5 mg 06/08/24 00:41 Hydromorphone Hcl Inj (*Crx) 1 Mg/Ml Syr IV PUSH Q3H PRN Pain Rated 4-6 Sodium Chloride 1,000 mls @ 100 mls/hr 06/07/24 22:30 06/10/24 08:52 Normal Saline Iv IV CONT 100 mls/hr .Q10H [facility] Administration Dextrose 1,000 mls @ 100 mls/hr 06/07/24 22:30 Dextrose 5% 1,000 Ml IVPB PRN PRN Hypoglycemia Protocol Iron Sucrose 400 mg/ Iron 275 mls @ 68.75 mls/hr 06/09/24 22:00 06/10/24 03:04 Sucrose 100 mg/ Sodium IVPB 06/24/24 01:59 Infused Chloride Q14D [facility] Infusion Methylprednisolone Sodium Succinate 60 mg 06/08/24 09:55 06/10/24 08:47 Methylprednisolone Sod Succ 125 Mg Vial IV PUSH 60 mg DAILY [facility] Administration Ondansetron HCl 4 mg 06/08/24 00:40 Ondansetron Inj 4 Mg/2 Ml Vial IV PUSH Q6H PRN Nausea And Vomiting Pantoprazole Sodium 40 mg 06/08/24 09:00 06/08/24 07:27 Pantoprazole 40 Mg Tablet PO Not Given QAM [facility] Pantoprazole Sodium 40 mg 06/09/24 09:00 06/10/24 08:47 Pantoprazole Sodium Iv 40 Mg Vial IV PUSH 40 mg QAM [facility] Administration Prednisone 40 mg 06/08/24 08:00 06/08/24 07:27 Prednisone 20 Mg Tablet PO Not Given DAILY@0800 [facility] Radiology Results: ITS Impressions Abdomen/Pelvis CT 06/07/24 21:16 IMPRESSION: High-grade small bowel obstruction with the transition point in the distal small bowel, as detailed above. Chest CT 06/08/24 22:21 IMPRESSION: Unremarkable CT examination of the chest, as detailed above. Abdomen X-Ray 06/09/24 06:15 IMPRESSION: 1. Normal bowel gas pattern. Labs Labs: Laboratory Results - last 24 hr 06/10/24 06:03 Iron 781 H TIBC 228 L % Saturation 343 H Quality VTE Prophylaxis VTE prophylaxis: mechanical ordered
[2024-06-10 21:40] VITALS: BP 118/79; PULSE 72; RESP 20; TEMP 36.9; O2SAT 100
[2024-06-11] MEDS: SODIUM CHLORIDE 0.9% IV 1,000 ML 100 ML IV CONT (04:00)
[2024-06-11 05:58] VITALS: BP 113/68; PULSE 90; RESP 20; TEMP 36.9; O2SAT 100
[2024-06-11 06:27] LABS: Basophils Percent Auto 0.2 % (0.2-1.2); Hematocrit 28.2 % (42.0-52.0); Hemoglobin 8.2 g/dL (14.0-18.0); Immature Granulocyte Absolute 0.19 K/mm3 (0.00-0.031); Immature Granulocyte Percent A 1.5 % (0-0.5); Lymphocytes Absolute Auto 2.14 K/mm3 (0.9-3.2); Lymphocytes Percent Auto 16.9 % (18.3-44.2); Mean Corpuscular HGB Conc 29.1 g/dl (32-36); Mean Corpuscular Hemoglobin 23.2 pg (26-34); Mean Corpuscular Volume 79.7 fl (80-100); Mean Platelet Volume 8.6 fl (7.4-10.4); Monocytes Absolute Auto 0.8 K/mm3 (0.1-0.6); Monocytes Percent Auto 6.6 % (2.6-8.5); Neutrophils Absolute Auto 9.4 K/mm3 (1.3-6.7); Neutrophils Percent Auto 74.8 % (45.5-73.1); Nucleated Red Blood Cells Perc 0.2 % (0.0-0.2); Platelet Count Result 456 k/mm3 (150-375); Red Blood Count 3.54 M/mm3 (4.6-6.20); Red Cell Distribution Width 16.1 % (11.5-14.5); White Blood Count 12.6 K/mm3 (4.5-10.0)
[2024-06-11 06:39] LABS: Alanine Aminotransferase 7 U/L (6-50); Albumin Level 2.9 g/dL (3.7-5.6); Alkaline Phosphatase 79 U/L (58-237); Anion Gap 7 mmol/L (4-12); Aspartate Amino Transferase 15 U/L (17-59); Bilirubin,Total 0.1 mg/dL (0.2-1.3); Blood Urea Nitrogen 4 mg/dL (8-21); Calcium 8.2 mg/dL (8.9-10.7); Carbon Dioxide 24 mmol/L (22-30); Chloride 106 mmol/L (98-107); Estimated CRCL calculation 155 ml/min; Estimated Glomerular Filt Rate > 60; Glucose 94 mg/dL (65-110); Potassium 3.5 mmol/L (3.4-5.0); Sodium 137 mmol/L (134-143)
[2024-06-11 06:52] LABS: Anisocytosis 1+; Hypochromasia 1+; Platelet Estimate Increased (Adequate); Schistocytes None Seen
[2024-06-11] MEDS: methylPREDNISolone SOD SUCC 125 MG VIAL 60 MG IV PUSH (08:31)
[2024-06-11] MEDS: ENOXAPARIN 40 MG/0.4 ML SYRINGE SUB-Q (08:31)
[2024-06-11] MEDS: PANTOPRAZOLE SODIUM IV 40 MG VIAL IV PUSH (08:33)
--- NOTE | 2024-06-11 11:24 | PM.PNGS ---
Progress Note: A&P Assessment and Plan (1) Crohn's ileocolitis: Qualifiers: Digestive disease complication type: with intestinal obstruction Qualified Code(s): K50.812 - Crohn's disease of both small and large intestine with intestinal obstruction Code(s): K50.80 - Crohn's disease of both small and large intestine without complications Status: Acute Assessment and Plan: Continues to improve. Tolerating low fiber diet. Okay to discharge from a surgical standpoint when okay with Dr. Ramos. We will have him follow-up with Dr. Wang in our office in 2 weeks and plan to proceed with elective ileocolic resection as an outpatient following that appointment. (2) SBO (small bowel obstruction): Code(s): K56.609 - Unspecified intestinal obstruction, unspecified as to partial versus complete obstruction Status: Acute Assessment and Plan: Resolved with steroid treatment of Crohn's. Tolerating a low-fiber diet. Surgically stable for discharge when okay with GI. Plan I have discussed the patient's case and plan of care with Dr. Wang. Subjective Subjective Date/Time Seen: 06/11/24 11:24 Patient reports: no new complaints, feels better, tolerating a regular diet, flatus and bowel movement Interval history: Chart reviewed. Denies any abdominal pain. No nausea or vomiting. Exam Const: General: comfortable and no acute distress GI: Inspection: non-distended GI Palp: Yes Soft to palpation, No Tenderness to palpation present (GI), No Guarding due to palpation present (GI) and No Rebound tenderness present Auscultation: normal bowel sounds Objective Data Vital Signs Vital Signs: Vital Signs - 24 hr 06/10/24 14:00 06/10/24 21:40 06/11/24 05:58 Temperature 98.1 F 98.4 F 98.4 F Pulse Rate 82 72 90 Respiratory Rate 18 20 20 Blood Pressure 111/66 118/79 113/68 Pulse Oximetry 100 100 100 Oxygen Delivery 06/11/24 08:00 Temperature Pulse Rate Respiratory Rate Blood Pressure Pulse Oximetry Oxygen Delivery Room Air Intake/Output Intake/Output: Intake & Output 06/08/24 06/09/24 06/10/24 06/11/24 23:59 23:59 23:59 23:59 Intake Total 2170 2681.7 4566.3 1740 Output Total 500 Balance 2170 2181.7 4566.3 1740 Meds/Results Medications: Active Medications Generic Name Dose Route Start Last Admin Trade Name Freq PRN Reason Stop Dose Admin Acetaminophen 650 mg 06/07/24 22:30 Acetaminophen 650 Mg Suppository RECTAL Q6H PRN Mild Pain (1-3) or Fever Dextrose 12.5 gm 06/07/24 22:30 Dextrose 50% 25 Gm/50 Ml Syringe IV PUSH PRN PRN Hypoglycemia Protocol Enoxaparin Sodium 40 mg 06/09/24 09:00 06/11/24 08:31 Enoxaparin 40 Mg/0.4 Ml Syringe SUB-Q 40 mg DAILY KISHORE Administration Glucagon 1 mg 06/07/24 22:30 Glucagon For Inj 1 Mg Vial IM PRN PRN Hypoglycemia Protocol Glucose 15 gm 06/07/24 22:30 Glucose Oral Gel 15 Gm Of Glucse In 37.5 Gm Tube PO PRN PRN Hypoglycemia Protocol Hydromorphone HCl 1 mg 06/08/24 00:40 06/08/24 10:42 Hydromorphone Hcl Inj (*Crx) 1 Mg/Ml Syr IV PUSH 1 mg Q3H PRN Administration Pain Rated 7-10 Hydromorphone HCl 0.5 mg 06/08/24 00:41 Hydromorphone Hcl Inj (*Crx) 1 Mg/Ml Syr IV PUSH Q3H PRN Pain Rated 4-6 Sodium Chloride 1,000 mls @ 100 mls/hr 06/07/24 22:30 06/11/24 04:00 Normal Saline Iv IV CONT 100 mls/hr .Q10H KISHORE Administration Dextrose 1,000 mls @ 100 mls/hr 06/07/24 22:30 Dextrose 5% 1,000 Ml IVPB PRN PRN Hypoglycemia Protocol Iron Sucrose 400 mg/ Iron 275 mls @ 68.75 mls/hr 06/09/24 22:00 06/10/24 03:04 Sucrose 100 mg/ Sodium IVPB 06/24/24 01:59 Infused Chloride Q14D KISHORE Infusion Methylprednisolone Sodium Succinate 60 mg 06/08/24 09:55 06/11/24 08:31 Methylprednisolone Sod Succ 125 Mg Vial IV PUSH 60 mg DAILY KISHORE Administration Ondansetron HCl 4 mg 06/08/24 00:40 Ondansetron Inj 4 Mg/2 Ml Vial IV PUSH Q6H PRN Nausea And Vomiting Pantoprazole Sodium 40 mg 06/08/24 09:00 06/08/24 07:27 Pantoprazole 40 Mg Tablet PO Not Given QAM [facility] Pantoprazole Sodium 40 mg 06/09/24 09:00 06/11/24 08:33 Pantoprazole Sodium Iv 40 Mg Vial IV PUSH 40 mg QAM KISHORE Administration Prednisone 40 mg 06/08/24 08:00 06/08/24 07:27 Prednisone 20 Mg Tablet PO Not Given DAILY@0800 [facility] Radiology Results: ITS Impressions Abdomen/Pelvis CT 06/07/24 21:16 IMPRESSION: High-grade small bowel obstruction with the transition point in the distal small bowel, as detailed above. Chest CT 06/08/24 22:21 IMPRESSION: Unremarkable CT examination of the chest, as detailed above. Abdomen X-Ray 06/09/24 06:15 IMPRESSION: 1. Normal bowel gas pattern. Labs Labs: Laboratory Results - last 24 hr 06/11/24 06:09 WBC 12.6 H RBC 3.54 L Hgb 8.2 L Hct 28.2 L MCV 79.7 L MCH 23.2 L MCHC 29.1 L RDW 16.1 H Plt Count 456 H MPV 8.6 Immature Gran % (Auto) 1.5 H Neut % (Auto) 74.8 H Lymph % (Auto) 16.9 L [place] % (Auto) 6.6 Eos % (Auto) 0.0 Baso % (Auto) 0.2 Lymph # (Auto) 2.14 [place] # (Auto) 0.8 H Eos # (Auto) 0.0 Baso # (Auto) 0.0 Abs Immat Gran (auto) 0.19 H Absolute Neuts (auto) 9.4 H Absolute Nucleated RBC 0.020 H Nucleated RBC % 0.2 Platelet Estimate Increased Hypochromasia 1+ Anisocytosis 1+ Schistocytes None seen Sodium 137 Potassium 3.5 Chloride 106 Carbon Dioxide 24 Anion Gap 7 BUN 4 L Creatinine 0.50 L Estim Creat Clear Calc 155 Estimated GFR > 60 Glucose 94 Calcium 8.2 L Total Bilirubin 0.1 L AST 15 L ALT 7 Alkaline Phosphatase 79 Total Protein 6.0 L Albumin 2.9 L
--- NOTE | 2024-06-11 11:29 | PCNFU ---
Nutrition Follow-Up Complete: Underweight related to chronic Crohns as evidenced by BMI 18 Goal:Meet estimated nutrition needs Advance diet as medically able Pt meeting goals. Pt current nutrition is Low fiber. Nutrition recommendation: Add Ensure Enlive once daily, chocolate Last recorded weight is 55.3 kg. Bowel Motility: +BM 06/09 Labs Reviewed: Hgb:8.2, HCT:28.2, Alb:2.9, BUN:4, Cr:0.5 Meds Noted: lovenox, solumedrol, zofran, protonix, prednisone Skin: WNL Additional Notes: Pt diet advanced to low fiber, intake 75-100% of meals. Pt agreed to Ensure Enlive, chocolate once daily as he drinks those shakes at home regularly. Monitoring diet orders, intakes, weights, labs, plan of care Follow up in 7 days
[2024-06-11 14:00] VITALS: BP 102/55; PULSE 82; RESP 16; TEMP 36.5; O2SAT 100
--- NOTE | 2024-06-11 16:12 | WPDGIPROGNO ---
Progress Note: A&P Assessment and Plan (1) Crohn's ileocolitis: Qualifiers: Digestive disease complication type: with intestinal obstruction Qualified Code(s): K50.812 - Crohn's disease of both small and large intestine with intestinal obstruction Code(s): K50.80 - Crohn's disease of both small and large intestine without complications Status: Acute Assessment and Plan: patient's acute picture of small bowel obstruction resolved promptly with intravenous Solu-Medrol. Will start prednisone 40 mg once a day today, with taper of 5 mg each week. He should visit our office in 2 weeks. By that time, his new insurance company should be active and will find out if it will cover any of the biologic therapies that can be offered. We will probably start with Humira. TPMT activity pending. PPD is negative as well as chest CT therefore he probably does not have active or latent TB. However, his repeat QuantiFERON (because the first one was indeterminate) is still pending and will be checked during his next visit. On the other hand, he received 500 mg of IV Venofer yesterday. His Hb is 8.2 today. We are arranging for a 2nd dose as an outpatient in our infusion center. Subjective Date/time seen: 06/11/24 16:12 Interval history: The patient is doing well, tolerating food, no abdominal pain and Having normal bowel movements Exam Const: General: comfortable and no acute distress GI: Inspection: non-distended GI Palp: Yes Soft to palpation, No Tenderness to palpation present (GI), No Guarding due to palpation present (GI) and No Rebound tenderness present Auscultation: normal bowel sounds Objective Data Vital Signs Vital Signs: Vital Signs - 24 hr 06/10/24 21:40 06/11/24 05:58 06/11/24 08:00 Temperature 98.4 F 98.4 F Pulse Rate 72 90 Respiratory Rate 20 20 Blood Pressure 118/79 113/68 Pulse Oximetry 100 100 Oxygen Delivery Room Air 06/11/24 14:00 Temperature 97.7 F Pulse Rate 82 Respiratory Rate 16 Blood Pressure 102/55 L Pulse Oximetry 100 Oxygen Delivery Intake/Output Intake/Output: Intake & Output 06/08/24 06/09/24 06/10/24 06/11/24 23:59 23:59 23:59 23:59 Intake Total 2170 2681.7 4566.3 1920 Output Total 500 Balance 2170 2181.7 4566.3 1920 Meds/Results Medications: Active Medications Generic Name Dose Route Start Last Admin Trade Name Freq PRN Reason Stop Dose Admin Acetaminophen 650 mg 06/07/24 22:30 Acetaminophen 650 Mg Suppository RECTAL Q6H PRN Mild Pain (1-3) or Fever Dextrose 12.5 gm 06/07/24 22:30 Dextrose 50% 25 Gm/50 Ml Syringe IV PUSH PRN PRN Hypoglycemia Protocol Enoxaparin Sodium 40 mg 06/09/24 09:00 06/11/24 08:31 Enoxaparin 40 Mg/0.4 Ml Syringe SUB-Q 40 mg DAILY KISHORE Administration Glucagon 1 mg 06/07/24 22:30 Glucagon For Inj 1 Mg Vial IM PRN PRN Hypoglycemia Protocol Glucose 15 gm 06/07/24 22:30 Glucose Oral Gel 15 Gm Of Glucse In 37.5 Gm Tube PO PRN PRN Hypoglycemia Protocol Hydromorphone HCl 1 mg 06/08/24 00:40 06/08/24 10:42 Hydromorphone Hcl Inj (*Crx) 1 Mg/Ml Syr IV PUSH 1 mg Q3H PRN Administration Pain Rated 7-10 Hydromorphone HCl 0.5 mg 06/08/24 00:41 Hydromorphone Hcl Inj (*Crx) 1 Mg/Ml Syr IV PUSH Q3H PRN Pain Rated 4-6 Sodium Chloride 1,000 mls @ 100 mls/hr 06/07/24 22:30 06/11/24 04:00 Normal Saline Iv IV CONT 100 mls/hr .Q10H KISHORE Administration Dextrose 1,000 mls @ 100 mls/hr 06/07/24 22:30 Dextrose 5% 1,000 Ml IVPB PRN PRN Hypoglycemia Protocol Iron Sucrose 400 mg/ Iron 275 mls @ 68.75 mls/hr 06/09/24 22:00 06/10/24 03:04 Sucrose 100 mg/ Sodium IVPB 06/24/24 01:59 Infused Chloride Q14D KISHORE Infusion Methylprednisolone Sodium Succinate 60 mg 06/08/24 09:55 06/11/24 08:31 Methylprednisolone Sod Succ 125 Mg Vial IV PUSH 60 mg DAILY KISHORE Administration Ondansetron HCl 4 mg 06/08/24 00:40 Ondansetron Inj 4 Mg/2 Ml Vial IV PUSH Q6H PRN Nausea And Vomiting Pantoprazole Sodium 40 mg 06/08/24 09:00 06/08/24 07:27 Pantoprazole 40 Mg Tablet PO Not Given QAM [facility] Pantoprazole Sodium 40 mg 06/09/24 09:00 06/11/24 08:33 Pantoprazole Sodium Iv 40 Mg Vial IV PUSH 40 mg QAM [facility] Administration Prednisone 40 mg 06/08/24 08:00 06/08/24 07:27 Prednisone 20 Mg Tablet PO Not Given DAILY@0800 [facility] Radiology Results: ITS Impressions Abdomen/Pelvis CT 06/07/24 21:16 IMPRESSION: High-grade small bowel obstruction with the transition point in the distal small bowel, as detailed above. Chest CT 06/08/24 22:21 IMPRESSION: Unremarkable CT examination of the chest, as detailed above. Abdomen X-Ray 06/09/24 06:15 IMPRESSION: 1. Normal bowel gas pattern. Labs Labs: Laboratory Results - last 24 hr 06/11/24 06:09 WBC 12.6 H RBC 3.54 L Hgb 8.2 L Hct 28.2 L MCV 79.7 L MCH 23.2 L MCHC 29.1 L RDW 16.1 H Plt Count 456 H MPV 8.6 Immature Gran % (Auto) 1.5 H Neut % (Auto) 74.8 H Lymph % (Auto) 16.9 L [place] % (Auto) 6.6 Eos % (Auto) 0.0 Baso % (Auto) 0.2 Lymph # (Auto) 2.14 [place] # (Auto) 0.8 H Eos # (Auto) 0.0 Baso # (Auto) 0.0 Abs Immat Gran (auto) 0.19 H Absolute Neuts (auto) 9.4 H Absolute Nucleated RBC 0.020 H Nucleated RBC % 0.2 Platelet Estimate Increased Hypochromasia 1+ Anisocytosis 1+ Schistocytes None seen Sodium 137 Potassium 3.5 Chloride 106 Carbon Dioxide 24 Anion Gap 7 BUN 4 L Creatinine 0.50 L Estim Creat Clear Calc 155 Estimated GFR > 60 Glucose 94 Calcium 8.2 L Total Bilirubin 0.1 L AST 15 L ALT 7 Alkaline Phosphatase 79 Total Protein 6.0 L Albumin 2.9 L
--- NOTE | 2024-06-11 16:28 | P.DS_ITS ---
DS: Admitting Diagnosis Discharge Date 06/11/24 Admitting Diagnosis Sepsis Crohn's disease Enteritis Anemia DS: Discharge Diagnosis Discharge Diagnosis (1) Sepsis: Qualifiers: Sepsis acute organ dysfunction status: unspecified Sepsis type: sepsis due to unspecified organism Qualified Code(s): A41.9 - Sepsis, unspecified organism Code(s): A41.9 - Sepsis, unspecified organism Status: Acute (2) SBO (small bowel obstruction): Code(s): K56.609 - Unspecified intestinal obstruction, unspecified as to partial versus complete obstruction Status: Acute (3) Crohn's disease: Qualifiers: Digestive disease complication type: with intestinal obstruction Gastrointestinal tract location: unspecified location Qualified Code(s): K50.912 - Crohn's disease, unspecified, with intestinal obstruction Code(s): K50.90 - Crohn's disease, unspecified, without complications Status: Acute (4) Enteritis: Code(s): K52.9 - Noninfective gastroenteritis and colitis, unspecified Status: Acute (5) Anemia: Qualifiers: Anemia type: iron deficiency Iron deficiency anemia type: unspecified iron deficiency Qualified Code(s): D50.9 - Iron deficiency anemia, unspecified Code(s): D64.9 - Anemia, unspecified Status: Chronic DS: Summary Hospital Course Reason for hospitalization: Sepsis Crohn's disease Enteritis Anemia Hospital Course: This is a 18-year-old male who presented to the hospital on 06/07/2024 with complaints of diffuse abdominal pain that started 1 day ago. Patient has history of Crohn's disease and is already on prednisone 40 mg daily. He is a patient of Dr. Ramos. Workup in the hospital included an abdomen/pelvis CT which shows high-grade small-bowel obstruction with a transition point in the distal small bowel. NG tube was placed. Initial labs showed a white blood cell count of 23.5 with bandemia, hemoglobin 12.2, platelet count 656, anion gap 14, creatinine 0.7. UA was obtained which showed cloudy urine appearance, urine specific gravity of 1.039, 1+ urine protein, 1+ urine ketone, 2+ urine bili, 3-5 urine RBC, 1+ bacteria. Lactic acid 2.8> 1.4. Blood cultures were obtained and are pending. Patient was given IV fluids, antiemetics, pain medication, and started on Zosyn while in the ED. GI and General surgery was consulted.Patient was started on steroids and his small-bowel obstruction resolved with the use of steroids alone. Patient was advanced to a low-fiber diet and he is tolerating well. His Crohn's flareup 1 is related to TB however his PPD was negative as well as his chest CT therefore it was unlikely that he had active her latent TB. His QuantiFERON was indeterminate on his 1st read in her stool 1 pending. He will be given iron supplement at the outpatient infusion center and he will follow-up with GI regarding his 2nd QuantiFERON test. Final diagnosis: Crohn's ileocolitis, sepsis, Small bowel obstruction , iron deficiency anemia Status at Discharge Cognitive/behavioral status at discharge: Alert and oriented x3 Functional status at discharge: independent ambulation Overall status at discharge: patient is progressing back to baseline Time Spent with Patient Time attestation: Total time spent providing and/or coordinating discharge services: Time spent: Greater than 30 minutes Exam Narrative: General: In no acute distress, malnourished Cardiac: Normal S1 and S2. RRR, No murmur, gallops or friction rubs, peripheral pulses intact. Respiratory: Lungs clear to auscultation, no adventitious lung sounds, currently on room air Gastrointestinal: soft, non-distended, non-tender, normoactive bowel sounds. Neuro: Alert and oriented x4 DS: Data Data Completed and Pending Completed studies during hospitalization: Abdomen x-ray Chest CT Abdomen X-ray Abdomen/Pelvis CT Pending studies at discharge: Blood cultures Labs on day of discharge: Labs from last 24 hours 06/11/24 06:09 WBC 12.6 H RBC 3.54 L Hgb 8.2 L Hct 28.2 L MCV 79.7 L MCH 23.2 L MCHC 29.1 L RDW 16.1 H Plt Count 456 H MPV 8.6 Immature Gran % (Auto) 1.5 H Neut % (Auto) 74.8 H Lymph % (Auto) 16.9 L [place] % (Auto) 6.6 Eos % (Auto) 0.0 Baso % (Auto) 0.2 Lymph # (Auto) 2.14 [place] # (Auto) 0.8 H Eos # (Auto) 0.0 Baso # (Auto) 0.0 Abs Immat Gran (auto) 0.19 H Absolute Neuts (auto) 9.4 H Absolute Nucleated RBC 0.020 H Nucleated RBC % 0.2 Platelet Estimate Increased Hypochromasia 1+ Anisocytosis 1+ Schistocytes None seen Sodium 137 Potassium 3.5 Chloride 106 Carbon Dioxide 24 Anion Gap 7 BUN 4 L Creatinine 0.50 L Estim Creat Clear Calc 155 Estimated GFR > 60 Glucose 94 Calcium 8.2 L Total Bilirubin 0.1 L AST 15 L ALT 7 Alkaline Phosphatase 79 Total Protein 6.0 L Albumin 2.9 L Preliminary micro results at discharge 06/07/24 21:43 Blood Culture - Preliminary Blood 06/07/24 21:43 Blood Culture - Preliminary Blood Procedures/Treatments: None Discharge Plan Discharge Attending physician on discharge: Marquise Yanez Consulting providers: Garland Wang; Solo Cabrera Discharging Clinician: Luzma Light Anticipated Discharge Date/Time: 06/11/24 16:06 Patient Disposition: Home, Self-Care Activity: as tolerated Diet: as tolerated Discharge Instructions: * Follow-up with Dr. Wang in 2 weeks. We will re-evaluate you and plan surgery accordingly after that appointment. I will have the office schedule an appointment and call with the time and date. If you do not hear from our office in the next few days, then call to schedule. [phone] * You will need a Venofer IV infusion x1 per Dr. Ramos recommendation. An order will be provided. * Continue Prednisone taper as prescribed, follow taper instructions * Follow up with Dr. Ramos in June (2 weeks). Patient Instructions: Antibiotic Form Patient Language: Danish Stand Alone Forms: General Discharge Information Follow-up/Referrals: Garland Wang MD [Physician] - 2 Weeks ( Call Dr. Grimes office to make an appointment for a follow-up visit in 2 weeks.) Ga Ramos MD [Physician] - 2 Weeks Discharge Medications: New prednisone 5 mg tablet 5 mg PO DIRECTED Qty: 252 0RF Rx Instructions: see taper instructions Take 40 mg (8 pills) daily for 1 week, Then decrease to 35 mg (7 pills) daily x1 week, Then decrease to 30 mg (6 pills) x1 week, Then decrease to 25 mg (5 pills) daily x1 week, Then decrease to 20 mg ( 4 pills) daily x 1 week, Then decrease to 15 mg (3 pills) daily x1 week, Then decrease to 10 mg (2 pills) daily x1 week, Then decrease to 5 mg (1 pill) daily x1 week, Then discontinue. Venofer 100 mg iron/5 mL solution 500 mg IV ONCE Rx Instructions: administer over 1.5 hrs Continued omeprazole 20 mg capsule,delayed release(DR/EC) 20 mg PO DAILY PRN (Reason: Indigestion) Qty: 14 0RF No Action prednisone 20 mg Tablet 40 mg PO DAILY@0800 14 Days Qty: 30 0RF Date of admission: 06/08/24 08:58 Primary Care Provider: UNKNOWN,DOCTOR Admitting Provider: Marquise Yanez Attending physician on admission: Luzma Light Condition: Improved Quality VTE Prophylaxis VTE prophylaxis: mechanical ordered Hospitalist MIPS Heart Failure (Exclusion) Patient has history of Heart Transplant or Left Ventricular Assistive Device?: No IF YES, STOP HERE Heart Failure (Qualifier) Patient has current or prior documentation of LVEF less than or equal to 40%, or mod/servere depressed LVSF?: No IF NO, STOP HERE
--- NOTE | 2024-06-13 15:37 | HP_ITS ---
DATE OF SERVICE: 06/07/2024 CHIEF COMPLAINT: Abdominal pain. HISTORY OF PRESENT ILLNESS: This is a very pleasant 18-year-old male with a recent diagnosis of Crohn disease, who presented to the Emergency Department for evaluation of abdominal pain. The patient provides the following history. He gives a 1-day history of diffuse abdominal pain associated with nausea and non-bloody and non-bilious emesis. He last had a bowel movement yesterday, which was reportedly unremarkable. He has not noticed any blood or mucus in the stool. He also denies fever, chills, or sweats. The symptoms are similar to when he was previously hospitalized at which time, he was diagnosed with Crohn's. PAST MEDICAL HISTORY: 1. Crohn disease. 2. Anemia. PAST SURGICAL HISTORY: None. ALLERGIES: NO KNOWN DRUG ALLERGIES. HOME MEDICATIONS: 1. Omeprazole 20 mg as needed for indigestion. 2. Prednisone 40 mg daily. FAMILY HISTORY: Noncontributory. SOCIAL HISTORY: The patient is from [place]. He is in school at [employer], studying [employer] sciences. He denies alcohol, tobacco, or illicit substance use. He designates his mother as his surrogate decision maker and he wishes to be a full code. PERTINENT LABORATORY DATA: WBC count 23.5, hemoglobin 12.2, hematocrit 40%, and platelets 656. Sodium 136, potassium 5.0, BUN 14, and creatinine 0.70. Urinalysis was positive for 1+ ketones, 1+ protein, and an elevated specific gravity. Lactic acid was 2.8. IMAGING: CT abdomen and pelvis, high-grade small bowel obstruction with transition point in the distal small bowel. PHYSICAL EXAMINATION: CURRENT VITAL SIGNS: Pulse 118, respiratory rate 20, blood pressure 125/80, SpO2 is 99% room air, temperature T 98.7. GENERAL: Well-developed, moderately ill-appearing male in the semi-Quintero position in bed. Weight: 51 kg. BMI: 15.7. HEENT: Normocephalic, atraumatic. PERRLA, EOMI. Sclerae anicteric. NG tube in the right naris draining slightly pink opaque fluid. Tacky mucous membranes. NECK: Supple. RESPIRATORY: Respirations are nonlabored. LUNGS: Clear to auscultation. CARDIOVASCULAR: Tachycardic with normal S1, S2. GASTROINTESTINAL: Abdomen is soft, flat, and slightly distended with high-pitched tinkling bowel sounds on the right side of the abdomen. He is generally tender to palpation and percussion throughout the abdomen without guarding or rebound tenderness. INTEGUMENT: Warm and dry. EXTREMITIES: No cyanosis, clubbing, or edema. Peripheral pulses intact. NEUROLOGIC: Alert and oriented. Cranial nerves 2 through 12 grossly intact. No gross focal deficits to casual conversation. PSYCHIATRIC: Pleasant and cooperative with appropriate mood and affect. IMPRESSION: 1. Small bowel obstruction. 2. Crohn disease. 3. Dehydration. 4. Sepsis. 5. Anemia. PLAN: The patient presented to the Emergency Department for evaluation of abdominal pain, nausea, and vomiting as detailed in HPI. EKG, labs, imaging, and all reports were reviewed. He does meet sepsis criteria with tachycardia, leukocytosis with bandemia and lactic acidosis. He has been afebrile with normal WBC count. Lactic acid level has normalized with 1 L of normal saline. He was empirically started on Zosyn for possible GI source. Blood cultures have been obtained and are pending. Bowel obstruction is likely related to his underlying Crohn disease. Continue prednisone 40 mg daily pending GI input. We will continue IV fluid rehydration overnight. Analgesics and antiemetics are available as needed. Hemoglobin is stable on review of previous labs. Recent iron studies were noted. Blood pressures were reviewed and they are stable. His home medications will be reviewed and resumed as appropriate. Francisco J I MT: Kati VITAL
[2024-06-13 18:59] LABS: NIL 0.02 IU/mL; Quantiferon TB Plus, 1T NEGATIVE (NEGATIVE)
== END 2024-06-11 17:45 | disposition home or self-care (01) | DRG 720 ==
LOC: ANHED 21:50 → ANH3MEDSUR 06-08 00:17
PROVIDERS: Internal Medicine Gastroenterology; Nurse Practitioner Family; Physician Assistant; Surgery; Admitting Provider Internal Medicine; Emergency Provider Physician Assistant; Visit Provider Nurse Practitioner Acute Care
DX: A41.9 Sepsis, unspecified organism (principal); K50.812 Crohn's disease of both small and large intestine with intestinal obstruction; D50.9 Iron deficiency anemia, unspecified; K21.9 Gastro-esophageal reflux disease without esophagitis; R76.12 Nonspecific reaction to cell mediated immunity measurement of gamma interferon antigen response without active tuberculosis
CPT/HCPCS: 36415; 71260; 74018; 74177; 80048; 80053; 81001; 82607; 82728; 82746; 83540; 83550; 83605; 83690; 83735; 84145; 84443; 85025; 85027; 85046; 86480; 87040; 96361; 96365; 96375; 96376; 99285; G0378; G0379; J1171; J1650; J1756; J2060; J2270; J2405; J2470; J2543; J2919; J7030; J7050; Q9967

== ENCOUNTER 2024-08-09 16:47 | Inpatient (IN) | payer OTHER, SELFPAY ==
[2024-08-09] VITALS (8 sets, daily range): BP systolic 112–130; BP diastolic 69–113; PULSE 97–140; RESP 16–20; TEMP 36.4–37.2; O2SAT 94–100; BMI 16.9
--- NOTE | ~2024-08-09 | XR_ITS ---
XR abdomen gastric tube insert INDICATION: Evaluate NG tube position. TECHNIQUE: Limited KUB perform for evaluating NG tube . COMPARISON: 06/07/2024 FINDINGS: NG tube tip in the stomach. Visualized bowel gas pattern is unremarkable.There is residual contrast in nondilated renal collecting systems. IMPRESSION: 1: NG tube tip in the stomach. Reviewed, dictated and finalized at location A. OMETRIST
--- NOTE | ~2024-08-09 | CT_ITS ---
EXAMINATION: CT abdomen pelvis w con DATE: 08/09/2024 18:16 INDICATION: Abdomen pain. History of small bowel obstruction. TECHNIQUE: Computed tomography (CT) of the abdomen and pelvis was performed with 100 cc Omnipaque 350 intravenous contrast. The dose-length product was 202.26 mGy-cm. Automated exposure control and iter ative reconstruction technique were employed. COMPARISON: 06/07/2024 FINDINGS: Lung bases unremarkable. Heart size normal. No significant pleural or pericardial effusion. Fatty infiltration of the liver. The spleen, pancreas, adrenal glands and kidneys are unremarkable. Gallbladder is present. There is small bowel obstruction with transition in the right mid abdomen sec ondary to a loop of thickened small bowel with mild surrounding mesenteric infiltration. There is mes enteric mass located centrally with mesenteric lymph nodes. No acute osseous abnormality. No free air . Trace free fluid in the pelvis. IMPRESSION: 1. Small bowel obstruction with transition in the right mid abdomen secondary to a thickened abnormal appearing small bowel segment. There are adjacent enlarged mesenteric lymph nodes. Differential diag nosis includes inflammatory bowel disease such as Crohn's disease, infection and less likely neoplasm although not excluded. Consider lymphoma in the appropriate clinical setting. Reviewed, dictated and finalized at location A. ERCIAL PEST CONTROL TECHNICIAN IMPRESSION: 1. Small bowel obstruction with transition in the right mid abdomen secondary t o a thickened abnormal appearing small bowel segment. There are adjacent enlarg ed mesenteric lymph nodes. Differential diagnosis includes inflammatory bowel d isease such as Crohn's disease, infection and less likely neoplasm although not excluded. Consider lymphoma in the appropriate clinical setting.
--- NOTE | ~2024-08-09 | XR_ITS ---
Exam: Abdominal obstructive series HISTORY: Follow up SBO COMPARISON: 08/09/2024. TECHNIQUE: Supine images of the abdomen and pelvis. FINDINGS: Bowel gas pattern is non-obstructive. There is no free air or deep sulci. Air is identified within the colon and rectum, an interval change. Fecal stasis within the ascending and proximal transverse colon. Nasogastric tube within the left upper quadrant, presumably within the stomach Lung bases are unremarkable. Bones and soft tissues are unremarkable. IMPRESSION: Nonspecific, nonobstructive bowel gas pattern. Reviewed, dictated and finalized at location A. AL TAXON[employer]IST
--- NOTE | 2024-08-09 17:16 | ED_ITS ---
HPI - Abdominal Pain General Chief Complaint: Abdominal Pain <Nanette Johnson APRN - Last Filed: 08/09/24 17:18> Stated Complaint: Abd pain <Nanette Johnson APRN - Last Filed: 08/09/24 17:18> Time Seen by Provider: 08/09/24 17:00 <Nanette Johnson APRN - Last Filed: 08/09/24 17:18> Focused HPI: Patient is a 18-year-old male who presents to the ER with complaints of abdominal pain. He reports he has a history bowel obstructions and Crohn's disease. Patient reports his last normal bowel movement was approximately 2 days ago. He endorses nausea but no vomiting yet. Patient denies any chest pain, shortness of breath, recent fevers, back pain. GENERAL: Well-appearing, well-nourished, and in no acute distress. Patient smells strongly of marijuana upon time of examination. HEAD: Normocephalic, atraumatic. CHEST: Clear to auscultation. ?No respiratory distress. HEART: Tachycardia, regular rhythm. NEURO: ?Alert and oriented x3. Patient screened in triage and initial orders placed.? ?Additional care and disposition to be based upon?diagnostic testing and treatment. <Nanette Johnson APRN - Last Filed: 08/09/24 17:18> Related Data Allergies/Adverse Reactions: Allergies Allergy/AdvReac Type Severity Reaction Status Date / Time No Known Allergies Allergy Verified 07/02/24 11:30 <Nanette Johnson APRN - Last Filed: 08/09/24 17:18> Review of Systems 2 Review of Systems: CONSTITUTIONAL: Denies fever GASTROINTESTINAL: Reports abdominal pain, nausea. Denies vomiting GENITOURINARY: Denies dysuria <Tamela Nowak PA-C - Last Filed: 08/09/24 20:05> All systems reviewed & are unremarkable except as noted in HPI and below < Tamela Nowak PA-C - Last Filed: 08/09/24 20:05> PMFSH Past Medical History Medical History: Medical History (Updated 08/09/24 @ 20:05 by Tamela Nowak PA-C) LULU (iron deficiency anemia) SBO (small bowel obstruction) Crohn's disease <Nanette Johnson, EMERGENCY REGISTRAR - Last Filed: 08/09/24 17:18> Social History Social History: Social History Smoking status: Never smoker Alcohol intake: never Substance use: never Substance use type: does not use Do You Feel Safe in your Home?: Yes Lack of Transportation: No Lack of Food: Never True Current Housing: I Have Housing Concerned About Future Housing: No Difficulty Paying Gas/Electric Bills: No Difficulty Paying for Meds: No Currently Unemployed: No Education: High School Diploma/GED Difficulty w/ Childcare or Family Care: No Spiritual care concerns: No <Nanette Johnson, EMERGENCY REGISTRAR - Last Filed: 08/09/24 17:18> Exam 2 Narrative: GENERAL: Well-appearing, well-nourished, and in no acute distress. HEAD: Normocephalic, atraumatic. EYES: EOMI. CHEST: Clear to auscultation. No respiratory distress. No wheezes rales or rhonchi HEART: Regular rate and rhythm. No murmur heard. Normal peripheral pulses. ABDOMEN: Soft, nondistended, normal active bowel sounds. Tender to palpation throughout the abdomen, without guarding EXTREMITIES: Normal range of motion. No edema. SKIN: Warm, dry, no rash. NEURO: No focal deficits. Alert and oriented x3. PSYCH: Normal mood and affect <Tamela Nowak PA-C - Last Filed: 08/09/24 20:05> Course Course Emergency Course: Patient updated on his workup and need for admission <CHRISTELLE Valiente - Last Filed: 08/09/24 20:05> Consultations Consultation #1: Spoke with general surgery who will consult <AGNIESZKA Valiente Last Filed: 08/09/24 20:05> Date: 08/09/24 <AGNIESZKA Valiente Last Filed: 08/09/24 20:05> Consultation #2: Spoke with GI who will consult <AGNIESZKA Valiente Last Filed: 08/09/24 20:05> Date: 08/09/24 <Tamela Nowak PA-C - Last Filed: 08/09/24 20:05> Consultation #3: Spoke with hospitalist about patient and workup accepts admission. Would like patient admitted to telemetry, given IV antibiotics <Tamela Nowak PA-C - Last Filed: 08/09/24 20:05> Date: 08/09/24 <Tamela Nowak PA-C - Last Filed: 08/09/24 20:05> Vital Signs Vital signs: Vital Signs Temperature 98.9 F 08/09/24 17:00 Pulse Rate 109 H 08/09/24 17:00 Respiratory Rate 20 08/09/24 17:00 Blood Pressure 121/85 08/09/24 17:00 Pulse Oximetry 100 08/09/24 17:00 Oxygen Delivery Room Air 08/09/24 17:00 Temperature 98.9 F 08/09/24 17:00 Pulse Rate 140 H 08/09/24 19:35 Respiratory Rate 18 08/09/24 19:35 Blood Pressure 130/113 H 08/09/24 19:35 Pulse Oximetry 99 08/09/24 19:35 Oxygen Delivery Room Air 08/09/24 17:00 <Nanette Johnson, EMERGENCY REGISTRAR - Last Filed: 08/09/24 17:18> Vital Signs Temperature 98.9 F 08/09/24 17:00 Pulse Rate 109 H 08/09/24 17:00 Respiratory Rate 20 08/09/24 17:00 Blood Pressure 121/85 08/09/24 17:00 Pulse Oximetry 100 08/09/24 17:00 Oxygen Delivery Room Air 08/09/24 17:00 Temperature 98.9 F 08/09/24 17:00 Pulse Rate 140 H 08/09/24 19:35 Respiratory Rate 18 08/09/24 19:35 Blood Pressure 130/113 H 08/09/24 19:35 Pulse Oximetry 99 08/09/24 19:35 Oxygen Delivery Room Air 08/09/24 17:00 <Tamela Nowak PA-C - Last Filed: 08/09/24 20:05> MDM - Abdominal Pain MDM Narrative Medical decision making narrative: Patient presents to the emergency department for abdominal pain, history of Crohn's disease and small-bowel obstructions. He is afebrile and nontoxic appearing. Mildly tachycardic, this did respond to IV fluids. Cbc without leukocytosis. Metabolic panel without concerning findings. Urine with some evidence of dehydration. Patient hydrated with IV fluids in the ER. CT abdomen and pelvis shows small bowel obstruction with transition point secondary to abnormal appearing thickened small bowel segment. Patient updated on his workup and need for admission. Spoke with general surgery who will consult. Spoke with GI who will consult. Spoke with hospitalist about patient and workup accepts admission. Would like patient admitted to telemetry, given IV antibiotics < Tamela Nowak PA-C - Last Filed: 08/09/24 20:05> Differential Diagnosis Differential diagnosis: Likely constipation, diverticulitis, gastroenteritis and small bowel obstruction <Tamela Nowak PA-C - Last Filed: 08/09/24 20:05> Lab Data Attestation: I reviewed the patient's lab results. <Tamela Nowak PA-C - Last Filed: 08/09/24 20:05> Result diagrams: 08/09/24 17:33 08/09/24 17:33 <Nanette Johnson APRN - Last Filed: 08/09/24 17:18> Labs: Lab Results 08/09/24 08/09/24 Range/Units 17:33 18:22 WBC 5.7 (4.5-10.0) K/mm3 RBC 4.80 (4.6-6.20) M/mm3 Hgb 12.2 L D (14.0-18.0) g/dL Hct 39.6 L (42.0-52.0) % MCV 82.5 (80-100) fl MCH 25.4 L (26-34) pg MCHC 30.8 L (32-36) g/dl RDW 18.3 H (11.5-14.5) % Plt Count 632 H (150-375) k/mm3 MPV 8.6 (7.4-10.4) fl Immature Gran % (Auto) 0.2 (0-0.5) % Neut % (Auto) 76.5 H (45.5-73.1) % Lymph % (Auto) 12.2 L (18.3-44.2) % [place] % (Auto) 10.8 H (2.6-8.5) % Eos % (Auto) 0.0 (0-4.4) % Baso % (Auto) 0.3 (0.2-1.2) % Lymph # (Auto) 0.70 L (0.9-3.2) K/mm3 [place] # (Auto) 0.6 (0.1-0.6) K/mm3 Eos # (Auto) 0.0 (0-0.3) K/mm3 Baso # (Auto) 0.0 (0.0-0.1) K/mm3 Abs Immat Gran (auto) 0.01 (0.00-0.031) K/mm3 Absolute Neuts (auto) 4.4 (1.3-6.7) K/mm3 Absolute Nucleated RBC 0.000 (0.0-0.012) K/mm3 Nucleated RBC % 0.0 (0.0-0.2) % Sodium 136 (134-143) mmol/L Potassium 4.2 (3.4-5.0) mmol/L Chloride 99 (98-107) mmol/L Carbon Dioxide 25 (22-30) mmol/L Anion Gap 12 (4-12) mmol/L BUN 13 D (8-21) mg/dL Creatinine 0.77 (0.7-1.3) mg/dL Estim Creat Clear Calc 103 ml/min Estimated GFR > 60 (59 - ) Glucose 73 (65-110) mg/dL Calcium 9.2 (8.9-10.7) mg/dL Total Bilirubin 0.7 (0.2-1.3) mg/dL AST 16 L (17-59) U/L ALT 9 (6-50) U/L Alkaline Phosphatase 102 (58-237) U/L Total Protein 8.0 (6.3-8.6) g/dL Albumin 4.4 (3.7-5.6) g/dL Lipase 28 (23-300) U/L Urine Color Dark yellow (Yellow) Urine Appearance Clear (Clear) Urine pH 5.5 (5.0-9.0) Ur Specific [place] > 1.045 H (1.001-1.035) Urine Protein 1+ H (Negative) mg/dL Urine Glucose (UA) Negative (Negative) mg/dL Urine Ketones 3+ H (Negative) mg/dL Ur Blood (Man) 2+ H (Negative) Urine Nitrate Negative (Negative) Urine Bilirubin 2+ H (Negative) Urine Urobilinogen 1.0 (<2.0) mg/dL Leukocyte Esterase Rfl Negative (Negative) LEISA/UL Urine RBC 51-100 H (0-2) /hpf Urine WBC 0-5 (0-3) /hpf Ur Squamous Epith Cells None seen (Few) /hpf Urine Bacteria None seen /hpf Urine Casts 0-2 <Nanette Johnson, EMERGENCY REGISTRAR - Last Filed: 08/09/24 17:18> Lab Results 08/09/24 08/09/24 Range/Units 17:33 18:22 WBC 5.7 (4.5-10.0) K/mm3 RBC 4.80 (4.6-6.20) M/mm3 Hgb 12.2 L D (14.0-18.0) g/dL Hct 39.6 L (42.0-52.0) % MCV 82.5 (80-100) fl MCH 25.4 L (26-34) pg MCHC 30.8 L (32-36) g/dl RDW 18.3 H (11.5-14.5) % Plt Count 632 H (150-375) k/mm3 MPV 8.6 (7.4-10.4) fl Immature Gran % (Auto) 0.2 (0-0.5) % Neut % (Auto) 76.5 H (45.5-73.1) % Lymph % (Auto) 12.2 L (18.3-44.2) % [place] % (Auto) 10.8 H (2.6-8.5) % Eos % (Auto) 0.0 (0-4.4) % Baso % (Auto) 0.3 (0.2-1.2) % Lymph # (Auto) 0.70 L (0.9-3.2) K/mm3 [place] # (Auto) 0.6 (0.1-0.6) K/mm3 Eos # (Auto) 0.0 (0-0.3) K/mm3 Baso # (Auto) 0.0 (0.0-0.1) K/mm3 Abs Immat Gran (auto) 0.01 (0.00-0.031) K/mm3 Absolute Neuts (auto) 4.4 (1.3-6.7) K/mm3 Absolute Nucleated RBC 0.000 (0.0-0.012) K/mm3 Nucleated RBC % 0.0 (0.0-0.2) % Sodium 136 (134-143) mmol/L Potassium 4.2 (3.4-5.0) mmol/L Chloride 99 (98-107) mmol/L Carbon Dioxide 25 (22-30) mmol/L Anion Gap 12 (4-12) mmol/L BUN 13 D (8-21) mg/dL Creatinine 0.77 (0.7-1.3) mg/dL Estim Creat Clear Calc 103 ml/min Estimated GFR > 60 (59 - ) Glucose 73 (65-110) mg/dL Calcium 9.2 (8.9-10.7) mg/dL Total Bilirubin 0.7 (0.2-1.3) mg/dL AST 16 L (17-59) U/L ALT 9 (6-50) U/L Alkaline Phosphatase 102 (58-237) U/L Total Protein 8.0 (6.3-8.6) g/dL Albumin 4.4 (3.7-5.6) g/dL Lipase 28 (23-300) U/L Urine Color Dark yellow (Yellow) Urine Appearance Clear (Clear) Urine pH 5.5 (5.0-9.0) Ur Specific [place] > 1.045 H (1.001-1.035) Urine Protein 1+ H (Negative) mg/dL Urine Glucose (UA) Negative (Negative) mg/dL Urine Ketones 3+ H (Negative) mg/dL Ur Blood (Man) 2+ H (Negative) Urine Nitrate Negative (Negative) Urine Bilirubin 2+ H (Negative) Urine Urobilinogen 1.0 (<2.0) mg/dL Leukocyte Esterase Rfl Negative (Negative) LEISA/UL Urine RBC 51-100 H (0-2) /hpf Urine WBC 0-5 (0-3) /hpf Ur Squamous Epith Cells None seen (Few) /hpf Urine Bacteria None seen /hpf Urine Casts 0-2 <Tamela Nowak PA-C - Last Filed: 08/09/24 20:05> Imaging Data Radiologist's impression: ITS Impressions Abdomen/Pelvis CT 08/09/24 18:25 IMPRESSION: 1. Small bowel obstruction with transition in the right mid abdomen secondary to a thickened abnormal appearing small bowel segment. There are adjacent enlarged mesenteric lymph nodes. Differential diagnosis includes inflammatory bowel disease such as Crohn's disease, infection and less likely neoplasm although not excluded. Consider lymphoma in the appropriate clinical setting. <Nanette Johnson APRN - Last Filed: 08/09/24 17:18> ITS Impressions Abdomen/Pelvis CT 08/09/24 18:25 IMPRESSION: 1. Small bowel obstruction with transition in the right mid abdomen secondary to a thickened abnormal appearing small bowel segment. There are adjacent enlarged mesenteric lymph nodes. Differential diagnosis includes inflammatory bowel disease such as Crohn's disease, infection and less likely neoplasm although not excluded. Consider lymphoma in the appropriate clinical setting. <Tamela Nowak PA-C - Last Filed: 08/09/24 20:05> Critical Care Time Critical Care Time Critical Care Time: No <Tamela Nowak PA-C - Last Filed: 08/09/24 20:05> Discharge Plan Discharge Clinical Impression: Small bowel obstruction Crohn's ileocolitis Qualifiers: Digestive disease complication type: with intestinal obstruction Qualified Code(s): K50.812 - Crohn's disease of both small and large intestine with intestinal obstruction <Nanette Johnson APRN - Last Filed: 08/09/24 17:18> Patient Disposition: Still a Patient <Nanette Johnson APRN - Last Filed: 08/09/24 17:18> Condition: Stable <Nanette Johnson APRN - Last Filed: 08/09/24 17:18> Instructions: Antibiotic Form <Nanette Johnson EMERGENCY REGISTRAR - Last Filed: 08/09/24 17:18> Patient Language: Montenegrin <Nanette Johnson EMERGENCY REGISTRAR - Last Filed: 08/09/24 17:18> Prescriptions: No Action Venofer 100 mg iron/5 mL solution 500 mg IV ONCE Rx Instructions: administer over 1.5 hrs prednisone 20 mg Tablet 40 mg PO DAILY@0800 14 Days Qty: 30 0RF omeprazole 20 mg capsule,delayed release(DR/EC) 20 mg PO DAILY PRN (Reason: Indigestion) Qty: 14 0RF <Nanette Johnson, EMERGENCY REGISTRAR - Last Filed: 08/09/24 17:18> Follow-up/Referrals: UNKNOWN,DOCTOR [Primary Care Provider] - <Nanette Johnson APRN - Last Filed: 08/09/24 17:18>
[2024-08-09 17:49] LABS: Basophils Percent Auto 0.3 % (0.2-1.2); Hematocrit 39.6 % (42.0-52.0); Hemoglobin 12.2 g/dL (14.0-18.0); Immature Granulocyte Absolute 0.01 K/mm3 (0.00-0.031); Immature Granulocyte Percent A 0.2 % (0-0.5); Lymphocytes Percent Auto 12.2 % (18.3-44.2); Mean Corpuscular HGB Conc 30.8 g/dl (32-36); Mean Corpuscular Hemoglobin 25.4 pg (26-34); Mean Corpuscular Volume 82.5 fl (80-100); Mean Platelet Volume 8.6 fl (7.4-10.4); Monocytes Absolute Auto 0.6 K/mm3 (0.1-0.6); Monocytes Percent Auto 10.8 % (2.6-8.5); Neutrophils Absolute Auto 4.4 K/mm3 (1.3-6.7); Neutrophils Percent Auto 76.5 % (45.5-73.1); Platelet Count Result 632 k/mm3 (150-375); Red Cell Distribution Width 18.3 % (11.5-14.5); White Blood Count 5.7 K/mm3 (4.5-10.0)
[2024-08-09 17:59] LABS: Alanine Aminotransferase 9 U/L (6-50); Albumin Level 4.4 g/dL (3.7-5.6); Alkaline Phosphatase 102 U/L (58-237); Anion Gap 12 mmol/L (4-12); Aspartate Amino Transferase 16 U/L (17-59); Bilirubin,Total 0.7 mg/dL (0.2-1.3); Blood Urea Nitrogen 13 mg/dL (8-21); Calcium 9.2 mg/dL (8.9-10.7); Carbon Dioxide 25 mmol/L (22-30); Chloride 99 mmol/L (98-107); Estimated CRCL calculation 103 ml/min; Estimated Glomerular Filt Rate > 60; Glucose 73 mg/dL (65-110); Lipase 28 U/L (23-300); Potassium 4.2 mmol/L (3.4-5.0); Sodium 136 mmol/L (134-143)
--- NOTE | 2024-08-09 18:20 | PC.NURSE ---
Patient returned from CT scan-encouraged to give urine specimen. Ambulatory to bathroom with steady gait
[2024-08-09 18:51] LABS: Add Urine Microscopic? YES; Appearance Urine Clear (Clear); Bacteria Urine None Seen /hpf; Bilirubin Urine 2+ (Negative); Blood Urine 2+ (Negative); Color Urine Dark Yellow (Yellow); Glucose Urine UA Negative (Negative); Ketones Urine 3+ mg/dL (Negative); Leukocyte Esterase Ur Negative LEU/UL (Negative); Nitrate Urine Negative (Negative); Non Pathogenic Casts 0-2; Protein Urine 1+ mg/dL (Negative); RBC Urine 51-100 /hpf (0-2); Specific Grav Ur > 1.045 (1.001-1.035); Squamous Epithelial Cell Urine None Seen /hpf (Few); WBC Urine 0-5 /hpf (0-3); pH Urine 5.5 (5.0-9.0)
[2024-08-09] MEDS: SODIUM CHLORIDE 0.9% IV 1,000 ML 999 ML IV CONT ×2 (18:54→20:16)
[2024-08-09] MEDS: methylPREDNISolone SOD SUCC 40 MG VIAL 60 MG IV PUSH (19:20)
[2024-08-09] MEDS: PIPERACILLN/TAZ 3.375GM/NS50ML 3.375 GM/50 ML BAG IVPB (20:01)
[2024-08-09 20:33] LABS: Lactic Acid Reflex 2.5 mmol/L (0.7-2.0)
--- NOTE | 2024-08-09 20:42 | P.HP_ITS ---
H&P: HPI History of Present Illness Date/Time: 08/09/24 20:42 Chief Complaint: abdominal pain Narrative: This is a 18-year-old male with past medical history significant for recently diagnosed Crohn's disease comes to the emergency room after completing course of antibiotic in the outpatient setting and a steroids for Crohn's flareup presents with constipation, nausea, poor per orally intake x2 days. Preliminary workup was significant for CT of abdomen and pelvis with small bowel obstruction. Patient has been admitted for further evaluation management and treatment. EXAMINATION: CT abdomen pelvis w con DATE: 08/09/2024 18:16 INDICATION: Abdomen pain. History of small bowel obstruction. TECHNIQUE: Computed tomography (CT) of the abdomen and pelvis was performed with 100 cc Omnipaque 350 intravenous contrast. The dose-length product was 202.26 mGy-cm. Automated exposure control and iterative reconstruction technique were employed. COMPARISON: 06/07/2024 FINDINGS: Lung bases unremarkable. Heart size normal. No significant pleural or pericardial effusion. Fatty infiltration of the liver. The spleen, pancreas, adrenal glands and kidneys are unremarkable. Gallbladder is present. There is small bowel obstruction with transition in the right mid abdomen secondary to a loop of thickened small bowel with mild surrounding mesenteric infiltration. There is mesenteric mass located centrally with mesenteric lymph nodes. No acute osseous abnormality. No free air. Trace free fluid in the pelvis. IMPRESSION: 1. Small bowel obstruction with transition in the right mid abdomen secondary to a thickened abnormal appearing small bowel segment. There are adjacent enlarged mesenteric lymph nodes. Differential diagnosis includes inflammatory bowel disease such as Crohn's disease, infection and less likely neoplasm although not excluded. Consider lymphoma in the appropriate clinical setting. Review of Systems Review of Systems: abdominal pain, nausea, constipation, poor per oral intake [facility] Past Medical History Medical History LULU (iron deficiency anemia) SBO (small bowel obstruction) Crohn's disease Social History Social History Smoking status: Never smoker Alcohol intake: never Substance use: never Substance use type: does not use Do You Feel Safe in your Home?: Yes Lack of Transportation: No Lack of Food: Never True Current Housing: I Have Housing Concerned About Future Housing: No Difficulty Paying Gas/Electric Bills: No Difficulty Paying for Meds: No Currently Unemployed: No Education: Bachelor's Degree Difficulty w/ Childcare or Family Care: No Spiritual care concerns: No Meds Home Medications and Allergies Home Medications ?Medication ?Instructions ?Recorded ?Confirmed ?Type omeprazole 20 mg capsule,delayed 20 mg PO DAILY PRN Indigestion #14 05/10/24 08/09/24 Rx release caps iron sucrose 100 mg iron/5 mL 500 mg (25 mL) IV ONCE 06/11/24 08/09/24 Rx intravenous solution (Venofer) acetaminophen 500 mg capsule 1,000 mg PO Q4-6H PRN pain 08/09/24 08/09/24 History Allergies Allergy/AdvReac Type Severity Reaction Status Date / Time No Known Allergies Allergy Verified 07/02/24 11:30 Vital Signs Vital Signs - 24 hr 08/09/24 17:00 08/09/24 19:35 08/09/24 20:10 Temperature 98.9 F Pulse Rate 109 H 140 H 104 H Respiratory Rate 20 18 18 Blood Pressure 121/85 130/113 H 112/71 Pulse Oximetry 100 99 94 Oxygen Delivery Room Air Exam Narrative: lying in stretcher Const: General: comfortable, no acute distress, well developed, alert, awake, ill appearing acutely and thin Nutritional Appearance: thin Orientation/consciousness: patient oriented x3 HENMT: Head: normal to inspection, normocephalic and atraumatic Ears: hearing grossly normal bilaterally Face/Nose/Sinus: normal facial exam Face and sinus: normal facial exam Eyes: General: appearance normal, both eyes and all related structures Pupils: Equal, round and reactive pupils present EOM: EOMs intact bilaterally Neck: Neck: full ROM, no lymphadenopathy and no JVD Thyroid: thyroid normal Lymphatic: no lymphadenopathy noted Resp: Effort & Inspection: normal respiratory effort and able to speak in complete sentences Auscultation: clear to auscultation bilaterally Cardio: Jugular venous distension: no JVD Rate: regular rate Rhythm: regular rhythm Heart sounds: S1 normal heart sound present and S2 normal heart sound present GI: GI Palp: Yes Soft to palpation and Yes No hepatosplenomegaly present : General: Yes deferred Skin: Rashes: no rashes Wounds: no wounds Neuro: General: patient oriented x3 and CN's II-XI intact bilaterally Cranial nerves: Yes CN's II-XII intact bilaterally and Yes Equal, round and reactive pupils present Cognition (Neuro): normal cognition Speech: normal speech Gait exam (Neuro): Normal gait present Motor exam (neuro): 5/5 motor strength present throughout Extrem: General: normal to inspection, full ROM, no joint enlargement and no pedal edema H&P: Results Labs Labs: Short CBC 08/09/24 Range/Units 17:33 WBC 5.7 (4.5-10.0) K/mm3 Hgb 12.2 L D (14.0-18.0) g/dL Hct 39.6 L (42.0-52.0) % Plt Count 632 H (150-375) k/mm3 BMP 08/09/24 17:33 Sodium 136 Potassium 4.2 Chloride 99 Carbon Dioxide 25 BUN 13 D Creatinine 0.77 Glucose 73 Calcium 9.2 Liver Function 08/09/24 Range/Units 17:33 Total Bilirubin 0.7 (0.2-1.3) mg/dL AST 16 L (17-59) U/L ALT 9 (6-50) U/L Alkaline Phosphatase 102 (58-237) U/L Albumin 4.4 (3.7-5.6) g/dL Urine 08/09/24 Range/Units 18:22 Urine Color Dark yellow (Yellow) Urine Appearance Clear (Clear) Urine pH 5.5 (5.0-9.0) Ur Specific [place] > 1.045 H (1.001-1.035) Urine Protein 1+ H (Negative) mg/dL Urine Glucose (UA) Negative (Negative) mg/dL Assessment and Plan Assessment and plan (1) Small bowel obstruction: Code(s): K56.609 - Unspecified intestinal obstruction, unspecified as to partial versus complete obstruction Status: Acute Assessment and Plan: Ad[facility] to [facility] NPO IV fluids General surgery consult GI consult (2) Nausea and vomiting: Qualifiers: Vomiting type: unspecified Qualified Code(s): R11.2 - Nausea with vomiting, unspecified Code(s): R11.2 - Nausea with vomiting, unspecified Status: Acute Assessment and Plan: Likely secondary to 1. (3) Abdominal pain: Qualifiers: Abdominal location: periumbilical Qualified Code(s): R10.33 - Periumbilical pain Code(s): R10.9 - Unspecified abdominal pain Status: Acute Assessment and Plan: Likely secondary to 1. In the setting of Crohn's disease (4) Crohn's ileocolitis: Qualifiers: Digestive disease complication type: with intestinal obstruction Qualified Code(s): K50.812 - Crohn's disease of both small and large intestine with intestinal obstruction Code(s): K50.80 - Crohn's disease of both small and large intestine without complications Status: Acute Assessment and Plan: Patient is started on IV antibiotics and steroids Hospitalist MIPS Advance Care Plan I have confirmed that the patient's Advanced Care Plan is present, code status is documented, or surrogate decision maker is listed in patient medical record.: Yes Medication Reconciliation I have utilized all available resources to obtain, update and review the patients current medications (includes all prescriptions, OTC, herbals, cannabis, and nutritional supplements).: Yes
[2024-08-09 20:55] LABS: Procalcitonin 0.2 ng/mL
--- NOTE | 2024-08-09 21:55 | ADMGEN ---
This patient, Cortes Orellana, was admitted to Medical Room 249-01. Patient/family oriented to hospital policies and general routines including ID bracelet, bed and alarms, visiting hours, pain management, procedures, bathroom and other care routines, personal items, smoking policy, room service/diet, and visiting hours. Information on how to activate the Rapid Response Team has been discussed. Patient/Family are encouraged to report perceived risks to care and to ask questions if they do not understand what they are told or what they should do.
[2024-08-09] MEDS: SODIUM CHLORIDE 0.9% IV 1,000 ML 125 ML IV CONT (22:05)
[2024-08-09 23:17] LABS: Reflex Lactic Acid Yes or No Add Lactic
[2024-08-10] VITALS (9 sets, daily range): BP systolic 110–118; BP diastolic 60–79; PULSE 73–96; RESP 12–18; TEMP 36.4–36.9; O2SAT 98–100; BMI 16.9
[2024-08-10 00:06] LABS: Lactic Acid 0.7 mmol/L (0.7-2.0)
[2024-08-10] MEDS: SODIUM CHLORIDE 0.9% IV 1,000 ML 125 ML IV CONT ×2 (05:58→13:43)
[2024-08-10] MEDS: methylPREDNISolone SOD SUCC 125 MG VIAL 60 MG IV PUSH (08:44)
--- NOTE | 2024-08-10 08:48 | PM.IMPN ---
Progress Note: A&P Assessment and Plan (1) Nausea and vomiting: Qualifiers: Vomiting type: unspecified Qualified Code(s): R11.2 - Nausea with vomiting, unspecified Code(s): R11.2 - Nausea with vomiting, unspecified Status: Acute (2) Crohn's ileocolitis: Qualifiers: Digestive disease complication type: with intestinal obstruction Qualified Code(s): K50.812 - Crohn's disease of both small and large intestine with intestinal obstruction Code(s): K50.80 - Crohn's disease of both small and large intestine without complications Status: Acute (3) Small bowel obstruction: Code(s): K56.609 - Unspecified intestinal obstruction, unspecified as to partial versus complete obstruction Status: Acute (4) Anemia: Qualifiers: Anemia type: iron deficiency Iron deficiency anemia type: unspecified iron deficiency Qualified Code(s): D50.9 - Iron deficiency anemia, unspecified Code(s): D64.9 - Anemia, unspecified Status: Chronic Plan Small bowel obstruction: Code(s): K56.609 - Unspecified intestinal obstruction, unspecified as to partial versus complete obstruction Status: Acute Assessment and Plan: Admit to med tele Patient still has nausea vomiting and abdomen pain Keep patient NPO, continue fluid resuscitation optimize pain management patient is on morphine p.r.n., start antiemetic medications Reglan and Zofran IV p.r.n. Consult general surgeon and GI for evaluation treatment Crohn's ileocolitis: Qualifiers: Digestive disease complication type: with intestinal obstruction Qualified Code(s): K50.812 - Crohn's disease of both small and large intestine with intestinal obstruction Code(s): K50.80 - Crohn's disease of both small and large intestine without complications Status: Acute Assessment and Plan: Suspecting chronic disease exacerbation Start methylprednisolone 60 mg IV daily per GI, Zosyn 3.375 mg IV push once Follow GI recommendation Chronic Anemia Hemoglobin stable 12.2 upon arrival Subjective Date/time seen: 08/10/24 08:48 Interval history: Patient is afebrile, blood pressure stable, patient is on intermittent suction. Patient denies nausea vomiting abdomen pain. Patient does not have bowel movement. Labs reviewed, a patient afebrile blood pressure stable Exam Narrative: GENERAL:ill-appearing in no acute distress. Well-nourished. - EYES: EOMI. Anicteric. - HENT: Moist mucous membranes. NG tube in-situ - LUNGS: Clear to auscultation bilaterally, no wheezing, rhonchi, or rales. - CARDIOVASCULAR: Regular rate and rhythm. No murmur. No JVD. - ABDOMEN: Soft, non-tender and non-distended. No palpable masses. - EXTREMITIES: No edema. Peripheral pulses 2+. Non-tender. - NEUROLOGIC: No focal neurological deficits. CN II-XII grossly intact. - PSYCHIATRIC: Awake, Alert and oriented x 3. Appropriate mood and affect. - SKIN: No rashes or lesions. Warm. - LYMPH: No cervical lymphadenopathy. Objective Data Vital Signs Vital Signs: Vital Signs - 24 hr 08/09/24 17:00 08/09/24 19:35 08/09/24 20:10 Temperature 98.9 F Pulse Rate 109 H 140 H 104 H Respiratory Rate 20 18 18 Blood Pressure 121/85 130/113 H 112/71 Pulse Oximetry 100 99 94 Oxygen Delivery Room Air 08/09/24 21:02 08/09/24 21:44 08/09/24 21:54 Temperature 97.6 F 97.8 F Pulse Rate 97 105 H 98 Respiratory Rate 16 18 Blood Pressure 122/81 116/69 Pulse Oximetry 100 100 Oxygen Delivery 08/09/24 22:00 08/09/24 23:37 08/10/24 00:00 Temperature 97.8 F 98.2 F Pulse Rate 105 H 98 96 Respiratory Rate 18 18 Blood Pressure 116/69 119/73 Pulse Oximetry 100 100 Oxygen Delivery 08/10/24 04:00 08/10/24 04:00 08/10/24 04:12 Temperature 97.9 F 97.9 F Pulse Rate 83 73 83 Respiratory Rate 18 18 Blood Pressure 116/60 116/62 Pulse Oximetry 99 99 Oxygen Delivery 08/10/24 08:00 Temperature 97.5 F L Pulse Rate 77 Respiratory Rate 12 Blood Pressure 118/79 Pulse Oximetry 100 Oxygen Delivery Intake/Output Intake/Output: Intake & Output 08/07/24 08/08/24 08/09/24 08/10/24 23:59 23:59 23:59 23:59 Intake Total 4100 985.4 Output Total 200 Balance 3900 985.4 Meds/Results Medications: Active Medications Generic Name Dose Route Start Last Admin Trade Name Freq PRN Reason Stop Dose Admin Sodium Chloride 1,000 mls @ 125 mls/hr 08/09/24 19:30 08/10/24 05:58 Normal Saline Iv IV CONT 125 mls/hr .Q8H KISHORE Administration Methylprednisolone Sodium Succinate 60 mg 08/10/24 09:00 08/10/24 08:44 Methylprednisolone Sod Succ 125 Mg Vial IV PUSH 60 mg DAILY KISHORE Administration Morphine Sulfate 4 mg 08/09/24 19:27 Morphine Sulfate (*Crx) 4 Mg/Ml Inj IV PUSH Q2H PRN Pain Rated 7-10 Ondansetron HCl 4 mg 08/09/24 19:27 Ondansetron Inj 4 Mg/2 Ml Vial IV PUSH Q4H PRN Nausea Radiology Results: ITS Impressions Abdomen/Pelvis CT 08/09/24 18:25 IMPRESSION: 1. Small bowel obstruction with transition in the right mid abdomen secondary to a thickened abnormal appearing small bowel segment. There are adjacent enlarged mesenteric lymph nodes. Differential diagnosis includes inflammatory bowel disease such as Crohn's disease, infection and less likely neoplasm although not excluded. Consider lymphoma in the appropriate clinical setting. Abdomen X-Ray 08/09/24 21:42 IMPRESSION: 1: NG tube tip in the stomach. Labs Labs: Laboratory Results - last 24 hr 08/09/24 08/09/24 08/09/24 17:33 18:22 19:58 WBC 5.7 RBC 4.80 Hgb 12.2 L D Hct 39.6 L MCV 82.5 MCH 25.4 L MCHC 30.8 L RDW 18.3 H Plt Count 632 H MPV 8.6 Immature Gran % (Auto) 0.2 Neut % (Auto) 76.5 H Lymph % (Auto) 12.2 L [place] % (Auto) 10.8 H Eos % (Auto) 0.0 Baso % (Auto) 0.3 Lymph # (Auto) 0.70 L [place] # (Auto) 0.6 Eos # (Auto) 0.0 Baso # (Auto) 0.0 Abs Immat Gran (auto) 0.01 Absolute Neuts (auto) 4.4 Absolute Nucleated RBC 0.000 Nucleated RBC % 0.0 Sodium 136 Potassium 4.2 Chloride 99 Carbon Dioxide 25 Anion Gap 12 BUN 13 D Creatinine 0.77 Estim Creat Clear Calc 103 Estimated GFR > 60 Glucose 73 Lactic Acid 2.5 H Calcium 9.2 Total Bilirubin 0.7 AST 16 L ALT 9 Alkaline Phosphatase 102 Total Protein 8.0 Albumin 4.4 Lipase 28 Procalcitonin 0.2 Urine Color Dark yellow Urine Appearance Clear Urine pH 5.5 Ur Specific [place] > 1.045 H Urine Protein 1+ H Urine Glucose (UA) Negative Urine Ketones 3+ H Ur Blood (Man) 2+ H Urine Nitrate Negative Urine Bilirubin 2+ H Urine Urobilinogen 1.0 Leukocyte Esterase Rfl Negative Urine RBC 51-100 H Urine WBC 0-5 Ur Squamous Epith Cells None seen Urine Bacteria None seen Urine Casts 0-2 08/09/24 23:40 WBC RBC Hgb Hct MCV MCH MCHC RDW Plt Count MPV Immature Gran % (Auto) Neut % (Auto) Lymph % (Auto) [place] % (Auto) Eos % (Auto) Baso % (Auto) Lymph # (Auto) [place] # (Auto) Eos # (Auto) Baso # (Auto) Abs Immat Gran (auto) Absolute Neuts (auto) Absolute Nucleated RBC Nucleated RBC % Sodium Potassium Chloride Carbon Dioxide Anion Gap BUN Creatinine Estim Creat Clear Calc Estimated GFR Glucose Lactic Acid 0.7 Calcium Total Bilirubin AST ALT Alkaline Phosphatase Total Protein Albumin Lipase Procalcitonin Urine Color Urine Appearance Urine pH Ur Specific [place] Urine Protein Urine Glucose (UA) Urine Ketones Ur Blood (Man) Urine Nitrate Urine Bilirubin Urine Urobilinogen Leukocyte Esterase Rfl Urine RBC Urine WBC Ur Squamous Epith Cells Urine Bacteria Urine Casts
[2024-08-10 09:41] LABS: Basophils Percent Auto 0.3 % (0.2-1.2); Hematocrit 33.1 % (42.0-52.0); Hemoglobin 9.8 g/dL (14.0-18.0); Immature Granulocyte Absolute 0.01 K/mm3 (0.00-0.031); Immature Granulocyte Percent A 0.3 % (0-0.5); Lymphocytes Absolute Auto 1.13 K/mm3 (0.9-3.2); Lymphocytes Percent Auto 28.6 % (18.3-44.2); Mean Corpuscular HGB Conc 29.6 g/dl (32-36); Mean Corpuscular Hemoglobin 25.1 pg (26-34); Mean Corpuscular Volume 84.9 fl (80-100); Mean Platelet Volume 8.9 fl (7.4-10.4); Monocytes Absolute Auto 0.4 K/mm3 (0.1-0.6); Monocytes Percent Auto 11.1 % (2.6-8.5); Neutrophils Absolute Auto 2.4 K/mm3 (1.3-6.7); Neutrophils Percent Auto 59.7 % (45.5-73.1); Platelet Count Result 486 k/mm3 (150-375); Red Cell Distribution Width 18.3 % (11.5-14.5)
[2024-08-10 10:04] LABS: Anion Gap 9 mmol/L (4-12); Blood Urea Nitrogen 7 mg/dL (8-21); Calcium 7.9 mg/dL (8.9-10.7); Carbon Dioxide 19 mmol/L (22-30); Chloride 105 mmol/L (98-107); Estimated CRCL calculation 156 ml/min; Estimated Glomerular Filt Rate > 60; Glucose 78 mg/dL (65-110); Phosphorus 3.9 mg/dL (2.5-4.5); Potassium 4.7 mmol/L (3.4-5.0); Sodium 133 mmol/L (134-143)
[2024-08-10 10:06] LABS: Burr Cells 1+; Platelet Estimate Increased (Adequate); Schistocytes None Seen
[2024-08-10] MEDS: HEPARIN SODIUM 5,000 UNITS/ML VIAL 5000 UNITS SUB-Q ×2 (13:41→21:33)
--- NOTE | 2024-08-10 15:07 | P.CONGI_ITS ---
Assessment and Plan Assessment and plan (1) Crohn's ileocolitis: Qualifiers: Digestive disease complication type: with intestinal obstruction Q ualified Code(s): K50.812 - Crohn's disease of both small and large intestine with intestinal obstruction Code(s): K50.80 - Crohn's disease of both small and large intestine without complications Status: Acute Assessment and Plan: The patient's clinical picture of small bowel obstruction is secondary to a Crohn's disease exacerbation, which is becoming steroid dependent. He responded well the 1st time. Will continue current management administering Solu-Medrol 60 mg IV every 24 hours and obtain a surgical consultation. Ideally, we should get infliximab infusions approved by his insurance company so we can avoid surgery in the short term. However, if during the weekend his clinical picture does not improve once steroids surgery might be needed. In addition, he continues to be anemic despite iron deficient prescribed during his last hospitalization. Therefore, will indicate a new dose of venofer. GI Consult Note Consult date/time: 08/10/24 15:07 HPI: Cortes Orellana is a 18 year old male Who was admitted for the 1st time in mid April 2024 with small-bowel obstruction. A colonoscopy showed severe disease in the ileocecal region with ileal stenosis. He was treated conservatively with NG suction, NPO and intravenous steroids. He was subsequently transitioned to prednisone orally and did well. I saw him in the office in June and he was asymptomatic and still on a steroid taper. However, around [place] last year he started to experience abdominal pain and discomfort associated with distention. He did not seek medical attention due to the fear of hospitalization. Last night his pain increased significantly prompting him to visit the ER. He is currently admitted with NG suction IV fluids and NPO. Last night CT scan revealed small bowel obstruction with a transition point in the ileal region. Review of Systems 2 Review of Systems: All systems reviewed & are unremarkable except as noted in HPI and below PMFSH Past Medical History Medical History LULU (iron deficiency anemia) SBO (small bowel obstruction) Crohn's disease Social History Social History Smoking status: Never smoker Alcohol intake: never Substance use: never Substance use type: does not use Do You Feel Safe in your Home?: Yes Lack of Transportation: No Lack of Food: Never True Current Housing: I Have Housing Concerned About Future Housing: No Difficulty Paying Gas/Electric Bills: No Difficulty Paying for Meds: No Currently Unemployed: No Education: Bachelor's Degree Difficulty w/ Childcare or Family Care: No Spiritual care concerns: No Meds Home Medications and Allergies Home Medications ?Medication ?Instructions ?Recorded ?Confirmed ?Type omeprazole 20 mg capsule,delayed 20 mg PO DAILY PRN Indigestion #14 05/10/24 08/09/24 Rx release caps iron sucrose 100 mg iron/5 mL 500 mg (25 mL) IV ONCE 06/11/24 08/09/24 Rx intravenous solution (Venofer) acetaminophen 500 mg capsule 1,000 mg PO Q4-6H PRN pain 08/09/24 08/09/24 History Allergies Allergy/AdvReac Type Severity Reaction Status Date / Time No Known Allergies Allergy Verified 07/02/24 11:30 Vital Signs Vital Signs - 24 hr 08/09/24 17:00 08/09/24 19:35 08/09/24 20:10 Temperature 98.9 F Pulse Rate 109 H 140 H 104 H Respiratory Rate 20 18 18 Blood Pressure 121/85 130/113 H 112/71 Pulse Oximetry 100 99 94 Oxygen Delivery Room Air 08/09/24 21:02 08/09/24 21:44 08/09/24 21:54 Temperature 97.6 F 97.8 F Pulse Rate 97 105 H 98 Respiratory Rate 16 18 Blood Pressure 122/81 116/69 Pulse Oximetry 100 100 Oxygen Delivery 08/09/24 22:00 08/09/24 23:37 08/10/24 00:00 Temperature 97.8 F 98.2 F Pulse Rate 105 H 98 96 Respiratory Rate 18 18 Blood Pressure 116/69 119/73 Pulse Oximetry 100 100 Oxygen Delivery 08/10/24 04:00 08/10/24 04:00 08/10/24 04:12 Temperature 97.9 F 97.9 F Pulse Rate 83 73 83 Respiratory Rate 18 18 Blood Pressure 116/60 116/62 Pulse Oximetry 99 99 Oxygen Delivery 08/10/24 08:00 08/10/24 08:00 08/10/24 08:40 Temperature 97.5 F L Pulse Rate 77 81 Respiratory Rate 12 Blood Pressure 118/79 Pulse Oximetry 100 Oxygen Delivery Room Air 08/10/24 12:00 08/10/24 12:00 Temperature Pulse Rate 88 78 Respiratory Rate 12 Blood Pressure 110/69 Pulse Oximetry 100 Oxygen Delivery Exam 2 Narrative: Alert oriented x3. With NG tube. Lungs: Clear to auscultation. Abdomen: Active bowel sounds, distended, nontender, no rebound. Rest of the exam within normal limits. Results Labs 08/10/24 09:19 08/10/24 09:19 Labs: Short CBC 08/09/24 08/10/24 Range/Units 17:33 09:19 WBC 5.7 4.0 L (4.5-10.0) K/mm3 Hgb 12.2 L D 9.8 L (14.0-18.0) g/dL Hct 39.6 L 33.1 L (42.0-52.0) % Plt Count 632 H 486 H (150-375) k/mm3 BMP 08/09/24 08/10/24 17:33 09:19 Sodium 136 133 L Potassium 4.2 4.7 Chloride 99 105 Carbon Dioxide 25 19 L BUN 13 D 7 L D Creatinine 0.77 0.51 L Glucose 73 78 Calcium 9.2 7.9 L Liver Function 08/09/24 Range/Units 17:33 Total Bilirubin 0.7 (0.2-1.3) mg/dL AST 16 L (17-59) U/L ALT 9 (6-50) U/L Alkaline Phosphatase 102 (58-237) U/L Albumin 4.4 (3.7-5.6) g/dL Urine 08/09/24 Range/Units 18:22 Urine Color Dark yellow (Yellow) Urine Appearance Clear (Clear) Urine pH 5.5 (5.0-9.0) Ur Specific [place] > 1.045 H (1.001-1.035) Urine Protein 1+ H (Negative) mg/dL Urine Glucose (UA) Negative (Negative) mg/dL
--- NOTE | 2024-08-10 16:07 | P.CONS_ITS ---
Assessment and Plan Assessment and plan (1) Crohn's ileocolitis: Qualifiers: Digestive disease complication type: with intestinal obstruction Q ualified Code(s): K50.812 - Crohn's disease of both small and large intestine with intestinal obstruction Code(s): K50.80 - Crohn's disease of both small and large intestine without complications Status: Acute Assessment and Plan: Patient has been admitted to the hospital again for another episode of Crohn's exacerbation. He has no evidence of perforation or abdominal abscess. He seems to be more comfortable now with nasogastric tube decompression. He has been started on IV steroids and antibiotics again. He was seen by Dr. Wang the office after his last hospitalization and the plan was to offer a hand assisted laparoscopic ileocolectomy to resect strictured segment of the distal small bowel. The patient was to see GI as an outpatient but has been readmitted to the hospital prior to that outpatient evaluation. Plans are to see if the patient can be approved to get on 1 of the biologics for treatment of his Crohn's. For now continue supportive management on IV steroids to treat the current episode of exacerbation and small-bowel obstruction. Continue nasogastric tube decompression for now. No need for emergent surgical management but if he does not improve over the weekend then certainly more urgent resection of the strictured small bowel may be necessary especially if he cannot get approved for a biologic agent in the near future. HPI Data of Consult Date/Time: 08/10/24 16:07 Requesting Physician: Ricardo Madsen MD Primary Care Provider: Edwin Velazquez MD Consult Narrative Reason for consult: Small-bowel obstruction secondary to Crohn's exacerbation Narrative: Cortes Orellana is a 18 year old male who has been seen by Dr. Lanier and Dr. Wang in the past on 2 prior separate hospitalizations [facility] within the last 6 months. Each time he had a Crohn's exacerbation and small-bowel obstruction which responded to non operative measures and courses of steroids. He had just finished his oral steroid taper per his most recent Crohn's exacerbation when he started having worsening abdominal pain and nausea but no emesis. He was admitted to the hospital last evening with evidence of a small- bowel obstruction secondary to Crohn's exacerbation again. White blood cell count was normal. CT scan showed the distal ileal stricture but no evidence of perforation or abscess. He had nasogastric tube placed for GI decompression. This afternoon he denies any abdominal pain. He states he is passing a small amount of flatus but has not had a bowel movement a couple of days. GI has seen him and he has been started on IV steroids again and antibiotics. Review of Systems 2 Review of Systems: The remainder of the review of systems to include constitutional, HEENT, cardiovascular, respiratory, GI, , integumentary, musculoskeletal, endocrine, immunologic, hematologic, psychiatric, and neurologic are all negative except for which is mentioned above in the HPI. [facility] Past Medical History Medical History LULU (iron deficiency anemia) SBO (small bowel obstruction) Crohn's disease Social History Social History Smoking status: Never smoker Alcohol intake: never Substance use: never Substance use type: does not use Do You Feel Safe in your Home?: Yes Lack of Transportation: No Lack of Food: Never True Current Housing: I Have Housing Concerned About Future Housing: No Difficulty Paying Gas/Electric Bills: No Difficulty Paying for Meds: No Currently Unemployed: No Education: Bachelor's Degree Difficulty w/ Childcare or Family Care: No Spiritual care concerns: No Meds Home Medications and Allergies Home Medications ?Medication ?Instructions ?Recorded ?Confirmed ?Type omeprazole 20 mg capsule,delayed 20 mg PO DAILY PRN Indigestion #14 05/10/24 08/09/24 Rx release caps iron sucrose 100 mg iron/5 mL 500 mg (25 mL) IV ONCE 06/11/24 08/09/24 Rx intravenous solution (Venofer) acetaminophen 500 mg capsule 1,000 mg PO Q4-6H PRN pain 08/09/24 08/09/24 History Allergies Allergy/AdvReac Type Severity Reaction Status Date / Time No Known Allergies Allergy Verified 07/02/24 11:30 Vital Signs Vital Signs - 24 hr 08/09/24 17:00 08/09/24 19:35 08/09/24 20:10 Temperature 37.2 C Pulse Rate 109 H 140 H 104 H Respiratory Rate 20 18 18 Blood Pressure 121/85 130/113 H 112/71 Pulse Oximetry 100 99 94 Oxygen Delivery Room Air 08/09/24 21:02 08/09/24 21:44 08/09/24 21:54 Temperature 36.4 C 36.6 C Pulse Rate 97 105 H 98 Respiratory Rate 16 18 Blood Pressure 122/81 116/69 Pulse Oximetry 100 100 Oxygen Delivery 08/09/24 22:00 08/09/24 23:37 08/10/24 00:00 Temperature 36.6 C 36.8 C Pulse Rate 105 H 98 96 Respiratory Rate 18 18 Blood Pressure 116/69 119/73 Pulse Oximetry 100 100 Oxygen Delivery 08/10/24 04:00 08/10/24 04:00 08/10/24 04:12 Temperature 36.6 C 36.6 C Pulse Rate 83 73 83 Respiratory Rate 18 18 Blood Pressure 116/60 116/62 Pulse Oximetry 99 99 Oxygen Delivery 08/10/24 08:00 08/10/24 08:00 08/10/24 08:40 Temperature 36.4 C L Pulse Rate 77 81 Respiratory Rate 12 Blood Pressure 118/79 Pulse Oximetry 100 Oxygen Delivery Room Air 08/10/24 12:00 08/10/24 12:00 Temperature Pulse Rate 88 78 Respiratory Rate 12 Blood Pressure 110/69 Pulse Oximetry 100 Oxygen Delivery Exam 2 Const: General: comfortable and no acute distress HENMT: Ears: TM's normal bilaterally Face/Nose/Sinus: Normal nares present Mouth: Yes moist mucous membranes Other: NG tube in place. Small amount of bilious output. Eyes: General: appearance normal, both eyes and all related structures S clera: sclerae normal Pupils: Equal, round and reactive pupils present E OM: EOMs intact bilaterally Neck: Neck: supple and no JVD Resp: Effort & Inspection: normal respiratory effort Auscultation: clear to auscultation bilaterally Cardio: Rate: regular rate Rhythm: regular rhythm GI: Other: Abdomen is soft and mildly distended. He has no significant tenderness to palpation. No ventral hernias and no masses are noted. Skin: General skin exam: normal color and no rashes or lesions noted Neuro: General: gait normal Speech: normal speech Motor exam (neuro): 5 /5 motor strength present throughout and Motor abnormalites present Sensory Exam: normal sensation Extrem: General: normal to inspection Psych: Mental Status: mental status grossly normal Affect: normal affect Results Labs 08/10/24 09:19 08/10/24 09:19 Labs: Short CBC 08/09/24 08/10/24 Range/Units 17:33 09:19 WBC 5.7 4.0 L (4.5-10.0) K/mm3 Hgb 12.2 L D 9.8 L (14.0-18.0) g/dL Hct 39.6 L 33.1 L (42.0-52.0) % Plt Count 632 H 486 H (150-375) k/mm3 BMP 08/09/24 08/10/24 17:33 09:19 Sodium 136 133 L Potassium 4.2 4.7 Chloride 99 105 Carbon Dioxide 25 19 L BUN 13 D 7 L D Creatinine 0.77 0.51 L Glucose 73 78 Calcium 9.2 7.9 L Liver Function 08/09/24 Range/Units 17:33 Total Bilirubin 0.7 (0.2-1.3) mg/dL AST 16 L (17-59) U/L ALT 9 (6-50) U/L Alkaline Phosphatase 102 (58-237) U/L Albumin 4.4 (3.7-5.6) g/dL Urine 08/09/24 Range/Units 18:22 Urine Color Dark yellow (Yellow) Urine Appearance Clear (Clear) Urine pH 5.5 (5.0-9.0) Ur Specific [place] > 1.045 H (1.001-1.035) Urine Protein 1+ H (Negative) mg/dL Urine Glucose (UA) Negative (Negative) mg/dL Imaging Radiologist's impression: CT Scan Report Signed Patient: Cortes Orellana : 2005 MR#: [id number] Age: 18 Acct:[id number] Loc: [facility] ADM Date: 08/09/24Attending Dr: Ordering Physician: Tamela Nowak PA-C Date of Service: 08/09/24 Procedure(s): CT abdomen pelvis w con Accession Number(s): [id number] cc: Tamela Nowak PA-C; UNKNOWN,DOCTOR~ EXAMINATION: CT abdomen pelvis w con DATE: 08/09/2024 18:16 INDICATION: Abdomen pain. History of small bowel obstruction. TECHNIQUE: Computed tomography (CT) of the abdomen and pelvis was performed with 100 cc Omnipaque 350 intravenous contrast. The dose-length product was 202.26 mGy-cm. Automated exposure control and iterative reconstruction technique were employed. COMPARISON: 06/07/2024 FINDINGS: Lung bases unremarkable. Heart size normal. No significant pleural or pericardial effusion. Fatty infiltration of the liver. The spleen, pancreas, adrenal glands and kidneys are unremarkable. Gallbladder is present. There is small bowel obstruction with transition in the right mid abdomen secondary to a loop of thickened small bowel with mild surrounding mesenteric infiltration. There is mesenteric mass located centrally with mesenteric lymph nodes. No acute osseous abnormality. No free air. Trace free fluid in the pelvis. IMPRESSION: 1. Small bowel obstruction with transition in the right mid abdomen secondary to a thickened abnormal appearing small bowel segment. There are adjacent enlarged mesenteric lymph nodes. Differential diagnosis includes inflammatory bowel disease such as Crohn's disease, infection and less likely neoplasm although not excluded. Consider lymphoma in the appropriate clinical setting. Reviewed, dictated and finalized at location A. OPATHIC DOCTOR Please be advised this is a medical document. It is intended for [id number] communication. It is written in medical language and may contain unfamiliar abbreviations or verbiage. Medical documents are intended to carry relevant information, facts as evident, and the clinical opinion of the practitioner at the time of the encounter. This report may have been done utilizing a voice recognition system. Attempts have been made to correct errors. However, there may be uncorrected grammatical, spelling, and recognition errors present. The file time of this note does not necessarily represent the time the patient was seen. Dictated By: Quirino Lopez MD 08/09/24 0138 Signed By: <Electronically signed by Quirino Lopez MD in [place]>
[2024-08-10] MEDS: IRON SUCROSE COMPLEX 400 MG, IRON SUCROSE COMPLEX 100 MG in SODIUM CHLORIDE 0.9% IV 250 ML 78.57 MG IVPB (17:07)
[2024-08-11] VITALS (13 sets, daily range): BP systolic 104–123; BP diastolic 59–74; PULSE 58–90; RESP 12–18; TEMP 36.6–37.1; O2SAT 97–100
[2024-08-11] MEDS: SODIUM CHLORIDE 0.9% IV 1,000 ML 125 ML IV CONT ×3 (01:54→21:25)
[2024-08-11] MEDS: HEPARIN SODIUM 5,000 UNITS/ML VIAL 5000 UNITS SUB-Q ×3 (05:50→21:26)
[2024-08-11 06:16] LABS: Basophils Percent Auto 0.2 % (0.2-1.2); Hematocrit 34.3 % (42.0-52.0); Hemoglobin 10.1 g/dL (14.0-18.0); Immature Granulocyte Absolute 0.02 K/mm3 (0.00-0.031); Immature Granulocyte Percent A 0.4 % (0-0.5); Lymphocytes Absolute Auto 1.42 K/mm3 (0.9-3.2); Lymphocytes Percent Auto 28.1 % (18.3-44.2); Mean Corpuscular HGB Conc 29.4 g/dl (32-36); Mean Corpuscular Hemoglobin 24.8 pg (26-34); Mean Corpuscular Volume 84.1 fl (80-100); Mean Platelet Volume 8.7 fl (7.4-10.4); Monocytes Absolute Auto 0.7 K/mm3 (0.1-0.6); Monocytes Percent Auto 12.8 % (2.6-8.5); Neutrophils Percent Auto 58.5 % (45.5-73.1); Platelet Count Result 467 k/mm3 (150-375); Red Blood Count 4.08 M/mm3 (4.6-6.20); Red Cell Distribution Width 18.3 % (11.5-14.5); White Blood Count 5.1 K/mm3 (4.5-10.0)
[2024-08-11 06:28] LABS: Anion Gap 7 mmol/L (4-12); Blood Urea Nitrogen 7 mg/dL (8-21); Calcium 7.9 mg/dL (8.9-10.7); Carbon Dioxide 25 mmol/L (22-30); Chloride 102 mmol/L (98-107); Estimated CRCL calculation 140 ml/min; Estimated Glomerular Filt Rate > 60; Glucose 78 mg/dL (65-110); Magnesium 1.9 mg/dL (1.6-2.3); Phosphorus 2.9 mg/dL (2.5-4.5); Potassium 3.6 mmol/L (3.4-5.0); Sodium 134 mmol/L (134-143)
[2024-08-11] MEDS: methylPREDNISolone SOD SUCC 125 MG VIAL 60 MG IV PUSH (08:03)
--- NOTE | 2024-08-11 08:31 | P.PNIM_ITS ---
Progress Note: A&P Assessment and Plan (1) Nausea and vomiting: Qualifiers: Vomiting type: unspecified Qualified Code(s): R11.2 - Nausea with vomiting, unspecified Code(s): R11.2 - Nausea with vomiting, unspecified Status: Acute (2) Crohn's ileocolitis: Qualifiers: Digestive disease complication type: with intestinal obstruction Qualified Code(s): K50.812 - Crohn's disease of both small and large intestine with intestinal obstruction Code(s): K50.80 - Crohn's disease of both small and large intestine without complications Status: Acute (3) Small bowel obstruction: Code(s): K56.609 - Unspecified intestinal obstruction, unspecified as to partial versus complete obstruction Status: Acute (4) Anemia: Qualifiers: Anemia type: iron deficiency Iron deficiency anemia type: unspecified iron deficiency Qualified Code(s): D50.9 - Iron deficiency anemia, unspecified Code(s): D64.9 - Anemia, unspecified Status: Chronic Plan Small bowel obstruction: Code(s): K56.609 - Unspecified intestinal obstruction, unspecified as to partial versus complete obstruction Status: Acute Assessment and Plan: Admit to med tele Patient still has nausea vomiting and abdomen pain Keep patient NPO, continue fluid resuscitation optimize pain management patient is on morphine p.r.n., start antiemetic medications Reglan and Zofran IV p.r.n. Consult general surgeon and GI for evaluation treatment Crohn's ileocolitis: Qualifiers: Digestive disease complication type: with intestinal obstruction Qualified Code(s): K50.812 - Crohn's disease of both small and large intestine with intestinal obstruction Code(s): K50.80 - Crohn's disease of both small and large intestine without complications Status: Acute Assessment and Plan: Suspecting chronic disease exacerbation Continue methylprednisolone 60 mg IV daily per GI, Received Zosyn 3.375 mg IV push once Follow GI recommendation Chronic Anemia Hemoglobin stable 12.2 upon arrival Subjective Date/time seen: 08/11/24 08:31 Interval history: Patient is afebrile, Patient denies nausea vomiting abdomen pain patient passed gas today. Patient does not have bowel movement yet. Labs reviewed, a patient afebrile blood pressure stable Exam Narrative: GENERAL:ill-appearing in no acute distress. Well-nourished. - EYES: EOMI. Anicteric. - HENT: Moist mucous membranes. NG tube in-situ - LUNGS: Clear to auscultation bilateral ly, no wheezing, rhonchi, or rales. - CARDIOVASCULAR: Regular rate and rhyth m. No murmur. No JVD. - ABDOMEN: Soft, non-tender and non-dist ended. No palpable masses. - EXTREMITIES: No edema. Peripheral puls es 2+. Non-tender. - NEUROLOGIC: No focal neurological defi cits. CN II-XII grossly intact. - PSYCHIATRIC: Awake, Alert and oriented x 3. Appropriate mood and affect. - SKIN: No rashes or lesions. Warm. - LYMPH: No cervical lymphadenopathy. Objective Data Vital Signs Vital Signs: Vital Signs - 24 hr 08/10/24 08:40 08/10/24 12:00 08/10/24 12:00 Temperature Pulse Rate 88 78 Respiratory Rate 12 Blood Pressure 110/69 Pulse Oximetry 100 Oxygen Delivery Room Air 08/10/24 16:00 08/10/24 16:00 08/10/24 20:00 Temperature Pulse Rate 88 75 73 Respiratory Rate 12 Blood Pressure 112/72 Pulse Oximetry 100 Oxygen Delivery 08/10/24 20:15 08/10/24 22:57 08/11/24 00:00 Temperature 98.4 F 98.3 F Pulse Rate 77 76 71 Respiratory Rate 16 16 Blood Pressure 116/67 117/71 Pulse Oximetry 100 98 Oxygen Delivery 08/11/24 00:18 08/11/24 04:00 08/11/24 04:31 Temperature 98.5 F 98.2 F Pulse Rate 85 68 74 Respiratory Rate 16 18 Blood Pressure 116/67 119/72 Pulse Oximetry 98 99 Oxygen Delivery 08/11/24 06:00 Temperature 98.8 F Pulse Rate 58 L Respiratory Rate 18 Blood Pressure 123/72 Pulse Oximetry 100 Oxygen Delivery Intake/Output Intake/Output: Intake & Output 08/08/24 08/09/24 08/10/24 08/11/24 23:59 23:59 23:59 23:59 Intake Total 4100 2954.2 400 Output Total 200 2450 900 Balance 3900 504.2 -500 Meds/Results Medications: Active Medications Generic Name Dose Route Start Last Admin Trade Name Freq PRN Reason Stop Dose Admin Heparin Sodium (Porcine) 5,000 units 08/10/24 14:00 08/11/24 05:50 Heparin Sodium 5,000 Units/Ml Vial SUB-Q 5,000 units Q8HR KISHORE Administration Sodium Chloride 1,000 mls @ 125 mls/hr 08/09/24 19:30 08/11/24 01:54 Normal Saline Iv IV CONT 125 mls/hr .Q8H KISHORE Administration Methylprednisolone Sodium Succinate 60 mg 08/10/24 09:00 08/11/24 08:03 Methylprednisolone Sod Succ 125 Mg Vial IV PUSH 60 mg DAILY KISHORE Administration Morphine Sulfate 4 mg 08/09/24 19:27 Morphine Sulfate (*Crx) 4 Mg/Ml Inj IV PUSH Q2H PRN Pain Rated 7-10 Ondansetron HCl 4 mg 08/09/24 19:27 Ondansetron Inj 4 Mg/2 Ml Vial IV PUSH Q4H PRN Nausea Radiology Results: ITS Impressions Abdomen/Pelvis CT 08/09/24 18:25 IMPRESSION: 1. Small bowel obstruction with transition in the right mid abdomen secondary to a thickened abnormal appearing small bowel segment. There are adjacent enlarged mesenteric lymph nodes. Differential diagnosis includes inflammatory bowel disease such as Crohn's disease, infection and less likely neoplasm although not excluded. Consider lymphoma in the appropriate clinical setting. Abdomen X-Ray 08/09/24 21:42 IMPRESSION: 1: NG tube tip in the stomach. Labs Labs: Laboratory Results - last 24 hr 08/10/24 08/11/24 09:19 05:59 WBC 4.0 L 5.1 RBC 3.90 L 4.08 L Hgb 9.8 L 10.1 L Hct 33.1 L 34.3 L MCV 84.9 84.1 MCH 25.1 L 24.8 L MCHC 29.6 L 29.4 L RDW 18.3 H 18.3 H Plt Count 486 H 467 H MPV 8.9 8.7 Immature Gran % (Auto) 0.3 0.4 Neut % (Auto) 59.7 58.5 Lymph % (Auto) 28.6 28.1 [place] % (Auto) 11.1 H 12.8 H Eos % (Auto) 0.0 0.0 Baso % (Auto) 0.3 0.2 Lymph # (Auto) 1.13 1.42 [place] # (Auto) 0.4 0.7 H Eos # (Auto) 0.0 0.0 Baso # (Auto) 0.0 0.0 Abs Immat Gran (auto) 0.01 0.02 Absolute Neuts (auto) 2.4 3.0 Absolute Nucleated RBC 0.000 0.000 Nucleated RBC % 0.0 0.0 Platelet Estimate Increased Mio Cells 1+ Schistocytes None seen Sodium 133 L 134 Potassium 4.7 3.6 Chloride 105 102 Carbon Dioxide 19 L 25 Anion Gap 9 7 BUN 7 L D 7 L Creatinine 0.51 L 0.58 L Estim Creat Clear Calc 156 140 Estimated GFR > 60 > 60 Glucose 78 78 Calcium 7.9 L 7.9 L Phosphorus 3.9 2.9 Magnesium 2.0 1.9
--- NOTE | 2024-08-11 12:15 | WPDGIPROGNO ---
Progress Note: A&P Assessment and Plan (1) Crohn's ileocolitis: Qualifiers: Digestive disease complication type: with intestinal obstruction Qualified Code(s): K50.812 - Crohn's disease of both small and large intestine with intestinal obstruction Code(s): K50.80 - Crohn's disease of both small and large intestine without complications Status: Acute Plan The patient with ileocecal Crohn's disease is showing improvement on intravenous Solu-Medrol. Despite passing gas, there has been no stool output, and NG tube output remains copious and brown. Following discussion with the on-call surgeon, Dr. Dunlap, we agreed to intermittently clamp the NG tube every 6 hours and monitor the patient's clinical response. The NG tube output and clinical progression will continue to be closely monitored. If the patient tolerates NG tube clamping, removal of the tube and initiation of clear liquids will be considered. In the meantime, intravenous steroid therapy will continue, and we anticipate approval for infliximab therapy in the coming days. The patient has iron deficiency anemia secondary to his underlying Crohn's disease. He received the first dose of intravenous iron yesterday, having received a previous intravenous iron infusion in April during his last hospitalization. Time Spent With Patient Time with patient: 15 - 25 minutes Subjective Date/time seen: 08/11/24 12:15 Interval history: The patient feels better, no abdominal pain. Nasogastric drainage in 24 hours 1000 cc. He has been passing gas but no stools. No nausea or vomiting. Exam Narrative: Nasogastric tube in place with brownish drainage. Patient not acutely distressed. abdomen soft, firm but non tender, no rebound. Rest of the examination within normal limits. Objective Data Vital Signs Vital Signs: Vital Signs - 24 hr 08/10/24 16:00 08/10/24 16:00 08/10/24 20:00 Temperature Pulse Rate 88 75 73 Respiratory Rate 12 Blood Pressure 112/72 Pulse Oximetry 100 Oxygen Delivery 08/10/24 20:15 08/10/24 22:57 08/11/24 00:00 Temperature 98.4 F 98.3 F Pulse Rate 77 76 71 Respiratory Rate 16 16 Blood Pressure 116/67 117/71 Pulse Oximetry 100 98 Oxygen Delivery 08/11/24 00:18 08/11/24 04:00 08/11/24 04:31 Temperature 98.5 F 98.2 F Pulse Rate 85 68 74 Respiratory Rate 16 18 Blood Pressure 116/67 119/72 Pulse Oximetry 98 99 Oxygen Delivery 08/11/24 06:00 08/11/24 08:00 08/11/24 08:00 Temperature 98.8 F Pulse Rate 58 L 87 90 Respiratory Rate 18 12 Blood Pressure 123/72 117/74 Pulse Oximetry 100 100 Oxygen Delivery 08/11/24 08:05 Temperature Pulse Rate Respiratory Rate Blood Pressure Pulse Oximetry Oxygen Delivery Room Air Intake/Output Intake/Output: Intake & Output 08/08/24 08/09/24 08/10/24 08/11/24 23:59 23:59 23:59 23:59 Intake Total 4100 2954.2 400 Output Total 200 2450 900 Balance 3900 504.2 -500 Meds/Results Medications: Active Medications Generic Name Dose Route Start Last Admin Trade Name Freq PRN Reason Stop Dose Admin Al Hydrox/Mg Hydrox/Simethicone 30 ml 08/11/24 11:16 Mag Hydrox/Al Hydrox/Simeth 30 Ml Udc PO Q8HR PRN Indigestion Heparin Sodium (Porcine) 5,000 units 08/10/24 14:00 08/11/24 05:50 Heparin Sodium 5,000 Units/Ml Vial SUB-Q 5,000 units Q8HR KISHORE Administration Sodium Chloride 1,000 mls @ 125 mls/hr 08/09/24 19:30 08/11/24 01:54 Normal Saline Iv IV CONT 125 mls/hr .Q8H KISHORE Administration Methylprednisolone Sodium Succinate 60 mg 08/10/24 09:00 08/11/24 08:03 Methylprednisolone Sod Succ 125 Mg Vial IV PUSH 60 mg DAILY KISHORE Administration Morphine Sulfate 4 mg 08/09/24 19:27 Morphine Sulfate (*Crx) 4 Mg/Ml Inj IV PUSH Q2H PRN Pain Rated 7-10 Ondansetron HCl 4 mg 08/09/24 19:27 Ondansetron Inj 4 Mg/2 Ml Vial IV PUSH Q4H PRN Nausea Pantoprazole Sodium 40 mg 08/11/24 09:00 Pantoprazole Sodium Iv 40 Mg Vial IV PUSH QAM [facility] Radiology Results: ITS Impressions Abdomen/Pelvis CT 08/09/24 18:25 IMPRESSION: 1. Small bowel obstruction with transition in the right mid abdomen secondary to a thickened abnormal appearing small bowel segment. There are adjacent enlarged mesenteric lymph nodes. Differential diagnosis includes inflammatory bowel disease such as Crohn's disease, infection and less likely neoplasm although not excluded. Consider lymphoma in the appropriate clinical setting. Abdomen X-Ray 08/09/24 21:42 IMPRESSION: 1: NG tube tip in the stomach. Labs Labs: Laboratory Results - last 24 hr 08/11/24 05:59 WBC 5.1 RBC 4.08 L Hgb 10.1 L Hct 34.3 L MCV 84.1 MCH 24.8 L MCHC 29.4 L RDW 18.3 H Plt Count 467 H MPV 8.7 Immature Gran % (Auto) 0.4 Neut % (Auto) 58.5 Lymph % (Auto) 28.1 [place] % (Auto) 12.8 H Eos % (Auto) 0.0 Baso % (Auto) 0.2 Lymph # (Auto) 1.42 [place] # (Auto) 0.7 H Eos # (Auto) 0.0 Baso # (Auto) 0.0 Abs Immat Gran (auto) 0.02 Absolute Neuts (auto) 3.0 Absolute Nucleated RBC 0.000 Nucleated RBC % 0.0 Sodium 134 Potassium 3.6 Chloride 102 Carbon Dioxide 25 Anion Gap 7 BUN 7 L Creatinine 0.58 L Estim Creat Clear Calc 140 Estimated GFR > 60 Glucose 78 Calcium 7.9 L Phosphorus 2.9 Magnesium 1.9
[2024-08-11] MEDS: PANTOPRAZOLE SODIUM IV 40 MG VIAL IV PUSH (13:21)
[2024-08-11] MEDS: MAG HYDROX/AL HYDROX/SIMETH 30 ML UDC PO ×2 (13:22→21:26)
--- NOTE | 2024-08-11 15:36 | P.PN_ITS ---
Progress Note: A&P Assessment and Plan (1) Crohn's ileocolitis: Qualifiers: Digestive disease complication type: with intestinal obstruction Qualified Code(s): K50.812 - Crohn's disease of both small and large intestine with intestinal obstruction Code(s): K50.80 - Crohn's disease of both small and large intestine without complications Status: Acute Assessment and Plan: Pt with Crohn's exacerbation. Continue IV steroids. Continue NGT and NPO today. Add some Mylanta to NGT q8hrs for stress gastritis due as there seems to be some dark coffee ground output from the NGT. Also start on PPI for ulcer prophylaxis. (2) Small bowel obstruction: Code(s): K56.609 - Unspecified intestinal obstruction, unspecified as to partial versus complete obstruction Status: Acute Assessment and Plan: Seems to be slowly improving as he is now passing flatus. Ok to go on 6 hr on and 6 hr off NGT clamping schedule today. Subjective Date/time seen: 08/11/24 15:36 Interval history: Pt denies abd pain today. States he is now passing flatus, no bowel movement yet. WBC still normal. NGT still in place. Exam Const: General: comfortable and no acute distress GI: Other: Abd soft, mild distention, nontender. Objective Data Vital Signs Vital Signs: Vital Signs - 24 hr 08/10/24 16:00 08/10/24 16:00 08/10/24 20:00 Temperature Pulse Rate 88 75 73 Respiratory Rate 12 Blood Pressure 112/72 Pulse Oximetry 100 Oxygen Delivery 08/10/24 20:15 08/10/24 22:57 08/11/24 00:00 Temperature 36.9 C 36.8 C Pulse Rate 77 76 71 Respiratory Rate 16 16 Blood Pressure 116/67 117/71 Pulse Oximetry 100 98 Oxygen Delivery 08/11/24 00:18 08/11/24 04:00 08/11/24 04:31 Temperature 36.9 C 36.8 C Pulse Rate 85 68 74 Respiratory Rate 16 18 Blood Pressure 116/67 119/72 Pulse Oximetry 98 99 Oxygen Delivery 08/11/24 06:00 08/11/24 08:00 08/11/24 08:00 Temperature 37.1 C Pulse Rate 58 L 87 90 Respiratory Rate 18 12 Blood Pressure 123/72 117/74 Pulse Oximetry 100 100 Oxygen Delivery 08/11/24 08:05 08/11/24 12:00 08/11/24 12:00 Temperature Pulse Rate 73 73 Respiratory Rate 12 Blood Pressure 116/65 Pulse Oximetry 99 Oxygen Delivery Room Air Intake/Output Intake/Output: Intake & Output 08/08/24 08/09/24 08/10/24 08/11/24 23:59 23:59 23:59 23:59 Intake Total 4100 2954.2 1400 Output Total 200 2450 900 Balance 3900 504.2 500 Meds/Results Medications: Active Medications Generic Name Dose Route Start Last Admin Trade Name Freq PRN Reason Stop Dose Admin Al Hydrox/Mg Hydrox/Simethicone 30 ml 08/11/24 14:00 08/11/24 13:22 Mag Hydrox/Al Hydrox/Simeth 30 Ml Udc PO 30 ml Q8HR KISHORE Administration Heparin Sodium (Porcine) 5,000 units 08/10/24 14:00 08/11/24 13:22 Heparin Sodium 5,000 Units/Ml Vial SUB-Q 5,000 units Q8HR KISHORE Administration Sodium Chloride 1,000 mls @ 125 mls/hr 08/09/24 19:30 08/11/24 13:22 Normal Saline Iv IV CONT 125 mls/hr .Q8H KISHORE Administration Methylprednisolone Sodium Succinate 60 mg 08/10/24 09:00 08/11/24 08:03 Methylprednisolone Sod Succ 125 Mg Vial IV PUSH 60 mg DAILY KISHORE Administration Morphine Sulfate 4 mg 08/09/24 19:27 Morphine Sulfate (*Crx) 4 Mg/Ml Inj IV PUSH Q2H PRN Pain Rated 7-10 Ondansetron HCl 4 mg 08/09/24 19:27 Ondansetron Inj 4 Mg/2 Ml Vial IV PUSH Q4H PRN Nausea Pantoprazole Sodium 40 mg 08/11/24 09:00 08/11/24 13:21 Pantoprazole Sodium Iv 40 Mg Vial IV PUSH 40 mg QAM KISHORE Administration Phenol 1 spray 08/11/24 12:54 Phenol/Sod Pheno [place] (*Bkc) MUCOUS MEM PRN PRN Sore Throat Radiology Results: ITS Impressions Abdomen/Pelvis CT 08/09/24 18:25 IMPRESSION: 1. Small bowel obstruction with transition in the right mid abdomen secondary to a thickened abnormal appearing small bowel segment. There are adjacent enlarged mesenteric lymph nodes. Differential diagnosis includes inflammatory bowel disease such as Crohn's disease, infection and less likely neoplasm although not excluded. Consider lymphoma in the appropriate clinical setting. Abdomen X-Ray 08/09/24 21:42 IMPRESSION: 1: NG tube tip in the stomach. Labs Labs: Laboratory Results - last 24 hr 08/11/24 05:59 WBC 5.1 RBC 4.08 L Hgb 10.1 L Hct 34.3 L MCV 84.1 MCH 24.8 L MCHC 29.4 L RDW 18.3 H Plt Count 467 H MPV 8.7 Immature Gran % (Auto) 0.4 Neut % (Auto) 58.5 Lymph % (Auto) 28.1 [place] % (Auto) 12.8 H Eos % (Auto) 0.0 Baso % (Auto) 0.2 Lymph # (Auto) 1.42 [place] # (Auto) 0.7 H Eos # (Auto) 0.0 Baso # (Auto) 0.0 Abs Immat Gran (auto) 0.02 Absolute Neuts (auto) 3.0 Absolute Nucleated RBC 0.000 Nucleated RBC % 0.0 Sodium 134 Potassium 3.6 Chloride 102 Carbon Dioxide 25 Anion Gap 7 BUN 7 L Creatinine 0.58 L Estim Creat Clear Calc 140 Estimated GFR > 60 Glucose 78 Calcium 7.9 L Phosphorus 2.9 Magnesium 1.9
[2024-08-12 00:04] VITALS: PULSE 64
[2024-08-12 00:59] LABS: Glucose Point of Care 78 mg/dl (65-105)
[2024-08-12 04:00] VITALS: BP 105/62; PULSE 69; PULSE 70; RESP 16; TEMP 36.9; O2SAT 100
[2024-08-12 05:17] LABS: Basophils Percent Auto 0.2 % (0.2-1.2); Hematocrit 32.6 % (42.0-52.0); Hemoglobin 9.6 g/dL (14.0-18.0); Immature Granulocyte Absolute 0.01 K/mm3 (0.00-0.031); Immature Granulocyte Percent A 0.2 % (0-0.5); Lymphocytes Absolute Auto 1.78 K/mm3 (0.9-3.2); Lymphocytes Percent Auto 32.4 % (18.3-44.2); Mean Corpuscular HGB Conc 29.4 g/dl (32-36); Mean Corpuscular Hemoglobin 24.7 pg (26-34); Mean Platelet Volume 9.6 fl (7.4-10.4); Monocytes Absolute Auto 0.6 K/mm3 (0.1-0.6); Monocytes Percent Auto 10.9 % (2.6-8.5); Neutrophils Absolute Auto 3.1 K/mm3 (1.3-6.7); Neutrophils Percent Auto 56.3 % (45.5-73.1); Platelet Count Result 402 k/mm3 (150-375); Red Blood Count 3.88 M/mm3 (4.6-6.20); Red Cell Distribution Width 18.5 % (11.5-14.5); White Blood Count 5.5 K/mm3 (4.5-10.0)
[2024-08-12 05:27] LABS: Anion Gap 5 mmol/L (4-12); Blood Urea Nitrogen 6 mg/dL (8-21); Calcium 8.6 mg/dL (8.9-10.7); Carbon Dioxide 25 mmol/L (22-30); Chloride 105 mmol/L (98-107); Estimated CRCL calculation 151 ml/min; Estimated Glomerular Filt Rate > 60; Glucose 67 mg/dL (65-110); Phosphorus 2.6 mg/dL (2.5-4.5); Potassium 3.6 mmol/L (3.4-5.0); Sodium 135 mmol/L (134-143)
[2024-08-12 05:38] LABS: Anisocytosis 1+; Burr Cells 1+; Hypochromasia 1+; Platelet Estimate Increased (Adequate); Schistocytes None Seen
[2024-08-12] MEDS: SODIUM CHLORIDE 0.9% IV 1,000 ML 125 ML IV CONT ×3 (05:39→22:21)
[2024-08-12] MEDS: MAG HYDROX/AL HYDROX/SIMETH 30 ML UDC PO (05:40)
[2024-08-12] MEDS: HEPARIN SODIUM 5,000 UNITS/ML VIAL 5000 UNITS SUB-Q ×3 (05:40→21:08)
[2024-08-12 05:56] LABS: Glucose Point of Care 69 mg/dl (65-105)
[2024-08-12] MEDS: DEXTROSE 50% 25 GM/50 ML SYRINGE IV PUSH (06:24)
[2024-08-12 07:01] LABS: Glucose Point of Care 102 mg/dl (65-105)
[2024-08-12 08:00] VITALS: BP 105/62; PULSE 69; PULSE 72; RESP 16; TEMP 36.9; O2SAT 100
--- NOTE | 2024-08-12 08:28 | P.PNIM_ITS ---
Progress Note: A&P Assessment and Plan (1) Nausea and vomiting: Qualifiers: Vomiting type: unspecified Qualified Code(s): R11.2 - Nausea with vomiting, unspecified Code(s): R11.2 - Nausea with vomiting, unspecified Status: Acute (2) Crohn's ileocolitis: Qualifiers: Digestive disease complication type: with intestinal obstruction Qualified Code(s): K50.812 - Crohn's disease of both small and large intestine with intestinal obstruction Code(s): K50.80 - Crohn's disease of both small and large intestine without complications Status: Acute (3) Small bowel obstruction: Code(s): K56.609 - Unspecified intestinal obstruction, unspecified as to partial versus complete obstruction Status: Acute (4) Anemia: Qualifiers: Anemia type: iron deficiency Iron deficiency anemia type: unspecified iron deficiency Qualified Code(s): D50.9 - Iron deficiency anemia, unspecified Code(s): D64.9 - Anemia, unspecified Status: Chronic Plan Small bowel obstruction: Code(s): K56.609 - Unspecified intestinal obstruction, unspecified as to partial versus complete obstruction Status: Acute Assessment and Plan: Admit to med tele Patient still has nausea vomiting and abdomen pain Keep patient NPO, continue fluid resuscitation optimize pain management patient is on morphine p.r.n., start antiemetic medications Reglan and Zofran IV p.r.n. Consult general surgeon and GI for evaluation treatment Small-bowel obstruction persists today, patient is on NG tube suction p.r.n. Crohn's ileocolitis: Qualifiers: Digestive disease complication type: with intestinal obstruction Qualified Code(s): K50.812 - Crohn's disease of both small and large intestine with intestinal obstruction Code(s): K50.80 - Crohn's disease of both small and large intestine without complications Status: Acute Assessment and Plan: Suspecting chronic disease exacerbation Continue methylprednisolone 60 mg IV daily per GI, Received Zosyn 3.375 mg IV push once Follow GI recommendation Chronic Anemia Hemoglobin stable 12.2 upon arrival intravenous iron given drops a little Subjective Date/time seen: 08/12/24 08:28 Interval history: Patient is afebrile, Patient denies nausea vomiting abdomen pain patient passed gas today. Patient does not have bowel movement yet. Patient still on NG tube suction. Labs reviewed, a patient afebrile blood pressure stable Exam Narrative: GENERAL:ill-appearing in no acute distress. Well-nourished. - EYES: EOMI. Anicteric. - HENT: Moist mucous membranes. NG tube in-situ - LUNGS: Clear to auscultation bilateral ly, no wheezing, rhonchi, or rales. - CARDIOVASCULAR: Regular rate and rhyth m. No murmur. No JVD. - ABDOMEN: Soft, non-tender and non-dist ended. No palpable masses. - EXTREMITIES: No edema. Peripheral puls es 2+. Non-tender. - NEUROLOGIC: No focal neurological defi cits. CN II-XII grossly intact. - PSYCHIATRIC: Awake, Alert and oriented x 3. Appropriate mood and affect. - SKIN: No rashes or lesions. Warm. - LYMPH: No cervical lymphadenopathy. Objective Data Vital Signs Vital Signs: Vital Signs - 24 hr 08/11/24 12:00 08/11/24 12:00 08/11/24 15:50 Temperature 97.8 F Pulse Rate 73 73 69 Respiratory Rate 12 12 Blood Pressure 116/65 104/59 L Pulse Oximetry 99 97 Oxygen Delivery 08/11/24 16:00 08/11/24 19:54 08/11/24 20:00 Temperature 98.8 F Pulse Rate 71 71 71 Respiratory Rate 16 Blood Pressure 107/62 Pulse Oximetry 100 Oxygen Delivery 08/11/24 21:26 08/11/24 23:42 08/12/24 00:04 Temperature 98.8 F Pulse Rate 66 64 Respiratory Rate 16 Blood Pressure 111/63 Pulse Oximetry 99 99 Oxygen Delivery Room Air 08/12/24 04:00 08/12/24 04:00 08/12/24 08:00 Temperature 98.5 F 98.4 F Pulse Rate 70 69 69 Respiratory Rate 16 16 Blood Pressure 105/62 105/62 Pulse Oximetry 100 100 Oxygen Delivery Intake/Output Intake/Output: Intake & Output 08/09/24 08/10/24 08/11/24 08/12/24 23:59 23:59 23:59 23:59 Intake Total 4100 2954.2 2400 1000 Output Total 200 2450 2350 900 Balance 3900 504.2 50 100 Meds/Results Medications: Active Medications Generic Name Dose Route Start Last Admin Trade Name Freq PRN Reason Stop Dose Admin Al Hydrox/Mg Hydrox/Simethicone 30 ml 08/11/24 14:00 08/12/24 05:40 Mag Hydrox/Al Hydrox/Simeth 30 Ml Udc PO 30 ml Q8HR KISHORE Administration Dextrose 12.5 gm 08/12/24 06:04 08/12/24 06:24 Dextrose 50% 25 Gm/50 Ml Syringe IV PUSH 12.5 gm PRN PRN Administration Hypoglycemia Protocol Glucagon 1 mg 08/12/24 06:04 Glucagon For Inj 1 Mg Vial IM PRN PRN Hypoglycemia Protocol Glucose 15 gm 08/12/24 06:04 Glucose Oral Gel 15 Gm Of Glucse In 37.5 Gm Tube PO PRN PRN Hypoglycemia Protocol Heparin Sodium (Porcine) 5,000 units 08/10/24 14:00 08/12/24 05:40 Heparin Sodium 5,000 Units/Ml Vial SUB-Q 5,000 units Q8HR KISHORE Administration Sodium Chloride 1,000 mls @ 125 mls/hr 08/09/24 19:30 08/12/24 05:39 Normal Saline Iv IV CONT 125 mls/hr .Q8H KISHORE Administration Dextrose 1,000 mls @ 100 mls/hr 08/12/24 06:04 Dextrose 5% 1,000 Ml IVPB PRN PRN Hypoglycemia Protocol Methylprednisolone Sodium Succinate 60 mg 08/10/24 09:00 08/11/24 08:03 Methylprednisolone Sod Succ 125 Mg Vial IV PUSH 60 mg DAILY KISHORE Administration Morphine Sulfate 4 mg 08/09/24 19:27 Morphine Sulfate (*Crx) 4 Mg/Ml Inj IV PUSH Q2H PRN Pain Rated 7-10 Ondansetron HCl 4 mg 08/09/24 19:27 Ondansetron Inj 4 Mg/2 Ml Vial IV PUSH Q4H PRN Nausea Pantoprazole Sodium 40 mg 08/11/24 09:00 08/11/24 13:21 Pantoprazole Sodium Iv 40 Mg Vial IV PUSH 40 mg QAM KISHORE Administration Phenol 1 spray 08/11/24 12:54 Phenol/Sod Pheno [place] Gibson (*Bkc) MUCOUS MEM PRN PRN Sore Throat Radiology Results: ITS Impressions Abdomen/Pelvis CT 08/09/24 18:25 IMPRESSION: 1. Small bowel obstruction with transition in the right mid abdomen secondary to a thickened abnormal appearing small bowel segment. There are adjacent enlarged mesenteric lymph nodes. Differential diagnosis includes inflammatory bowel disease such as Crohn's disease, infection and less likely neoplasm although not excluded. Consider lymphoma in the appropriate clinical setting. Abdomen X-Ray 08/09/24 21:42 IMPRESSION: 1: NG tube tip in the stomach. Labs Labs: Laboratory Results - last 24 hr 08/12/24 08/12/24 08/12/24 00:57 04:18 05:53 WBC 5.5 RBC 3.88 L Hgb 9.6 L Hct 32.6 L MCV 84.0 MCH 24.7 L MCHC 29.4 L RDW 18.5 H Plt Count 402 H MPV 9.6 Immature Gran % (Auto) 0.2 Neut % (Auto) 56.3 Lymph % (Auto) 32.4 [place] % (Auto) 10.9 H Eos % (Auto) 0.0 Baso % (Auto) 0.2 Lymph # (Auto) 1.78 [place] # (Auto) 0.6 Eos # (Auto) 0.0 Baso # (Auto) 0.0 Abs Immat Gran (auto) 0.01 Absolute Neuts (auto) 3.1 Absolute Nucleated RBC 0.000 Nucleated RBC % 0.0 Platelet Estimate Increased Hypochromasia 1+ Anisocytosis 1+ [place] Cells 1+ Schistocytes None seen Sodium 135 Potassium 3.6 Chloride 105 Carbon Dioxide 25 Anion Gap 5 BUN 6 L Creatinine 0.53 L Estim Creat Clear Calc 151 Estimated GFR > 60 Glucose 67 POC Capillary Glucose 78 69 Calcium 8.6 L Phosphorus 2.6 Magnesium 2.0 08/12/24 06:57 WBC RBC Hgb Hct MCV MCH MCHC RDW Plt Count MPV Immature Gran % (Auto) Neut % (Auto) Lymph % (Auto) [place] % (Auto) Eos % (Auto) Baso % (Auto) Lymph # (Auto) [place] # (Auto) Eos # (Auto) Baso # (Auto) Abs Immat Gran (auto) Absolute Neuts (auto) Absolute Nucleated RBC Nucleated RBC % Platelet Estimate Hypochromasia Anisocytosis Mio Cells Schistocytes Sodium Potassium Chloride Carbon Dioxide Anion Gap BUN Creatinine Estim Creat Clear Calc Estimated GFR Glucose POC Capillary Glucose 102 Calcium Phosphorus Magnesium
[2024-08-12] MEDS: methylPREDNISolone SOD SUCC 125 MG VIAL 60 MG IV PUSH (09:27)
[2024-08-12] MEDS: PANTOPRAZOLE SODIUM IV 40 MG VIAL IV PUSH (09:27)
[2024-08-12 12:00] VITALS: BP 113/59; PULSE 68; PULSE 81; RESP 20; TEMP 36.6; O2SAT 100
--- NOTE | 2024-08-12 12:16 | WPDPN ---
Progress Note: A&P Assessment and Plan (1) Small bowel obstruction: Code(s): K56.609 - Unspecified intestinal obstruction, unspecified as to partial versus complete obstruction Status: Acute Assessment and Plan: Small-bowel obstruction seems to be resolving with administration of IV steroids for his Crohn's exacerbation. We will go ahead remove the nasogastric tube today. We will go ahead start him on clear liquids and advanced to full liquids as tolerated. (2) Crohn's ileocolitis: Qualifiers: Digestive disease complication type: with intestinal obstruction Qualified Code(s): K50.812 - Crohn's disease of both small and large intestine with intestinal obstruction Code(s): K50.80 - Crohn's disease of both small and large intestine without complications Status: Acute Assessment and Plan: Patient has had 3 admissions to the hospital for Crohn's exacerbations over the course of the last 6 months. He recently finished a steroid taper and ended up back in the hospital again. He has seen Dr. Wang in the office and a hand assisted laparoscopic ileocecectomy was discussed with the patient if medical management or approval for biologics was not possible or expected to be delayed. Patient is currently being followed by GI. Has suggested that the patient may need to get a MRI enterography. Will defer to GI to order that examination if they feel they want to get it. Otherwise the patient could get a barium small bowel follow-through study to evaluate the stricture if the patient does not get an MRI. Continue supportive management. Subjective Date/time seen: 08/12/24 12:16 Interval history: Patient doing well today. Bowel movement last night. No abdominal pain or nausea now. Nasogastric tube output is low. Obstructive series this morning shows normal gas pattern. White blood cell count still remains normal. Exam GI: Other: Abdomen is soft and nondistended. No tenderness to palpation. Exam is benign. Objective Data Vital Signs Vital Signs: Vital Signs - 24 hr 08/11/24 15:50 08/11/24 16:00 08/11/24 19:54 Temperature 36.6 C 37.1 C Pulse Rate 69 71 71 Respiratory Rate 12 16 Blood Pressure 104/59 L 107/62 Pulse Oximetry 97 100 Oxygen Delivery 08/11/24 20:00 08/11/24 21:26 08/11/24 23:42 Temperature 37.1 C Pulse Rate 71 66 Respiratory Rate 16 Blood Pressure 111/63 Pulse Oximetry 99 99 Oxygen Delivery Room Air 08/12/24 00:04 08/12/24 04:00 08/12/24 04:00 Temperature 36.9 C Pulse Rate 64 70 69 Respiratory Rate 16 Blood Pressure 105/62 Pulse Oximetry 100 Oxygen Delivery 08/12/24 08:00 08/12/24 08:00 08/12/24 09:30 Temperature 36.9 C Pulse Rate 69 72 Respiratory Rate 16 Blood Pressure 105/62 Pulse Oximetry 100 Oxygen Delivery Room Air Intake/Output Intake/Output: Intake & Output 08/09/24 08/10/24 08/11/24 08/12/24 23:59 23:59 23:59 23:59 Intake Total 4100 2954.2 2400 1000 Output Total 200 2450 2350 1550 Balance 3900 504.2 50 -550 Meds/Results Medications: Active Medications Generic Name Dose Route Start Last Admin Trade Name Freq PRN Reason Stop Dose Admin Al Hydrox/Mg Hydrox/Simethicone 30 ml 08/11/24 14:00 08/12/24 05:40 Mag Hydrox/Al Hydrox/Simeth 30 Ml Udc PO 30 ml Q8HR KISHORE Administration Dextrose 12.5 gm 08/12/24 06:04 08/12/24 06:24 Dextrose 50% 25 Gm/50 Ml Syringe IV PUSH 12.5 gm PRN PRN Administration Hypoglycemia Protocol Glucagon 1 mg 08/12/24 06:04 Glucagon For Inj 1 Mg Vial IM PRN PRN Hypoglycemia Protocol Glucose 15 gm 08/12/24 06:04 Glucose Oral Gel 15 Gm Of Glucse In 37.5 Gm Tube PO PRN PRN Hypoglycemia Protocol Heparin Sodium (Porcine) 5,000 units 08/10/24 14:00 08/12/24 05:40 Heparin Sodium 5,000 Units/Ml Vial SUB-Q 5,000 units Q8HR KISHORE Administration Sodium Chloride 1,000 mls @ 125 mls/hr 08/09/24 19:30 08/12/24 05:39 Normal Saline Iv IV CONT 125 mls/hr .Q8H KISHORE Administration Dextrose 1,000 mls @ 100 mls/hr 08/12/24 06:04 Dextrose 5% 1,000 Ml IVPB PRN PRN Hypoglycemia Protocol Methylprednisolone Sodium Succinate 60 mg 08/10/24 09:00 08/12/24 09:27 Methylprednisolone Sod Succ 125 Mg Vial IV PUSH 60 mg DAILY KISHORE Administration Morphine Sulfate 4 mg 08/09/24 19:27 Morphine Sulfate (*Crx) 4 Mg/Ml Inj IV PUSH Q2H PRN Pain Rated 7-10 Ondansetron HCl 4 mg 08/09/24 19:27 Ondansetron Inj 4 Mg/2 Ml Vial IV PUSH Q4H PRN Nausea Pantoprazole Sodium 40 mg 08/11/24 09:00 08/12/24 09:27 Pantoprazole Sodium Iv 40 Mg Vial IV PUSH 40 mg QAM KISHORE Administration Phenol 1 spray 08/11/24 12:54 Phenol/Sod Pheno [place] Gibson (*Bkc) MUCOUS MEM PRN PRN Sore Throat Radiology Results: ITS Impressions Abdomen/Pelvis CT 08/09/24 18:25 IMPRESSION: 1. Small bowel obstruction with transition in the right mid abdomen secondary to a thickened abnormal appearing small bowel segment. There are adjacent enlarged mesenteric lymph nodes. Differential diagnosis includes inflammatory bowel disease such as Crohn's disease, infection and less likely neoplasm although not excluded. Consider lymphoma in the appropriate clinical setting. Abdomen X-Ray 08/12/24 09:53 IMPRESSION: Nonspecific, nonobstructive bowel gas pattern. Labs Labs: Laboratory Results - last 24 hr 08/12/24 08/12/24 08/12/24 00:57 04:18 05:53 WBC 5.5 RBC 3.88 L Hgb 9.6 L Hct 32.6 L MCV 84.0 MCH 24.7 L MCHC 29.4 L RDW 18.5 H Plt Count 402 H MPV 9.6 Immature Gran % (Auto) 0.2 Neut % (Auto) 56.3 Lymph % (Auto) 32.4 [place] % (Auto) 10.9 H Eos % (Auto) 0.0 Baso % (Auto) 0.2 Lymph # (Auto) 1.78 [place] # (Auto) 0.6 Eos # (Auto) 0.0 Baso # (Auto) 0.0 Abs Immat Gran (auto) 0.01 Absolute Neuts (auto) 3.1 Absolute Nucleated RBC 0.000 Nucleated RBC % 0.0 Platelet Estimate Increased Hypochromasia 1+ Anisocytosis 1+ [place] Cells 1+ Schistocytes None seen Sodium 135 Potassium 3.6 Chloride 105 Carbon Dioxide 25 Anion Gap 5 BUN 6 L Creatinine 0.53 L Estim Creat Clear Calc 151 Estimated GFR > 60 Glucose 67 POC Capillary Glucose 78 69 Calcium 8.6 L Phosphorus 2.6 Magnesium 2.0 08/12/24 06:57 WBC RBC Hgb Hct MCV MCH MCHC RDW Plt Count MPV Immature Gran % (Auto) Neut % (Auto) Lymph % (Auto) [place] % (Auto) Eos % (Auto) Baso % (Auto) Lymph # (Auto) [place] # (Auto) Eos # (Auto) Baso # (Auto) Abs Immat Gran (auto) Absolute Neuts (auto) Absolute Nucleated RBC Nucleated RBC % Platelet Estimate Hypochromasia Anisocytosis [place] Cells Schistocytes Sodium Potassium Chloride Carbon Dioxide Anion Gap BUN Creatinine Estim Creat Clear Calc Estimated GFR Glucose POC Capillary Glucose 102 Calcium Phosphorus Magnesium
[2024-08-12 13:01] LABS: Glucose Point of Care 70 mg/dl (65-105)
--- NOTE | 2024-08-12 13:58 | WPDGIPROGNO ---
Progress Note: A&P Assessment and Plan (1) Crohn's ileocolitis: Qualifiers: Digestive disease complication type: with intestinal obstruction Qualified Code(s): K50.812 - Crohn's disease of both small and large intestine with intestinal obstruction Code(s): K50.80 - Crohn's disease of both small and large intestine without complications Status: Acute Assessment and Plan: The patient's clinical course is favorable, small-bowel obstruction seems to be resolving with steroid treatment and NG suction. In agreement with Dr. Dunlap independent crop consultant, NG tube will be removed today I will try clear liquids. Will continue intravenous steroids for now, in the hope that we can get approval for infliximab soon. Time Spent With Patient Time with patient: less than 15 minutes Subjective Date/time seen: 08/12/24 13:58 Interval history: The NG tube was clamped intermittently yesterday every 6 hours with good tolerance. The patient did not develop abdominal pain, nausea or vomiting while the tube was clamped. Furthermore, patient had 1 liquid bowel movement last night. No fever or further abdominal pain episodes. Objective Data Vital Signs Vital Signs: Vital Signs - 24 hr 08/11/24 15:50 08/11/24 16:00 08/11/24 19:54 Temperature 97.8 F 98.8 F Pulse Rate 69 71 71 Respiratory Rate 12 16 Blood Pressure 104/59 L 107/62 Pulse Oximetry 97 100 Oxygen Delivery 08/11/24 20:00 08/11/24 21:26 08/11/24 23:42 Temperature 98.8 F Pulse Rate 71 66 Respiratory Rate 16 Blood Pressure 111/63 Pulse Oximetry 99 99 Oxygen Delivery Room Air 08/12/24 00:04 08/12/24 04:00 08/12/24 04:00 Temperature 98.5 F Pulse Rate 64 70 69 Respiratory Rate 16 Blood Pressure 105/62 Pulse Oximetry 100 Oxygen Delivery 08/12/24 08:00 08/12/24 08:00 08/12/24 09:30 Temperature 98.4 F Pulse Rate 69 72 Respiratory Rate 16 Blood Pressure 105/62 Pulse Oximetry 100 Oxygen Delivery Room Air 08/12/24 12:00 08/12/24 12:00 Temperature 97.9 F Pulse Rate 68 81 Respiratory Rate 20 Blood Pressure 113/59 L Pulse Oximetry 100 Oxygen Delivery Intake/Output Intake/Output: Intake & Output 01/1608/10/24 08/11/24 08/12/24 23:59 23:59 23:59 23:59 Intake Total 4100 2954.2 2400 2000 Output Total 200 2450 2350 1550 Balance 3900 504.2 50 450 Meds/Results Medications: Active Medications Generic Name Dose Route Start Last Admin Trade Name Freq PRN Reason Stop Dose Admin Dextrose 12.5 gm 08/12/24 06:04 08/12/24 06:24 Dextrose 50% 25 Gm/50 Ml Syringe IV PUSH 12.5 gm PRN PRN Administration Hypoglycemia Protocol Glucagon 1 mg 08/12/24 06:04 Glucagon For Inj 1 Mg Vial IM PRN PRN Hypoglycemia Protocol Glucose 15 gm 08/12/24 06:04 Glucose Oral Gel 15 Gm Of Glucse In 37.5 Gm Tube PO PRN PRN Hypoglycemia Protocol Heparin Sodium (Porcine) 5,000 units 08/10/24 14:00 08/12/24 13:30 Heparin Sodium 5,000 Units/Ml Vial SUB-Q 5,000 units Q8HR KISHORE Administration Sodium Chloride 1,000 mls @ 125 mls/hr 08/09/24 19:30 08/12/24 13:39 Normal Saline Iv IV CONT 125 mls/hr .Q8H KISHORE Administration Dextrose 1,000 mls @ 100 mls/hr 08/12/24 06:04 Dextrose 5% 1,000 Ml IVPB PRN PRN Hypoglycemia Protocol Methylprednisolone Sodium Succinate 60 mg 08/10/24 09:00 08/12/24 09:27 Methylprednisolone Sod Succ 125 Mg Vial IV PUSH 60 mg DAILY KISHORE Administration Morphine Sulfate 4 mg 08/09/24 19:27 Morphine Sulfate (*Crx) 4 Mg/Ml Inj IV PUSH Q2H PRN Pain Rated 7-10 Ondansetron HCl 4 mg 08/09/24 19:27 Ondansetron Inj 4 Mg/2 Ml Vial IV PUSH Q4H PRN Nausea Pantoprazole Sodium 40 mg 08/11/24 09:00 08/12/24 09:27 Pantoprazole Sodium Iv 40 Mg Vial IV PUSH 40 mg QAM KISHORE Administration Phenol 1 spray 08/11/24 12:54 Phenol/Sod Pheno [place] Gibson (*Bkc) MUCOUS MEM PRN PRN Sore Throat Radiology Results: ITS Impressions Abdomen/Pelvis CT 08/09/24 18:25 IMPRESSION: 1. Small bowel obstruction with transition in the right mid abdomen secondary to a thickened abnormal appearing small bowel segment. There are adjacent enlarged mesenteric lymph nodes. Differential diagnosis includes inflammatory bowel disease such as Crohn's disease, infection and less likely neoplasm although not excluded. Consider lymphoma in the appropriate clinical setting. Abdomen X-Ray 08/12/24 09:53 IMPRESSION: Nonspecific, nonobstructive bowel gas pattern. Labs Labs: Laboratory Results - last 24 hr 08/12/24 08/12/24 08/12/24 00:57 04:18 05:53 WBC 5.5 RBC 3.88 L Hgb 9.6 L Hct 32.6 L MCV 84.0 MCH 24.7 L MCHC 29.4 L RDW 18.5 H Plt Count 402 H MPV 9.6 Immature Gran % (Auto) 0.2 Neut % (Auto) 56.3 Lymph % (Auto) 32.4 [place] % (Auto) 10.9 H Eos % (Auto) 0.0 Baso % (Auto) 0.2 Lymph # (Auto) 1.78 [place] # (Auto) 0.6 Eos # (Auto) 0.0 Baso # (Auto) 0.0 Abs Immat Gran (auto) 0.01 Absolute Neuts (auto) 3.1 Absolute Nucleated RBC 0.000 Nucleated RBC % 0.0 Platelet Estimate Increased Hypochromasia 1+ Anisocytosis 1+ [place] Cells 1+ Schistocytes None seen Sodium 135 Potassium 3.6 Chloride 105 Carbon Dioxide 25 Anion Gap 5 BUN 6 L Creatinine 0.53 L Estim Creat Clear Calc 151 Estimated GFR > 60 Glucose 67 POC Capillary Glucose 78 69 Calcium 8.6 L Phosphorus 2.6 Magnesium 2.0 08/12/24 08/12/24 06:57 12:23 WBC RBC Hgb Hct MCV MCH MCHC RDW Plt Count MPV Immature Gran % (Auto) Neut % (Auto) Lymph % (Auto) [place] % (Auto) Eos % (Auto) Baso % (Auto) Lymph # (Auto) [place] # (Auto) Eos # (Auto) Baso # (Auto) Abs Immat Gran (auto) Absolute Neuts (auto) Absolute Nucleated RBC Nucleated RBC % Platelet Estimate Hypochromasia Anisocytosis [place] Cells Schistocytes Sodium Potassium Chloride Carbon Dioxide Anion Gap BUN Creatinine Estim Creat Clear Calc Estimated GFR Glucose POC Capillary Glucose 102 70 Calcium Phosphorus Magnesium
[2024-08-12 16:00] VITALS: BP 137/51; PULSE 70; PULSE 97; RESP 20; TEMP 36.4; O2SAT 96
[2024-08-12 18:51] LABS: Glucose Point of Care 118 mg/dl (65-105)
[2024-08-12 20:00] VITALS: BP 111/67; PULSE 70; PULSE 72; RESP 18; TEMP 36.4; O2SAT 100
[2024-08-12 22:57] LABS: Glucose Point of Care 119 mg/dl (65-105)
[2024-08-13] VITALS: BP 100/61; PULSE 59; PULSE 74; RESP 16; TEMP 36.5; O2SAT 95
[2024-08-13 04:00] VITALS: BP 113/69; PULSE 57; PULSE 91; RESP 16; TEMP 36.3; O2SAT 100
[2024-08-13] MEDS: HEPARIN SODIUM 5,000 UNITS/ML VIAL 5000 UNITS SUB-Q (05:38)
[2024-08-13] MEDS: SODIUM CHLORIDE 0.9% IV 1,000 ML 125 ML IV CONT (06:25)
--- NOTE | 2024-08-13 07:21 | P.PNGI_ITS ---
Progress Note: A&P Assessment and Plan (1) Crohn's ileocolitis: Qualifiers: Digestive disease complication type: with intestinal obstruction Qualified Code(s): K50.812 - Crohn's disease of both small and large intestine with intestinal obstruction Code(s): K50.80 - Crohn's disease of both small and large intestine without complications Status: Acute Assessment and Plan: Pt with ileo colonic Crohns stable to be discharged. Pending approval of infliximab by his insurance company. Plan - discharge home on a low residue diet (permanently for now) - Prednisone 40 mg qD - Azathioprine 75 mg qD - Appt in our office in 4 weeks Time Spent With Patient Time with patient: less than 15 minutes Subjective Date/time seen: 08/13/24 07:21 Interval history: Pt doing well, no abdominal pain, no nausea, no fever. Had 2 loose bowel movements yesterday. NG tube removed. Tolerated liquids well. Objective Data Vital Signs Vital Signs: Vital Signs - 24 hr 08/12/24 08:00 08/12/24 08:00 08/12/24 09:30 Temperature 98.4 F Pulse Rate 69 72 Respiratory Rate 16 Blood Pressure 105/62 Pulse Oximetry 100 Oxygen Delivery Room Air 08/12/24 12:00 08/12/24 12:00 08/12/24 16:00 Temperature 97.9 F Pulse Rate 68 81 70 Respiratory Rate 20 Blood Pressure 113/59 L Pulse Oximetry 100 Oxygen Delivery 08/12/24 16:00 08/12/24 20:00 08/12/24 20:00 Temperature 97.5 F L 97.6 F Pulse Rate 97 72 Respiratory Rate 20 18 Blood Pressure 137/51 L 111/67 Pulse Oximetry 96 100 100 Oxygen Delivery Room Air 08/12/24 20:00 08/13/24 00:00 08/13/24 00:00 Temperature 97.7 F Pulse Rate 70 74 59 L Respiratory Rate 16 Blood Pressure 100/61 Pulse Oximetry 95 Oxygen Delivery 08/13/24 04:00 08/13/24 04:00 Temperature 97.3 F L Pulse Rate 57 L 91 Respiratory Rate 16 Blood Pressure 113/69 Pulse Oximetry 100 Oxygen Delivery Intake/Output Intake/Output: Intake & Output 08/10/24 08/11/24 08/12/24 08/13/24 23:59 23:59 23:59 23:59 Intake Total 2954.2 2400 3004 1300 Output Total 2450 2350 2151 Balance 504.2 50 853 1300 Meds/Results Medications: Active Medications Generic Name Dose Route Start Last Admin Trade Name Freq PRN Reason Stop Dose Admin Dextrose 12.5 gm 08/12/24 06:04 08/12/24 06:24 Dextrose 50% 25 Gm/50 Ml Syringe IV PUSH 12.5 gm PRN PRN Administration Hypoglycemia Protocol Glucagon 1 mg 08/12/24 06:04 Glucagon For Inj 1 Mg Vial IM PRN PRN Hypoglycemia Protocol Glucose 15 gm 08/12/24 06:04 Glucose Oral Gel 15 Gm Of Glucse In 37.5 Gm Tube PO PRN PRN Hypoglycemia Protocol Heparin Sodium (Porcine) 5,000 units 08/10/24 14:00 08/13/24 05:38 Heparin Sodium 5,000 Units/Ml Vial SUB-Q 5,000 units Q8HR KISHORE Administration Sodium Chloride 1,000 mls @ 125 mls/hr 08/09/24 19:30 08/13/24 06:25 Normal Saline Iv IV CONT 125 mls/hr .Q8H KISHORE Administration Dextrose 1,000 mls @ 100 mls/hr 08/12/24 06:04 Dextrose 5% 1,000 Ml IVPB PRN PRN Hypoglycemia Protocol Methylprednisolone Sodium Succinate 60 mg 08/10/24 09:00 08/12/24 09:27 Methylprednisolone Sod Succ 125 Mg Vial IV PUSH 60 mg DAILY KISHORE Administration Morphine Sulfate 4 mg 08/09/24 19:27 Morphine Sulfate (*Crx) 4 Mg/Ml Inj IV PUSH Q2H PRN Pain Rated 7-10 Ondansetron HCl 4 mg 08/09/24 19:27 Ondansetron Inj 4 Mg/2 Ml Vial IV PUSH Q4H PRN Nausea Pantoprazole Sodium 40 mg 08/11/24 09:00 08/12/24 09:27 Pantoprazole Sodium Iv 40 Mg Vial IV PUSH 40 mg QAM KISHORE Administration Phenol 1 spray 08/11/24 12:54 Phenol/Sod Pheno [place] Gibson (*Bkc) MUCOUS MEM PRN PRN Sore Throat Radiology Results: ITS Impressions Abdomen/Pelvis CT 08/09/24 18:25 IMPRESSION: 1. Small bowel obstruction with transition in the right mid abdomen secondary to a thickened abnormal appearing small bowel segment. There are adjacent enlarged mesenteric lymph nodes. Differential diagnosis includes inflammatory bowel disease such as Crohn's disease, infection and less likely neoplasm although not excluded. Consider lymphoma in the appropriate clinical setting. Abdomen X-Ray 08/12/24 09:53 IMPRESSION: Nonspecific, nonobstructive bowel gas pattern. Labs Labs: Laboratory Results - last 24 hr 08/12/24 08/12/24 08/12/24 12:23 18:37 22:52 POC Capillary Glucose 70 118 H 119 H
[2024-08-13 08:07] LABS: Hematocrit 31.3 % (42.0-52.0); Hemoglobin 9.3 g/dL (14.0-18.0); Mean Corpuscular HGB Conc 29.7 g/dl (32-36); Mean Corpuscular Hemoglobin 24.9 pg (26-34); Mean Corpuscular Volume 83.9 fl (80-100); Mean Platelet Volume 8.5 fl (7.4-10.4); Platelet Count Result 407 k/mm3 (150-375); Red Blood Count 3.73 M/mm3 (4.6-6.20); Red Cell Distribution Width 18.1 % (11.5-14.5); White Blood Count 6.3 K/mm3 (4.5-10.0)
[2024-08-13 08:13] VITALS: BP 113/78; PULSE 68; RESP 12; TEMP 36.7; O2SAT 100
[2024-08-13 08:18] LABS: Alanine Aminotransferase 8 U/L (6-50); Albumin Level 3.3 g/dL (3.7-5.6); Alkaline Phosphatase 72 U/L (58-237); Anion Gap 6 mmol/L (4-12); Aspartate Amino Transferase 16 U/L (17-59); Bilirubin,Total 0.4 mg/dL (0.2-1.3); Blood Urea Nitrogen 4 mg/dL (8-21); Calcium 8.4 mg/dL (8.9-10.7); Carbon Dioxide 27 mmol/L (22-30); Chloride 104 mmol/L (98-107); Estimated CRCL calculation 162 ml/min; Estimated Glomerular Filt Rate > 60; Glucose 79 mg/dL (65-110); Potassium 3.4 mmol/L (3.4-5.0); Sodium 137 mmol/L (134-143)
--- NOTE | 2024-08-13 08:28 | P.PNIM_ITS ---
Progress Note: A&P Assessment and Plan (1) Nausea and vomiting: Qualifiers: Vomiting type: unspecified Qualified Code(s): R11.2 - Nausea with vomiting, unspecified Code(s): R11.2 - Nausea with vomiting, unspecified Status: Acute (2) Crohn's ileocolitis: Qualifiers: Digestive disease complication type: with intestinal obstruction Qualified Code(s): K50.812 - Crohn's disease of both small and large intestine with intestinal obstruction Code(s): K50.80 - Crohn's disease of both small and large intestine without complications Status: Acute (3) Small bowel obstruction: Code(s): K56.609 - Unspecified intestinal obstruction, unspecified as to partial versus complete obstruction Status: Acute (4) Anemia: Qualifiers: Anemia type: iron deficiency Iron deficiency anemia type: unspecified iron deficiency Qualified Code(s): D50.9 - Iron deficiency anemia, unspecified Code(s): D64.9 - Anemia, unspecified Status: Chronic Plan Small bowel obstruction: Code(s): K56.609 - Unspecified intestinal obstruction, unspecified as to partial versus complete obstruction Status: Acute Assessment and Plan: Admit to med tele Patient still has nausea vomiting and abdomen pain Keep patient NPO, continue fluid resuscitation optimize pain management patient is on morphine p.r.n., start antiemetic medications Reglan and Zofran IV p.r.n. Consult general surgeon and GI for evaluation treatment Small-bowel obstruction persists today, patient is on NG tube suction p.r.n. 08/12 Small-bowel obstruction resolved, patient tolerated solid diet today, denies abdomen pain nausea vomiting. Crohn's ileocolitis: Qualifiers: Digestive disease complication type: with intestinal obstruction [place] lified Code(s): K50.812 - Crohn's disease of both small and large intestine with intestinal obstruction Code(s): K50.80 - Crohn's disease of both small and large intestine without complications Status: Acute Assessment and Plan: Suspecting chronic disease exacerbation Continue methylprednisolone 60 mg IV daily per GI, Received Zosyn 3.375 mg IV push once Follow GI recommendation Prednisone 40 mg qD Azathioprine 75 mg qD on dc per GI No diarrhea now Follow-up with GI in 4 weeks Chronic Anemia Hemoglobin stable 12.2 upon arrival intravenous iron given drops a little Start ferrous sulfate 325 mg daily p.o. Subjective Date/time seen: 08/13/24 08:28 Interval history: Patient ate solid food artery morning, denies abdomen pain, nausea or vomiting. Patient has no diarrhea bloody stool. Patient also denies chest pain shortness breast fever. Chills. Patient afebrile blood pressure stable. Labs reviewed, hemoglobin 9.3 stable Chemistry unremarkable Exam Narrative: GENERAL: Pleasant, in no acute distress. Well-nourished. - EYES: EOMI. Anicteric. - HENT: Moist mucous membranes. - LUNGS: Clear to auscultation bilateral ly, no wheezing, rhonchi, or rales. - CARDIOVASCULAR: Regular rate and rhyth m. No murmur. No JVD. - ABDOMEN: Soft, non-tender and non-dist ended. No palpable masses. - EXTREMITIES: No edema. Peripheral puls es 2+. Non-tender. - NEUROLOGIC: No focal neurological defi cits. CN II-XII grossly intact. - PSYCHIATRIC: Awake, Alert and oriented x 3. Appropriate mood and affect. - SKIN: No rashes or lesions. Warm. - LYMPH: No cervical lymphadenopathy. Objective Data Vital Signs Vital Signs: Vital Signs - 24 hr 08/12/24 09:30 08/12/24 12:00 08/12/24 12:00 Temperature 97.9 F Pulse Rate 68 81 Respiratory Rate 20 Blood Pressure 113/59 L Pulse Oximetry 100 Oxygen Delivery Room Air 08/12/24 16:00 08/12/24 16:00 08/12/24 20:00 Temperature 97.5 F L 97.6 F Pulse Rate 70 97 72 Respiratory Rate 20 18 Blood Pressure 137/51 L 111/67 Pulse Oximetry 96 100 Oxygen Delivery 08/12/24 20:00 08/12/24 20:00 08/13/24 00:00 Temperature 97.7 F Pulse Rate 70 74 Respiratory Rate 16 Blood Pressure 100/61 Pulse Oximetry 100 95 Oxygen Delivery Room Air 08/13/24 00:00 08/13/24 04:00 08/13/24 04:00 Temperature 97.3 F L Pulse Rate 59 L 57 L 91 Respiratory Rate 16 Blood Pressure 113/69 Pulse Oximetry 100 Oxygen Delivery 08/13/24 08:13 Temperature 98.1 F Pulse Rate 68 Respiratory Rate 12 Blood Pressure 113/78 Pulse Oximetry 100 Oxygen Delivery Intake/Output Intake/Output: Intake & Output 08/10/24 08/11/24 08/12/24 08/13/24 23:59 23:59 23:59 23:59 Intake Total 2954.2 2400 3004 1300 Output Total 2450 2350 2151 Balance 504.2 50 853 1300 Meds/Results Medications: Active Medications Generic Name Dose Route Start Last Admin Trade Name Freq PRN Reason Stop Dose Admin Dextrose 12.5 gm 08/12/24 06:04 08/12/24 06:24 Dextrose 50% 25 Gm/50 Ml Syringe IV PUSH 12.5 gm PRN PRN Administration Hypoglycemia Protocol Glucagon 1 mg 08/12/24 06:04 Glucagon For Inj 1 Mg Vial IM PRN PRN Hypoglycemia Protocol Glucose 15 gm 08/12/24 06:04 Glucose Oral Gel 15 Gm Of Glucse In 37.5 Gm Tube PO PRN PRN Hypoglycemia Protocol Heparin Sodium (Porcine) 5,000 units 08/10/24 14:00 08/13/24 05:38 Heparin Sodium 5,000 Units/Ml Vial SUB-Q 5,000 units Q8HR KISHORE Administration Sodium Chloride 1,000 mls @ 125 mls/hr 08/09/24 19:30 08/13/24 06:25 Normal Saline Iv IV CONT 125 mls/hr .Q8H KISHORE Administration Dextrose 1,000 mls @ 100 mls/hr 08/12/24 06:04 Dextrose 5% 1,000 Ml IVPB PRN PRN Hypoglycemia Protocol Methylprednisolone Sodium Succinate 60 mg 08/10/24 09:00 08/12/24 09:27 Methylprednisolone Sod Succ 125 Mg Vial IV PUSH 60 mg DAILY KISHORE Administration Morphine Sulfate 4 mg 08/09/24 19:27 Morphine Sulfate (*Crx) 4 Mg/Ml Inj IV PUSH Q2H PRN Pain Rated 7-10 Ondansetron HCl 4 mg 08/09/24 19:27 Ondansetron Inj 4 Mg/2 Ml Vial IV PUSH Q4H PRN Nausea Pantoprazole Sodium 40 mg 08/11/24 09:00 08/12/24 09:27 Pantoprazole Sodium Iv 40 Mg Vial IV PUSH 40 mg QAM KISHORE Administration Phenol 1 spray 08/11/24 12:54 Phenol/Sod Pheno [place] Gibson (*Bkc) MUCOUS MEM PRN PRN Sore Throat Radiology Results: ITS Impressions Abdomen/Pelvis CT 08/09/24 18:25 IMPRESSION: 1. Small bowel obstruction with transition in the right mid abdomen secondary to a thickened abnormal appearing small bowel segment. There are adjacent enlarged mesenteric lymph nodes. Differential diagnosis includes inflammatory bowel disease such as Crohn's disease, infection and less likely neoplasm although not excluded. Consider lymphoma in the appropriate clinical setting. Abdomen X-Ray 08/12/24 09:53 IMPRESSION: Nonspecific, nonobstructive bowel gas pattern. Labs Labs: Laboratory Results - last 24 hr 08/12/24 08/12/24 08/12/24 12:23 18:37 22:52 WBC RBC Hgb Hct MCV MCH MCHC RDW Plt Count MPV Sodium Potassium Chloride Carbon Dioxide Anion Gap BUN Creatinine Estim Creat Clear Calc Estimated GFR Glucose POC Capillary Glucose 70 118 H 119 H Calcium Total Bilirubin AST ALT Alkaline Phosphatase Total Protein Albumin 08/13/24 08:02 WBC 6.3 RBC 3.73 L Hgb 9.3 L Hct 31.3 L MCV 83.9 MCH 24.9 L MCHC 29.7 L RDW 18.1 H Plt Count 407 H MPV 8.5 Sodium 137 Potassium 3.4 Chloride 104 Carbon Dioxide 27 Anion Gap 6 BUN 4 L Creatinine 0.49 L Estim Creat Clear Calc 162 Estimated GFR > 60 Glucose 79 POC Capillary Glucose Calcium 8.4 L Total Bilirubin 0.4 AST 16 L ALT 8 Alkaline Phosphatase 72 Total Protein 6.0 L Albumin 3.3 L
[2024-08-13] MEDS: PANTOPRAZOLE SODIUM IV 40 MG VIAL IV PUSH (08:51)
[2024-08-13] MEDS: methylPREDNISolone SOD SUCC 125 MG VIAL 60 MG IV PUSH (08:51)
[2024-08-13 08:55] VITALS: PULSE 61
--- NOTE | 2024-08-13 11:19 | WPDPN ---
Progress Note: A&P Assessment and Plan (1) Crohn's ileocolitis: Qualifiers: Digestive disease complication type: with intestinal obstruction Qualified Code(s): K50.812 - Crohn's disease of both small and large intestine with intestinal obstruction Code(s): K50.80 - Crohn's disease of both small and large intestine without complications Status: Acute Assessment and Plan: Crohn's exacerbation which has responded again to IV steroids and bowel rest. Plan is to keep on steroids again and follow up with GI in 4 weeks. Will have follow-up Dr. Wang surgery office in 2 to 3 weeks. (2) Small bowel obstruction: Code(s): K56.609 - Unspecified intestinal obstruction, unspecified as to partial versus complete obstruction Status: Acute Assessment and Plan: Resolved with non operative management and IV steroids. Patient was instructed stay on his or steroids at home and follow with GI and Dr. Wang in the office. Patient can be discharged today. Subjective Date/time seen: 08/13/24 11:19 Interval history: Patient is doing well today. No abdominal pain. No nausea. Loose bowel movements which are nonbloody. Tolerated low-fiber diet yesterday. White blood count still normal. Small-bowel obstruction has resolved. Exam GI: Other: Abdomen is soft and nondistended. No tenderness to palpation. Exam is benign. Objective Data Vital Signs Vital Signs: Vital Signs - 24 hr 08/12/24 12:00 08/12/24 12:00 08/12/24 16:00 Temperature 36.6 C Pulse Rate 68 81 70 Respiratory Rate 20 Blood Pressure 113/59 L Pulse Oximetry 100 Oxygen Delivery 08/12/24 16:00 08/12/24 20:00 08/12/24 20:00 Temperature 36.4 C L 36.4 C Pulse Rate 97 72 Respiratory Rate 20 18 Blood Pressure 137/51 L 111/67 Pulse Oximetry 96 100 100 Oxygen Delivery Room Air 08/12/24 20:00 08/13/24 00:00 08/13/24 00:00 Temperature 36.5 C Pulse Rate 70 74 59 L Respiratory Rate 16 Blood Pressure 100/61 Pulse Oximetry 95 Oxygen Delivery 08/13/24 04:00 08/13/24 04:00 08/13/24 08:13 Temperature 36.3 C L 36.7 C Pulse Rate 57 L 91 68 Respiratory Rate 16 12 Blood Pressure 113/69 113/78 Pulse Oximetry 100 100 Oxygen Delivery Intake/Output Intake/Output: Intake & Output 08/10/24 08/11/24 08/12/24 08/13/24 23:59 23:59 23:59 23:59 Intake Total 2954.2 2400 3004 1540 Output Total 2450 2350 2151 Balance 504.2 50 853 1540 Meds/Results Medications: Active Medications Generic Name Dose Route Start Last Admin Trade Name Freq PRN Reason Stop Dose Admin Dextrose 12.5 gm 08/12/24 06:04 08/12/24 06:24 Dextrose 50% 25 Gm/50 Ml Syringe IV PUSH 12.5 gm PRN PRN Administration Hypoglycemia Protocol Glucagon 1 mg 08/12/24 06:04 Glucagon For Inj 1 Mg Vial IM PRN PRN Hypoglycemia Protocol Glucose 15 gm 08/12/24 06:04 Glucose Oral Gel 15 Gm Of Glucse In 37.5 Gm Tube PO PRN PRN Hypoglycemia Protocol Heparin Sodium (Porcine) 5,000 units 08/10/24 14:00 08/13/24 05:38 Heparin Sodium 5,000 Units/Ml Vial SUB-Q 5,000 units Q8HR KISHORE Administration Sodium Chloride 1,000 mls @ 125 mls/hr 08/09/24 19:30 08/13/24 06:25 Normal Saline Iv IV CONT 125 mls/hr .Q8H KISHORE Administration Dextrose 1,000 mls @ 100 mls/hr 08/12/24 06:04 Dextrose 5% 1,000 Ml IVPB PRN PRN Hypoglycemia Protocol Methylprednisolone Sodium Succinate 60 mg 08/10/24 09:00 08/13/24 08:51 Methylprednisolone Sod Succ 125 Mg Vial IV PUSH 60 mg DAILY KISHORE Administration Morphine Sulfate 4 mg 08/09/24 19:27 Morphine Sulfate (*Crx) 4 Mg/Ml Inj IV PUSH Q2H PRN Pain Rated 7-10 Ondansetron HCl 4 mg 08/09/24 19:27 Ondansetron Inj 4 Mg/2 Ml Vial IV PUSH Q4H PRN Nausea Pantoprazole Sodium 40 mg 08/11/24 09:00 08/13/24 08:51 Pantoprazole Sodium Iv 40 Mg Vial IV PUSH 40 mg QAM KISHORE Administration Phenol 1 spray 08/11/24 12:54 Phenol/Sod Pheno [place] Gibson (*Bkc) MUCOUS MEM PRN PRN Sore Throat Radiology Results: ITS Impressions Abdomen/Pelvis CT 08/09/24 18:25 IMPRESSION: 1. Small bowel obstruction with transition in the right mid abdomen secondary to a thickened abnormal appearing small bowel segment. There are adjacent enlarged mesenteric lymph nodes. Differential diagnosis includes inflammatory bowel disease such as Crohn's disease, infection and less likely neoplasm although not excluded. Consider lymphoma in the appropriate clinical setting. Abdomen X-Ray 08/12/24 09:53 IMPRESSION: Nonspecific, nonobstructive bowel gas pattern. Labs Labs: Laboratory Results - last 24 hr 08/12/24 08/12/24 08/12/24 12:23 18:37 22:52 WBC RBC Hgb Hct MCV MCH MCHC RDW Plt Count MPV Sodium Potassium Chloride Carbon Dioxide Anion Gap BUN Creatinine Estim Creat Clear Calc Estimated GFR Glucose POC Capillary Glucose 70 118 H 119 H Calcium Total Bilirubin AST ALT Alkaline Phosphatase Total Protein Albumin 08/13/24 08:02 WBC 6.3 RBC 3.73 L Hgb 9.3 L Hct 31.3 L MCV 83.9 MCH 24.9 L MCHC 29.7 L RDW 18.1 H Plt Count 407 H MPV 8.5 Sodium 137 Potassium 3.4 Chloride 104 Carbon Dioxide 27 Anion Gap 6 BUN 4 L Creatinine 0.49 L Estim Creat Clear Calc 162 Estimated GFR > 60 Glucose 79 POC Capillary Glucose Calcium 8.4 L Total Bilirubin 0.4 AST 16 L ALT 8 Alkaline Phosphatase 72 Total Protein 6.0 L Albumin 3.3 L
--- NOTE | 2024-08-13 11:23 | PM.DS ---
DS: Admitting Diagnosis Discharge Date 08/13/24 Admitting Diagnosis (1) Nausea and vomiting: Qualifiers: Vomiting type: unspecified Qualified Code(s): R11.2 - Nausea with vomiting, unspecified Code(s): R11.2 - Nausea with vomiting, unspecified Status: Acute (2) Crohn's ileocolitis: Qualifiers: Digestive disease complication type: with intestinal obstruction Qualified Code(s): K50.812 - Crohn's disease of both small and large intestine with intestinal obstruction Code(s): K50.80 - Crohn's disease of both small and large intestine without complications Status: Acute (3) Small bowel obstruction: Code(s): K56.609 - Unspecified intestinal obstruction, unspecified as to partial versus complete obstruction Status: Acute (4) Anemia: Qualifiers: Anemia type: iron deficiency Iron deficiency anemia type: unspecified iron deficiency Qualified Code(s): D50.9 - Iron deficiency anemia, unspecified Code(s): D64.9 - Anemia, unspecified Status: Chronic DS: Summary Hospital Course Hospital Course: Per H&P. This is a 18-year-old male with past medical history significant for recently diagnosed Crohn's disease comes to the emergency room after completing course of antibiotic in the outpatient setting and a steroids for Crohn's flareup presents with constipation, nausea, poor per orally intake x2 days. Preliminary workup was significant for CT of abdomen and pelvis with small bowel obstruction. Patient has been admitted for further evaluation management and treatment. The following med issues have been addressed during hospitalization (1) Nausea and vomiting: Qualifiers: Vomiting type: unspecified Qualified Code(s): R11.2 - Nausea with vomiting, unspecified Code(s): R11.2 - Nausea with vomiting, unspecified Status: Acute (2) Crohn's ileocolitis: Qualifiers: Digestive disease complication type: with intestinal obstruction Qualified Code(s): K50.812 - Crohn's disease of both small and large intestine with intestinal obstruction Code(s): K50.80 - Crohn's disease of both small and large intestine without complications Status: Acute (3) Small bowel obstruction: Code(s): K56.609 - Unspecified intestinal obstruction, unspecified as to partial versus complete obstruction Status: Acute (4) Anemia: Qualifiers: Anemia type: iron deficiency Iron deficiency anemia type: unspecified iron deficiency Qualified Code(s): D50.9 - Iron deficiency anemia, unspecified Code(s): D64.9 - Anemia, unspecified Status: Chronic Time Spent with Patient Time attestation: Total time spent providing and/or coordinating discharge services: DS: Data Data Completed and Pending Labs on day of discharge: Labs from last 24 hours 08/13/24 08/12/24 08/12/24 08:02 22:52 18:37 WBC 6.3 RBC 3.73 L Hgb 9.3 L Hct 31.3 L MCV 83.9 MCH 24.9 L MCHC 29.7 L RDW 18.1 H Plt Count 407 H MPV 8.5 Sodium 137 Potassium 3.4 Chloride 104 Carbon Dioxide 27 Anion Gap 6 BUN 4 L Creatinine 0.49 L Estim Creat Clear Calc 162 Estimated GFR > 60 Glucose 79 POC Capillary Glucose 119 H 118 H Calcium 8.4 L Total Bilirubin 0.4 AST 16 L ALT 8 Alkaline Phosphatase 72 Total Protein 6.0 L Albumin 3.3 L 08/12/24 12:23 WBC RBC Hgb Hct MCV MCH MCHC RDW Plt Count MPV Sodium Potassium Chloride Carbon Dioxide Anion Gap BUN Creatinine Estim Creat Clear Calc Estimated GFR Glucose POC Capillary Glucose 70 Calcium Total Bilirubin AST ALT Alkaline Phosphatase Total Protein Albumin Preliminary micro results at discharge 08/09/24 19:58 Blood Culture - Preliminary Blood 08/09/24 20:11 Blood Culture - Preliminary Blood Discharge Plan Discharge Attending physician on discharge: Olaf Bacon Consulting providers: Devan Dunlap Discharging Clinician: Olaf Bacon Anticipated Discharge Date/Time: 08/13/24 11:24 Patient Disposition: Home, Self-Care Activity: as tolerated Diet: as tolerated Discharge Instructions: Patient may be discharged home today from general surgery standpoint. Low residual and low-fiber diet as recommended by GI. Patient should take his oral steroids as directed by GI. Patient should follow-up see Dr. Wang in the general surgery office in 2 to 3 weeks. Patient can call [phone] for an appointment. Patient Instructions: Antibiotic Form Patient Language: [place]ese Stand Alone Forms: General Discharge Information Follow-up/Referrals: Garland Wang MD [Physician] - Discharge Medications: New prednisone 20 mg tablet 40 mg PO DAILY Qty: 60 0RF ferrous sulfate 325 mg (65 mg iron) tablet 325 mg PO DAILY Qty: 30 0RF azathioprine 75 mg tablet 75 mg PO DAILY Qty: 30 0RF Continued Venofer 100 mg iron/5 mL solution 500 mg IV ONCE Rx Instructions: administer over 1.5 hrs acetaminophen 500 mg capsule 1,000 mg PO Q4-6H PRN (Reason: pain) omeprazole 20 mg capsule,delayed release(DR/EC) 20 mg PO DAILY PRN (Reason: Indigestion) Qty: 14 0RF Date of admission: 08/09/24 19:27 Primary Care Provider: Edwin Velazquez Admitting Provider: Ricardo Madsen V. Attending physician on admission: Ricardo Madsen V. Condition: Stable
--- OUTSIDE RECORDS SUMMARY | 2024-08-16 04:13 | XMS_ITS | Clinical Summary ---
Author Organization [facility] Address [address] [place] [id number] Care Team Providers Care Cash Accounting Clerk Name Role Phone Pcp, Verify Primary Care Provider Unavailabl e Social History Tobacco Use Types Packs/Day Years Used Date Smoking Tobacco: Never Assessed Inadequate Housing Answer Date Recorded Social Determinants: Housing (Overall Score Help er) 0 11/16/2022 Sex and Gender Information Value Date Recorded Sex Assigned at Not on file Gender Identity Not on file Sexual Orientation Not on file Job Start Date Occupation Industry Not on file Not on file Not on file Plan of Treatment Health Maintenance Due Date Last Done Comments Annual Physical (ages 3 - 21) 10/24/2007 Depression Screening 2016 Varicella Vaccine (1 of 2 - 13+ 2-dose series) 2017 HPV Vaccine (1 - Male 3-dose series) 10/24/2019 DTaP/Tdap/Td Vaccine (1 - Tdap) 10/24/2023 Hepatitis B Vaccine (1 of 3 - 19+ 3-dose series) 10/24/2023 COVID-19 Vaccine (1 - 2023-2 5 season) 2024 Influenza Vaccine (#1) 2024 Meningococcal Vaccine Aged Out No mohamud sheree eligible based on patient's age to complete this topic Pneumococcal Vaccine 0-49 Aged Out No longer eligible based on patient's age to complete this topic Care Teams Cash Accounting Clerk Relationship Specialty Start Date End Date Pcp, Verify PCP - General 11/23/22
--- OUTSIDE RECORDS SUMMARY | 2024-08-16 04:13 | XMS_ITS | Referral Summary ---
Author Organization [facility] Address [address] [place] [address] Care Team Providers Care Binder Cutter Name Role Phone Stephanie Morin MD Primary Care Provider [phone] Network, [facility] Unavailable Unavai lable Encounters Date Type Department Care Team Description 07/22/2024 10:08 PM IT TEACHER - 07/22/2024 11:18 PM [facility] Emergency Emergency Room [address] [facility] [address] [place] [address] Che Lassiter MD Discharge Disposition: Left ED Without Being Seen 06/20/2024 Travel 06/13/2024 Patient Outreach [facility] Communication Skills Instructor Management [address] [facility] [address] [place] [address] Laura Santos, RN Determine Risk Level for Transition of Care, Offer to schedule appointment within 7 days of discharge for Transition of Care, Med Reconciliation within 7 days of discharge for Transition of Care, Inpatient Post-Discharge 48 Hour Follow Up Assessment for Transition of Care from Last 3 Months Allergies Active Allergy Reactions Criticality Noted Date Comments Kiwi Rash/Hives/Urticaria High 11/23/2022 Medications fluticasone propionate (FLONASE NASL) by Nasal route. Active loratadine (CLARITIN PO) Take by mouth. Active omeprazole (PRILOSEC) 20 mg PO CpDR delayed release capsule Take 1 capsule by mouth every morning before breakfast. 90 capsule 1 07/19/2023 Active ondansetron (ZOFRAN) 4 mg PO tablet Take 4 mg by mouth every 8 hours as needed 05/05/2024 Active predniSONE (DELTASONE) 20 mg PO tablet TAKE 2 TABLETS BY MOUTH DAILY AT 8 AM 05/10/2024 Active predniSONE (DELTASONE) 5 mg PO tablet 06/11/2024 Active Active Problems Problem Noted Date Diagnosed Date Liquid stool 10/02/2023 Overview (06/20/2024): Random shooting pain around anal area and a clear liquid has been coming out when in need of pooping Iron deficiency anemia 12/16/2022 Resolved Problems Problem Noted Date Diagnosed Date Resolved Date H. pylori infection 12/30/2022 06/20/20 Pain of upper abdomen 11/23/20222023 Other headache syndrome 11/23/202205/26 Immunizations Immunization Administration Dates Next Due COVID-19 (PF)VACCINE (Svbtle-[id number] 30MCG/0.3 ml INJECTION 02/02/2021 Covid-19 (PF)VACCINE ([employer]/Singularu-[id number] 10MCG/0.2 ml INJECTION 02/23/2021 Pklzuixidf-onvfeif-bjfizxxqq Pertussis (DTaP) Injection 03/05/2010,07/01/2006,05/03/2005,02/22,2004 Gardasil 9 - Human Papilloma Virus Vaccine 02/13/2024(Deferred: Pre-Visit Planning),02/13/2024,05/09/2017,2016,10/30/2016 Hepatitis A 05/07/2008,11/02/2007 Hepatitis B Vaccine Injection (PEDS) 07/13/2005, 01/22/2005,2004 Hib, Unspecified Formula 05/03/2006,04/24,02/22/2005,12/24 Influenza, injectable, quadr ivalent, preserv free 05/09/2017 Measles, Mumps and Rubella 08/13/2009,05/03/2006 Meningococcal ACWY, Unspecif ied Formula 01/27/2016 PREVNAR 7 - PNEUMOCOCCAL 7-V ALPS VACCINE 03/02/2006,05/03/2005,02/22/2005,12/24 PROQUAD - MEASLES,MUMPS,RUB, VARICELLA VACCINE 05/03/2006 Pneumococcal Conjugate, Unsp ecified Formulation 03/02/2006,05/03/2005,02/22/2005,12/24 Td (Adult), Unspecified Formula 02/24/2016,01/26 Hnwkubp-Rhbfhzlcns-Swxavfyym Pertussis (Tdap) Injection 02/24/2016,01/27/2016 Varicella 08/13/2009,03/02/2006 hepatitis B vaccine injection 07/13/2005, 005,2004 inactivated poliovirus vacci ne injection/oral 03/05/2010,07/01/2006,03/26/2005,01/22 Social History Tobacco Use Types Packs/Day Years Used Date Smoking Tobacco: Never Passive Smoke Exposure: Never Smokeless Tobacco: Never Tobacco Cessation:Counseling Given: Not Answered Alcohol Use Standard Drinks/Week Comments Never 0 (1 standard drink = 0.6 oz pur e alcohol) Food Insecurity Answer Date Recorded Currently or in the past 3 m onths, have you worried your food would run out before you had money to buy more? No 2022 In the past 12 months, have you run out of food or been unable to get more? No 02/05/2023 Transportation Needs Answer Date Record ed Currently or in the past 3 m onths, has lack of transportation kept you from medical appointments, getting food or medicine, or providing care to a family member? Unrecognized value 02/05/2023 Not on file 02/05/2023 Medical Transportation Needs? No Daily Living Transportation Needs? [Peds Only] N ot on file 02/05/2023 Employment Status Answer Date Recorded Employment Need? No 02/05/2023 Utilities Answer Date Recorded Currently or in the past 12 months, have you or household members gone without utilities (heat, water, electricity)? No 02/05/2023 Housing Insecurity Answer Date Recorded Current Housing Need? No 02/05/2023 Housing Loss Worry? No 02/05/2023 Sex and Gender Information Value Date Recorded Sex Assigned at Male 07/18/2023 6:40 PM IT TEACHER Legal Sex Male 8:35 AM CDT Gender Identity Male 07/18/2023 6:40 PM IT TEACHER Sexual Orientation Straight 07/18/2023 6: 40 PM IT TEACHER Last Filed Vital Signs Vital Sign Reading Time Taken Comments Blood Pressure 118/63 07/22/2024 10:15 PM IT TEACHER Pulse 90 07/22/2024 10:15 PM IT TEACHER Temperature 36.6 ??C (97.9 ??F) 07/22/2024 10:[address] Respiratory Rate 18 07/22/2024 10:15 PM IT TEACHER Oxygen Saturation 99% 07/22/2024 10:15 PM IT TEACHER Inhaled Oxygen Concentration - - Weight 59.6 kg (131 lb 6.3 oz) 07/22/2024 10:15 PM IT TEACHER Height 182.9 cm (6') 07/22/2024 10:15 PM IT TEACHER Body Mass Index 17.82 07/22/2024 10:15 PM IT TEACHER Plan of Treatment Not on file Procedures Procedure Name Priority Date/Time Associated Diagnosis Comments LIPASE STAT 07/23/2024 1:06 AM IT TEACHER COMPREHENSIVE METABOLIC PANEL STAT 07/23/2024 1:06 AM IT TEACHER CBC WITH DIFFERENTIAL STAT 07/23/2024 12:47 AM IT TEACHER HEPATITIS C VIRUS ANTIBODY Routine 07/23/2024 12:44 AM IT TEACHER from Last 3 Months Results * Lipase (07/23/2024 1:06 AM IT TEACHER) Lipase 24 <=60 U/L 07/23/2024 1:3 1 AM IT TEACHER [facility] Blood VENOUS BLOOD / Unknown Venipuncture / Unknown 07/23/2024 1:06 AM IT TEACHER 07/23/2024 1:06 AM IT TEACHER Che Lassiter MD LAB BLOOD ORDERABLES Final R esult [facility] [address] [phone] * (ABNORMAL) Comprehensive Metabolic Panel (07/23/2024 1:06 AM IT TEACHER) [facility] Sodium 139 137 - 147 mmol/L 07/23/2024 1:31 AM [facility] Potassium 4.6 3.4 - 5.3 mmol/L 07/23/2024 1:31 AM [facility] Comment: -HEMSL Specimen is moderately hemolyzed. In vitro hemolysis may falsely increase results for this analyte. Interpret with caution. Chloride 108 99 - 108 mmol/L 07/23/2024 1:31 AM [facility] CO2 Total 21(L) 22 - 29 mmol/L 07/23/2024 1:31 AM [facility] Anion Gap 10 8 - 16 07/23/2024 1:31 AM [facility] BUN 6(L) 8 - 21 mg/dL 07/23/2024 1:31 AM [facility] Creatinine 0.64(L) 0.75 - 1.20 mg/dL 07/23/2024 1:31 AM [facility] BUN/Creat Ratio 9.4 8.0 - 25.0 1:31 AM [facility] EGFR >90 07/23/2024 1:31 AM [facility] Glucose 102(H) 74 - 100 mg/dL 07/23/2024 1:31 AM [facility] Total Protein 6.9 6.0 - 8.2 g/dL 07/23/2024 1:31 AM [facility] Albumin 3.1(L) 3.5 - 5.0 g/dL 07/23/2024 1:31 AM [facility] Calcium 8.7(L) 9.1 - 11.2 mg/dL 07/23/2024 1:31 AM [facility] Calcium (Adjusted) 9.4 9.1 - 11.2 mg/dL 07/23/2024 1:31 AM [facility] Comment:Calcium result adjus savannah for serum albumin concentration. Suggest confirmation of calcium status with an ionized calcium, if clinically indicated. Bilirubin, Total 0.1(L) 0.2 - 1.3 mg/dL 07/23/2024 1:31 AM [facility] Alkaline Phosphatase 59 30 - 125 U/L 07/23/2024 1:31 AM IT TEACHER [facility] AST 23 3 - 44 U/L 07/23/2024 1:31 AM [facility] Comment: -HEMSL Specimen is moderately hemolyzed. In vitro hemolysis may falsely increase results for this analyte. Interpret with caution. ALT 10 0 - 40 U/L 07/23/2024 1:31 AM [facility] Blood VENOUS BLOOD / Unknown Venipuncture / Unknown 07/23/2024 1:06 AM IT TEACHER 07/23/2024 1:06 AM IT TEACHER Narrative [facility] - 07/23/2024 1:31 AM IT TEACHER ESTIMATED GLOMERULAR FILTRATION RATE INTERPRETATIONS FOR ALL PATIENTS eGFR Value Interpretation Units are mL/min/1.73 sq m. <15 Kidney Failure 15-29 Severely decreased 30-44 Moderately to severely decreased 40-59 Mildly to moderately decreased 60-89 Mildly decreased >=90 Normal or high Not Applicable for ages <18 The GFR estimate (eGFR) is calculated using the 2020 CKD-EPI creatinine formula. (Please visit [email or web address] for more information.) The equation has not been validated for use in women, patients with serious comorbid conditions, or persons with extremes of body size, muscle mass or nutritional status. us Che Lassiter MD LAB BLOOD ORDERABLES Final R esult [facility] [address] [phone] * (ABNORMAL) CBC With Differential (07/23/2024 12:47 AM IT TEACHER) [facility] White Blood Count 7.68 4.00 - 10.00 K/uL 07/23/2024 1:23 AM [facility] Red Blood Cell Count 3.64(L) 4.50 - 5.90 M/uL 07/23/2024 1:23 AM [facility] Hemoglobin 9.2(L) 13.5 - 17.5 g/dL 07/23/2024 1:23 AM [facility] Hematocrit 30.5(L) 42.0 - 54.0 % 07/23/2024 1:23 AM [facility] MCV 83.8 82.0 - 103.0 fL 07/23/2024 1:23 AM [facility] MCH 25.3(L) 26.0 - 34.0 pg 07/23/2024 1:23 AM [facility] MCHC 30.2 30.0 - 37.0 g/dL 07/23/2024 1:23 AM [facility] Red Cell Distribution Width 19.7(H) 11.5 - 14.5 % 07/23/2024 1:23 AM [facility] Platelet Count 451(H) 150 - 399 K/uL 07/23/2024 1:23 AM [facility] Mean Platelet Volume 9.8 8.3 - 12.3 fL 07/23/2024 1:23 AM [facility] Preliminary Absolute Neutrophil Count 5.16 1.84 - 7.80 K/uL 07/23/2024 1:23 AM [facility] Nucleated Red Blood Cells 0 <=0 /100 WBC 07/23/2024 1:23 AM [facility] Segmented Neutrophils 67.2 36.0 - 72.0 % 07/23/2024 1:23 AM [facility] Lymphocytes 22.5 18.0 - 52.0 % 07/23/2024 1:23 AM [facility] Monocytes 9.6 3.0 - 10.0 % 07/23/2024 1:23 AM [facility] Eosinophils 0.1 0.0 - 6.0 % 07/23/2024 1:23 AM [facility] Basophils 0.3 <=3.0 % 07/23/2024 1:23 AM [facility] Immature Gran Percent 0.3 <=1.5 % 07/23/2024 1:23 AM [facility] Neutrophil Auto # 5.16 1.84 - 7.80 K/uL 07/23/2024 1:23 AM [facility] Lymphocyte Number 1.73 0.72 - 5.20 K/uL 07/23/2024 1:23 AM [facility] Monocyte # 0.74 0.12 - 1.00 K/uL 07/23/2024 1:23 AM [facility] Eosinophil Absolute Auto 0.01 <=0.60 K/uL 07/23/2024 1:23 AM IT TEACHER [facility] Basophil Absolute Auto 0.02 <=0.30 K/uL 07/23/2024 1:23 AM IT TEACHER [facility] Immature Gran Absolute Cnt 0.02 <=0.15 K/uL 07/23/2024 1:23 AM IT TEACHER [facility] Blood VENOUS BLOOD / Unknown Venipuncture / Unknown 07/23/2024 12:47 AM IT TEACHER 07/23/2024 12:47 AM IT TEACHER Che Lassiter MD LAB BLOOD ORDERABLES Final R esult Performing Organization Address [facility] Co de Phone Number [facility] [address] [place] [address] * Hepatitis C Virus Antibody (07/23/2024 12:44 AM IT TEACHER) Hepatitis C Virus Antibody Not Detected Not Detected 07/23/2024 1:40 AM IT TEACHER [facility] Blood VENOUS BLOOD / Unknown Venipuncture / Unknown 07/23/2024 12:44 AM IT TEACHER 07/23/2024 12:44 AM IT TEACHER Narrative [facility] - 07/23/2024 1:40 AM IT TEACHER Antibodies to HCV not detected. This does not exclude the possibility of exposure to HCV. us Che Lassiter MD LAB BLOOD ORDERABLES Final R esult Performing Organization Address [facility] Co de Phone Number [facility] [address] [place] [address] from Last [address] [address] Care Teams Binder Cutter Relationship Specialty Start Date End Date Stephanie Morin MD [address] [place] [address] PCP - General Internal Medicine 11/24/22 [facility] [address] [place] [address] PCP - Medical Home 01/29/23
--- OUTSIDE RECORDS SUMMARY | 2024-08-16 04:13 | XMS_ITS | Encounter Summary ---
Author Organization [facility] Address [address] [place] [address] Care Team Providers Care Computer Forensic Specialist Name Role Phone Stephanie Morin MD Primary Care Provider [phone] [facility] Unavailable Aurelio Pascal RN Unavailable Unavailable Laura Santos RN Unavailable [phone] Encounter Details Date Type Department Care Team (Late st Contact Info) Description 01/24/2023 Orders Only [facility] Internal Medicine [facility] [address] [place] [address] Stephanie Morin MD [address] [place] [address] H. pylori infection (Primary Dx) Social History Tobacco Use Types Packs/Day Years Used Date Smoking Tobacco: Never Passive Smoke Exposure: Never Smokeless Tobacco: Never Alcohol Use Standard Drinks/Week Comments Never 0 (1 standard drink = 0.6 oz pur e alcohol) Sex and Gender Information Value Date Recorded Sex Assigned at Male 07/18/2023 6:40 PM DOCKETING SPECIALIST Legal Sex Male 8:35 AM CDT Gender Identity Male 07/18/2023 6:40 PM DOCKETING SPECIALIST Sexual Orientation Straight 07/18/2023 6: 40 PM DOCKETING SPECIALIST documented as of this encounter Plan of Treatment Not on file documented as of this encounter Results * Helico Pylori Ag (02/05/2023 9:38 AM CDT) H. PYLORI SPECIFIC ANTIGEN Helicobacter pylori antigen not detected. [facility] STOOL SPECIMEN / Unknown 02/05/2023 9:38 AM CDT 02/05/2023 2:31 PM CDT Stephanie Morin MD LAB MICRO GENERAL ORDERABLE F inal Result [facility] [address] [place] [address] documented in this encounter Visit Diagnoses Diagnosis H. pylori infection- Primary Helicobacter pylori (H. pylori) documented in this encounter Additional Health Concerns Assessment Noted Time PHQ-2 Depression Total Score: 0 11/24/19 2:23 PM CDT documented as of this encounter Care Teams Computer Forensic Specialist Relationship Specialty Start Date End Date Stephanie Morin MD [address] [place] [address] PCP - General Internal Medicine 11/24/22 [facility] [address] [place] [address] PCP - Medical Home 01/29/23 Aurelio Pastor, RN Registered Nurse 05/14/24 05/14/24 Laura Santos, GOYO [address] [facility] [address] [place] [address] Energy Professional (Primary) Registered Nurse 06/13/2406/13 documented as of this encounter
--- OUTSIDE RECORDS SUMMARY | 2024-08-16 04:13 | XMS_ITS | Clinical Summary ---
Author Organization [facility] Address [address] [place] [address] Care Team Providers Care Facilities Administrator Name Role Phone Stephanie Morin MD Primary Care Provider [phone] Network, [facility] Unavailable Unavai lable Allergies Active Allergy Reactions Criticality Noted Date [...] Resolved Date H. pylori infection 12/30/2022 06/20/20 24 Pain of upper abdomen 11/23/20224 Other headache syndrome 11/23/202205/26 Encounters Date Type Department Care Team Description 07/22/2024 10:08 PM ENTRY LEVEL MANAGER - 07/22/2024 11:18 PM [facility] Emergency Emergency Room [address] [facility] 1ST [place] [address] Che Lassiter MD Discharge Disposition: Left ED Without Being Seen 06/20/2024 Travel 06/13/2024 Patient Outreach [facility] Director Of Emergency Nursing Management [address] [facility] [address] [place] [address] Laura Santos, RN Determine Risk Level for Transition of Care, Offer to schedule appointment within 7 days of discharge for Transition of Care, Med Reconciliation within 7 days of discharge for Transition of Care, Inpatient Post-Discharge 48 Hour Follow Up Assessment for Transition of Care from Last 3 Months Immunizations Immunization Administration Dates Next Due COVID-19 (PF)VACCINE ([facility]/CityIN-[id number] 30MCG/0.3 ml INJECTION 02/02/2021 Covid-19 (PF)VACCINE ([facility]/MRNA-[id number] 10MCG/0.2 ml INJECTION 02/23/2021 Pnuhbtfytz-ffdyvyb-skxylwton Pertussis (DTaP) Injection 03/05/2010,07/01/2006,05/03/2005,02/22,2004 Gardasil 9 - [...] Formulation 03/02/2006,05/03/2005,02/22/2005,12/24 Td (Adult), Unspecified Formula 02/24/2016,01/26 Mtwgkbr-Idqrgvajyn-Whxjskxly Pertussis (Tdap) Injection 02/24/2016,01/27/2016 Varicella 08/13/2009,03/02/2006 hepatitis B vaccine injection 07/13/2005, 005,2004 inactivated poliovirus vacci ne injection/oral 03/05/2010,07/01/2006,03/26/2005,01/22 Family History Medical History Relation Comments HTN Father HTN Maternal Grandfather Diabetes Paternal Grandfather Cervical cancer Paternal Grandmother constipation Sister Relation Status Comments Brother Alive Father Alive Maternal Grandfather Alive Maternal Grandmother Mother Alive Paternal Grandfather Paternal Grandmother Sister Alive Social History Tobacco Use Types Packs/Day Years [...] Sex Assigned at Male 07/18/2023 6:40 PM ENTRY LEVEL MANAGER Legal Sex Male 8:35 AM CDT Gender Identity Male 07/18/2023 6:40 PM ENTRY LEVEL MANAGER Sexual Orientation Straight 07/18/2023 6: 40 PM ENTRY LEVEL MANAGER Last Filed Vital Signs Vital Sign Reading Time Taken Comments Blood Pressure 118/63 07/22/2024 10:15 PM ENTRY LEVEL MANAGER Pulse 90 07/22/2024 10:15 PM ENTRY LEVEL MANAGER Temperature 36.6 ??C (97.9 ??F) 07/22/2024 10:[address] Respiratory Rate 18 07/22/2024 10:15 PM ENTRY LEVEL MANAGER Oxygen Saturation 99% 07/22/2024 10:15 PM ENTRY LEVEL MANAGER Inhaled Oxygen Concentration - - Weight 59.6 kg (131 lb 6.3 oz) 07/22/2024 10:15 PM ENTRY LEVEL MANAGER Height 182.9 cm (6') 07/22/2024 10:15 PM ENTRY LEVEL MANAGER Body Mass Index 17.82 07/22/2024 10:15 PM ENTRY LEVEL MANAGER Plan of Treatment Health Maintenance Due Date Last Done Comments HIV Screening 2004 Meningococcal B (1 of 2 - Standard) 2020 Influenza Vaccine (#1) 2024 7, 03/02/2006, 05/03/2005, Additional history exists COVID-19 Vaccine ( season) 2024 02/23/2021, 02/02/2021 DTaP,Tdap and Td Vaccines (10 - Td or Tdap) 02/23/2026 02/24/2016, 02/24/2016, 01/27/2016, Additional history exists Pneumococcal 7-64 Aged Out 03/02/2006, , 02/22/2005, Additional history exists No longer eligible based on patient's age to complete this topic HPV Vaccines Completed 02/13/2024, 04/24, 11/12/2016, Additional history exists Hepatitis C Screening Completed 07/23/2024 Procedures Procedure Name Priority Date/Time Associated Diagnosis Comments LIPASE STAT 07/23/2024 1:06 AM ENTRY LEVEL MANAGER COMPREHENSIVE METABOLIC PANEL STAT 07/23/2024 1:06 AM ENTRY LEVEL MANAGER CBC WITH DIFFERENTIAL STAT 07/23/2024 12:47 AM ENTRY LEVEL MANAGER HEPATITIS C VIRUS ANTIBODY Routine 07/23/2024 12:44 AM ENTRY LEVEL MANAGER from Last 3 Months Results * Lipase (07/23/2024 1:06 AM ENTRY LEVEL MANAGER) Lipase 24 <=60 U/L 07/23/2024 1:3 1 AM ENTRY LEVEL MANAGER [facility] Blood VENOUS BLOOD / Unknown Venipuncture / Unknown 07/23/2024 1:06 AM ENTRY LEVEL MANAGER 07/23/2024 1:06 AM ENTRY LEVEL MANAGER Che Lassiter MD LAB BLOOD ORDERABLES Final R esult [facility] [address] [phone] * (ABNORMAL) Comprehensive Metabolic Panel (07/23/2024 1:06 AM ENTRY LEVEL MANAGER) Pathologist [facility] Sodium 139 137 - 147 mmol/L 07/23/2024 1:31 AM ENTRY LEVEL MANAGER [facility] Potassium 4.6 3.4 - 5.3 mmol/L 07/23/2024 1:31 AM [facility] Comment: -HEMSL Specimen is moderately hemolyzed. In vitro hemolysis may falsely increase results for this analyte. Interpret with caution. Chloride 108 99 - 108 mmol/L 07/23/2024 1:31 AM ENTRY LEVEL MANAGER [facility] CO2 Total 21(L) 22 - 29 mmol/L 07/23/2024 1:31 AM ENTRY LEVEL MANAGER [facility] Anion Gap 10 8 - 16 07/23/2024 1:31 AM [facility] BUN 6(L) 8 - 21 mg/dL 07/23/2024 1:31 AM [facility] Creatinine 0.64(L) 0.75 - 1.20 mg/dL 07/23/2024 1:31 AM [facility] BUN/Creat Ratio 9.4 8.0 - 25.0 1:31 AM [facility] EGFR >90 07/23/2024 1:31 AM [facility] Glucose 102(H) 74 - 100 mg/dL 07/23/2024 1:31 AM [facility] Total Protein 6.9 6.0 - 8.2 g/dL 07/23/2024 1:31 AM [facility] Albumin 3.1(L) 3.5 - 5.0 g/dL 07/23/2024 1:31 AM [facility] Calcium 8.7(L) 9.1 - 11.2 mg/dL 07/23/2024 1:31 AM [facility] Calcium (Adjusted) 9.4 9.1 - 11.2 mg/dL 07/23/2024 1:31 AM [facility] Comment:Calcium result adjus savannah for serum albumin concentration. Suggest confirmation of calcium status with an ionized calcium, if clinically indicated. Bilirubin, Total 0.1(L) 0.2 - 1.3 mg/dL 07/23/2024 1:31 AM [facility] Alkaline Phosphatase 59 30 - 125 U/L 07/23/2024 1:31 AM [facility] AST 23 3 - 44 U/L 07/23/2024 1:31 AM [facility] Comment: -HEMSL Specimen is moderately hemolyzed. In vitro hemolysis may falsely increase results for this analyte. Interpret with caution. ALT 10 0 - 40 U/L 07/23/2024 1:31 AM [facility] Blood VENOUS BLOOD / Unknown Venipuncture / Unknown 07/23/2024 1:06 AM ENTRY LEVEL MANAGER 07/23/2024 1:06 AM ENTRY LEVEL MANAGER Narrative [facility] - 07/23/2024 1:31 AM ENTRY LEVEL MANAGER ESTIMATED GLOMERULAR FILTRATION RATE INTERPRETATIONS FOR ALL PATIENTS eGFR Value Interpretation Units are mL/min/1.73 sq m. <15 Kidney Failure 15-29 Severely decreased 30-44 Moderately to severely decreased 40-59 Mildly to moderately decreased 60-89 Mildly decreased >=90 Normal or high Not Applicable for ages <18 The GFR estimate (eGFR) is calculated using the 2020 CKD-EPI creatinine formula. (Please visit [email or web address] for more information.) The equation has not been validated for use in women, patients with serious comorbid conditions, or persons with extremes of body size, muscle mass or nutritional status. us Che Lassiter MD LAB BLOOD ORDERABLES Final R esult [facility] [address] [phone] * (ABNORMAL) CBC With Differential (07/23/2024 12:47 AM ENTRY LEVEL MANAGER) White Blood Count 7.68 4.00 - 10.00 K/uL 07/23/2024 1:23 AM [facility] Red Blood Cell Count 3.64(L) 4.50 - 5.90 M/uL 07/23/2024 1:23 AM [facility] Hemoglobin 9.2(L) 13.5 - 17.5 g/dL 07/23/2024 1:23 AM [facility] Hematocrit 30.5(L) 42.0 - 54.0 % 07/23/2024 1:23 AM [facility] MCV 83.8 82.0 - 103.0 fL 07/23/2024 1:23 AM [facility] MCH 25.3(L) 26.0 - 34.0 pg 07/23/2024 1:23 AM [facility] MCHC 30.2 30.0 - 37.0 g/dL 07/23/2024 1:23 AM [facility] Red Cell Distribution Width 19.7(H) 11.5 - 14.5 % 07/23/2024 1:23 AM [facility] Platelet Count 451(H) 150 - 399 K/uL 07/23/2024 1:23 AM [facility] Mean Platelet Volume 9.8 8.3 - 12.3 fL 07/23/2024 1:23 AM [facility] Preliminary Absolute Neutrophil Count 5.16 1.84 - 7.80 K/uL 07/23/2024 1:23 AM [facility] Nucleated Red Blood Cells 0 <=0 /100 WBC 07/23/2024 1:23 AM [facility] Segmented Neutrophils 67.2 36.0 - 72.0 % 07/23/2024 1:23 AM [facility] Lymphocytes 22.5 18.0 - 52.0 % 07/23/2024 1:23 AM [facility] Monocytes 9.6 3.0 - 10.0 % 07/23/2024 1:23 AM [facility] Eosinophils 0.1 0.0 - 6.0 % 07/23/2024 1:23 AM [facility] Basophils 0.3 <=3.0 % 07/23/2024 1:23 AM [facility] Immature Gran Percent 0.3 <=1.5 % 07/23/2024 1:23 AM [facility] Neutrophil Auto # 5.16 1.84 - 7.80 K/uL 07/23/2024 1:23 AM [facility] Lymphocyte Number 1.73 0.72 - 5.20 K/uL 07/23/2024 1:23 AM [facility] Monocyte # 0.74 0.12 - 1.00 K/uL 07/23/2024 1:23 AM [facility] Eosinophil Absolute Auto 0.01 <=0.60 K/uL 07/23/2024 1:23 AM [facility] Basophil Absolute Auto 0.02 <=0.30 K/uL 07/23/2024 1:23 AM [facility] Immature Gran Absolute Cnt 0.02 <=0.15 K/uL 07/23/2024 1:23 AM [facility] Blood VENOUS BLOOD / Unknown Venipuncture / Unknown 07/23/2024 12:47 AM [facility] 07/23/2024 12:47 AM [facility] us Che Lassiter MD LAB BLOOD ORDERABLES Final R esult [facility] [address] [address], [facility] [phone] * Hepatitis C Virus Antibody (07/23/2024 12:44 AM [facility]) Hepatitis C Virus Antibody Not Detected Not Detected 07/23/2024 1:40 AM ENTRY LEVEL MANAGER [facility] Blood VENOUS BLOOD / Unknown Venipuncture / Unknown 07/23/2024 12:44 AM ENTRY LEVEL MANAGER 07/23/2024 12:44 AM ENTRY LEVEL MANAGER Narrative [facility] - 07/23/2024 1:40 AM ENTRY LEVEL MANAGER Antibodies to HCV not detected. This does not exclude the possibility of exposure to HCV. us Che Lassiter MD LAB BLOOD ORDERABLES Final R esult [facility] [address] [address], [facility] [phone] from Last 3 Months Insurance CHARLES Care Teams Facilities Administrator Relationship Specialty Start Date End Date Stephanie Morin MD [address] [place] [address] PCP - General Internal Medicine 11/24/22 [facility] [address] [place] [address] PCP - Medical Home 01/29/23
--- OUTSIDE RECORDS SUMMARY | 2024-08-16 04:13 | XMS_ITS | Referral Summary ---
Author Organization [facility] Address [address] [place] [address] Care Team Providers Care Funeral Director And Embalmer Name Role Phone Pcp, Verify Primary Care [...] file Not on file Plan of Treatment Not on file Care Teams Funeral Director And Embalmer Relationship Specialty Start Date End Date Pcp, Verify PCP - General 11/23/22
== END 2024-08-13 12:15 | disposition home or self-care (01) | DRG 245 ==
LOC: ANHED 20:05 → ANH2MED 20:52
PROVIDERS: Admitting Provider Internal Medicine; Emergency Provider Physician Assistant; PCP Family Medicine; Visit Provider Hospitalist
DX: K50.812 Crohn's disease of both small and large intestine with intestinal obstruction (principal); D50.9 Iron deficiency anemia, unspecified; K29.00 Acute gastritis without bleeding
CPT/HCPCS: 36415; 74019; 74177; 80048; 80053; 81001; 82948; 83605; 83690; 83735; 84100; 84145; 85025; 85027; 87040; 96361; 96374; 96375; 99285; A9270; J1644; J1756; J2470; J2543; J2919; J7030; J7050; Q9967

== ENCOUNTER 2024-08-25 11:43 | Inpatient (IN) | payer OTHER, SELFPAY ==
[2024-08-25] VITALS (7 sets, daily range): BP systolic 104–132; BP diastolic 67–96; PULSE 100–119; RESP 14–16; TEMP 36.2–36.7; O2SAT 95–100; BMI 17.6; BMI 16.0
--- NOTE | ~2024-08-25 | CT_ITS ---
EXAMINATION: CT abdomen pelvis wo con DATE: 08/27/2024 00:35 INDICATION: Small bowel obstruction TECHNIQUE: Computed tomography (CT) of the abdomen and pelvis was performed without intravenous contr ast. Automated exposure control and iterative reconstruction technique were employed. The dose-length product was 218.88 mGy-cm. COMPARISON: None FINDINGS: Tree-in-bud pattern and small centrilobular groundglass opacities in the dependent right lower lobe c onsistent with aspiration or pneumonia. Heart size is normal. Decreased attenuation of the blood pool relative to myocardium which could be seen with anemia. No pericardial effusion. His gastric tube ti p0 and proximal side port in the body of the stomach. There is vicariously excreted contrast in the n ormal-appearing gallbladder from an earlier contrast-enhanced CT. Liver, spleen, pancreas, bilateral adrenal glands and kidneys are normal. Persistent small bowel obstruction which extends to the termin al ileum where there is prominent wall thickening consistent with terminal ileitis which could be see n in the setting of Crohn's disease. The colon is relatively decompressed. Normal appendix. Bladder i s normal. Tiny collection of likely reactive ascites in the deep pelvis. No evident abscess or free i ntraperitoneal gas. Likely reactive mild mesenteric lymphadenopathy extending along the ileocolic sloan in. Bones are unremarkable. IMPRESSION: 1. Persistent small bowel obstruction with transition point at the terminal ileum where there is prom inent wall thickening suggesting terminal ileitis which could be due to Crohn's disease or infection. 2. Likely reactive mild mesenteric lymphadenopathy and tiny amount of ascites in the pelvis. Reviewed, dictated and finalized at location B. SHOE CUTTER IMPRESSION: 1. Persistent small bowel obstruction with transition point at the terminal ile um where there is prominent wall thickening suggesting terminal ileitis which c ould be due to Crohn's disease or infection. 2. Likely reactive mild mesenteric lymphadenopathy and tiny amount of ascites i n the pelvis.
--- NOTE | ~2024-08-25 | CT_ITS ---
CLINICAL INDICATION: Follow-up small bowel obstruction COMPARISON: 08/27/2024. TECHNIQUE: Multiple contiguous axial images of the abdomen and pelvis were performed following the ad ministration of with 100 mL Omnipaque-350 intravenous contrast The dose-length product (DLP) was 235.59 mGy-cm. Automated exposure control and iterative reconstruction technique were employed. FINDINGS/OBSERVATIONS: Visualized lower thorax: The bilateral lung bases are clear. Abdomen: Nasogastric tube extends into the stomach. Free air is no operative intervention. Free fluid within the abdomen and pelvis consistent with recent intervention. Gmabino catheter within the bladder. Mural thickening within multiple loops of small and large bowel, consistent with recent perioperative state. IMPRESSION: Imaging of the postoperative abdomen and pelvis, as detailed above. Reviewed, dictated and finalized at location A. ICE DELIVERY ANALYST
--- NOTE | ~2024-08-25 | XR_ITS ---
EXAMINATION: XR abdomen gastric tube insert DATE: 08/26/2024 09:03 INDICATION: Nasogastric tube placement TECHNIQUE: A supine view of the abdomen and lower chest was obtained for evaluation of feeding tube placement. COMPARISON: 08/25/2024 FINDINGS: Nasogastric tube with distal tip in the stomach and proximal side-port near the level of the gastroes ophageal junction. There is gas within a few nondilated loops of bowel in the mid and upper abdomen. No free intraperineal gas. Lung bases are clear. Heart size is normal. IMPRESSION: 1. Nasogastric tube tip in the stomach with proximal side-port near the gastroesophageal junction. Co nsider advancement by 5 cm. Reviewed, dictated and finalized at location A. MACY SERVICES DIRECTOR IMPRESSION: 1. Nasogastric tube tip in the stomach with proximal side-port near the gastroe sophageal junction. Consider advancement by 5 cm.
--- NOTE | ~2024-08-25 | CT_ITS ---
EXAMINATION: CT abdomen pelvis wo con DATE: 08/30/2024 12:45 INDICATION: Postoperative leukocytosis with fever post bowel resection TECHNIQUE: Computed tomography (CT) of the abdomen and pelvis was performed without intravenous contr ast. Automated exposure control and iterative reconstruction technique were employed. The dose-length product was 209.13 mGy-cm. COMPARISON: 08/28/2024 FINDINGS: Small bilateral posterior layering bilateral pleural effusions with mild dependent compressive atelec tasis in the posterior inferior lower lobes. Heart size normal. No pericardial effusion. Nasogastric tube tip in the stomach. There is some vicariously excreted contrast prior contrast enhanced CT in th e normal-appearing gallbladder. Liver, spleen, pancreas, bilateral adrenal glands and kidneys are nor mal. Again seen are postoperative changes of a recent ileocecal resection with ileocolic anastomosis in the right abdomen. There is prominent edematous wall thickening extending approximately 30 cm into the fluid-filled ileum proximal to the anastomosis. No frankly dilated loops of bowel to suggest obs truction. Small amount of residual gas within the bladder with removal of the pre-existing Gambino cath eter. Again seen is a small amount of nonloculated appearing gas and fluid scattered throughout the a bdomen and pelvis with subtle small hematocrit level within the fluid in the deep pelvis likely refle cting small amount of hemorrhage related to the recent surgical procedure. No pathologically enlarged abdominal or pelvic lymphadenopathy. Bones are unremarkable. IMPRESSION: 1. Prominent edematous wall thickening in the 3 cm ileum proximal to ileocolic anastomosis post recen t ileocecal resection. This could be secondary inflammatory change related to the recent surgery and/ or the pre-existing Crohn's disease versus less likely related to infection or ischemia. 2. Persistent small amount of free postoperative gas and fluid in the abdomen and pelvis. No organize d-appearing abscess. 3. Small bilateral pleural effusions. Reviewed, dictated and finalized at location A. R TRADER IMPRESSION: 1. Prominent edematous wall thickening in the 3 cm ileum proximal to ileocolic anastomosis post recent ileocecal resection. This could be secondary inflammato ry change related to the recent surgery and/or the pre-existing Crohn's disease versus less likely related to infection or ischemia. 2. Persistent small amount of free postoperative gas and fluid in the abdomen a nd pelvis. No organized-appearing abscess. 3. Small bilateral pleural effusions.
--- NOTE | ~2024-08-25 | XR_ITS ---
EXAM: XR abdomen gastric tube rechec DATE: 08/25/2024 20:18 HISTORY: NG placement ADJUSTED . COMPARISON: Same date at 7:22 PM. FINDINGS: The nasogastric tube has been advanced, tip and side port project over the gastric fundus. Clear lung bases. Normal bowel gas pattern. No organomegaly. No abnormal abdominal calcification. Re gional bones and soft tissues normal for age. IMPRESSION: NG tube, in good position. Reviewed, dictated and finalized at location K. ESTHETICIAN IMPRESSION: NG tube, in good position.
--- NOTE | ~2024-08-25 | CT_ITS ---
EXAMINATION: CT abdomen pelvis w con DATE: 08/25/2024 15:31 INDICATION: abd pain, vomiting TECHNIQUE: Computed tomography (CT) of the abdomen and pelvis was performed with intravenous contrast . Automated exposure control and iterative reconstruction technique were employed. The dose-length pr oduct was 209.50 mGy-cm. COMPARISON: None. FINDINGS: Lower thorax: Unremarkable Liver: Normal. Biliary/Gallbladder: Gallbladder is normal. No bile duct dilation. Pancreas: No mass or duct dilation. Spleen: Normal. Adrenals:No mass. Kidneys: No suspicious mass, obstructing stone, or hydronephrosis. GI tract: Mild distal esophageal and gastric wall edema. Diffuse small bowel dilation, similar to the prior examination, uniform bowel wall enhancement. No pneumatosis. Transition point in the right low er quadrant at the terminal ileum, with surrounding wall edema and inflammatory change. Strand-like c onnection between this area in the adjacent traversing mid sigmoid (axial image 126/217). No large ryne wel dilation. Normal appendix. Mesentery/Peritoneum: 1.6 cm irregular soft tissue density in the right lower quadrant mesentery, adj acent to the small bowel transition point, with multiple adjacent enlarged lymph nodes. No free air. Small volume free fluid, slightly increased. Retroperitoneum: No mass. Pelvis: Urinary bladder is nearly empty. Normal prostate. Soft Tissues: Soft tissues and body wall unremarkable. Bones: No acute osseous finding. IMPRESSION: Mild esophagitis/gastritis. Distal small bowel obstruction, transition point at the terminal ileum. No pneumatosis or pneumoperit oneum. Differential includes inflammatory bowel disease, infection, and lymphoma. Adjacent 1.6 cm right lower quadrant mesenteric mass, presumed enlarged lymph node given the adjacent right lower quadrant lymphadenopathy. Phlegmon or other mesenteric mass not excluded. Strand-like connection between the abnormal terminal ileum and the traversing adjacent mid sigmoid, c ould represent early fistula. Small volume ascites, slightly increased since the prior study. Reviewed, dictated and finalized at location K. TROCARDIOGRAPHIC TECHNICIAN IMPRESSION: Mild esophagitis/gastritis. Distal small bowel obstruction, transition point at the terminal ileum. No pneu matosis or pneumoperitoneum. Differential includes inflammatory bowel disease, infection, and lymphoma. Adjacent 1.6 cm right lower quadrant mesenteric mass, presumed enlarged lymph n ode given the adjacent right lower quadrant lymphadenopathy. Phlegmon or other mesenteric mass not excluded. Strand-like connection between the abnormal terminal ileum and the traversing a djacent mid sigmoid, could represent early fistula. Small volume ascites, slightly increased since the prior study.
--- NOTE | ~2024-08-25 | XR_ITS ---
EXAM: XR abdomen gastric tube insert DATE: 08/25/2024 19:26 HISTORY: NG tube placement . COMPARISON: 08/09/2024. FINDINGS: NG tube, tip overlying the gastric fundus, side port near the GE junction. Clear lung bases . Normal bowel gas pattern. No organomegaly. No abnormal abdominal calcification. Regional bones and soft tissues normal for age. IMPRESSION: The NG tube side port terminates near the GE junction, correlate with tube function. Cons ider advancing by 5 cm. Reviewed, dictated and finalized at location K. TE SENSING PROGRAM MANAGER IMPRESSION: The NG tube side port terminates near the GE junction, correlate wi th tube function. Consider advancing by 5 cm.
--- NOTE | ~2024-08-25 | XR_ITS ---
EXAMINATION: XR abdomen gastric tube rechec DATE: 08/26/2024 09:25 INDICATION: Nasogastric tube repositioning TECHNIQUE: A supine view of the abdomen and lower chest was obtained for evaluation of feeding tube placement. COMPARISON: 08/25/2024 FINDINGS: Nasogastric tube is again seen with distal tip in proximal side port in the body the stomach. There a re some colonic gas in the visualized mid to upper abdomen. Visualized mid to lower lungs are clear w ith no pulmonary edema, pleural effusion or pneumothorax. Heart size is normal. IMPRESSION: 1. Nasogastric tube in expected position within the stomach. Reviewed, dictated and finalized at location A. IE MIXER HELPER
--- OUTSIDE RECORDS SUMMARY | 2024-08-25 11:46 | XMS_ITS | Clinical Summary ---
Author Organization [facility] Address [address] [place] [address] Care Team Providers Care Social Work Faculty Member Name Role Phone Stephanie Morin MD Primary Care Provider [phone] Network, [facility] Unavailable Unavai lable Allergies Active [...] Department Care Team Description 07/22/2024 10:08 PM IN HOME SALES CONSULTANT - 07/22/2024 11:18 PM [facility] Emergency Emergency Room [address] [facility] 1ST [place] [address] Che Lassiter MD Discharge Disposition: Left ED Without Being Seen 06/20/2024 Travel 06/13/2024 Patient Outreach [facility] Sheetmetal Patternmaker Management [address] [facility] [address] [place] [address] Laura Santos, RN Determine Risk Level for Transition of Care, Offer to schedule appointment within 7 days of discharge for Transition of Care, Med Reconciliation within 7 days of discharge for Transition of Care, Inpatient Post-Discharge 48 Hour Follow Up Assessment for Transition of Care from Last 3 Months Immunizations Immunization Administration Dates Next Due COVID-19 (PF)VACCINE ([employer]-[id number] 30MCG/0.3 ml INJECTION 02/02/2021 Covid-19 (PF)VACCINE ([employer]/MRNA-[id number] 10MCG/0.2 ml INJECTION 02/23/2021 Huozqqrquo-yqqmpkm-woejuwrqj Pertussis (DTaP) Injection 03/05/2010,07/01/2006,05/03/2005,02/22,2004 Gardasil 9 - [...] Formulation 03/02/2006,05/03/2005,02/22/2005,12/24 Td (Adult), Unspecified Formula 02/24/2016,01/26 [employer]-Ofyqsajgnl-Qgjbdhoqp Pertussis (Tdap) Injection 02/24/2016,01/27/2016 Varicella 08/13/2009,03/02/2006 hepatitis [...] Sex Assigned at Male 07/18/2023 6:40 PM IN HOME SALES CONSULTANT Legal Sex Male 8:35 AM CDT Gender Identity Male 07/18/2023 6:40 PM IN HOME SALES CONSULTANT Sexual Orientation Straight 07/18/2023 6: 40 PM IN HOME SALES CONSULTANT Last Filed Vital Signs Vital Sign Reading Time Taken Comments Blood Pressure 118/63 07/22/2024 10:15 PM IN HOME SALES CONSULTANT Pulse 90 07/22/2024 10:15 PM IN HOME SALES CONSULTANT Temperature 36.6 ??C (97.9 ??F) 07/22/2024 10:[address] Respiratory Rate 18 07/22/2024 10:15 PM IN HOME SALES CONSULTANT Oxygen Saturation 99% 07/22/2024 10:15 PM IN HOME SALES CONSULTANT Inhaled Oxygen Concentration - - Weight 59.6 kg (131 lb 6.3 oz) 07/22/2024 10:15 PM IN HOME SALES CONSULTANT Height 182.9 cm (6') 07/22/2024 10:15 PM IN HOME SALES CONSULTANT Body Mass Index 17.82 07/22/2024 10:15 PM IN HOME SALES CONSULTANT Plan of Treatment Health Maintenance Due Date [...] Diagnosis Comments LIPASE STAT 07/23/2024 1:06 AM IN HOME SALES CONSULTANT COMPREHENSIVE METABOLIC PANEL STAT 07/23/2024 1:06 AM IN HOME SALES CONSULTANT CBC WITH DIFFERENTIAL STAT 07/23/2024 12:47 AM IN HOME SALES CONSULTANT HEPATITIS C VIRUS ANTIBODY Routine 07/23/2024 12:44 AM IN HOME SALES CONSULTANT from Last 3 Months Results * Lipase (07/23/2024 1:06 AM IN HOME SALES CONSULTANT) Lipase 24 <=60 U/L 07/23/2024 1:3 1 AM IN HOME SALES CONSULTANT [facility] Blood VENOUS BLOOD / Unknown Venipuncture / Unknown 07/23/2024 1:06 AM IN HOME SALES CONSULTANT 07/23/2024 1:06 AM IN HOME SALES CONSULTANT Che Lassiter MD LAB BLOOD ORDERABLES Final R esult [facility] [address] [phone] * (ABNORMAL) Comprehensive Metabolic Panel (07/23/2024 1:06 AM IN HOME SALES CONSULTANT) Pathologist [facility] Sodium 139 137 - 147 mmol/L 07/23/2024 1:31 AM IN HOME SALES CONSULTANT [facility] Potassium 4.6 3.4 - 5.3 mmol/L 07/23/2024 1:[address] [facility] Comment: -HEMSL Specimen is moderately hemolyzed. In vitro hemolysis may falsely increase results for this analyte. Interpret with caution. Chloride 108 99 - 108 mmol/L 07/23/2024 1:31 AM IN HOME SALES CONSULTANT [facility] CO2 Total 21(L) 22 - 29 mmol/L 07/23/2024 1:31 AM IN HOME SALES CONSULTANT [facility] Anion Gap 10 8 - 16 07/23/2024 1:[address] [facility] BUN 6(L) 8 - 21 mg/dL 07/23/2024 1:[address] [facility] Creatinine 0.64(L) 0.75 - 1.20 mg/dL 07/23/2024 1:31 AM [facility] BUN/Creat Ratio 9.4 8.0 - 25.0 1:[address] [facility] EGFR >90 07/23/2024 1:31 AM [facility] Glucose 102(H) 74 - 100 mg/dL 07/23/2024 1:31 AM [facility] Total Protein 6.9 6.0 - 8.2 g/dL 07/23/2024 1:31 AM [facility] Albumin 3.1(L) 3.5 - 5.0 g/dL 07/23/2024 1:[address] [facility] Calcium 8.7(L) 9.1 - 11.2 mg/dL 07/23/2024 1:31 AM [facility] Calcium (Adjusted) 9.4 9.1 - 11.2 mg/dL 07/23/2024 1:31 AM [facility] Comment:Calcium result adjus savannah for serum albumin concentration. Suggest confirmation of calcium status with an ionized calcium, if clinically indicated. Bilirubin, Total 0.1(L) 0.2 - 1.3 mg/dL 07/23/2024 1:31 AM [facility] Alkaline Phosphatase 59 30 - 125 U/L 07/23/2024 1:31 AM [facility] AST 23 3 - 44 U/L 07/23/2024 1:31 AM [facility] Comment: -HEMSL Specimen is moderately hemolyzed. In vitro hemolysis may falsely increase results for this analyte. Interpret with caution. ALT 10 0 - 40 U/L 07/23/2024 1:31 AM [facility] Blood VENOUS BLOOD / Unknown Venipuncture / Unknown 07/23/2024 1:06 AM IN HOME SALES CONSULTANT 07/23/2024 1:06 AM IN HOME SALES CONSULTANT Narrative [facility] - 07/23/2024 1:31 AM IN HOME SALES CONSULTANT ESTIMATED GLOMERULAR FILTRATION RATE INTERPRETATIONS FOR ALL PATIENTS eGFR Value Interpretation Units are mL/min/1.73 sq m. <15 Kidney Failure 15-29 Severely decreased 30-44 Moderately to severely decreased 40-59 Mildly to moderately decreased 60-89 Mildly decreased >=90 Normal or high Not Applicable for ages <18 The GFR estimate (eGFR) is calculated using the 2020 CKD-EPI creatinine formula. (Please visit [email or web address] for more information.) The equation has not been validated for use in women, patients with serious comorbid conditions, or persons with extremes of body size, muscle mass or nutritional status. us Che Lassiter MD LAB BLOOD ORDERABLES Final R esult [facility] [address] [phone] * (ABNORMAL) CBC With Differential (07/23/2024 12:47 AM IN HOME SALES CONSULTANT) White Blood Count 7.68 4.00 - 10.00 K/uL 07/23/2024 1:23 AM [facility] Red Blood Cell Count 3.64(L) 4.50 - 5.90 M/uL 07/23/2024 1:23 AM [facility] Hemoglobin 9.2(L) 13.5 - 17.5 g/dL 07/23/2024 1:23 AM [facility] Hematocrit 30.5(L) 42.0 - 54.0 % 07/23/2024 1:23 AM [facility] MCV 83.8 82.0 - 103.0 fL 07/23/2024 1:23 AM [facility] MCH 25.3(L) 26.0 - 34.0 pg 07/23/2024 1:23 AM [facility] MCHC 30.2 30.0 - 37.0 g/dL 07/23/2024 1:23 AM [facility] Red Cell Distribution Width 19.7(H) 11.5 - 14.5 % 07/23/2024 1:23 AM [facility] Platelet Count 451(H) 150 - 399 K/uL 07/23/2024 1:23 AM [facility] Mean Platelet Volume 9.8 8.3 - 12.3 fL 07/23/2024 1:23 AM [facility] Preliminary Absolute Neutrophil Count 5.16 1.84 - 7.80 K/uL 07/23/2024 1:23 AM [facility] Nucleated Red Blood Cells 0 <=0 /100 WBC 07/23/2024 1:23 AM [facility] Segmented Neutrophils 67.2 36.0 - 72.0 % 07/23/2024 1:23 AM [facility] Lymphocytes 22.5 18.0 - 52.0 % 07/23/2024 1:23 AM [facility] Monocytes 9.6 3.0 - 10.0 % 07/23/2024 1:23 AM [facility] Eosinophils 0.1 0.0 - 6.0 % 07/23/2024 1:23 AM [facility] Basophils 0.3 <=3.0 % 07/23/2024 1:23 AM [facility] Immature Gran Percent 0.3 <=1.5 % 07/23/2024 1:23 AM [facility] Neutrophil Auto # 5.16 1.84 - 7.80 K/uL 07/23/2024 1:23 AM [facility] Lymphocyte Number 1.73 0.72 - 5.20 K/uL 07/23/2024 1:23 AM [facility] Monocyte # 0.74 0.12 - 1.00 K/uL 07/23/2024 1:23 AM [facility] Eosinophil Absolute Auto 0.01 <=0.60 K/uL 07/23/2024 1:23 AM [facility] Basophil Absolute Auto 0.02 <=0.30 K/uL 07/23/2024 1:23 AM [facility] Immature Gran Absolute Cnt 0.02 <=0.15 K/uL 07/23/2024 1:23 AM [facility] Blood VENOUS BLOOD / Unknown Venipuncture / Unknown 07/23/2024 12:47 AM [facility] 07/23/2024 12:47 AM [facility] us Che Lassiter MD LAB BLOOD ORDERABLES Final R esult [facility] [address] [address], [facility] [phone] * Hepatitis C Virus Antibody (07/23/2024 12:44 AM [facility]) Hepatitis C Virus Antibody Not Detected Not Detected 07/23/2024 1:40 AM IN HOME SALES CONSULTANT [facility] Blood VENOUS BLOOD / Unknown Venipuncture / Unknown 07/23/2024 12:44 AM IN HOME SALES CONSULTANT 07/23/2024 12:44 AM IN HOME SALES CONSULTANT Narrative [facility] - 07/23/2024 1:40 AM IN HOME SALES CONSULTANT Antibodies to HCV not detected. This does not exclude the possibility of exposure to HCV. us Che Lassiter MD LAB BLOOD ORDERABLES Final R esult [facility] [address] [address], [facility] [phone] from Last 3 Months Insurance CHARLES Care Teams Social Work Faculty Member Relationship Specialty Start Date End Date Stephanie Morin MD [address] [place] [address] PCP - General Internal Medicine 11/24/22 [facility] [address] [place] [address] PCP - Medical Home 01/29/23
--- OUTSIDE RECORDS SUMMARY | 2024-08-25 11:46 | XMS_ITS | Referral Summary ---
Author Organization [facility] Address [address] [place] [address] Care Team Providers Care Musical Instrument Maker Or Repairer Name Role Phone Stephanie Morin MD Primary Care Provider [phone] Network, [facility] Unavailable Unavai lable Encounters Date Type Department Care Team Description 07/22/2024 10:08 PM CATCHER FILTER TIP - 07/22/2024 11:18 PM [facility] Emergency Emergency Room [address] [facility] [address] [place] [address] Che Lassiter MD Discharge Disposition: Left ED Without Being Seen 06/20/2024 Travel 06/13/2024 Patient Outreach [facility] Chief Pilot Management [address] [facility] [address] [place] [address] Laura Santos, RN Determine Risk Level for [...] Immunization Administration Dates Next Due COVID-19 (PF)VACCINE (Episencial-[id number] 30MCG/0.3 ml INJECTION 02/02/2021 Covid-19 (PF)VACCINE ([employer]-[id number] 10MCG/0.2 ml INJECTION 02/23/2021 Zuxtuvimdw-jmucwaw-chyofiarv Pertussis (DTaP) Injection 03/05/2010,07/01/2006,05/03/2005,02/22,2004 Gardasil 9 - [...] Formulation 03/02/2006,05/03/2005,02/22/2005,12/24 Td (Adult), Unspecified Formula 02/24/2016,01/26 Siipuqx-Cxqjwzcwok-Cdxmklktb Pertussis (Tdap) Injection 02/24/2016,01/27/2016 Varicella 08/13/2009,03/02/2006 hepatitis [...] Sex Assigned at Male 07/18/2023 6:40 PM CATCHER FILTER TIP Legal Sex Male 8:35 AM CDT Gender Identity Male 07/18/2023 6:40 PM CATCHER FILTER TIP Sexual Orientation Straight 07/18/2023 6: 40 PM CATCHER FILTER TIP Last Filed Vital Signs Vital Sign Reading Time Taken Comments Blood Pressure 118/63 07/22/2024 10:15 PM CATCHER FILTER TIP Pulse 90 07/22/2024 10:15 PM CATCHER FILTER TIP Temperature 36.6 ??C (97.9 ??F) 07/22/2024 10:[address] Respiratory Rate 18 07/22/2024 10:15 PM CATCHER FILTER TIP Oxygen Saturation 99% 07/22/2024 10:15 PM CATCHER FILTER TIP Inhaled Oxygen Concentration - - Weight 59.6 kg (131 lb 6.3 oz) 07/22/2024 10:15 PM CATCHER FILTER TIP Height 182.9 cm (6') 07/22/2024 10:15 PM CATCHER FILTER TIP Body Mass Index 17.82 07/22/2024 10:15 PM CATCHER FILTER TIP Plan of Treatment Not on file Procedures Procedure Name Priority Date/Time Associated Diagnosis Comments LIPASE STAT 07/23/2024 1:06 AM CATCHER FILTER TIP COMPREHENSIVE METABOLIC PANEL STAT 07/23/2024 1:06 AM CATCHER FILTER TIP CBC WITH DIFFERENTIAL STAT 07/23/2024 12:47 AM CATCHER FILTER TIP HEPATITIS C VIRUS ANTIBODY Routine 07/23/2024 12:44 AM CATCHER FILTER TIP from Last 3 Months Results * Lipase (07/23/2024 1:06 AM CATCHER FILTER TIP) Lipase 24 <=60 U/L 07/23/2024 1:3 1 AM CATCHER FILTER TIP [facility] Blood VENOUS BLOOD / Unknown Venipuncture / Unknown 07/23/2024 1:06 AM CATCHER FILTER TIP 07/23/2024 1:06 AM CATCHER FILTER TIP Che Lassiter MD LAB BLOOD ORDERABLES Final R esult [facility] [address] [phone] * (ABNORMAL) Comprehensive Metabolic Panel (07/23/2024 1:06 AM CATCHER FILTER TIP) [facility] Sodium 139 137 - 147 mmol/L 07/23/2024 1:31 AM [facility] Potassium 4.6 3.4 - 5.3 mmol/L 07/23/2024 1:31 AM [facility] Comment: -HEMSL Specimen is moderately hemolyzed. In vitro hemolysis may falsely increase results for this analyte. Interpret with caution. Chloride 108 99 - 108 mmol/L 07/23/2024 1:31 AM [facility] CO2 Total 21(L) 22 - 29 mmol/L 07/23/2024 1:31 AM [facility] Anion Gap 10 8 - 16 07/23/2024 1:31 AM [facility] BUN 6(L) 8 - 21 mg/dL 07/23/2024 1:31 AM [facility] Creatinine 0.64(L) 0.75 - 1.20 mg/dL 07/23/2024 1:31 AM [facility] BUN/Creat Ratio 9.4 8.0 - 25.0 1:31 AM [facility] EGFR >90 07/23/2024 1:31 AM [facility] Glucose 102(H) 74 - 100 mg/dL 07/23/2024 1:31 AM [facility] Total Protein 6.9 6.0 - 8.2 g/dL 07/23/2024 1:31 AM [facility] Albumin 3.1(L) 3.5 - 5.0 g/dL 07/23/2024 1:31 AM [facility] Calcium 8.7(L) 9.1 - 11.2 mg/dL 07/23/2024 1:31 AM [facility] Calcium (Adjusted) 9.4 9.1 - 11.2 mg/dL 07/23/2024 1:31 AM [facility] Comment:Calcium result adjus [place] for serum albumin concentration. Suggest confirmation of calcium status with an ionized calcium, if clinically indicated. Bilirubin, Total 0.1(L) 0.2 - 1.3 mg/dL 07/23/2024 1:31 AM [facility] Alkaline Phosphatase 59 30 - 125 U/L 07/23/2024 1:31 AM CATCHER FILTER TIP [facility] AST 23 3 - 44 U/L 07/23/2024 1:31 AM [facility] Comment: -HEMSL Specimen is moderately hemolyzed. In vitro hemolysis may falsely increase results for this analyte. Interpret with caution. ALT 10 0 - 40 U/L 07/23/2024 1:31 AM [facility] Blood VENOUS BLOOD / Unknown Venipuncture / Unknown 07/23/2024 1:06 AM CATCHER FILTER TIP 07/23/2024 1:06 AM CATCHER FILTER TIP Narrative [facility] - 07/23/2024 1:31 AM CATCHER FILTER TIP ESTIMATED GLOMERULAR FILTRATION RATE INTERPRETATIONS FOR ALL PATIENTS eGFR Value Interpretation Units are mL/min/1.73 sq m. <15 Kidney Failure 15-29 Severely decreased 30-44 Moderately to severely decreased 40-59 Mildly to moderately decreased 60-89 Mildly decreased >=90 Normal or high Not Applicable for ages <18 The GFR estimate (eGFR) is calculated using the 2020 CKD-EPI creatinine formula. (Please visit [email or web address] for more information.) The equation has not been validated for use in women, patients with serious comorbid conditions, or persons with extremes of body size, muscle mass or nutritional status. us Che Lassiter MD LAB BLOOD ORDERABLES Final R esult [facility] [address] [phone] * (ABNORMAL) CBC With Differential (07/23/2024 12:47 AM CATCHER FILTER TIP) [facility] White Blood Count 7.68 4.00 - 10.00 K/uL 07/23/2024 1:23 AM [facility] Red Blood Cell Count 3.64(L) 4.50 - 5.90 M/uL 07/23/2024 1:23 AM [facility] Hemoglobin 9.2(L) 13.5 - 17.5 g/dL 07/23/2024 1:23 AM [facility] Hematocrit 30.5(L) 42.0 - 54.0 % 07/23/2024 1:23 AM [facility] MCV 83.8 82.0 - 103.0 fL 07/23/2024 1:23 AM [facility] MCH 25.3(L) 26.0 - 34.0 pg 07/23/2024 1:23 AM [facility] MCHC 30.2 30.0 - 37.0 g/dL 07/23/2024 1:23 AM [facility] Red Cell Distribution Width 19.7(H) 11.5 - 14.5 % 07/23/2024 1:23 AM [facility] Platelet Count 451(H) 150 - 399 K/uL 07/23/2024 1:23 AM [facility] Mean Platelet Volume 9.8 8.3 - 12.3 fL 07/23/2024 1:23 AM [facility] Preliminary Absolute Neutrophil Count 5.16 1.84 - 7.80 K/uL 07/23/2024 1:23 AM [facility] Nucleated Red Blood Cells 0 <=0 /100 WBC 07/23/2024 1:23 AM [facility] Segmented Neutrophils 67.2 36.0 - 72.0 % 07/23/2024 1:23 AM [facility] Lymphocytes 22.5 18.0 - 52.0 % 07/23/2024 1:23 AM [facility] Monocytes 9.6 3.0 - 10.0 % 07/23/2024 1:23 AM [facility] Eosinophils 0.1 0.0 - 6.0 % 07/23/2024 1:23 AM [facility] Basophils 0.3 <=3.0 % 07/23/2024 1:23 AM [facility] Immature Gran Percent 0.3 <=1.5 % 07/23/2024 1:23 AM [facility] Neutrophil Auto # 5.16 1.84 - 7.80 K/uL 07/23/2024 1:23 AM [facility] Lymphocyte Number 1.73 0.72 - 5.20 K/uL 07/23/2024 1:23 AM [facility] Monocyte # 0.74 0.12 - 1.00 K/uL 07/23/2024 1:23 AM [facility] Eosinophil Absolute Auto 0.01 <=0.60 K/uL 07/23/2024 1:23 AM CATCHER FILTER TIP [facility] Basophil Absolute Auto 0.02 <=0.30 K/uL 07/23/2024 1:23 AM CATCHER FILTER TIP [facility] Immature Gran Absolute Cnt 0.02 <=0.15 K/uL 07/23/2024 1:23 AM CATCHER FILTER TIP [facility] Blood VENOUS BLOOD / Unknown Venipuncture / Unknown 07/23/2024 12:47 AM CATCHER FILTER TIP 07/23/2024 12:47 AM CATCHER FILTER TIP Che Lassiter MD LAB BLOOD ORDERABLES Final R esult Performing Organization Address [facility] Co de Phone Number [facility] [address] [place] [address] * Hepatitis C Virus Antibody (07/23/2024 12:44 AM CATCHER FILTER TIP) Hepatitis C Virus Antibody Not Detected Not Detected 07/23/2024 1:40 AM CATCHER FILTER TIP [facility] Blood VENOUS BLOOD / Unknown Venipuncture / Unknown 07/23/2024 12:44 AM CATCHER FILTER TIP 07/23/2024 12:44 AM CATCHER FILTER TIP Narrative [facility] - 07/23/2024 1:40 AM CATCHER FILTER TIP Antibodies to HCV not detected. This does not exclude the possibility of exposure to HCV. us Che Lassiter MD LAB BLOOD ORDERABLES Final R esult Performing Organization Address [facility] Co de Phone Number [facility] [address] [place] [address] from Last [address] [place] [address] [address] Care Teams Musical Instrument Maker Or Repairer Relationship Specialty Start Date End Date Stephanie Morin MD [address] [place] [address] PCP - General Internal Medicine 11/24/22 [facility] [address] [place] [address] PCP - Medical Home 01/29/23
--- OUTSIDE RECORDS SUMMARY | 2024-08-25 11:46 | XMS_ITS | Encounter Summary ---
Author Organization [facility] Address [address] [place] [address] Care Team Providers Care Concrete Pointer Name Role Phone Stephanie Morin MD Primary Care Provider [phone] [facility], [facility] Unavailable Aurelio Pascal RN Unavailable Unavailable Laura Santos RN Unavailable Encounter Details Date Type Department Care Team (Late st Contact Info) Description 01/24/2023 Orders Only [facility] Internal Medicine [facility] [address] [place] [address] Stephanie Morin MD [address] [place] [address] H. pylori infection (Primary Dx) Social History Tobacco Use Types Packs/Day Years Used Date Smoking Tobacco: Never Passive Smoke Exposure: Never Smokeless Tobacco: Never Alcohol Use Standard Drinks/Week Comments Never 0 (1 standard drink = 0.6 oz pur e alcohol) Sex and Gender Information Value Date Recorded Sex Assigned at Male 07/18/2023 6:40 PM HORSE FARM MANAGER Legal Sex Male 8:35 AM CDT Gender Identity Male 07/18/2023 6:40 PM HORSE FARM MANAGER Sexual Orientation Straight 07/18/2023 6: 40 PM HORSE FARM MANAGER documented as of this encounter Plan of Treatment Not on file documented as of this encounter Results * Helico Pylori Ag (02/05/2023 9:38 AM CDT) H. PYLORI SPECIFIC ANTIGEN Helicobacter pylori antigen not detected. [facility] STOOL SPECIMEN / Unknown 02/05/2023 9:38 AM CDT 02/05/2023 2:31 PM CDT Stephanie Morin MD LAB MICRO GENERAL ORDERABLE F inal Result [facility] [address] [place] [address] documented in this encounter Visit Diagnoses Diagnosis H. pylori infection- Primary Helicobacter pylori (H. pylori) documented in this encounter Additional Health Concerns Assessment Noted Time PHQ-2 Depression Total Score: 0 11/24/19 2:23 PM CDT documented as of this encounter Care Teams Concrete Pointer Relationship Specialty Start Date End Date Stephanie Morin MD [address] [place] [address] PCP - General Internal Medicine 11/24/22 [facility] [address] [place] [address] PCP - Medical Home 01/29/23 Aurelio Pastor, RN Registered Nurse 05/14/24 05/14/24 Laura Santos, GOYO [address] [facility] [address] [place] [address] Mosaic Worker (Primary) Registered Nurse 06/13/2406/13 documented as of this encounter
--- OUTSIDE RECORDS SUMMARY | 2024-08-25 11:46 | XMS_ITS | Clinical Summary ---
Author Organization [facility] Address [address] [place] [id number] Care Team Providers Care Interface Engineer Name Role Phone Pcp, Verify Primary Care [...] age to complete this topic Care Teams Interface Engineer Relationship Specialty Start Date End Date Pcp, Verify PCP - General 11/23/22
--- OUTSIDE RECORDS SUMMARY | 2024-08-25 11:46 | XMS_ITS | Referral Summary ---
Author Organization [facility] Address [address] [place] [address] Care Team Providers Care Reporting Lead Name Role Phone Pcp, Verify Primary Care [...] of Treatment Not on file Care Teams Reporting Lead Relationship Specialty Start Date End Date Pcp, Verify PCP - General 11/23/22
--- OUTSIDE RECORDS SUMMARY | 2024-08-25 14:09 | XMS_ITS | Clinical Summary ---
Author Organization [facility] Address [address] [place] [address] Care Team Providers Care Shingle Catcher Name Role Phone Pcp, Verify Primary Care [...] age to complete this topic Care Teams Shingle Catcher Relationship Specialty Start Date End Date Pcp, Verify PCP - General 11/23/22
--- OUTSIDE RECORDS SUMMARY | 2024-08-25 14:09 | XMS_ITS | Encounter Summary ---
Author Organization [facility] Address [address] [place] [address] Care Team Providers Care Airframe And Powerplant Mechanic Name Role Phone Stephanie Morin MD Primary Care Provider [phone] [facility], [facility] Unavailable Aurelio Pascal RN Unavailable Unavailable Laura Santos RN Unavailable [phone] Encounter Details Date Type Department Care Team (Late st Contact Info) Description 01/24/2023 Orders Only [facility] Primary Care Internal Medicine [facility] [address] [place] [address] Stephanie Morin MD [address] [place] [address] H. pylori infection (Primary Dx) Social History Tobacco Use Types Packs/Day Years Used Date Smoking Tobacco: Never Passive Smoke Exposure: Never Smokeless Tobacco: Never Alcohol Use Standard Drinks/Week Comments Never 0 (1 standard drink = 0.6 oz pur e alcohol) Sex and Gender Information Value Date Recorded Sex Assigned at Male 07/18/2023 6:40 PM WASTE WATER WORKER Legal Sex Male 8:35 AM CDT Gender Identity Male 07/18/2023 6:40 PM WASTE WATER WORKER Sexual Orientation Straight 07/18/2023 6: 40 PM WASTE WATER WORKER documented as of this encounter Plan of Treatment Not on file documented as of this encounter Results * Helico Pylori Ag (02/05/2023 9:38 AM CDT) H. PYLORI SPECIFIC ANTIGEN Helicobacter pylori antigen not detected. [facility] STOOL SPECIMEN / Unknown 02/05/2023 9:38 AM CDT 02/05/2023 2:31 PM CDT Stephanie Morin MD LAB MICRO GENERAL ORDERABLE F inal Result [facility] [address] [place] [address] documented in this encounter Visit Diagnoses Diagnosis H. pylori infection- Primary Helicobacter pylori (H. pylori) documented in this encounter Additional Health Concerns Assessment Noted Time PHQ-2 Depression Total Score: 0 11/24/19 2:23 PM CDT documented as of this encounter Care Teams Airframe And Powerplant Mechanic Relationship Specialty Start Date End Date Stephanie Morin MD [address] [place] [address] PCP - General Internal Medicine 11/24/22 [facility] [address] [place] [address] PCP - Medical Home 01/29/23 Aurelio Pastor, RN Registered Nurse 05/14/24 05/14/24 Laura Santos, GOYO [address] [facility] [address] [place] [address] Pants Busheler (Primary) Registered Nurse 06/13/2406/13 documented as of this encounter
--- OUTSIDE RECORDS SUMMARY | 2024-08-25 14:09 | XMS_ITS | Referral Summary ---
Author Organization [facility] Address [address] [place] [address] Care Team Providers Care Photographer Apprentice Lithographic Name Role Phone Stephanie Morin MD Primary Care Provider [phone] Network, [facility] Unavailable Unavai lable Encounters Date Type Department Care Team Description 07/22/2024 10:08 PM WINDOW COVERING SALES CONSULTANT - 07/22/2024 11:18 PM [facility] Emergency Emergency Room [address] [facility] [address] [place] [address] Che Lassiter MD Discharge Disposition: Left ED Without Being Seen 06/20/2024 Travel 06/13/2024 Patient Outreach [facility] [address] [facility] [place] [address] Laura Santos, RN Determine Risk Level for [...] Immunization Administration Dates Next Due COVID-19 (PF)VACCINE ([id number]-[id number] 30MCG/0.3 ml INJECTION 02/02/2021 Covid-19 (PF)VACCINE ([employer]/Point Blank Range-[id number] 10MCG/0.2 ml INJECTION 02/23/2021 Scndexixdx-oeigshw-ofcsdacwd Pertussis (DTaP) Injection 03/05/2010,07/01/2006,05/03/2005,02/22,2004 Gardasil 9 - [...] Formulation 03/02/2006,05/03/2005,02/22/2005,12/24 Td (Adult), Unspecified Formula 02/24/2016,01/26 Rursruf-Ttfdvgdlsl-Liuxsrwsa Pertussis (Tdap) Injection 02/24/2016,01/27/2016 Varicella 08/13/2009,03/02/2006 hepatitis [...] Sex Assigned at Male 07/18/2023 6:40 PM WINDOW COVERING SALES CONSULTANT Legal Sex Male 8:35 AM CDT Gender Identity Male 07/18/2023 6:40 PM WINDOW COVERING SALES CONSULTANT Sexual Orientation Straight 07/18/2023 6: 40 PM WINDOW COVERING SALES CONSULTANT Last Filed Vital Signs Vital Sign Reading Time Taken Comments Blood Pressure 118/63 07/22/2024 10:15 PM WINDOW COVERING SALES CONSULTANT Pulse 90 07/22/2024 10:15 PM WINDOW COVERING SALES CONSULTANT Temperature 36.6 ??C (97.9 ??F) 07/22/2024 10:[address] Respiratory Rate 18 07/22/2024 10:15 PM WINDOW COVERING SALES CONSULTANT Oxygen Saturation 99% 07/22/2024 10:15 PM WINDOW COVERING SALES CONSULTANT Inhaled Oxygen Concentration - - Weight 59.6 kg (131 lb 6.3 oz) 07/22/2024 10:15 PM WINDOW COVERING SALES CONSULTANT Height 182.9 cm (6') 07/22/2024 10:15 PM WINDOW COVERING SALES CONSULTANT Body Mass Index 17.82 07/22/2024 10:15 PM WINDOW COVERING SALES CONSULTANT Plan of Treatment Not on file Procedures Procedure Name Priority Date/Time Associated Diagnosis Comments LIPASE STAT 07/23/2024 1:06 AM WINDOW COVERING SALES CONSULTANT COMPREHENSIVE METABOLIC PANEL STAT 07/23/2024 1:06 AM WINDOW COVERING SALES CONSULTANT CBC WITH DIFFERENTIAL STAT 07/23/2024 12:47 AM WINDOW COVERING SALES CONSULTANT HEPATITIS C VIRUS ANTIBODY Routine 07/23/2024 12:44 AM WINDOW COVERING SALES CONSULTANT from Last 3 Months Results * Lipase (07/23/2024 1:06 AM WINDOW COVERING SALES CONSULTANT) Lipase 24 <=60 U/L 07/23/2024 1:3 1 AM WINDOW COVERING SALES CONSULTANT [facility] Blood VENOUS BLOOD / Unknown Venipuncture / Unknown 07/23/2024 1:06 AM WINDOW COVERING SALES CONSULTANT 07/23/2024 1:06 AM WINDOW COVERING SALES CONSULTANT Che Lassiter MD LAB BLOOD ORDERABLES Final R esult [facility] [address] [phone] * (ABNORMAL) Comprehensive Metabolic Panel (07/23/2024 1:06 AM WINDOW COVERING SALES CONSULTANT) [facility] Sodium 139 137 - 147 mmol/L 07/23/2024 1:[address] [facility] Potassium 4.6 3.4 - 5.3 mmol/L 07/23/2024 1:31 AM [facility] Comment: -HEMSL Specimen is moderately hemolyzed. In vitro hemolysis may falsely increase results for this analyte. Interpret with caution. Chloride 108 99 - 108 mmol/L 07/23/2024 1:31 AM [facility] CO2 Total 21(L) 22 - 29 mmol/L 07/23/2024 1:31 AM [facility] Anion Gap 10 8 - 16 07/23/2024 1:31 AM [facility] BUN 6(L) 8 - 21 mg/dL 07/23/2024 1:31 AM [facility] Creatinine 0.64(L) 0.75 - 1.20 mg/dL 07/23/2024 1:31 AM [facility] BUN/Creat Ratio 9.4 8.0 - 25.0 1:31 AM [facility] EGFR >90 07/23/2024 1:31 AM [facility] Glucose 102(H) 74 - 100 mg/dL 07/23/2024 1:31 AM [facility] Total Protein 6.9 6.0 - 8.2 g/dL 07/23/2024 1:31 AM [facility] Albumin 3.1(L) 3.5 - 5.0 g/dL 07/23/2024 1:31 AM [facility] Calcium 8.7(L) 9.1 - 11.2 mg/dL 07/23/2024 1:31 AM [facility] Calcium (Adjusted) 9.4 9.1 - 11.2 mg/dL 07/23/2024 1:31 AM [facility] Comment:Calcium result adjus savannah for serum albumin concentration. Suggest confirmation of calcium status with an ionized calcium, if clinically indicated. Bilirubin, Total 0.1(L) 0.2 - 1.3 mg/dL 07/23/2024 1:31 AM [facility] Alkaline Phosphatase 59 30 - 125 U/L 07/23/2024 1:31 AM WINDOW COVERING SALES CONSULTANT [facility] AST 23 3 - 44 U/L 07/23/2024 1:[address] [facility] Comment: -HEMSL Specimen is moderately hemolyzed. In vitro hemolysis may falsely increase results for this analyte. Interpret with caution. ALT 10 0 - 40 U/L 07/23/2024 1:[address] [facility] Blood VENOUS BLOOD / Unknown Venipuncture / Unknown 07/23/2024 1:06 AM WINDOW COVERING SALES CONSULTANT 07/23/2024 1:06 AM WINDOW COVERING SALES CONSULTANT Narrative [facility] - 07/23/2024 1:31 AM WINDOW COVERING SALES CONSULTANT ESTIMATED GLOMERULAR FILTRATION RATE INTERPRETATIONS FOR ALL PATIENTS eGFR Value Interpretation Units are mL/min/1.73 sq m. <15 Kidney Failure 15-29 Severely decreased 30-44 Moderately to severely decreased 40-59 Mildly to moderately decreased 60-89 Mildly decreased >=90 Normal or high Not Applicable for ages <18 The GFR estimate (eGFR) is calculated using the 2020 CKD-EPI creatinine formula. (Please visit [email or web address] for more information.) The equation has not been validated for use in women, patients with serious comorbid conditions, or persons with extremes of body size, muscle mass or nutritional status. us Che Lassiter MD LAB BLOOD ORDERABLES Final R esult [facility] [address] [phone] * (ABNORMAL) CBC With Differential (07/23/2024 12:47 AM WINDOW COVERING SALES CONSULTANT) [facility] White Blood Count 7.68 4.00 - 10.00 K/uL 07/23/2024 1:[address] [facility] Red Blood Cell Count 3.64(L) 4.50 - 5.90 M/uL 07/23/2024 1:[address] [facility] Hemoglobin 9.2(L) 13.5 - 17.5 g/dL 07/23/2024 1:[address] [facility] Hematocrit 30.5(L) 42.0 - 54.0 % 07/23/2024 1:[address] [facility] MCV 83.8 82.0 - 103.0 fL 07/23/2024 1:23 AM [facility] MCH 25.3(L) 26.0 - 34.0 pg 07/23/2024 1:23 AM [facility] MCHC 30.2 30.0 - 37.0 g/dL 07/23/2024 1:23 AM [facility] Red Cell Distribution Width 19.7(H) 11.5 - 14.5 % 07/23/2024 1:23 AM [facility] Platelet Count 451(H) 150 - 399 K/uL 07/23/2024 1:23 AM [facility] Mean Platelet Volume 9.8 8.3 - 12.3 fL 07/23/2024 1:23 AM [facility] Preliminary Absolute Neutrophil Count 5.16 1.84 - 7.80 K/uL 07/23/2024 1:23 AM [facility] Nucleated Red Blood Cells 0 <=0 /100 WBC 07/23/2024 1:23 AM [facility] Segmented Neutrophils 67.2 36.0 - 72.0 % 07/23/2024 1:23 AM [facility] Lymphocytes 22.5 18.0 - 52.0 % 07/23/2024 1:23 AM [facility] Monocytes 9.6 3.0 - 10.0 % 07/23/2024 1:23 AM [facility] Eosinophils 0.1 0.0 - 6.0 % 07/23/2024 1:23 AM [facility] Basophils 0.3 <=3.0 % 07/23/2024 1:23 AM [facility] Immature Gran Percent 0.3 <=1.5 % 07/23/2024 1:23 AM [facility] Neutrophil Auto # 5.16 1.84 - 7.80 K/uL 07/23/2024 1:23 AM [facility] Lymphocyte Number 1.73 0.72 - 5.20 K/uL 07/23/2024 1:23 AM [facility] Monocyte # 0.74 0.12 - 1.00 K/uL 07/23/2024 1:23 AM [facility] Eosinophil Absolute Auto 0.01 <=0.60 K/uL 07/23/2024 1:23 AM WINDOW COVERING SALES CONSULTANT [facility] Basophil Absolute Auto 0.02 <=0.30 K/uL 07/23/2024 1:23 AM WINDOW COVERING SALES CONSULTANT [facility] Immature Gran Absolute Cnt 0.02 <=0.15 K/uL 07/23/2024 1:23 AM WINDOW COVERING SALES CONSULTANT [facility] Blood VENOUS BLOOD / Unknown Venipuncture / Unknown 07/23/2024 12:47 AM WINDOW COVERING SALES CONSULTANT 07/23/2024 12:47 AM WINDOW COVERING SALES CONSULTANT Che Lassiter MD LAB BLOOD ORDERABLES Final R esult Performing Organization Address [facility] Co de Phone Number [facility] [address] [place] [address] * Hepatitis C Virus Antibody (07/23/2024 12:44 AM WINDOW COVERING SALES CONSULTANT) Hepatitis C Virus Antibody Not Detected Not Detected 07/23/2024 1:40 AM WINDOW COVERING SALES CONSULTANT [facility] Blood VENOUS BLOOD / Unknown Venipuncture / Unknown 07/23/2024 12:44 AM WINDOW COVERING SALES CONSULTANT 07/23/2024 12:44 AM WINDOW COVERING SALES CONSULTANT Narrative [facility] - 07/23/2024 1:40 AM WINDOW COVERING SALES CONSULTANT Antibodies to HCV not detected. This does not exclude the possibility of exposure to HCV. us Che Lassiter MD LAB BLOOD ORDERABLES Final R esult Performing Organization Address [facility] Co de Phone Number [facility] [address] [place] [address] from Last [address] [place] [address] [place] [address] Care Teams Photographer Apprentice Lithographic Relationship Specialty Start Date End Date Stephanie Morin MD [address] [place] [address] PCP - General Internal Medicine 11/24/[address] [facility] [address] [place] [address] PCP - Medical Home 01/29/23
--- OUTSIDE RECORDS SUMMARY | 2024-08-25 14:09 | XMS_ITS | Referral Summary ---
Author Organization [facility] Address [address] [place] [id number] Care Team Providers Care Biology Faculty Member Name Role Phone Pcp, Verify Primary Care [...] of Treatment Not on file Care Teams Biology Faculty Member Relationship Specialty Start Date End Date Pcp, Verify PCP - General 11/23/22
--- OUTSIDE RECORDS SUMMARY | 2024-08-25 14:09 | XMS_ITS | Clinical Summary ---
Author Organization [facility] Address [address] [place] [address] Care Team Providers Care Court Collections Officer Name Role Phone Stephanie Morin MD Primary Care Provider [phone] Network, [facility] Unavailable Unavai lable Allergies [...] Department Care Team Description 07/22/2024 10:08 PM REAL ESTATE BRANCH MANAGER - 07/22/2024 11:18 PM [facility] Emergency Emergency Room [address] [facility] [address] [place] [address] Che Lassiter MD Discharge Disposition: Left ED Without Being Seen 06/20/2024 Travel 06/13/2024 Patient Outreach [facility] Construction Worker Management [address] [facility] [address] [place] [address] Laura Santos, RN Determine Risk Level for Transition of Care, Offer to schedule appointment within 7 days of discharge for Transition of Care, Med Reconciliation within 7 days of discharge for Transition of Care, Inpatient Post-Discharge 48 Hour Follow Up Assessment for Transition of Care from Last 3 Months Immunizations Immunization Administration Dates Next Due COVID-19 (PF)VACCINE ([employer]/Abacast-[id number] 30MCG/0.3 ml INJECTION 02/02/2021 Covid-19 (PF)VACCINE ([employer]/MRNA-[id number] 10MCG/0.2 ml INJECTION 02/23/2021 Tqksgfgniz-xezdtkb-srfonkbip Pertussis (DTaP) Injection 03/05/2010,07/01/2006,05/03/2005,02/22,2004 Gardasil 9 - [...] Formulation 03/02/2006,05/03/2005,02/22/2005,12/24 Td (Adult), Unspecified Formula 02/24/2016,01/26 Mjcscrc-Ovubbzjacj-Kglnfzqid Pertussis (Tdap) Injection 02/24/2016,01/27/2016 Varicella 08/13/2009,03/02/2006 hepatitis [...] Sex Assigned at Male 07/18/2023 6:40 PM REAL ESTATE BRANCH MANAGER Legal Sex Male 8:35 AM CDT Gender Identity Male 07/18/2023 6:40 PM REAL ESTATE BRANCH MANAGER Sexual Orientation Straight 07/18/2023 6: 40 PM REAL ESTATE BRANCH MANAGER Last Filed Vital Signs Vital Sign Reading Time Taken Comments Blood Pressure 118/63 07/22/2024 10:15 PM REAL ESTATE BRANCH MANAGER Pulse 90 07/22/2024 10:15 PM REAL ESTATE BRANCH MANAGER Temperature 36.6 ??C (97.9 ??F) 07/22/2024 10:[address] Respiratory Rate 18 07/22/2024 10:15 PM REAL ESTATE BRANCH MANAGER Oxygen Saturation 99% 07/22/2024 10:15 PM REAL ESTATE BRANCH MANAGER Inhaled Oxygen Concentration - - Weight 59.6 kg (131 lb 6.3 oz) 07/22/2024 10:15 PM REAL ESTATE BRANCH MANAGER Height 182.9 cm (6') 07/22/2024 10:15 PM REAL ESTATE BRANCH MANAGER Body Mass Index 17.82 07/22/2024 10:15 PM REAL ESTATE BRANCH MANAGER Plan of Treatment Health Maintenance Due [...] Diagnosis Comments LIPASE STAT 07/23/2024 1:06 AM REAL ESTATE BRANCH MANAGER COMPREHENSIVE METABOLIC PANEL STAT 07/23/2024 1:06 AM REAL ESTATE BRANCH MANAGER CBC WITH DIFFERENTIAL STAT 07/23/2024 12:47 AM REAL ESTATE BRANCH MANAGER HEPATITIS C VIRUS ANTIBODY Routine 07/23/2024 12:44 AM REAL ESTATE BRANCH MANAGER from Last 3 Months Results * Lipase (07/23/2024 1:06 AM REAL ESTATE BRANCH MANAGER) Lipase 24 <=60 U/L 07/23/2024 1:3 1 AM REAL ESTATE BRANCH MANAGER [facility] Blood VENOUS BLOOD / Unknown Venipuncture / Unknown 07/23/2024 1:06 AM REAL ESTATE BRANCH MANAGER 07/23/2024 1:06 AM REAL ESTATE BRANCH MANAGER Che Lassiter MD LAB BLOOD ORDERABLES Final R esult [facility] [address] [phone] * (ABNORMAL) Comprehensive Metabolic Panel (07/23/2024 1:06 AM REAL ESTATE BRANCH MANAGER) Pathologist [facility] Sodium 139 137 - 147 mmol/L 07/23/2024 1:31 AM REAL ESTATE BRANCH MANAGER [facility] Potassium 4.6 3.4 - 5.3 mmol/L 07/23/2024 1:[address] [facility] Comment: -HEMSL Specimen is moderately hemolyzed. In vitro hemolysis may falsely increase results for this analyte. Interpret with caution. Chloride 108 99 - 108 mmol/L 07/23/2024 1:31 AM REAL ESTATE BRANCH MANAGER [facility] CO2 Total 21(L) 22 - 29 mmol/L 07/23/2024 1:31 AM REAL ESTATE BRANCH MANAGER [facility] Anion Gap 10 8 - 16 07/23/2024 1:[address] [facility] BUN 6(L) 8 - 21 mg/dL 07/23/2024 1:[address] [facility] Creatinine 0.64(L) 0.75 - 1.20 mg/dL 07/23/2024 1:31 AM [facility] BUN/Creat Ratio 9.4 8.0 - 25.0 1:[address] [facility] EGFR >90 07/23/2024 1:31 AM [facility] Glucose 102(H) 74 - 100 mg/dL 07/23/2024 1:31 AM [facility] Total Protein 6.9 6.0 - 8.2 g/dL 07/23/2024 1:31 AM [facility] Albumin 3.1(L) 3.5 - 5.0 g/dL 07/23/2024 1:[address] [facility] Calcium 8.7(L) 9.1 - 11.2 mg/dL 07/23/2024 1:31 AM [facility] Calcium (Adjusted) 9.4 9.1 - 11.2 mg/dL 07/23/2024 1:31 AM [facility] Comment:Calcium result adjus savannah for serum albumin concentration. Suggest confirmation of calcium status with an ionized calcium, if clinically indicated. Bilirubin, Total 0.1(L) 0.2 - 1.3 mg/dL 07/23/2024 1:31 AM [facility] Alkaline Phosphatase 59 30 - 125 U/L 07/23/2024 1:31 AM [facility] AST 23 3 - 44 U/L 07/23/2024 1:31 AM [facility] Comment: -HEMSL Specimen is moderately hemolyzed. In vitro hemolysis may falsely increase results for this analyte. Interpret with caution. ALT 10 0 - 40 U/L 07/23/2024 1:31 AM [facility] Blood VENOUS BLOOD / Unknown Venipuncture / Unknown 07/23/2024 1:06 AM REAL ESTATE BRANCH MANAGER 07/23/2024 1:06 AM REAL ESTATE BRANCH MANAGER Narrative [facility] - 07/23/2024 1:31 AM REAL ESTATE BRANCH MANAGER ESTIMATED GLOMERULAR FILTRATION RATE INTERPRETATIONS FOR ALL PATIENTS eGFR Value Interpretation Units are mL/min/1.73 sq m. <15 Kidney Failure 15-29 Severely decreased 30-44 Moderately to severely decreased 40-59 Mildly to moderately decreased 60-89 Mildly decreased >=90 Normal or high Not Applicable for ages <18 The GFR estimate (eGFR) is calculated using the 2020 CKD-EPI creatinine formula. (Please visit [email or web address] for more information.) The equation has not been validated for use in women, patients with serious comorbid conditions, or persons with extremes of body size, muscle mass or nutritional status. us Che Lassiter MD LAB BLOOD ORDERABLES Final R esult [facility] [address] [phone] * (ABNORMAL) CBC With Differential (07/23/2024 12:47 AM REAL ESTATE BRANCH MANAGER) White Blood Count 7.68 4.00 - 10.00 K/uL 07/23/2024 1:23 AM [facility] Red Blood Cell Count 3.64(L) 4.50 - 5.90 M/uL 07/23/2024 1:23 AM [facility] Hemoglobin 9.2(L) 13.5 - 17.5 g/dL 07/23/2024 1:23 AM [facility] Hematocrit 30.5(L) 42.0 - 54.0 % 07/23/2024 1:23 AM [facility] MCV 83.8 82.0 - 103.0 fL 07/23/2024 1:23 AM [facility] MCH 25.3(L) 26.0 - 34.0 pg 07/23/2024 1:23 AM [facility] MCHC 30.2 30.0 - 37.0 g/dL 07/23/2024 1:23 AM [facility] Red Cell Distribution Width 19.7(H) 11.5 - 14.5 % 07/23/2024 1:23 AM [facility] Platelet Count 451(H) 150 - 399 K/uL 07/23/2024 1:23 AM [facility] Mean Platelet Volume 9.8 8.3 - 12.3 fL 07/23/2024 1:23 AM [facility] Preliminary Absolute Neutrophil Count 5.16 1.84 - 7.80 K/uL 07/23/2024 1:23 AM [facility] Nucleated Red Blood Cells 0 <=0 /100 WBC 07/23/2024 1:23 AM [facility] Segmented Neutrophils 67.2 36.0 - 72.0 % 07/23/2024 1:23 AM [facility] Lymphocytes 22.5 18.0 - 52.0 % 07/23/2024 1:23 AM [facility] Monocytes 9.6 3.0 - 10.0 % 07/23/2024 1:23 AM [facility] Eosinophils 0.1 0.0 - 6.0 % 07/23/2024 1:23 AM [facility] Basophils 0.3 <=3.0 % 07/23/2024 1:23 AM [facility] Immature Gran Percent 0.3 <=1.5 % 07/23/2024 1:23 AM [facility] Neutrophil Auto # 5.16 1.84 - 7.80 K/uL 07/23/2024 1:23 AM [facility] Lymphocyte Number 1.73 0.72 - 5.20 K/uL 07/23/2024 1:23 AM [facility] Monocyte # 0.74 0.12 - 1.00 K/uL 07/23/2024 1:23 AM [facility] Eosinophil Absolute Auto 0.01 <=0.60 K/uL 07/23/2024 1:23 AM [facility] Basophil Absolute Auto 0.02 <=0.30 K/uL 07/23/2024 1:23 AM [facility] Immature Gran Absolute Cnt 0.02 <=0.15 K/uL 07/23/2024 1:23 AM [facility] Blood VENOUS BLOOD / Unknown Venipuncture / Unknown 07/23/2024 12:47 AM [facility] 07/23/2024 12:47 AM [facility] us Che Lassiter MD LAB BLOOD ORDERABLES Final R esult [facility] [address] [address], [facility] [phone] * Hepatitis C Virus Antibody (07/23/2024 12:44 AM [facility]) Hepatitis C Virus Antibody Not Detected Not Detected 07/23/2024 1:40 AM REAL ESTATE BRANCH MANAGER [facility] Blood VENOUS BLOOD / Unknown Venipuncture / Unknown 07/23/2024 12:44 AM REAL ESTATE BRANCH MANAGER 07/23/2024 12:44 AM REAL ESTATE BRANCH MANAGER Narrative [facility] - 07/23/2024 1:40 AM REAL ESTATE BRANCH MANAGER Antibodies to HCV not detected. This does not exclude the possibility of exposure to HCV. us Che Lassiter MD LAB BLOOD ORDERABLES Final R esult [facility] [address] [address], [facility] [phone] from Last 3 Months Insurance [employer] Care Teams Court Collections Officer Relationship Specialty Start Date End Date Stephanie Morin MD [address] [place] [address] PCP - General Internal Medicine 11/24/22 [facility] [address] [place] [address] PCP - Medical Home 01/29/23
[2024-08-25 14:45] LABS: Basophils Percent Auto 0.2 % (0.2-1.2); Eosinophils Percent Auto 0.2 % (0-4.4); Hematocrit 45.7 % (42.0-52.0); Hemoglobin 13.9 g/dL (14.0-18.0); Immature Granulocyte Absolute 0.05 K/mm3 (0.00-0.031); Immature Granulocyte Percent A 0.4 % (0-0.5); Lymphocytes Absolute Auto 1.76 K/mm3 (0.9-3.2); Lymphocytes Percent Auto 12.4 % (18.3-44.2); Mean Corpuscular HGB Conc 30.4 g/dl (32-36); Mean Corpuscular Hemoglobin 27.1 pg (26-34); Mean Corpuscular Volume 89.1 fl (80-100); Mean Platelet Volume 8.9 fl (7.4-10.4); Monocytes Absolute Auto 1.5 K/mm3 (0.1-0.6); Monocytes Percent Auto 10.5 % (2.6-8.5); Neutrophils Absolute Auto 10.9 K/mm3 (1.3-6.7); Neutrophils Percent Auto 76.3 % (45.5-73.1); Platelet Count Result 501 k/mm3 (150-375); Red Blood Count 5.13 M/mm3 (4.6-6.20); Red Cell Distribution Width 23.8 % (11.5-14.5); White Blood Count 14.3 K/mm3 (4.5-10.0)
[2024-08-25 14:57] LABS: Alanine Aminotransferase 14 U/L (6-50); Albumin Level 4.8 g/dL (3.7-5.6); Alkaline Phosphatase 79 U/L (58-237); Anion Gap 13 mmol/L (4-12); Aspartate Amino Transferase 17 U/L (17-59); Bilirubin,Total 0.9 mg/dL (0.2-1.3); Blood Urea Nitrogen 21 mg/dL (8-21); Calcium 9.6 mg/dL (8.9-10.7); Carbon Dioxide 29 mmol/L (22-30); Chloride 96 mmol/L (98-107); Estimated CRCL calculation 102 ml/min; Estimated Glomerular Filt Rate > 60; Glucose 103 mg/dL (65-110); Lipase 67 U/L (23-300); Sodium 138 mmol/L (134-143)
[2024-08-25 15:04] LABS: Anisocytosis 1+; Burr Cells 1+; Platelet Estimate Increased (Adequate); Schistocytes None Seen
[2024-08-25 15:14] LABS: Add Urine Microscopic? YES; Appearance Urine Clear (Clear); Bilirubin Urine 2+ (Negative); Blood Urine 2+ (Negative); Color Urine Dark Yellow (Yellow); Glucose Urine UA Negative (Negative); Ketones Urine Negative (Negative); Leukocyte Esterase Ur Negative LEU/UL (Negative); Nitrate Urine Negative (Negative); Protein Urine Trace mg/dL (Negative); Specific Grav Ur 1.039 (1.001-1.035)
[2024-08-25 15:26] LABS: Bacteria Urine Rare /hpf; Squamous Epithelial Cell Urine Few /hpf (Few); WBC Urine 0-3 /hpf (0-3)
[2024-08-25] MEDS: ONDANSETRON INJ 4 MG/2 ML VIAL IV PUSH (15:28)
[2024-08-25] MEDS: SODIUM CHLORIDE 0.9% IV 1,000 ML 999 ML IV CONT ×2 (15:46→17:09)
--- NOTE | 2024-08-25 16:17 | ED.ABDPAIN ---
HPI - Abdominal Pain General Chief Complaint: Abdominal Pain <AGNIESZKA Valiente Last Filed: 08/26/24 02:54> Stated Complaint: ABD PAIN X1D <AGNIESZKA Valiente Last Filed: 08/26/24 02:54> Time Seen by Provider: 08/25/24 14:02 <AGNIESZKA Valiente Last Filed: 08/26/24 02:54> Source: patient <Tamela AGNIESZKA Zapata Last Filed: 08/26/24 02:54> Mode of arrival: ambulatory <AGNIESZKA Valiente Last Filed: 08/26/24 02:54> Limitations: no limitations <AGNIESZKA Valiente Last Filed: 08/26/24 02:54> History of Present Illness HPI narrative: This is a 18-year-old male that presents to the emergency department for abdominal pain, nausea vomiting. Ongoing since this morning. History of Crohn's disease and small-bowel obstructions. Denies fevers. <AGNIESZKA Valiente Last Filed: 08/26/24 02:54> Related Data Home Medications: Home Medications ?Medication ?Instructions ?Recorded ?Confirmed ?Last Taken ?Type acetaminophen 500 mg capsule 1,000 mg PO Q4-6H PRN pain 08/09/24 08/25/24 07/25/24 History <AGNIESZKA Valiente Last Filed: 08/26/24 02:54> Allergies/Adverse Reactions: Allergies Allergy/AdvReac Type Severity Reaction Status Date / Time No Known Allergies Allergy Verified 08/25/24 11:44 <AGNIESZKA Valiente Last Filed: 08/26/24 02:54> Review of Systems Review of Systems: CONSTITUTIONAL: Denies fever GASTROINTESTINAL: Reports abdominal pain, nausea, vomiting <AGNIESZKA Valiente Last Filed: 08/26/24 02:54> All systems reviewed & are unremarkable except as noted in HPI and below <AGNIESZKA Valiente Last Filed: 08/26/24 02:54> [facility] Past Medical History Medical History: Medical History (Updated 08/31/24 @ 13:52 by SALMA Barr) Leukocytosis Crohn's disease LULU (iron deficiency anemia) SBO (small bowel obstruction) <Tamela Nowak PA-C - Last Filed: 08/26/24 02:54> Family History Family History: Family History Other Unknown family medical history <Tamela Nowak PA-C - Last Filed: 08/26/24 02:54> Social History Social History: Social History Smoking status: Never smoker Second hand tobacco smoke exposure: No Alcohol intake: never Substance use: never Substance use type: does not use Do You Feel Safe in your Home?: Yes Lack of Transportation: No Lack of Food: Never True Current Housing: I Have Housing Concerned About Future Housing: No Difficulty Paying Gas/Electric Bills: No Difficulty Paying for Meds: No Currently Unemployed: No Education: Bachelor's Degree Difficulty w/ Childcare or Family Care: No Living arrangements: with roommate(s) Occupation/Education: student Gender identity (if verbalized by the patient): Male Sexual Orientation (if Verbalized by the Patient): Straight or Heterosexual Spiritual care concerns: No Agree to blood products: Yes <Tamela Nowak PA-C - Last Filed: 08/26/24 02:54> Exam Narrative: GENERAL: Uncomfortable, well-nourished, and in no acute distress. HEAD: Normocephalic, atraumatic. EYES: EOMI. CHEST: Clear to auscultation. No respiratory distress. No wheezes rales or rhonchi HEART: Regular rate and rhythm. No murmur heard. Normal peripheral pulses. ABDOMEN: Tender to palpation throughout the abdomen, nondistended, hypoactive bowel sounds. EXTREMITIES: Normal range of motion. No edema. SKIN: Warm, dry, no rash. NEURO: No focal deficits. Alert and oriented x3. PSYCH: Normal mood and affect <AGNIESZKA Valiente Last Filed: 08/26/24 02:54> Course Course Emergency Course: Patient updated on his workup and need for admission <AGNIESZKA Valiente Filed: 08/26/24 02:54> NEW ACCOUNTS BANKING REPRESENTATIVE/PA Physician Supervision For this patient encounter, I reviewed the NEW ACCOUNTS BANKING REPRESENTATIVE or PA documentation, treatment plan, and medical decision making; and I had [id number] time with this patient. <Ba Reyna MD - Last Filed: 09/01/24 07:44> Consultations Consultation #1: Spoke with GI who will consult <Tamela Nowak PA-C - Last Filed: 08/26/24 02:54> Date: 08/25/24 <Tamela Nowak PA-C - Last Filed: 08/26/24 02:54> Consultation #2: Spoke with general surgery who will consult <Tamela Nowak PA-C - Last Filed: 08/26/24 02:54> Date: 08/25/24 <Tamela Nowak PA-C - Last Filed: 08/26/24 02:54> Consultation #3: Spoke with hospitalist about patient and workup accepts admission <Tamela Nowak PA-C - Last Filed: 08/26/24 02:54> Date: 08/25/24 <Tamela Nowak PA-C - Last Filed: 08/26/24 02:54> Vital Signs Vital signs: Vital Signs Temperature 97.5 F L 08/25/24 12:35 Pulse Rate 108 H 08/25/24 12:35 Respiratory Rate 16 08/25/24 12:35 Blood Pressure 104/82 08/25/24 12:35 Pulse Oximetry 100 08/25/24 12:35 Temperature 99 F 09/01/24 04:00 Pulse Rate 83 09/01/24 04:00 Respiratory Rate 16 09/01/24 04:00 Blood Pressure 115/71 09/01/24 04:00 Pulse Oximetry 100 09/01/24 04:00 Oxygen Delivery Room Air 08/31/24 20:00 Oxygen Flow Rate 6 08/28/24 13:35 <Tamela Nowak PA-C - Last Filed: 08/26/24 02:54> Vital Signs Temperature 97.5 F L 08/25/24 12:35 Pulse Rate 108 H 08/25/24 12:35 Respiratory Rate 16 08/25/24 12:35 Blood Pressure 104/82 08/25/24 12:35 Pulse Oximetry 100 08/25/24 12:35 Temperature 99 F 09/01/24 04:00 Pulse Rate 83 09/01/24 04:00 Respiratory Rate 16 09/01/24 04:00 Blood Pressure 115/71 09/01/24 04:00 Pulse Oximetry 100 09/01/24 04:00 Oxygen Delivery Room Air 08/31/24 20:00 Oxygen Flow Rate 6 08/28/24 13:35 <Ba Reyna MD - Last Filed: 09/01/24 07:44> MDM - Abdominal Pain MDM Narrative Medical decision making narrative: Patient presents the emergency department for abdominal pain, nausea vomiting. History of Crohn's disease. He is afebrile and nontoxic appearing. Tachycardic upon arrival, this did respond IV fluid hydration. CBC with leukocytosis to 14.3. Metabolic panel without concerning findings. Urine without evidence of infection. CT abdomen and pelvis shows distal small-bowel obstruction. Enlarged lymph node versus phlegmon. Possible fistula of the terminal ileum and mid sigmoid. Small volume ascites. Spoke with GI who will consult. Spoke with general surgery who will consult. Spoke with hospitalist about patient and workup accepts admission. Patient started on IV antibiotics, steroids, hydrated, NG tube placed <Tamela Nowak PA-C - Last Filed: 08/26/24 02:54> Differential Diagnosis Differential diagnosis: Likely small bowel obstruction and other (Crohn's flare) <Tamela Nowak PA-C - Last Filed: 08/26/24 02:54> Lab Data Attestation: I reviewed the patient's lab results. <Tamela Nowak PA-C - Last Filed: 08/26/24 02:54> Result diagrams: 08/31/24 07:49 09/01/24 06:09 <AGNIESZKA Valiente Last Filed: 08/26/24 02:54> Labs: Lab Results 08/25/24 08/26/24 Range/Units 14:39 06:56 WBC 14.3 H 6.6 (4.5-10.0) K/mm3 RBC 5.13 4.00 L (4.6-6.20) M/mm3 Hgb 13.9 L D 10.7 L D (14.0-18.0) g/dL Hct 45.7 35.9 L (42.0-52.0) % MCV 89.1 89.8 (80-100) fl MCH 27.1 26.8 (26-34) pg MCHC 30.4 L 29.8 L (32-36) g/dl RDW 23.8 H 23.4 H (11.5-14.5) % Plt Count 501 H 408 H (150-375) k/mm3 MPV 8.9 9.5 (7.4-10.4) fl Immature Gran % (Auto) 0.4 0.3 (0-0.5) % Neut % (Auto) 76.3 H 72.0 (45.5-73.1) % Lymph % (Auto) 12.4 L 13.1 L (18.3-44.2) % [place] % (Auto) 10.5 H 14.1 H (2.6-8.5) % Eos % (Auto) 0.2 0.0 (0-4.4) % Baso % (Auto) 0.2 0.5 (0.2-1.2) % Lymph # (Auto) 1.76 0.86 L (0.9-3.2) K/mm3 [place] # (Auto) 1.5 H 0.9 H (0.1-0.6) K/mm3 Eos # (Auto) 0.0 0.0 (0-0.3) K/mm3 Baso # (Auto) 0.0 0.0 (0.0-0.1) K/mm3 Abs Immat Gran (auto) 0.05 H 0.02 (0.00-0.031) K/mm3 Absolute Neuts (auto) 10.9 H 4.7 (1.3-6.7) K/mm3 Absolute Nucleated RBC 0.000 0.000 (0.0-0.012) K/mm3 Nucleated RBC % 0.0 0.0 (0.0-0.2) % Platelet Estimate Increased Slightly increased (Adequate) Hypochromasia 1+ Anisocytosis 1+ 1+ Mio Cells 1+ Schistocytes None seen None seen Sodium 138 137 (134-143) mmol/L Potassium 4.0 4.0 (3.4-5.0) mmol/L Chloride 96 L 104 (98-107) mmol/L Carbon Dioxide 29 24 (22-30) mmol/L Anion Gap 13 H 9 (4-12) mmol/L BUN 21 D 13 D (8-21) mg/dL Creatinine 0.77 0.58 L (0.7-1.3) mg/dL Estim Creat Clear Calc 102 132 ml/min Estimated GFR > 60 > 60 (59 - ) Glucose 103 78 (65-110) mg/dL Calcium 9.6 8.5 L (8.9-10.7) mg/dL Total Bilirubin 0.9 0.9 (0.2-1.3) mg/dL AST 17 16 L (17-59) U/L ALT 14 9 (6-50) U/L Alkaline Phosphatase 79 64 (58-237) U/L Total Protein 8.0 6.0 L (6.3-8.6) g/dL Albumin 4.8 3.4 L (3.7-5.6) g/dL Lipase 67 (23-300) U/L Urine Color Dark yellow (Yellow) Urine Appearance Clear (Clear) Urine pH 5.0 (5.0-9.0) Ur Specific [place] 1.039 H (1.001-1.035) Urine Protein Trace (Negative) mg/dL Urine Glucose (UA) Negative (Negative) mg/dL Urine Ketones Negative (Negative) mg/dL Ur Blood (Man) 2+ H (Negative) Urine Nitrate Negative (Negative) Urine Bilirubin 2+ H (Negative) Urine Urobilinogen 1.0 (<2.0) mg/dL Leukocyte Esterase Rfl Negative (Negative) LEISA/UL Urine RBC 3-5 H (0-2) /hpf Urine WBC 0-3 (0-3) /hpf Ur Squamous Epith Cells Few (Few) /hpf Urine Bacteria Rare (None) /hpf Urine Casts ---- <Tamela Nowak PA-C - Last Filed: 08/26/24 02:54> Lab Results 08/25/24 08/26/24 Range/Units 14:39 06:56 WBC 14.3 H 6.6 (4.5-10.0) K/mm3 RBC 5.13 4.00 L (4.6-6.20) M/mm3 Hgb 13.9 L D 10.7 L D (14.0-18.0) g/dL Hct 45.7 35.9 L (42.0-52.0) % MCV 89.1 89.8 (80-100) fl MCH 27.1 26.8 (26-34) pg MCHC 30.4 L 29.8 L (32-36) g/dl RDW 23.8 H 23.4 H (11.5-14.5) % Plt Count 501 H 408 H (150-375) k/mm3 MPV 8.9 9.5 (7.4-10.4) fl Immature Gran % (Auto) 0.4 0.3 (0-0.5) % Neut % (Auto) 76.3 H 72.0 (45.5-73.1) % Lymph % (Auto) 12.4 L 13.1 L (18.3-44.2) % [place] % (Auto) 10.5 H 14.1 H (2.6-8.5) % Eos % (Auto) 0.2 0.0 (0-4.4) % Baso % (Auto) 0.2 0.5 (0.2-1.2) % Lymph # (Auto) 1.76 0.86 L (0.9-3.2) K/mm3 [place] # (Auto) 1.5 H 0.9 H (0.1-0.6) K/mm3 Eos # (Auto) 0.0 0.0 (0-0.3) K/mm3 Baso # (Auto) 0.0 0.0 (0.0-0.1) K/mm3 Abs Immat Gran (auto) 0.05 H 0.02 (0.00-0.031) K/mm3 Absolute Neuts (auto) 10.9 H 4.7 (1.3-6.7) K/mm3 Absolute Nucleated RBC 0.000 0.000 (0.0-0.012) K/mm3 Nucleated RBC % 0.0 0.0 (0.0-0.2) % Platelet Estimate Increased Slightly increased (Adequate) Hypochromasia 1+ Anisocytosis 1+ 1+ Mio Cells 1+ Schistocytes None seen None seen Sodium 138 137 (134-143) mmol/L Potassium 4.0 4.0 (3.4-5.0) mmol/L Chloride 96 L 104 (98-107) mmol/L Carbon Dioxide 29 24 (22-30) mmol/L Anion Gap 13 H 9 (4-12) mmol/L BUN 21 D 13 D (8-21) mg/dL Creatinine 0.77 0.58 L (0.7-1.3) mg/dL Estim Creat Clear Calc 102 132 ml/min Estimated GFR > 60 > 60 (59 - ) Glucose 103 78 (65-110) mg/dL Calcium 9.6 8.5 L (8.9-10.7) mg/dL Total Bilirubin 0.9 0.9 (0.2-1.3) mg/dL AST 17 16 L (17-59) U/L ALT 14 9 (6-50) U/L Alkaline Phosphatase 79 64 (58-237) U/L Total Protein 8.0 6.0 L (6.3-8.6) g/dL Albumin 4.8 3.4 L (3.7-5.6) g/dL Lipase 67 (23-300) U/L Urine Color Dark yellow (Yellow) Urine Appearance Clear (Clear) Urine pH 5.0 (5.0-9.0) Ur Specific [place] 1.039 H (1.001-1.035) Urine Protein Trace (Negative) mg/dL Urine Glucose (UA) Negative (Negative) mg/dL Urine Ketones Negative (Negative) mg/dL Ur Blood (Man) 2+ H (Negative) Urine Nitrate Negative (Negative) Urine Bilirubin 2+ H (Negative) Urine Urobilinogen 1.0 (<2.0) mg/dL Leukocyte Esterase Rfl Negative (Negative) LEISA/UL Urine RBC 3-5 H (0-2) /hpf Urine WBC 0-3 (0-3) /hpf Ur Squamous Epith Cells Few (Few) /hpf Urine Bacteria Rare (None) /hpf Urine Casts ---- <Ba Reyna MD - Last Filed: 09/01/24 07:44> Imaging Data Radiologist's impression: ITS Impressions Abdomen X-Ray 08/26/24 09:33 IMPRESSION: 1. Nasogastric tube in expected position within the stomach. Abdomen/Pelvis CT 08/30/24 12:46 IMPRESSION: 1. Prominent edematous wall thickening in the 3 cm ileum proximal to ileocolic anastomosis post recent ileocecal resection. This could be secondary inflammatory change related to the recent surgery and/or the pre-existing Crohn's disease versus less likely related to infection or ischemia. 2. Persistent small amount of free postoperative gas and fluid in the abdomen and pelvis. No organized-appearing abscess. 3. Small bilateral pleural effusions. <Tamela Nowak PA-C - Last Filed: 08/26/24 02:54> ITS Impressions Abdomen X-Ray 08/26/24 09:33 IMPRESSION: 1. Nasogastric tube in expected position within the stomach. Abdomen/Pelvis CT 08/30/24 12:46 IMPRESSION: 1. Prominent edematous wall thickening in the 3 cm ileum proximal to ileocolic anastomosis post recent ileocecal resection. This could be secondary inflammatory change related to the recent surgery and/or the pre-existing Crohn's disease versus less likely related to infection or ischemia. 2. Persistent small amount of free postoperative gas and fluid in the abdomen and pelvis. No organized-appearing abscess. 3. Small bilateral pleural effusions. <Ba Reyna MD - Last Filed: 09/01/24 07:44> Critical Care Time Critical Care Time Critical Care Time: No <Tamela Nowak PA-C - Last Filed: 08/26/24 02:54> Discharge Plan Discharge Clinical Impression: Small bowel obstruction Crohn's disease Qualifiers: Gastrointestinal tract location: unspecified location Digestive disease complication type: with intestinal obstruction Qualified Code(s): K50.912 - Crohn's disease, unspecified, with intestinal obstruction <Tamela Nowak PA-C - Last Filed: 08/26/24 02:54> Patient Disposition: Still a Patient <Tamela Nowak PA-C - Last Filed: 08/26/24 02:54> Condition: Stable <Tamela Nowak PA-C - Last Filed: 08/26/24 02:54>
--- NOTE | 2024-08-25 16:36 | P.HP_ITS ---
H&P: HPI History of Present Illness Date/Time: 08/25/24 16:36 Chief Complaint: Abdominal Pain Narrative: 18 y/o M presents here with abdominal pain, nausea, vomiting with PMH of Crohn's disease, small bowel obstruction, and iron deficiency anemia. The patient presents here from home for further evaluation of abdominal pain, nausea, and vomiting. The patient was diagnosed with Crohn's in 2023. He he had a recent admission from 08/09/2024 at to 08/13/2024 with a similar presentation and was diagnosed with a bowel obstruction. The patient was followed by GI and General surgery. Bowel obstruction resolved with bowel rest and NG placement. Patient was also on an antibiotic course while hospitalized and was discharged with Prednisone and Azathioprine due to suspicion for Crohn's disease exacerbation. The patient is returning today due to recurrent abdominal pain, nausea, and vomiting. Symptoms started yesterday morning. LBM was 2 days ago, hard/firm. Initial VS at presentation: 97.5? F, HR 108, RR 16, 104/82, and 100% on RA. ED workup showed: WBC 14.3, hemoglobin 13.9 (previously 9.3 on 08/13/2024), platelet count 501, no significant electrolyte derangements, creatinine 0.77 and normal GFR, and UA not consistent with UTI. CT of the abdomen/pelvis showed mild esophagitis/gastritis, distal small-bowel obstruction, 1.6 cm right lower quadrant mesenteric mass, strand-like connection between the abnormal terminal ileum and the transversing adjacent mid sigmoid, and small volume ascites slightly increased since the previous study. Review of Systems Review of Systems: All systems reviewed & are unremarkable except as noted in HPI and below [facility] Past Medical History Medical History Crohn's disease LULU (iron deficiency anemia) SBO (small bowel obstruction) Social History Social History Smoking status: Never smoker Alcohol intake: never Substance use: never Substance use type: does not use Do You Feel Safe in your Home?: Yes Lack of Transportation: No Lack of Food: Never True Current Housing: I Have Housing Concerned About Future Housing: No Difficulty Paying Gas/Electric Bills: No Difficulty Paying for Meds: No Currently Unemployed: No Education: Bachelor's Degree Difficulty w/ Childcare or Family Care: No Spiritual care concerns: No Meds Home Medications and Allergies Home Medications ?Medication ?Instructions ?Recorded ?Confirmed ?Type omeprazole 20 mg capsule,delayed 20 mg PO DAILY PRN Indigestion #14 05/10/24 08/09/24 Rx release caps iron sucrose 100 mg iron/5 mL 500 mg (25 mL) IV ONCE 06/11/24 08/09/24 Rx intravenous solution (Venofer) acetaminophen 500 mg capsule 1,000 mg PO Q4-6H PRN pain 08/09/24 08/09/24 History azathioprine 75 mg tablet 75 mg PO DAILY #30 tabs 08/13/24 Rx ferrous sulfate 325 mg (65 mg 325 mg PO DAILY #30 tabs 08/13/24 Rx iron) tablet prednisone 20 mg tablet 40 mg (2 x 20 mg) PO DAILY #60 tabs 08/13/24 Rx Allergies Allergy/AdvReac Type Severity Reaction Status Date / Time No Known Allergies Allergy Verified 08/25/24 11:44 Vital Signs Vital Signs - 24 hr 08/25/24 12:35 08/25/24 14:18 08/25/24 15:47 Temperature 97.5 F L Pulse Rate 108 H 119 H 117 H Respiratory Rate 16 16 16 Blood Pressure 104/82 107/96 H Pulse Oximetry 100 96 100 Exam Const: General: no acute distress and uncomfortable Other: , male, thin HENMT: Face/Nose/Sinus: Normal nares present Mouth: Yes dry mucous membranes Eyes: General: appearance normal, both eyes and all related structures Sclera: sclerae normal Pupils: Equal, round and reactive pupils present EOM: EOMs intact bilaterally Resp: Effort & Inspection: normal respiratory effort Auscultation: clear to auscultation bilaterally Cardio: Rate: tachycardic Rhythm: regular rhythm Other: S1-S2 present without murmur, rub, ectopy GI: Other: Abdomen soft, diffusely tender, hypoactive bowel sounds in all quadrants. Skin: General skin exam: normal color and no rashes or lesions noted Wounds: no wounds Neuro: Speech: normal speech Motor exam (neuro): 5/5 motor strength present throughout Sensory Exam: normal sensation Other: A&O x4 Extrem: General: normal to inspection Psych: Mental Status: mental status grossly normal Affect: normal affect Other: Good insight and judgment, pleasant H&P: Results Labs Labs: Short CBC 08/25/24 Range/Units 14:39 WBC 14.3 H (4.5-10.0) K/mm3 Hgb 13.9 L D (14.0-18.0) g/dL Hct 45.7 (42.0-52.0) % Plt Count 501 H (150-375) k/mm3 BMP 08/25/24 14:39 Sodium 138 Potassium 4.0 Chloride 96 L Carbon Dioxide 29 BUN 21 D Creatinine 0.77 Glucose 103 Calcium 9.6 Liver Function 08/25/24 Range/Units 14:39 Total Bilirubin 0.9 (0.2-1.3) mg/dL AST 17 (17-59) U/L ALT 14 (6-50) U/L Alkaline Phosphatase 79 (58-237) U/L Albumin 4.8 (3.7-5.6) g/dL Urine 08/25/24 Range/Units 14:39 Urine Color Dark yellow (Yellow) Urine Appearance Clear (Clear) Urine pH 5.0 (5.0-9.0) Ur Specific [place] 1.039 H (1.001-1.035) Urine Protein Trace (Negative) mg/dL Urine Glucose (UA) Negative (Negative) mg/dL Assessment and Plan Assessment and plan (1) Small bowel obstruction: Code(s): K56.609 - Unspecified intestinal obstruction, unspecified as to partial versus complete obstruction Status: Acute Assessment and Plan: - CT abd/pelvis: Distal small bowel obstruction, transition point at the terminal ileum. No pneumatosis or pneumoperitoneum. Differential includes inflammatory bowel disease, infection, and lymphoma. Adjacent 1.6 cm right lower quadrant mesenteric mass, presumed enlarged lymph node given the adjacent right lower quadrant lymphadenopathy. Phlegmon or other mesenteric mass not excluded. Strand-like connection between the abnormal terminal ileum and the traversing adjacent mid sigmoid, could represent early fistula. Small volume ascites, slightly increased since the prior study. - NG tube placed, bowel rest - IV fluids: 2L bolus -> 125 mL/hr - General Surgery consulted, awaiting formal recs (2) Abdominal pain: Qualifiers: Abdominal location: periumbilical Qualified Code(s): R10.33 - Periumbilical pain Code(s): R10.9 - Unspecified abdominal pain Status: Acute Assessment and Plan: - see CT above - given possibility of phlegmon, started on Flagyl and Ceftriaxone on 08/25 - bowel rest for SBO - trend wbc (3) Crohn's disease: Qualifiers: Digestive disease complication type: with intestinal obstruction Gastrointestinal tract location: unspecified location Qualified Code(s): K50.912 - Crohn's disease, unspecified, with intestinal obstruction Code(s): K50.90 - Crohn's disease, unspecified, without complications Status: Chronic Assessment and Plan: - GI consulted, awaiting formal recs - started on steroid course: Solu-Medrol 60 IV daily (4) Esophagitis: Code(s): K20.90 - Esophagitis, unspecified without bleeding Status: Acute Assessment and Plan: - gastritis seen on CT, pantoprazole p.o. daily Plan Diet: NPO GI Prophylaxis: Pantoprazole p.o. DVT Prophylaxis: Low risk Lines: Peripheral Code Status: Full code Quality If No VTE Prophylaxis Answer both mechanical and pharmacologic: Reason no mechanical VTE proph: low risk/not indicated Reason no pharmacologic proph: low risk/not indicated Hospitalist MIPS Advance Care Plan I have confirmed that the patient's Advanced Care Plan is present, code status is documented, or surrogate decision maker is listed in patient medical record.: Yes Medication Reconciliation I have utilized all available resources to obtain, update and review the patients current medications (includes all prescriptions, OTC, herbals, cannabis, and nutritional supplements).: Yes
[2024-08-25] MEDS: methylPREDNISolone SOD SUCC 40 MG VIAL 60 MG IV PUSH (17:10)
[2024-08-25] MEDS: PANTOPRAZOLE SODIUM IV 40 MG VIAL IV PUSH (17:11)
[2024-08-25] MEDS: MORPHINE SULFATE (*CRX) 2 MG/ML INJ IV PUSH (18:31)
[2024-08-25] MEDS: metroNIDAZOLE 500 MG/ISO 100ML 500 MG/100 ML BAG 100 MG IVPB (18:40)
[2024-08-25] MEDS: SODIUM CHLORIDE 0.9% IV 1,000 ML 125 ML IV CONT (20:18)
[2024-08-25] MEDS: IBUPROFEN IV 400 MG in SODIUM CHLORIDE 0.9% IV 100 ML 208 MG IVPB (22:35)
[2024-08-26] VITALS (8 sets, daily range): BP systolic 122–144; BP diastolic 73–82; PULSE 79–121; RESP 16; TEMP 36.7–37.1; O2SAT 97–100
--- NOTE | 2024-08-26 02:24 | ADMGEN ---
This patient, Cortes Orellana, was admitted to 3 [facility] Surg Room 315-01. Patient/family oriented to hospital policies and general routines including ID bracelet, bed and alarms, visiting hours, pain management, procedures, bathroom and other care routines, personal items, smoking policy, room service/diet, and visiting hours. Information on how to activate the Rapid Response Team has been discussed. Patient/Family are encouraged to report perceived risks to care and to ask questions if they do not understand what they are told or what they should do.
[2024-08-26] MEDS: metroNIDAZOLE 500 MG/ISO 100ML 500 MG/100 ML BAG 100 MG IVPB ×3 (03:18→21:06)
[2024-08-26] MEDS: SODIUM CHLORIDE 0.9% IV 1,000 ML 125 ML IV CONT ×2 (05:40→14:17)
[2024-08-26] MEDS: MORPHINE SULFATE (*CRX) 2 MG/ML INJ IV PUSH ×2 (05:45→09:34)
[2024-08-26 08:01] LABS: Basophils Percent Auto 0.5 % (0.2-1.2); Hematocrit 35.9 % (42.0-52.0); Hemoglobin 10.7 g/dL (14.0-18.0); Immature Granulocyte Absolute 0.02 K/mm3 (0.00-0.031); Immature Granulocyte Percent A 0.3 % (0-0.5); Lymphocytes Absolute Auto 0.86 K/mm3 (0.9-3.2); Lymphocytes Percent Auto 13.1 % (18.3-44.2); Mean Corpuscular HGB Conc 29.8 g/dl (32-36); Mean Corpuscular Hemoglobin 26.8 pg (26-34); Mean Corpuscular Volume 89.8 fl (80-100); Mean Platelet Volume 9.5 fl (7.4-10.4); Monocytes Absolute Auto 0.9 K/mm3 (0.1-0.6); Monocytes Percent Auto 14.1 % (2.6-8.5); Neutrophils Absolute Auto 4.7 K/mm3 (1.3-6.7); Platelet Count Result 408 k/mm3 (150-375); Red Cell Distribution Width 23.4 % (11.5-14.5); White Blood Count 6.6 K/mm3 (4.5-10.0)
[2024-08-26 08:36] LABS: Alanine Aminotransferase 9 U/L (6-50); Albumin Level 3.4 g/dL (3.7-5.6); Alkaline Phosphatase 64 U/L (58-237); Anion Gap 9 mmol/L (4-12); Aspartate Amino Transferase 16 U/L (17-59); Bilirubin,Total 0.9 mg/dL (0.2-1.3); Blood Urea Nitrogen 13 mg/dL (8-21); Calcium 8.5 mg/dL (8.9-10.7); Carbon Dioxide 24 mmol/L (22-30); Chloride 104 mmol/L (98-107); Estimated CRCL calculation 132 ml/min; Estimated Glomerular Filt Rate > 60; Glucose 78 mg/dL (65-110); Sodium 137 mmol/L (134-143)
[2024-08-26 09:19] LABS: Platelet Estimate Slightly Increased (Adequate)
[2024-08-26 09:20] LABS: Anisocytosis 1+; Hypochromasia 1+; Schistocytes None Seen
[2024-08-26] MEDS: methylPREDNISolone SOD SUCC 125 MG VIAL 60 MG IV PUSH (09:34)
[2024-08-26] MEDS: PANTOPRAZOLE SODIUM IV 40 MG VIAL IV PUSH (09:34)
--- NOTE | 2024-08-26 10:11 | P.PNIM_ITS ---
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 which is possible as patient's vomit this morning looks and smell like fecal matter NG tube in place continue suction continue V steroid Awaiting GI adn Gen surgery eval (2) Abdominal pain: Qualifiers: Abdominal location: periumbilical Qualified Code(s): R10.33 - Periumbilical pain Code(s): R10.9 - Unspecified abdominal pain Status: Acute Assessment and Plan: - see CT above - given possibility of phlegmon, started on Flagyl and Ceftriaxone on 08/25 - bowel rest for SBO - trend wbc (3) Crohn's disease: Qualifiers: Digestive disease complication type: with intestinal obstruction Gastrointestinal tract location: unspecified location Qualified Code(s): K50.912 - Crohn's disease, unspecified, with intestinal obstruction Code(s): K50.90 - Crohn's disease, unspecified, without complications Status: Chronic Assessment and Plan: - GI consulted, awaiting formal recs - started on steroid course: Solu-Medrol 60 IV daily (4) Esophagitis: Code(s): K20.90 - Esophagitis, unspecified without bleeding Status: Acute Assessment and Plan: - gastritis seen on CT, pantoprazole p.o. daily Plan Diet: NPO GI Prophylaxis: Pantoprazole p.o. DVT Prophylaxis: Low risk Lines: Peripheral Code Status: Full code Subjective Date/time seen: 08/26/24 10:11 Interval history: Patient was vomiting at the time of this encounter Nurse checked the suction machine and it was not working Suction machine to be change and repeat KUB showed tube is in expected position Review of Systems Review of Systems: All systems reviewed & are unremarkable except as noted in HPI and below Exam Const: General: no acute distress and uncomfortable Other: , male, thin HENMT: Face/Nose/Sinus: Normal nares present Mouth: Yes dry mucous membranes Eyes: General: appearance normal, both eyes and all related structures Sclera: sclerae normal Pupils: Equal, round and reactive pupils present EOM: EOMs intact bilaterally Resp: Effort & Inspection: normal respiratory effort Auscultation: clear to auscultation bilaterally Cardio: Rate: tachycardic Rhythm: regular rhythm Other: S1-S2 present without murmur, rub, ectopy GI: Other: Abdomen soft, diffusely tender, hypoactive bowel sounds in all quadrants. Skin: General skin exam: normal color and no rashes or lesions noted Wounds: no wounds Neuro: Cranial nerves: Yes Equal, round and reactive pupils present Speech: normal speech Motor exam (neuro): 5/5 motor strength present throughout Sensory Exam: normal sensation Other: A&O x4 Extrem: General: normal to inspection Psych: Mental Status: mental status grossly normal Affect: normal affect Other: Good insight and judgment, pleasant Objective Data Vital Signs Vital Signs: Vital Signs - 24 hr 08/25/24 12:35 08/25/24 14:18 08/25/24 15:47 Temperature 97.5 F L Pulse Rate 108 H 119 H 117 H Respiratory Rate 16 16 16 Blood Pressure 104/82 107/96 H Pulse Oximetry 100 96 100 Oxygen Delivery 08/25/24 18:57 08/25/24 20:00 08/25/24 20:02 Temperature 97.2 F L Pulse Rate 110 H 104 H 114 H Respiratory Rate 16 16 Blood Pressure 126/82 129/77 Pulse Oximetry 99 98 Oxygen Delivery 08/25/24 21:00 08/25/24 23:51 08/26/24 00:03 Temperature 98.1 F Pulse Rate 100 90 Respiratory Rate 14 Blood Pressure 132/67 Pulse Oximetry 95 Oxygen Delivery Room Air 08/26/24 04:00 08/26/24 04:00 08/26/24 08:00 Temperature 98.2 F 98.1 F Pulse Rate 121 H 106 H 98 Respiratory Rate 16 16 Blood Pressure 136/75 144/82 H Pulse Oximetry 97 100 Oxygen Delivery Intake/Output Intake/Output: Intake & Output 08/23/24 08/24/24 08/25/24 08/26/24 23:59 23:59 23:59 23:59 Intake Total 2154 1100 Output Total 100 Balance 2154 1000 Meds/Results Medications: Active Medications Generic Name Dose Route Start Last Admin Trade Name Freq PRN Reason Stop Dose Admin Acetaminophen 650 mg 08/25/24 17:02 Acetaminophen 650 Mg Suppository RECTAL Q6H PRN Mild Pain (1-3) or Fever Sodium Chloride 1,000 mls @ 125 mls/hr 08/25/24 16:30 08/26/24 05:40 Normal Saline Iv IV CONT 125 mls/hr .Q8H KISHORE Administration Ceftriaxone Sodium 1 gm in 50 mls @ 100 mls/hr 08/26/24 18:00 Rocephin 1 Gm/Ns 50 Ml IVPB Q24H KISHORE Metronidazole 500 mg in 100 mls @ 100 mls/hr 08/26/24 04:00 08/26/24 04:18 Flagyl 500 Mg/Iso Soln 100 Ml IVPB Infused Q8HR KISHORE Infusion Ibuprofen 400 mg/ Sodium 104 mls @ 208 mls/hr 08/25/24 20:30 08/25/24 23:05 Chloride IVPB Infused Q6H PRN Infusion Pain 4-6 or fever Methylprednisolone Sodium Succinate 60 mg 08/26/24 09:00 08/26/24 09:34 Methylprednisolone Sod Succ 125 Mg Vial IV PUSH 60 mg DAILY KISHORE Administration Morphine Sulfate 2 mg 08/25/24 18:01 08/26/24 09:34 Morphine Sulfate (*Crx) 2 Mg/Ml Inj IV PUSH 2 mg Q4H PRN Administration Pain Rated 7-10 Pantoprazole Sodium 40 mg 08/26/24 09:00 08/26/24 09:34 Pantoprazole Sodium Iv 40 Mg Vial IV PUSH 40 mg QAM KISHORE Administration Radiology Results: ITS Impressions Abdomen/Pelvis CT 08/25/24 15:33 IMPRESSION: Mild esophagitis/gastritis. Distal small bowel obstruction, transition point at the terminal ileum. No pneumatosis or pneumoperitoneum. Differential includes inflammatory bowel disease, infection, and lymphoma. Adjacent 1.6 cm right lower quadrant mesenteric mass, presumed enlarged lymph node given the adjacent right lower quadrant lymphadenopathy. Phlegmon or other mesenteric mass not excluded. Strand-like connection between the abnormal terminal ileum and the traversing adjacent mid sigmoid, could represent early fistula. Small volume ascites, slightly increased since the prior study. Abdomen X-Ray 08/26/24 09:33 IMPRESSION: 1. Nasogastric tube in expected position within the stomach. Labs Labs: Laboratory Results - last 24 hr 08/25/24 08/26/24 14:39 06:56 WBC 14.3 H 6.6 RBC 5.13 4.00 L Hgb 13.9 L D 10.7 L D Hct 45.7 35.9 L MCV 89.1 89.8 MCH 27.1 26.8 MCHC 30.4 L 29.8 L RDW 23.8 H 23.4 H Plt Count 501 H 408 H MPV 8.9 9.5 Immature Gran % (Auto) 0.4 0.3 Neut % (Auto) 76.3 H 72.0 Lymph % (Auto) 12.4 L 13.1 L [place] % (Auto) 10.5 H 14.1 H Eos % (Auto) 0.2 0.0 Baso % (Auto) 0.2 0.5 Lymph # (Auto) 1.76 0.86 L [place] # (Auto) 1.5 H 0.9 H Eos # (Auto) 0.0 0.0 Baso # (Auto) 0.0 0.0 Abs Immat Gran (auto) 0.05 H 0.02 Absolute Neuts (auto) 10.9 H 4.7 Absolute Nucleated RBC 0.000 0.000 Nucleated RBC % 0.0 0.0 Platelet Estimate Increased Slightly increased Hypochromasia 1+ Anisocytosis 1+ 1+ Mio Cells 1+ Schistocytes None seen None seen Sodium 138 137 Potassium 4.0 4.0 Chloride 96 L 104 Carbon Dioxide 29 24 Anion Gap 13 H 9 BUN 21 D 13 D Creatinine 0.77 0.58 L Estim Creat Clear Calc 102 132 Estimated GFR > 60 > 60 Glucose 103 78 Calcium 9.6 8.5 L Total Bilirubin 0.9 0.9 AST 17 16 L ALT 14 9 Alkaline Phosphatase 79 64 Total Protein 8.0 6.0 L Albumin 4.8 3.4 L Lipase 67 Urine Color Dark yellow Urine Appearance Clear Urine pH 5.0 Ur Specific [place] 1.039 H Urine Protein Trace Urine Glucose (UA) Negative Urine Ketones Negative Ur Blood (Man) 2+ H Urine Nitrate Negative Urine Bilirubin 2+ H Urine Urobilinogen 1.0 Leukocyte Esterase Rfl Negative Urine RBC 3-5 H Urine WBC 0-3 Ur Squamous Epith Cells Few Urine Bacteria Rare Urine Casts ----
--- NOTE | 2024-08-26 12:32 | P.CONGS_ITS ---
Assessment and Plan Assessment and plan (1) Small bowel obstruction: Code(s): K56.609 - Unspecified intestinal obstruction, unspecified as to partial versus complete obstruction Status: Acute Assessment and Plan: Continue conservative management with NG tube decompression, bowel rest, serial exams for now, may need surgical intervention as this is the 3rd episode in the last few months (2) Crohn's ileocolitis: Qualifiers: Digestive disease complication type: with intestinal obstruction Q ualified Code(s): K50.812 - Crohn's disease of both small and large intestine with intestinal obstruction Code(s): K50.80 - Crohn's disease of both small and large intestine without complications Status: Acute Assessment and Plan: patient on max steroids, plan for reimaging tomorrow and if no improvement will likely need ileocecectomy History of Present Illness Consult details Consult date: 08/26/24 Reason for consult: abdominal pain Requesting physician: Ga Ramos MD Narrative: The patient is a 18-year-old male well known to our service from previous small- bowel obstruction secondary to Crohn's disease. The patient is once again readmitted for small bowel obstruction. He reports that over the last few days he has been unable to keep anything down with severe crampy abdominal pain, intractable nausea and vomiting. The patient has not been approved for any biologics, although he has been following up with GI gastroenterology. Review of Systems 2 Review of Systems: All systems reviewed & are unremarkable except as noted in HPI and below PMFSH Past Medical History Medical History Crohn's disease LULU (iron deficiency anemia) SBO (small bowel obstruction) Family History Family History Other Unknown family medical history Social History Social History Smoking status: Never smoker Second hand tobacco smoke exposure: No Alcohol intake: never Substance use: never Substance use type: does not use Do You Feel Safe in your Home?: Yes Lack of Transportation: No Lack of Food: Never True Current Housing: I Have Housing Concerned About Future Housing: No Difficulty Paying Gas/Electric Bills: No Difficulty Paying for Meds: No Currently Unemployed: No Education: Bachelor's Degree Difficulty w/ Childcare or Family Care: No Living arrangements: with roommate(s) Occupation/Education: student Gender identity (if verbalized by the patient): Male Sexual Orientation (if Verbalized by the Patient): Straight or Heterosexual Spiritual care concerns: No Agree to blood products: Yes Meds Home Medications and Allergies Home Medications ?Medication ?Instructions ?Recorded ?Confirmed ?Type iron sucrose 100 mg iron/5 mL 500 mg (25 mL) IV ONCE 06/11/24 08/25/24 Rx intravenous solution (Venofer) acetaminophen 500 mg capsule 1,000 mg PO Q4-6H PRN pain 08/09/24 08/25/24 History azathioprine 75 mg tablet 75 mg PO DAILY #30 tabs 08/13/24 08/25/24 Rx prednisone 20 mg tablet 40 mg (2 x 20 mg) PO DAILY #60 tabs 08/13/24 08/25/24 Rx Allergies Allergy/AdvReac Type Severity Reaction Status Date / Time No Known Allergies Allergy Verified 08/25/24 11:44 Vital Signs Vital Signs - 24 hr 08/25/24 12:35 08/25/24 14:18 08/25/24 15:47 Temperature 36.4 C L Pulse Rate 108 H 119 H 117 H Respiratory Rate 16 16 16 Blood Pressure 104/82 107/96 H Pulse Oximetry 100 96 100 Oxygen Delivery 08/25/24 18:57 08/25/24 20:00 08/25/24 20:02 Temperature 36.2 C L Pulse Rate 110 H 104 H 114 H Respiratory Rate 16 16 Blood Pressure 126/82 129/77 Pulse Oximetry 99 98 Oxygen Delivery 08/25/24 21:00 08/25/24 23:51 08/26/24 00:03 Temperature 36.7 C Pulse Rate 100 90 Respiratory Rate 14 Blood Pressure 132/67 Pulse Oximetry 95 Oxygen Delivery Room Air 08/26/24 04:00 08/26/24 04:00 08/26/24 08:00 Temperature 36.8 C 36.7 C Pulse Rate 121 H 106 H 98 Respiratory Rate 16 16 Blood Pressure 136/75 144/82 H Pulse Oximetry 97 100 Oxygen Delivery 08/26/24 09:45 Temperature Pulse Rate 97 Respiratory Rate Blood Pressure Pulse Oximetry Oxygen Delivery Exam 2 Const: General: cooperative, no acute distress, tired appearing and uncomfortable HENMT: Head: normal to inspection, normocephalic and atraumatic Eyes: General: appearance normal, both eyes and all related structures Neck: Neck: normal visual inspection and no lymphadenopathy Resp: Auscultation: clear to auscultation bilaterally Cardio: Rate: regular rate Rhythm: regular rhythm GI: Inspection: normal to inspection and distended GI Palp: Yes abdominal tenderness, Yes Soft to palpation, Yes Tenderness to palpation present (GI), No Guarding due to palpation present (GI) and No Rigid due to palpation Skin: General skin exam: normal color and no rashes or lesions noted Neuro: General: patient oriented x3 and CN's II-XI intact bilaterally Extrem: General: normal to inspection and full ROM Results Labs 08/26/24 06:56 08/26/24 06:56 Labs: Abnormal lab results 08/25/24 08/26/24 Range/Units 14:39 06:56 WBC 14.3 H (4.5-10.0) K/mm3 RBC 4.00 L (4.6-6.20) M/mm3 Hgb 13.9 L D 10.7 L D (14.0-18.0) g/dL Hct 35.9 L (42.0-52.0) % MCHC 30.4 L 29.8 L (32-36) g/dl RDW 23.8 H 23.4 H (11.5-14.5) % Plt Count 501 H 408 H (150-375) k/mm3 Neut % (Auto) 76.3 H (45.5-73.1) % Lymph % (Auto) 12.4 L 13.1 L (18.3-44.2) % [place] % (Auto) 10.5 H 14.1 H (2.6-8.5) % Lymph # (Auto) 0.86 L (0.9-3.2) K/mm3 [place] # (Auto) 1.5 H 0.9 H (0.1-0.6) K/mm3 Abs Immat Gran (auto) 0.05 H (0.00-0.031) K/mm3 Absolute Neuts (auto) 10.9 H (1.3-6.7) K/mm3 Chloride 96 L (98-107) mmol/L Anion Gap 13 H (4-12) mmol/L Creatinine 0.58 L (0.7-1.3) mg/dL Calcium 8.5 L (8.9-10.7) mg/dL AST 16 L (17-59) U/L Total Protein 6.0 L (6.3-8.6) g/dL Albumin 3.4 L (3.7-5.6) g/dL Ur Specific [place] 1.039 H (1.001-1.035) Ur Blood (Man) 2+ H (Negative) Urine Bilirubin 2+ H (Negative) Urine RBC 3-5 H (0-2) /hpf Diabetes panel 08/25/24 08/26/24 Range/Units 14:39 06:56 Sodium 138 137 (134-143) mmol/L Potassium 4.0 4.0 (3.4-5.0) mmol/L Chloride 96 L 104 (98-107) mmol/L Carbon Dioxide 29 24 (22-30) mmol/L BUN 21 D 13 D (8-21) mg/dL Creatinine 0.77 0.58 L (0.7-1.3) mg/dL Glucose 103 78 (65-110) mg/dL Calcium 9.6 8.5 L (8.9-10.7) mg/dL AST 17 16 L (17-59) U/L ALT 14 9 (6-50) U/L Alkaline Phosphatase 79 64 (58-237) U/L Total Protein 8.0 6.0 L (6.3-8.6) g/dL Albumin 4.8 3.4 L (3.7-5.6) g/dL Calcium panel 08/25/24 08/26/24 Range/Units 14:39 06:56 Calcium 9.6 8.5 L (8.9-10.7) mg/dL Albumin 4.8 3.4 L (3.7-5.6) g/dL Pituitary panel 08/25/24 08/26/24 Range/Units 14:39 06:56 Sodium 138 137 (134-143) mmol/L Potassium 4.0 4.0 (3.4-5.0) mmol/L Chloride 96 L 104 (98-107) mmol/L Carbon Dioxide 29 24 (22-30) mmol/L BUN 21 D 13 D (8-21) mg/dL Creatinine 0.77 0.58 L (0.7-1.3) mg/dL Glucose 103 78 (65-110) mg/dL Calcium 9.6 8.5 L (8.9-10.7) mg/dL Adrenal panel 08/25/24 08/26/24 Range/Units 14:39 06:56 Sodium 138 137 (134-143) mmol/L Potassium 4.0 4.0 (3.4-5.0) mmol/L Chloride 96 L 104 (98-107) mmol/L Carbon Dioxide 29 24 (22-30) mmol/L BUN 21 D 13 D (8-21) mg/dL Creatinine 0.77 0.58 L (0.7-1.3) mg/dL Glucose 103 78 (65-110) mg/dL Calcium 9.6 8.5 L (8.9-10.7) mg/dL Total Bilirubin 0.9 0.9 (0.2-1.3) mg/dL AST 17 16 L (17-59) U/L ALT 14 9 (6-50) U/L Alkaline Phosphatase 79 64 (58-237) U/L Total Protein 8.0 6.0 L (6.3-8.6) g/dL Albumin 4.8 3.4 L (3.7-5.6) g/dL All other labs normal. Imaging Abdomen CT scan report/results: report reviewed and image reviewed
--- NOTE | 2024-08-26 13:13 | P.CONGI_ITS ---
Assessment and Plan Assessment and plan (1) Small bowel obstruction: Code(s): K56.609 - Unspecified intestinal obstruction, unspecified as to partial versus complete obstruction Status: Acute (2) Crohn's ileocolitis: Qualifiers: Digestive disease complication type: with intestinal obstruction Q ualified Code(s): K50.812 - Crohn's disease of both small and large intestine with intestinal obstruction Code(s): K50.80 - Crohn's disease of both small and large intestine without complications Status: Acute Assessment and Plan: The patient has severe Crohn's disease with known ileitis. This represents the third episode of small bowel obstruction despite optimal medical management with the maximum dose of oral prednisone (40 mg daily). Despite completing all necessary pre-treatment evaluations, including tuberculosis screening, hepatitis screening, vaccinations, and TPMT testing, approval for infliximab therapy from the insurance company has not yet been obtained. While surgical intervention is not ideal in a young patient, after consultation with the surgical service, it was determined that if the current conservative management fails to resolve the obstruction within 48 hours, ileal resection may be necessary in order to achieve surgical remission and subsequently initiate biologic therapy for long-term maintenance. The patient will continue to receive current medical management. A non-contrast CT scan will be obtained tomorrow morning to further assess the situation and guide further management decisions. GI Consult Note Consult date/time: 08/26/24 13:13 HPI: Cortes Orellana is a 18-year-old male known to me from previous hospitalizations. In April 2024, he presented with acute small bowel obstruction. Colonoscopy during that admission revealed severe ileal inflammation. He responded well to intravenous steroid therapy. In mid-July 2024, he experienced a second episode of small bowel obstruction. He was hospitalized, treated conservatively with nasogastric suction, intravenous fluids, and intravenous Solu-Medrol 60 mg daily, and subsequently discharged home on oral prednisone 40 mg daily. He also receives azathioprine 50 mg daily as part of his maintenance therapy. Despite adherence to his medications, the patient experienced a recurrence of severe abdominal pain, diffuse distention, nausea, and vomiting of fecal material two days ago. Upon presentation to the emergency department, he was diagnosed with another episode of small bowel obstruction, both clinically and radiographically, as confirmed by CT scan. The CT scan consistently demonstrates a stricture in the distal small bowel. The patient is currently hospitalized, receiving nasogastric suction, intravenous fluids, and intravenous Solu-Medrol 60 mg daily. Review of Systems 2 Review of Systems: All systems reviewed & are unremarkable except as noted in HPI and below PMFSH Past Medical History Medical History Crohn's disease LULU (iron deficiency anemia) SBO (small bowel obstruction) Family History Family History Other Unknown family medical history Social History Social History Smoking status: Never smoker Second hand tobacco smoke exposure: No Alcohol intake: never Substance use: never Substance use type: does not use Do You Feel Safe in your Home?: Yes Lack of Transportation: No Lack of Food: Never True Current Housing: I Have Housing Concerned About Future Housing: No Difficulty Paying Gas/Electric Bills: No Difficulty Paying for Meds: No Currently Unemployed: No Education: Bachelor's Degree Difficulty w/ Childcare or Family Care: No Living arrangements: with roommate(s) Occupation/Education: student Gender identity (if verbalized by the patient): Male Sexual Orientation (if Verbalized by the Patient): Straight or Heterosexual Spiritual care concerns: No Agree to blood products: Yes Meds Home Medications and Allergies Home Medications ?Medication ?Instructions ?Recorded ?Confirmed ?Type iron sucrose 100 mg iron/5 mL 500 mg (25 mL) IV ONCE 06/11/24 08/25/24 Rx intravenous solution (Venofer) acetaminophen 500 mg capsule 1,000 mg PO Q4-6H PRN pain 08/09/24 08/25/24 History azathioprine 75 mg tablet 75 mg PO DAILY #30 tabs 08/13/24 08/25/24 Rx prednisone 20 mg tablet 40 mg (2 x 20 mg) PO DAILY #60 tabs 08/13/24 08/25/24 Rx Allergies Allergy/AdvReac Type Severity Reaction Status Date / Time No Known Allergies Allergy Verified 08/25/24 11:44 Vital Signs Vital Signs - 24 hr 08/25/24 14:18 08/25/24 15:47 08/25/24 18:57 Temperature Pulse Rate 119 H 117 H 110 H Respiratory Rate 16 16 16 Blood Pressure 107/96 H 126/82 Pulse Oximetry 96 100 99 Oxygen Delivery 08/25/24 20:00 08/25/24 20:02 08/25/24 21:00 Temperature 97.2 F L Pulse Rate 104 H 114 H Respiratory Rate 16 Blood Pressure 129/77 Pulse Oximetry 98 Oxygen Delivery Room Air 08/25/24 23:51 08/26/24 00:03 08/26/24 04:00 Temperature 98.1 F Pulse Rate 100 90 121 H Respiratory Rate 14 Blood Pressure 132/67 Pulse Oximetry 95 Oxygen Delivery 08/26/24 04:00 08/26/24 08:00 08/26/24 09:45 Temperature 98.2 F 98.1 F Pulse Rate 106 H 98 97 Respiratory Rate 16 16 Blood Pressure 136/75 144/82 H Pulse Oximetry 97 100 Oxygen Delivery Exam 2 Narrative: NG tube in place. Alert and oriented. Cooperative. Abdomen: Moderately distended, bowel sounds decreased, diffusely tender to deep palpation, no rebound. Rest of the physical examination within normal limits. Results Labs 08/26/24 06:56 08/26/24 06:56 Labs: Short CBC 08/25/24 08/26/24 Range/Units 14:39 06:56 WBC 14.3 H 6.6 (4.5-10.0) K/mm3 Hgb 13.9 L D 10.7 L D (14.0-18.0) g/dL Hct 45.7 35.9 L (42.0-52.0) % Plt Count 501 H 408 H (150-375) k/mm3 BMP 08/25/24 08/26/24 14:39 06:56 Sodium 138 137 Potassium 4.0 4.0 Chloride 96 L 104 Carbon Dioxide 29 24 BUN 21 D 13 D Creatinine 0.77 0.58 L Glucose 103 78 Calcium 9.6 8.5 L Liver Function 08/25/24 08/26/24 Range/Units 14:39 06:56 Total Bilirubin 0.9 0.9 (0.2-1.3) mg/dL AST 17 16 L (17-59) U/L ALT 14 9 (6-50) U/L Alkaline Phosphatase 79 64 (58-237) U/L Albumin 4.8 3.4 L (3.7-5.6) g/dL Urine 08/25/24 Range/Units 14:39 Urine Color Dark yellow (Yellow) Urine Appearance Clear (Clear) Urine pH 5.0 (5.0-9.0) Ur Specific [place] 1.039 H (1.001-1.035) Urine Protein Trace (Negative) mg/dL Urine Glucose (UA) Negative (Negative) mg/dL
[2024-08-27] VITALS (11 sets, daily range): BP systolic 118–125; BP diastolic 73–76; PULSE 70–98; RESP 16–18; TEMP 36.7–37.2; O2SAT 99–100; BMI 16.0
[2024-08-27 00:07] LABS: Glucose Point of Care 85 mg/dl (65-105)
[2024-08-27] MEDS: SODIUM CHLORIDE 0.9% IV 1,000 ML 125 ML IV CONT ×3 (01:10→17:48)
[2024-08-27] MEDS: metroNIDAZOLE 500 MG/ISO 100ML 500 MG/100 ML BAG 100 MG IVPB ×3 (05:43→22:02)
[2024-08-27 06:31] LABS: Glucose Point of Care 82 mg/dl (65-105)
[2024-08-27 06:52] LABS: Eosinophils Percent Auto 0.5 % (0-4.4); Hematocrit 34.4 % (42.0-52.0); Hemoglobin 10.3 g/dL (14.0-18.0); Immature Granulocyte Absolute 0.01 K/mm3 (0.00-0.031); Immature Granulocyte Percent A 0.2 % (0-0.5); Lymphocytes Absolute Auto 1.37 K/mm3 (0.9-3.2); Lymphocytes Percent Auto 31.9 % (18.3-44.2); Mean Corpuscular HGB Conc 29.9 g/dl (32-36); Mean Corpuscular Hemoglobin 26.9 pg (26-34); Mean Corpuscular Volume 89.8 fl (80-100); Mean Platelet Volume 8.9 fl (7.4-10.4); Monocytes Absolute Auto 0.7 K/mm3 (0.1-0.6); Monocytes Percent Auto 15.9 % (2.6-8.5); Neutrophils Absolute Auto 2.2 K/mm3 (1.3-6.7); Neutrophils Percent Auto 51.5 % (45.5-73.1); Platelet Count Result 329 k/mm3 (150-375); Red Blood Count 3.83 M/mm3 (4.6-6.20); Red Cell Distribution Width 22.6 % (11.5-14.5); White Blood Count 4.3 K/mm3 (4.5-10.0)
--- NOTE | 2024-08-27 07:00 | WPDGIPROGNO ---
Progress Note: A&P Assessment and Plan (1) Crohn's ileocolitis: Qualifiers: Digestive disease complication type: with intestinal obstruction Qualified Code(s): K50.812 - Crohn's disease of both small and large intestine with intestinal obstruction Code(s): K50.80 - Crohn's disease of both small and large intestine without complications Status: Acute Assessment and Plan: This patient with known ileal Crohn's disease presents with his third episode of small bowel obstruction. He has been on maximum-dose corticosteroids for nearly three weeks without significant improvement. While he is an ideal candidate for biologic therapy, administrative and insurance delays are preventing access. Surgical resection remains a possibility, though less ideal in a young patient. If his current medical management fails to resolve the obstruction, surgical intervention will be necessary. CT scan and clinical course are not dramaticallyl improving. Given his prolonged steroid use, the surgical team will need to carefully weigh the risks of complications, including anastomotic leak, and consider the potential need for a loop ileostomy. We will continue close monitoring in conjunction with the surgical service. (2) Small bowel obstruction: Code(s): K56.609 - Unspecified intestinal obstruction, unspecified as to partial versus complete obstruction Status: Acute Time Spent With Patient Time with patient: 15 - 25 minutes Subjective Date/time seen: 08/27/24 07:00 Interval history: the patient feels somewhat better, however has not passed any gas and has moderate abdominal pain. There is no fever. His CT scan, although not officially read yet, shows distended small bowel loops, not much improved from his baseline. Objective Data Vital Signs Vital Signs: Vital Signs - 24 hr 08/26/24 08:00 08/26/24 09:45 08/26/24 12:00 Temperature 98.1 F Pulse Rate 98 97 92 Respiratory Rate 16 Blood Pressure 144/82 H Pulse Oximetry 100 Oxygen Delivery 08/26/24 16:00 08/26/24 16:00 08/26/24 20:00 Temperature 98.3 F 98.8 F Pulse Rate 98 86 79 Respiratory Rate 16 16 Blood Pressure 122/74 123/73 Pulse Oximetry 100 100 Oxygen Delivery 08/26/24 20:01 08/26/24 21:06 08/27/24 00:00 Temperature 98.6 F Pulse Rate 83 88 Respiratory Rate 16 Blood Pressure 125/76 Pulse Oximetry 99 Oxygen Delivery Room Air 08/27/24 00:03 08/27/24 04:00 08/27/24 04:01 Temperature 98.6 F Pulse Rate 71 98 71 Respiratory Rate 16 Blood Pressure 118/73 Pulse Oximetry 100 Oxygen Delivery 08/27/24 06:00 Temperature 98.6 F Pulse Rate Respiratory Rate Blood Pressure Pulse Oximetry Oxygen Delivery Intake/Output Intake/Output: Intake & Output 08/24/24 08/25/24 08/26/24 08/27/24 23:59 23:59 23:59 23:59 Intake Total 2154 2350 1100 Output Total 1575 Balance 2154 775 1100 Meds/Results Medications: Active Medications Generic Name Dose Route Start Last Admin Trade Name Freq PRN Reason Stop Dose Admin Acetaminophen 650 mg 08/25/24 17:02 Acetaminophen 650 Mg Suppository RECTAL Q6H PRN Mild Pain (1-3) or Fever Azathioprine 50 mg 08/26/24 12:05 08/26/24 12:34 Azathioprine 50 Mg Tablet PO Not Given QAM KISHORE Azathioprine 25 mg 08/26/24 12:05 08/26/24 12:34 Azathioprine 25 Mg Tablet PO Not Given QAM KISHORE Sodium Chloride 1,000 mls @ 125 mls/hr 08/25/24 16:30 08/27/24 01:10 Normal Saline Iv IV CONT 125 mls/hr .Q8H KISHORE Administration Ceftriaxone Sodium 1 gm in 50 mls @ 100 mls/hr 08/26/24 18:00 08/26/24 18:15 Rocephin 1 Gm/Ns 50 Ml IVPB Infused Q24H KISHORE Infusion Metronidazole 500 mg in 100 mls @ 100 mls/hr 08/26/24 04:00 08/27/24 06:43 Flagyl 500 Mg/Iso Soln 100 Ml IVPB Infused Q8HR KISHORE Infusion Ibuprofen 400 mg/ Sodium 104 mls @ 208 mls/hr 08/25/24 20:30 08/25/24 23:05 Chloride IVPB Infused Q6H PRN Infusion Pain 4-6 or fever Methylprednisolone Sodium Succinate 60 mg 08/26/24 09:00 08/26/24 09:34 Methylprednisolone Sod Succ 125 Mg Vial IV PUSH 60 mg DAILY KISHORE Administration Morphine Sulfate 2 mg 08/26/24 11:30 Morphine Sulfate (*Crx) 2 Mg/Ml Inj IV PUSH Q2H PRN Pain Rated 7-10 Ondansetron HCl 4 mg 08/26/24 11:29 Ondansetron Inj 4 Mg/2 Ml Vial IV PUSH Q4H PRN Nausea And Vomiting Radiology Results: ITS Impressions Abdomen X-Ray 08/26/24 09:33 IMPRESSION: 1. Nasogastric tube in expected position within the stomach. Labs Labs: Laboratory Results - last 24 hr 08/26/24 08/26/24 08/27/24 06:56 23:56 04:55 WBC 6.6 RBC 4.00 L Hgb 10.7 L D Hct 35.9 L MCV 89.8 MCH 26.8 MCHC 29.8 L RDW 23.4 H Plt Count 408 H MPV 9.5 Immature Gran % (Auto) 0.3 Neut % (Auto) 72.0 Lymph % (Auto) 13.1 L [place] % (Auto) 14.1 H Eos % (Auto) 0.0 Baso % (Auto) 0.5 Lymph # (Auto) 0.86 L [place] # (Auto) 0.9 H Eos # (Auto) 0.0 Baso # (Auto) 0.0 Abs Immat Gran (auto) 0.02 Absolute Neuts (auto) 4.7 Absolute Nucleated RBC 0.000 Nucleated RBC % 0.0 Platelet Estimate Slightly increased Hypochromasia 1+ Anisocytosis 1+ Schistocytes None seen Sodium 137 Potassium 4.0 Chloride 104 Carbon Dioxide 24 Anion Gap 9 BUN 13 D Creatinine 0.58 L Estim Creat Clear Calc 132 Estimated GFR > 60 Glucose 78 POC Capillary Glucose 85 82 Calcium 8.5 L Total Bilirubin 0.9 AST 16 L ALT 9 Alkaline Phosphatase 64 Total Protein 6.0 L Albumin 3.4 L
[2024-08-27 07:02] LABS: Alanine Aminotransferase 10 U/L (6-50); Albumin Level 3.3 g/dL (3.7-5.6); Alkaline Phosphatase 61 U/L (58-237); Anion Gap 8 mmol/L (4-12); Aspartate Amino Transferase 14 U/L (17-59); Bilirubin,Total 0.7 mg/dL (0.2-1.3); Blood Urea Nitrogen 10 mg/dL (8-21); Calcium 8.3 mg/dL (8.9-10.7); Carbon Dioxide 25 mmol/L (22-30); Chloride 103 mmol/L (98-107); Estimated CRCL calculation 132 ml/min; Estimated Glomerular Filt Rate > 60; Glucose 75 mg/dL (65-110); Magnesium 2.1 mg/dL (1.6-2.3); Potassium 3.6 mmol/L (3.4-5.0); Sodium 136 mmol/L (134-143)
[2024-08-27 07:08] LABS: Lactic Acid Reflex 0.7 mmol/L (0.7-2.0)
[2024-08-27 08:07] LABS: Anisocytosis 2+; Platelet Estimate Adequate (Adequate)
[2024-08-27 08:09] LABS: Hypochromasia 1+; Schistocytes None Seen
[2024-08-27] MEDS: azaTHIOprine 50 MG TABLET PO (10:55)
[2024-08-27] MEDS: azaTHIOprine 25 MG TABLET PO (10:56)
[2024-08-27] MEDS: methylPREDNISolone SOD SUCC 125 MG VIAL 60 MG IV PUSH (10:56)
--- NOTE | 2024-08-27 11:04 | PM.PNGS ---
Progress Note: A&P Assessment and Plan (1) Small bowel obstruction: Code(s): K56.609 - Unspecified intestinal obstruction, unspecified as to partial versus complete obstruction Status: Acute Assessment and Plan: Continue conservative management with NG tube decompression, bowel rest, serial exams for now May need surgical intervention as this is the 3rd episode in the last few months (2) Crohn's ileocolitis: Qualifiers: Digestive disease complication type: with intestinal obstruction Qualified Code(s): K50.812 - Crohn's disease of both small and large intestine with intestinal obstruction Code(s): K50.80 - Crohn's disease of both small and large intestine without complications Status: Acute Assessment and Plan: Repeat CT scan still shows persistent SBO with terminal ileitis. Will likely need ileocecectomy. Continue management with IV steroids per GI, may discuss possibility of weaning steroids in preparation for surgery. Plan I have discussed the patient's case and plan of care with Dr. Lanier. Subjective Subjective Date/Time Seen: 08/27/24 11:04 Patient reports: no new complaints, pain is less, no flatus and no bowel movement Interval history: Chart reviewed. His abdominal pain has improved some since NG tube placement, but still rating it at a 5/10. No signs of bowel function. Exam Const: General: comfortable and no acute distress Orientation/consciousness: patient oriented x3 GI: Inspection: non-distended GI Palp: Yes Soft to palpation, Yes Tenderness to palpation present (GI) (mild diffuse tenderness), No Guarding due to palpation present (GI) and No Rebound tenderness present Auscultation: Hypoactive bowel sounds present Objective Data Vital Signs Vital Signs: Vital Signs - 24 hr 08/26/24 12:00 08/26/24 16:00 08/26/24 16:00 Temperature 98.3 F Pulse Rate 92 98 86 Respiratory Rate 16 Blood Pressure 122/74 Pulse Oximetry 100 Oxygen Delivery 08/26/24 20:00 08/26/24 20:01 08/26/24 21:06 Temperature 98.8 F Pulse Rate 79 83 Respiratory Rate 16 Blood Pressure 123/73 Pulse Oximetry 100 Oxygen Delivery Room Air 08/27/24 00:00 08/27/24 00:03 08/27/24 04:00 Temperature 98.6 F 98.6 F Pulse Rate 88 71 98 Respiratory Rate 16 16 Blood Pressure 125/76 118/73 Pulse Oximetry 99 100 Oxygen Delivery 08/27/24 04:01 08/27/24 06:00 Temperature 98.6 F Pulse Rate 71 Respiratory Rate Blood Pressure Pulse Oximetry Oxygen Delivery Intake/Output Intake/Output: Intake & Output 08/24/24 08/25/24 08/26/24 08/27/24 23:59 23:59 23:59 23:59 Intake Total 2154 2350 2100 Output Total 1575 Balance 2154 775 2100 Meds/Results Medications: Active Medications Generic Name Dose Route Start Last Admin Trade Name Freq PRN Reason Stop Dose Admin Acetaminophen 650 mg 08/25/24 17:02 Acetaminophen 650 Mg Suppository RECTAL Q6H PRN Mild Pain (1-3) or Fever Azathioprine 50 mg 08/26/24 12:05 08/27/24 10:55 Azathioprine 50 Mg Tablet PO 50 mg QAM KISHORE Administration Azathioprine 25 mg 08/26/24 12:05 08/27/24 10:56 Azathioprine 25 Mg Tablet PO 25 mg QAM KISHORE Administration Sodium Chloride 1,000 mls @ 125 mls/hr 08/25/24 16:30 08/27/24 10:55 Normal Saline Iv IV CONT 125 mls/hr .Q8H KISHORE Administration Ceftriaxone Sodium 1 gm in 50 mls @ 100 mls/hr 08/26/24 18:00 08/26/24 18:15 Rocephin 1 Gm/Ns 50 Ml IVPB Infused Q24H KISHORE Infusion Metronidazole 500 mg in 100 mls @ 100 mls/hr 08/26/24 04:00 08/27/24 06:43 Flagyl 500 Mg/Iso Soln 100 Ml IVPB Infused Q8HR KISHORE Infusion Ibuprofen 400 mg/ Sodium 104 mls @ 208 mls/hr 08/25/24 20:30 08/25/24 23:05 Chloride IVPB Infused Q6H PRN Infusion Pain 4-6 or fever Methylprednisolone Sodium Succinate 60 mg 08/26/24 09:00 08/27/24 10:56 Methylprednisolone Sod Succ 125 Mg Vial IV PUSH 60 mg DAILY KISHORE Administration Morphine Sulfate 2 mg 08/26/24 11:30 Morphine Sulfate (*Crx) 2 Mg/Ml Inj IV PUSH Q2H PRN Pain Rated 7-10 Ondansetron HCl 4 mg 08/26/24 11:29 Ondansetron Inj 4 Mg/2 Ml Vial IV PUSH Q4H PRN Nausea And Vomiting Radiology Results: ITS Impressions Abdomen X-Ray 08/26/24 09:33 IMPRESSION: 1. Nasogastric tube in expected position within the stomach. Abdomen/Pelvis CT 08/27/24 08:25 IMPRESSION: 1. Persistent small bowel obstruction with transition point at the terminal ileum where there is prominent wall thickening suggesting terminal ileitis which could be due to Crohn's disease or infection. 2. Likely reactive mild mesenteric lymphadenopathy and tiny amount of ascites in the pelvis. Labs Labs: Laboratory Results - last 24 hr 08/26/24 08/27/24 08/27/24 23:56 04:55 06:28 WBC 4.3 L RBC 3.83 L Hgb 10.3 L Hct 34.4 L MCV 89.8 MCH 26.9 MCHC 29.9 L RDW 22.6 H Plt Count 329 MPV 8.9 Immature Gran % (Auto) 0.2 Neut % (Auto) 51.5 Lymph % (Auto) 31.9 [place] % (Auto) 15.9 H Eos % (Auto) 0.5 Baso % (Auto) 0.0 L Lymph # (Auto) 1.37 [place] # (Auto) 0.7 H Eos # (Auto) 0.0 Baso # (Auto) 0.0 Abs Immat Gran (auto) 0.01 Absolute Neuts (auto) 2.2 Absolute Nucleated RBC 0.000 Nucleated RBC % 0.0 Platelet Estimate Adequate Hypochromasia 1+ Anisocytosis 2+ Schistocytes None seen Sodium 136 Potassium 3.6 Chloride 103 Carbon Dioxide 25 Anion Gap 8 BUN 10 Creatinine 0.58 L Estim Creat Clear Calc 132 Estimated GFR > 60 Glucose 75 POC Capillary Glucose 85 82 Lactic Acid 0.7 Calcium 8.3 L Magnesium 2.1 Total Bilirubin 0.7 AST 14 L ALT 10 Alkaline Phosphatase 61 Total Protein 6.0 L Albumin 3.3 L
--- NOTE | 2024-08-27 12:27 | P.PNGI_ITS ---
Progress Note: A&P Assessment and Plan (1) Small bowel obstruction: Code(s): K56.609 - Unspecified intestinal obstruction, unspecified as to partial versus complete obstruction Status: Acute Assessment and Plan: Discussed the case with the patient's mother this morning. She understands that surgery is likely. Given the patient's steroid use for over three months, a complete pre-surgical steroid taper is not feasible. The effects of steroids will likely persist for several days or weeks post-operatively. We can, however, reduce his current IV Solu-Medrol dose from 60 mg to 40 mg daily (equivalent to 50 mg of prednisone). Time Spent With Patient Time with patient: less than 15 minutes Subjective Date/time seen: 08/27/24 12:27 Objective Data Vital Signs Vital Signs: Vital Signs - 24 hr 08/26/24 16:00 08/26/24 16:00 08/26/24 20:00 Temperature 98.3 F 98.8 F Pulse Rate 98 86 79 Respiratory Rate 16 16 Blood Pressure 122/74 123/73 Pulse Oximetry 100 100 Oxygen Delivery 08/26/24 20:01 08/26/24 21:06 08/27/24 00:00 Temperature 98.6 F Pulse Rate 83 88 Respiratory Rate 16 Blood Pressure 125/76 Pulse Oximetry 99 Oxygen Delivery Room Air 08/27/24 00:03 08/27/24 04:00 08/27/24 04:01 Temperature 98.6 F Pulse Rate 71 98 71 Respiratory Rate 16 Blood Pressure 118/73 Pulse Oximetry 100 Oxygen Delivery 08/27/24 06:00 Temperature 98.6 F Pulse Rate Respiratory Rate Blood Pressure Pulse Oximetry Oxygen Delivery Intake/Output Intake/Output: Intake & Output 08/24/24 08/25/24 08/26/24 08/27/24 23:59 23:59 23:59 23:59 Intake Total 2154 2350 2100 Output Total 1575 900 Balance 2154 775 1200 Meds/Results Medications: Active Medications Generic Name Dose Route Start Last Admin Trade Name Freq PRN Reason Stop Dose Admin Acetaminophen 650 mg 08/25/24 17:02 Acetaminophen 650 Mg Suppository RECTAL Q6H PRN Mild Pain (1-3) or Fever Azathioprine 50 mg 08/26/24 12:05 08/27/24 10:55 Azathioprine 50 Mg Tablet PO 50 mg QAM KISHORE Administration Azathioprine 25 mg 08/26/24 12:05 08/27/24 10:56 Azathioprine 25 Mg Tablet PO 25 mg QAM KISHORE Administration Sodium Chloride 1,000 mls @ 125 mls/hr 08/25/24 16:30 08/27/24 10:55 Normal Saline Iv IV CONT 125 mls/hr .Q8H KISHORE Administration Ceftriaxone Sodium 1 gm in 50 mls @ 100 mls/hr 08/26/24 18:00 08/26/24 18:15 Rocephin 1 Gm/Ns 50 Ml IVPB Infused Q24H KISHORE Infusion Metronidazole 500 mg in 100 mls @ 100 mls/hr 08/26/24 04:00 08/27/24 06:43 Flagyl 500 Mg/Iso Soln 100 Ml IVPB Infused Q8HR KISHORE Infusion Ibuprofen 400 mg/ Sodium 104 mls @ 208 mls/hr 08/25/24 20:30 08/25/24 23:05 Chloride IVPB Infused Q6H PRN Infusion Pain 4-6 or fever Methylprednisolone Sodium Succinate 60 mg 08/26/24 09:00 08/27/24 10:56 Methylprednisolone Sod Succ 125 Mg Vial IV PUSH 60 mg DAILY KISHORE Administration Morphine Sulfate 2 mg 08/26/24 11:30 Morphine Sulfate (*Crx) 2 Mg/Ml Inj IV PUSH Q2H PRN Pain Rated 7-10 Ondansetron HCl 4 mg 08/26/24 11:29 Ondansetron Inj 4 Mg/2 Ml Vial IV PUSH Q4H PRN Nausea And Vomiting Radiology Results: ITS Impressions Abdomen X-Ray 08/26/24 09:33 IMPRESSION: 1. Nasogastric tube in expected position within the stomach. Abdomen/Pelvis CT 08/27/24 08:25 IMPRESSION: 1. Persistent small bowel obstruction with transition point at the terminal ileum where there is prominent wall thickening suggesting terminal ileitis which could be due to Crohn's disease or infection. 2. Likely reactive mild mesenteric lymphadenopathy and tiny amount of ascites in the pelvis. Labs Labs: Laboratory Results - last 24 hr 08/26/24 08/27/24 08/27/24 23:56 04:55 06:28 WBC 4.3 L RBC 3.83 L Hgb 10.3 L Hct 34.4 L MCV 89.8 MCH 26.9 MCHC 29.9 L RDW 22.6 H Plt Count 329 MPV 8.9 Immature Gran % (Auto) 0.2 Neut % (Auto) 51.5 Lymph % (Auto) 31.9 [place] % (Auto) 15.9 H Eos % (Auto) 0.5 Baso % (Auto) 0.0 L Lymph # (Auto) 1.37 [place] # (Auto) 0.7 H Eos # (Auto) 0.0 Baso # (Auto) 0.0 Abs Immat Gran (auto) 0.01 Absolute Neuts (auto) 2.2 Absolute Nucleated RBC 0.000 Nucleated RBC % 0.0 Platelet Estimate Adequate Hypochromasia 1+ Anisocytosis 2+ Schistocytes None seen Sodium 136 Potassium 3.6 Chloride 103 Carbon Dioxide 25 Anion Gap 8 BUN 10 Creatinine 0.58 L Estim Creat Clear Calc 132 Estimated GFR > 60 Glucose 75 POC Capillary Glucose 85 82 Lactic Acid 0.7 Calcium 8.3 L Magnesium 2.1 Total Bilirubin 0.7 AST 14 L ALT 10 Alkaline Phosphatase 61 Total Protein 6.0 L Albumin 3.3 L
--- NOTE | 2024-08-27 12:32 | PM.IMPN ---
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 which is possible as patient's vomit this morning looks and smell like fecal matter NG tube in place continue suction continue IV steroid new diagnosis of Crohns 4 months ago several admissions with Crohns already pt will likely need ileocecectomy. - GI and surgery MD rounding (2) Abdominal pain: Qualifiers: Abdominal location: periumbilical Qualified Code(s): R10.33 - Periumbilical pain Code(s): R10.9 - Unspecified abdominal pain Status: Acute Assessment and Plan: - see CT above - given possibility of phlegmon, started on Flagyl and Ceftriaxone on 08/25 - bowel rest for SBO - watch wcc (3) Crohn's disease: Qualifiers: Digestive disease complication type: with intestinal obstruction Gastrointestinal tract location: unspecified location Qualified Code(s): K50.912 - Crohn's disease, unspecified, with intestinal obstruction Code(s): K50.90 - Crohn's disease, unspecified, without complications Status: Chronic Assessment and Plan: - GI consulted, awaiting formal recs - started on steroid course: Solu-Medrol 60 IV daily (4) Esophagitis: Code(s): K20.90 - Esophagitis, unspecified without bleeding Status: Acute Assessment and Plan: - gastritis seen on CT, pantoprazole p.o. daily Subjective Date/time seen: 08/27/24 12:32 Interval history: 18 y/o M presents here with abdominal pain, nausea, vomiting with PMH of Crohn's disease, small bowel obstruction, and iron deficiency anemia. The patient presents here from home for further evaluation of abdominal pain, nausea, and vomiting. The patient was diagnosed with Crohn's in 2023. He he had a recent admission from 08/09/2024 at to 08/13/2024 with a similar presentation and was diagnosed with a bowel obstruction. The patient was followed by GI and General surgery. New diagnosis of crohns 4 months ago several admissions with Crohns already Pt has NG tube in place, pt is npo with iv fluids, having bowel rest for few days now Pt seen by Surgery MD, pt will likely need ileocecectomy. Review of Systems Review of Systems: Pt having mild abdominal pains improving Exam Const: General: no acute distress and uncomfortable Other: , male, thin HENMT: Face/Nose/Sinus: Normal nares present Mouth: Yes dry mucous membranes Eyes: General: appearance normal, both eyes and all related structures Sclera: sclerae normal Pupils: Equal, round and reactive pupils present EOM: EOMs intact bilaterally Resp: Effort & Inspection: normal respiratory effort Auscultation: clear to auscultation bilaterally Cardio: Rate: tachycardic Rhythm: regular rhythm Other: S1-S2 present without murmur, rub, ectopy GI: Other: Abdomen soft, diffusely tender, hypoactive bowel sounds in all quadrants. Skin: General skin exam: normal color and no rashes or lesions noted Wounds: no wounds Neuro: Cranial nerves: Yes Equal, round and reactive pupils present Speech: normal speech Motor exam (neuro): 5/5 motor strength present throughout Sensory Exam: normal sensation Other: A&O x4 Extrem: General: normal to inspection Psych: Mental Status: mental status grossly normal Affect: normal affect Other: Good insight and judgment, pleasant Objective Data Vital Signs Vital Signs: Vital Signs - 24 hr 08/26/24 16:00 08/26/24 16:00 08/26/24 20:00 Temperature 36.8 C 37.1 C Pulse Rate 98 86 79 Respiratory Rate 16 16 Blood Pressure 122/74 123/73 Pulse Oximetry 100 100 Oxygen Delivery 08/26/24 20:01 08/26/24 21:06 08/27/24 00:00 Temperature 37.0 C Pulse Rate 83 88 Respiratory Rate 16 Blood Pressure 125/76 Pulse Oximetry 99 Oxygen Delivery Room Air 08/27/24 00:03 08/27/24 04:00 08/27/24 04:01 Temperature 37.0 C Pulse Rate 71 98 71 Respiratory Rate 16 Blood Pressure 118/73 Pulse Oximetry 100 Oxygen Delivery 08/27/24 06:00 Temperature 37.0 C Pulse Rate Respiratory Rate Blood Pressure Pulse Oximetry Oxygen Delivery Intake/Output Intake/Output: Intake & Output 08/24/24 08/25/24 08/26/24 08/27/24 23:59 23:59 23:59 23:59 Intake Total 2154 2350 2100 Output Total 1575 900 Balance 2154 775 1200 Meds/Results Medications: Active Medications Generic Name Dose Route Start Last Admin Trade Name Freq PRN Reason Stop Dose Admin Acetaminophen 650 mg 08/25/24 17:02 Acetaminophen 650 Mg Suppository RECTAL Q6H PRN Mild Pain (1-3) or Fever Azathioprine 50 mg 08/26/24 12:05 08/27/24 10:55 Azathioprine 50 Mg Tablet PO 50 mg QAM KISHORE Administration Azathioprine 25 mg 08/26/24 12:05 08/27/24 10:56 Azathioprine 25 Mg Tablet PO 25 mg QAM KISHORE Administration Sodium Chloride 1,000 mls @ 125 mls/hr 08/25/24 16:30 08/27/24 10:55 Normal Saline Iv IV CONT 125 mls/hr .Q8H KISHORE Administration Ceftriaxone Sodium 1 gm in 50 mls @ 100 mls/hr 08/26/24 18:00 08/26/24 18:15 Rocephin 1 Gm/Ns 50 Ml IVPB Infused Q24H IKSHORE Infusion Metronidazole 500 mg in 100 mls @ 100 mls/hr 08/26/24 04:00 08/27/24 06:43 Flagyl 500 Mg/Iso Soln 100 Ml IVPB Infused Q8HR KISHORE Infusion Ibuprofen 400 mg/ Sodium 104 mls @ 208 mls/hr 08/25/24 20:30 08/25/24 23:05 Chloride IVPB Infused Q6H PRN Infusion Pain 4-6 or fever Methylprednisolone Sodium Succinate 60 mg 08/26/24 09:00 08/27/24 10:56 Methylprednisolone Sod Succ 125 Mg Vial IV PUSH 60 mg DAILY KISHORE Administration Morphine Sulfate 2 mg 08/26/24 11:30 Morphine Sulfate (*Crx) 2 Mg/Ml Inj IV PUSH Q2H PRN Pain Rated 7-10 Ondansetron HCl 4 mg 08/26/24 11:29 Ondansetron Inj 4 Mg/2 Ml Vial IV PUSH Q4H PRN Nausea And Vomiting Radiology Results: ITS Impressions Abdomen X-Ray 08/26/24 09:33 IMPRESSION: 1. Nasogastric tube in expected position within the stomach. Abdomen/Pelvis CT 08/27/24 08:25 IMPRESSION: 1. Persistent small bowel obstruction with transition point at the terminal ileum where there is prominent wall thickening suggesting terminal ileitis which could be due to Crohn's disease or infection. 2. Likely reactive mild mesenteric lymphadenopathy and tiny amount of ascites in the pelvis. Labs Labs: Laboratory Results - last 24 hr 08/26/24 08/27/24 08/27/24 23:56 04:55 06:28 WBC 4.3 L RBC 3.83 L Hgb 10.3 L Hct 34.4 L MCV 89.8 MCH 26.9 MCHC 29.9 L RDW 22.6 H Plt Count 329 MPV 8.9 Immature Gran % (Auto) 0.2 Neut % (Auto) 51.5 Lymph % (Auto) 31.9 [place] % (Auto) 15.9 H Eos % (Auto) 0.5 Baso % (Auto) 0.0 L Lymph # (Auto) 1.37 [place] # (Auto) 0.7 H Eos # (Auto) 0.0 Baso # (Auto) 0.0 Abs Immat Gran (auto) 0.01 Absolute Neuts (auto) 2.2 Absolute Nucleated RBC 0.000 Nucleated RBC % 0.0 Platelet Estimate Adequate Hypochromasia 1+ Anisocytosis 2+ Schistocytes None seen Sodium 136 Potassium 3.6 Chloride 103 Carbon Dioxide 25 Anion Gap 8 BUN 10 Creatinine 0.58 L Estim Creat Clear Calc 132 Estimated GFR > 60 Glucose 75 POC Capillary Glucose 85 82 Lactic Acid 0.7 Calcium 8.3 L Magnesium 2.1 Total Bilirubin 0.7 AST 14 L ALT 10 Alkaline Phosphatase 61 Total Protein 6.0 L Albumin 3.3 L
[2024-08-28] VITALS (23 sets, daily range): BP systolic 118–147; BP diastolic 54–81; PULSE 67–108; RESP 12–20; TEMP 36.3–37.3; O2SAT 97–100
[2024-08-28] MEDS: metroNIDAZOLE 500 MG/ISO 100ML 500 MG/100 ML BAG 100 MG IVPB ×3 (05:23→22:30)
[2024-08-28] MEDS: SODIUM CHLORIDE 0.9% IV 1,000 ML 125 ML IV CONT (06:57)
--- NOTE | 2024-08-28 07:17 | P.CDI_ITS ---
CDI Query Clarification Request BMI: 16.0 Nutritional Diagnostic Statement: Please refer to the comprehensive nutrition assessment for further information. If you agree with diagnosis of Severe protein calorie malnutrition related to acute Crohns, as evidenced by weight loss -6%/2 weeks; inadequate intake <50% needs ~5 days; moderate muscle wasting and fat loss. Please specify severity if known: * Mild * Moderate * Severe * Other/Unknown <Em Rhodes RN - Last Filed: 08/28/24 07:18> Clarified Diagnosis Clarified Diagnosis: Moderate malnutrition <Olaf Bacon MD - Last Filed: 08/28/24 07:30>
--- NOTE | 2024-08-28 07:30 | P.PNGI_ITS ---
Progress Note: A&P Assessment and Plan (1) Small bowel obstruction: Code(s): K56.609 - Unspecified intestinal obstruction, unspecified as to partial versus complete obstruction Status: Acute Assessment and Plan: Patient with ileal Crohn's Disease was admitted three days ago with his third exacerbation of small bowel obstruction secondary to severe inflammation. Steroid therapy is ongoing, with the Solu-Medrol dose reduced from 60mg to 40mg daily. Given the recurrent nature of exacerbations despite maximal steroid therapy, surgical intervention (semi elective ileo cecal resection) is being actively considered. Biologic therapy is currently not feasible due to administrative constraints. However, this is still considered for maintenance of surgically induced remission. (2) Crohn's ileocolitis: Qualifiers: Digestive disease complication type: with intestinal obstruction Qualified Code(s): K50.812 - Crohn's disease of both small and large intestine with intestinal obstruction Code(s): K50.80 - Crohn's disease of both small and large intestine without complications Status: Acute Time Spent With Patient Time with patient: 15 - 25 minutes Subjective Date/time seen: 08/28/24 07:30 Interval history: The patient feels better, still with minimal abdominal pain. He had a liquid stool last night and is passing gas. No fever, no vomiting. Exam Narrative: Abdomen: Bowel sounds present, nontender, mildly to moderately distended. Objective Data Vital Signs Vital Signs: Vital Signs - 24 hr 08/27/24 08:00 08/27/24 08:00 08/27/24 12:00 Temperature 98.9 F Pulse Rate 79 78 Respiratory Rate 16 Blood Pressure 123/74 Pulse Oximetry 100 Oxygen Delivery Room Air 08/27/24 12:00 08/27/24 16:00 08/27/24 20:01 Temperature Pulse Rate 82 72 70 Respiratory Rate Blood Pressure Pulse Oximetry Oxygen Delivery 08/27/24 22:00 08/27/24 22:02 08/28/24 00:04 Temperature 98.1 F Pulse Rate 75 67 Respiratory Rate 18 Blood Pressure 125/73 Pulse Oximetry 100 100 Oxygen Delivery Room Air 08/28/24 04:02 08/28/24 05:56 Temperature 98.9 F Pulse Rate 75 85 Respiratory Rate 18 Blood Pressure 127/70 Pulse Oximetry 98 Oxygen Delivery Intake/Output Intake/Output: Intake & Output 08/25/24 08/26/24 08/27/2425 23:59 23:59 23:59 23:59 Intake Total 2154 2350 3200 1100 Output Total 1138 744 6274 Balance 2154 775 2300 -400 Meds/Results Medications: Active Medications Generic Name Dose Route Start Last Admin Trade Name Freq PRN Reason Stop Dose Admin Acetaminophen 650 mg 08/25/24 17:02 Acetaminophen 650 Mg Suppository RECTAL Q6H PRN Mild Pain (1-3) or Fever Azathioprine 50 mg 08/26/24 12:05 08/27/24 10:55 Azathioprine 50 Mg Tablet PO 50 mg QAM KISHORE Administration Azathioprine 25 mg 08/26/24 12:05 08/27/24 10:56 Azathioprine 25 Mg Tablet PO 25 mg QAM KISHORE Administration Sodium Chloride 1,000 mls @ 125 mls/hr 08/25/24 16:30 08/28/24 06:57 Normal Saline Iv IV CONT 125 mls/hr .Q8H KISHORE Administration Ceftriaxone Sodium 1 gm in 50 mls @ 100 mls/hr 08/26/24 18:00 08/27/24 18:25 Rocephin 1 Gm/Ns 50 Ml IVPB Infused Q24H KISHORE Infusion Metronidazole 500 mg in 100 mls @ 100 mls/hr 08/26/24 04:00 08/28/24 06:25 Flagyl 500 Mg/Iso Soln 100 Ml IVPB Infused Q8HR KISHORE Infusion Ibuprofen 400 mg/ Sodium 104 mls @ 208 mls/hr 08/25/24 20:30 08/25/24 23:05 Chloride IVPB Infused Q6H PRN Infusion Pain 4-6 or fever Methylprednisolone Sodium Succinate 40 mg 08/28/24 09:00 Methylprednisolone Sod Succ 40 Mg Vial IV PUSH DAILY KISHORE Morphine Sulfate 2 mg 08/26/24 11:30 Morphine Sulfate (*Crx) 2 Mg/Ml Inj IV PUSH Q2H PRN Pain Rated 7-10 Ondansetron HCl 4 mg 08/26/24 11:29 Ondansetron Inj 4 Mg/2 Ml Vial IV PUSH Q4H PRN Nausea And Vomiting Radiology Results: ITS Impressions Abdomen X-Ray 08/26/24 09:33 IMPRESSION: 1. Nasogastric tube in expected position within the stomach. Abdomen/Pelvis CT 08/27/24 08:25 IMPRESSION: 1. Persistent small bowel obstruction with transition point at the terminal ileum where there is prominent wall thickening suggesting terminal ileitis which could be due to Crohn's disease or infection. 2. Likely reactive mild mesenteric lymphadenopathy and tiny amount of ascites in the pelvis. Labs Labs: Laboratory Results - last 24 hr 08/27/24 06:28 WBC 4.3 L RBC 3.83 L Hgb 10.3 L Hct 34.4 L MCV 89.8 MCH 26.9 MCHC 29.9 L RDW 22.6 H Plt Count 329 MPV 8.9 Immature Gran % (Auto) 0.2 Neut % (Auto) 51.5 Lymph % (Auto) 31.9 [place] % (Auto) 15.9 H Eos % (Auto) 0.5 Baso % (Auto) 0.0 L Lymph # (Auto) 1.37 [place] # (Auto) 0.7 H Eos # (Auto) 0.0 Baso # (Auto) 0.0 Abs Immat Gran (auto) 0.01 Absolute Neuts (auto) 2.2 Absolute Nucleated RBC 0.000 Nucleated RBC % 0.0 Platelet Estimate Adequate Hypochromasia 1+ Anisocytosis 2+ Schistocytes None seen
[2024-08-28] MEDS: methylPREDNISolone SOD SUCC 40 MG VIAL IV PUSH (08:23)
[2024-08-28] MEDS: LACTATED RINGERS 1,000 ML 30 ML IV CONT ×3 (08:50→13:04)
--- NOTE | 2024-08-28 09:33 | P.PNAN_ITS ---
Anes - Initial Pre Proc Eval Procedure: Operation Date: 08/28/24 10:00 Proposed Procedures p Hand Assisted Laparoscopic Right Colectomy - Nasreen Lanier MD Date/Time: 08/28/24 09:33 Surgeon: Rodrick Gonzales MD Pre Op Diagnosis: SBO, Chron's disease Patient Data Age: 18 Gender: M Height: 1.83 m Weight: 53.6 kg Last Vital Signs Temp 37.0 C 08/28/24 08:00 Pulse 78 08/28/24 08:00 Resp 18 08/28/24 08:00 BP 147/81 H 08/28/24 08:00 Pulse Ox 100 08/28/24 08:00 O2 Del Method Room Air 08/27/24 22:02 Allergies Allergy/AdvReac Type Severity Reaction Status Date / Time No Known Allergies Allergy Verified 08/25/24 11:44 Home Medications ?Medication ?Instructions ?Recorded ?Confirmed ?Type iron sucrose 100 mg iron/5 mL 500 mg (25 mL) IV ONCE 06/11/24 08/25/24 Rx intravenous solution (Venofer) acetaminophen 500 mg capsule 1,000 mg PO Q4-6H PRN pain 08/09/24 08/25/24 History azathioprine 75 mg tablet 75 mg PO DAILY #30 tabs 08/13/24 08/25/24 Rx prednisone 20 mg tablet 40 mg (2 x 20 mg) PO DAILY #60 tabs 08/13/24 08/25/24 Rx Patient hx anesthesia problems: none Family hx anesthesia problems: none Results Review: All pre-operative results and documents have been reviewed as part of the pre- operative evaluation. [facility] Past Medical History Medical History Crohn's disease LULU (iron deficiency anemia) SBO (small bowel obstruction) Family History Family History Other Unknown family medical history Social History Social History Smoking status: Never smoker Second hand tobacco smoke exposure: No Alcohol intake: never Substance use: never Substance use type: does not use Do You Feel Safe in your Home?: Yes Lack of Transportation: No Lack of Food: Never True Current Housing: I Have Housing Concerned About Future Housing: No Difficulty Paying Gas/Electric Bills: No Difficulty Paying for Meds: No Currently Unemployed: No Education: Bachelor's Degree Difficulty w/ Childcare or Family Care: No Living arrangements: with roommate(s) Occupation/Education: student Gender identity (if verbalized by the patient): Male Sexual Orientation (if Verbalized by the Patient): Straight or Heterosexual Spiritual care concerns: No Agree to blood products: Yes Anes - Eval Final PreProcedure Day of Procedure 08/28/24 09:33 Patient weight: thin Heart: regular rate and rhythm Lungs: clear to auscultation Airway: Mallampati scale class II Neurological: alert and oriented Last oral intake: >/= 8 hours ASA classification: III Emergent: no Anesthetic plan: proceed Anesthesia type and monitoring: general ETT and standard monitoring Results Review: All pre-operative results and documents have been reviewed as part of the pre- operative evaluation. Informed Consent: The patient's anesthetic plan and its attendant risks and benefits were discussed with the patient/family/POA. Questions were solicited and answers provided to the satisfaction of the patient/family/POA.
--- NOTE | 2024-08-28 10:09 | WPDHPUPDATE1 ---
History and Physical Update Update Date/Time: 08/28/24 10:09 History and Physical has been reviewed, including an updated exam of the patient. There are NO changes in the patient's condition. Risks, benefits, and alternatives have been discussed and questions answered. Patient agrees to proceed with procedure.
--- NOTE | 2024-08-28 10:17 | P.PNIM_ITS ---
Progress Note: A&P Assessment and Plan (1) Crohn's disease: Qualifiers: Digestive disease complication type: with intestinal obstruction Gastrointestinal tract location: unspecified location Qualified Code(s): K50.912 - Crohn's disease, unspecified, with intestinal obstruction Code(s): K50.90 - Crohn's disease, unspecified, without complications Status: Chronic (2) Small bowel obstruction: Code(s): K56.609 - Unspecified intestinal obstruction, unspecified as to partial versus complete obstruction Status: Acute (3) Crohn's ileocolitis: Qualifiers: Digestive disease complication type: with intestinal obstruction Qualified Code(s): K50.812 - Crohn's disease of both small and large intestine with intestinal obstruction Code(s): K50.80 - Crohn's disease of both small and large intestine without complications Status: Acute (4) Small bowel obstruction: Code(s): K56.609 - Unspecified intestinal obstruction, unspecified as to partial versus complete obstruction Status: Acute Plan (1) Small bowel obstruction: Code(s): K56.609 - Unspecified intestinal obstruction, unspecified as to partial versus complete obstruction Status: Acute Assessment and Plan: - CT abd/pelvis: Persistent small bowel obstruction with transition point at the terminal ileum where there is prominent wall thickening suggesting terminal ileitis which could be due to Crohn's disease or infection. NG tube in place continue IV Solu-Medrol 40 mg IV daily per GI Status post laparoscopic right colectomy d0 Optimize pain management (2) Abdominal pain: Qualifiers: Abdominal location: periumbilical Qualified Code(s): R10.33 - Periumbilical pain Code(s): R10.9 - Unspecified abdominal pain Status: Acute Assessment and Plan: Due to bowel obstruction and Crohn disease see CT above given possibility of phlegmon, pt is on Flagyl and Ceftriaxone on 08/25 (3) Crohn's disease: Qualifiers: Digestive disease complication type: with intestinal obstruction Gastrointestinal tract location: unspecified location Qualified Code(s): K50.912 - Crohn's disease, unspecified, with intestinal obstruction Code(s): K50.90 - Crohn's disease, unspecified, without complications Status: Chronic Assessment and Plan: Consult GI, appreciate recommendation started on steroid course: Solu-Medrol 40 IV daily Hold immunotherapy but GI Esophagitis: Code(s): K20.90 - Esophagitis, unspecified without bleeding Status: Acute Assessment and Plan: gastritis seen on CT, pantoprazole p.o. daily Subjective Date/time seen: 08/28/24 10:17 Interval history: I saw examined the patient in presents of patient's family. Patient temperature 99?, tachypnea, no O2 desaturation room. Labs reviewed, hemoglobin 10.3 on the baseline. Patient underwent laparoscopic right colectomy without complication. When I saw exam patient, patient still had abdomen pain, denies nausea vomiting. Patient also denies chest pain shortness of breath. Exam Narrative: GENERAL: Pleasant, in no acute distress. Well-nourished. - EYES: EOMI. Anicteric. - HENT: Moist mucous membranes. - LUNGS: Clear to auscultation bilateral ly, no wheezing, rhonchi, or rales. - CARDIOVASCULAR: Regular rate and rhyth m. No murmur. No JVD. - ABDOMEN: Soft, diffuse tender and non- distended. Surgical wound is dry and clean. No palpable masses. - EXTREMITIES: No edema. Peripheral puls es 2+. Non-tender. - NEUROLOGIC: No focal neurological defi cits. CN II-XII grossly intact. - PSYCHIATRIC: Awake, Alert and oriented x 3. Appropriate mood and affect. - SKIN: No rashes or lesions. Warm. - LYMPH: No cervical lymphadenopathy. Objective Data Vital Signs Vital Signs: Vital Signs - 24 hr 08/27/24 12:00 08/27/24 12:00 08/27/24 16:00 Temperature 98.9 F Pulse Rate 78 82 72 Respiratory Rate 16 Blood Pressure 123/74 Pulse Oximetry 100 Oxygen Delivery 08/27/24 20:01 08/27/24 22:00 08/27/24 22:02 Temperature 98.1 F Pulse Rate 70 75 Respiratory Rate 18 Blood Pressure 125/73 Pulse Oximetry 100 100 Oxygen Delivery Room Air 08/28/24 00:04 08/28/24 04:02 08/28/24 05:56 Temperature 98.9 F Pulse Rate 67 75 85 Respiratory Rate 18 Blood Pressure 127/70 Pulse Oximetry 98 Oxygen Delivery 08/28/24 08:00 08/28/24 08:00 08/28/24 09:13 Temperature 98.6 F 97.3 F L Pulse Rate 78 78 Respiratory Rate 18 16 Blood Pressure 147/81 H 128/81 Pulse Oximetry 100 100 Oxygen Delivery Room Air Room Air Intake/Output Intake/Output: Intake & Output 08/25/24 08/26/24 08/27/24 08/28/24 23:59 23:59 23:59 23:59 Intake Total 2154 2350 3200 1100 Output Total 0977 121 6628 Balance 2154 775 2300 -400 Meds/Results Medications: Active Medications Generic Name Dose Route Start Last Admin Trade Name Freq PRN Reason Stop Dose Admin Acetaminophen 650 mg 08/25/24 17:02 Acetaminophen 650 Mg Suppository RECTAL Q6H PRN Mild Pain (1-3) or Fever Azathioprine 50 mg 08/26/24 12:05 08/28/24 08:23 Azathioprine 50 Mg Tablet PO Not Given QAM KISHORE Azathioprine 25 mg 08/26/24 12:05 08/28/24 08:23 Azathioprine 25 Mg Tablet PO Not Given QAM KISHORE Fentanyl Citrate 25 mcg 08/28/24 09:34 Fentanyl Citrate Inj (*Crx) 100 Mcg/2 Ml Vial IV PUSH Q2M PRN Pain Sodium Chloride 1,000 mls @ 125 mls/hr 08/25/24 16:30 08/28/24 06:57 Normal Saline Iv IV CONT 125 mls/hr .Q8H KISHORE Administration Ceftriaxone Sodium 1 gm in 50 mls @ 100 mls/hr 08/26/24 18:00 08/27/24 18:25 Rocephin 1 Gm/Ns 50 Ml IVPB Infused Q24H KISHORE Infusion Metronidazole 500 mg in 100 mls @ 100 mls/hr 08/26/24 04:00 08/28/24 06:25 Flagyl 500 Mg/Iso Soln 100 Ml IVPB Infused Q8HR KISHORE Infusion Ibuprofen 400 mg/ Sodium 104 mls @ 208 mls/hr 08/25/24 20:30 08/25/24 23:05 Chloride IVPB Infused Q6H PRN Infusion Pain 4-6 or fever Lactated Ringer's 1,000 mls @ 30 mls/hr 08/28/24 09:25 08/28/24 08:50 Lr - Lactated Ringers Iv IV CONT 30 mls/hr .Q24H KISHORE Administration Lactated Ringer's 1,000 mls @ 30 mls/hr 08/28/24 09:35 Lr - Lactated Ringers Iv IV CONT .Q24H KISHORE Methylprednisolone Sodium Succinate 40 mg 08/28/24 09:00 08/28/24 08:23 Methylprednisolone Sod Succ 40 Mg Vial IV PUSH 40 mg DAILY KISHORE Administration Morphine Sulfate 2 mg 08/26/24 11:30 Morphine Sulfate (*Crx) 2 Mg/Ml Inj IV PUSH Q2H PRN Pain Rated 7-10 Ondansetron HCl 4 mg 08/26/24 11:29 Ondansetron Inj 4 Mg/2 Ml Vial IV PUSH Q4H PRN Nausea And Vomiting Ondansetron HCl 4 mg 08/28/24 09:34 Ondansetron Inj 4 Mg/2 Ml Vial IV PUSH ONCE PRN Nausea Radiology Results: ITS Impressions Abdomen X-Ray 08/26/24 09:33 IMPRESSION: 1. Nasogastric tube in expected position within the stomach. Abdomen/Pelvis CT 08/27/24 08:25 IMPRESSION: 1. Persistent small bowel obstruction with transition point at the terminal ileum where there is prominent wall thickening suggesting terminal ileitis which could be due to Crohn's disease or infection. 2. Likely reactive mild mesenteric lymphadenopathy and tiny amount of ascites in the pelvis.
[2024-08-28] MEDS: BUPIVACAINE/EPINEPHRINE 0.5% 30 ML VIAL INFILTRATE (10:43)
--- NOTE | 2024-08-28 13:04 | P.OP_ITS ---
Procedure Note - Detailed Date of Procedure 08/28/24 Pre-op Diagnosis SBO, Chron's disease Post-op Diagnosis Same Procedure Performed hand assisted laparoscopic right colectomy, mobilization of the hepatic flexure Surgeon Nasreen Lanier MD Anesthesia General Indications 18-year-old male with recurrent small-bowel obstruction secondary to Crohn's disease in the ileocecal area. Patient admitted multiple times and no resolution despite maximal steroid therapy. Findings Severe inflammation and stricture near the ileocecal area with significant proximal small bowel dilatation Description of Procedure The patient was taken to the operating room and placed in the supine position. After adequate induction of general anesthesia, the patient was prepped and draped normal sterile fashion. A time-out was then done to verify the patient's identity as well as the procedure being performed. I began by making a hand port incision around the umbilicus. This was carried down into the peritoneal cavity and there was noted no adhesions to the anterior abdominal wall. Once the abdominal wall was cleared, the hand port was then placed. I then insufflated the abdomen through the hand port. I then placed the camera through the hand port and under direct visualization, I placed 2x 5 mm ports in right lower and right upper abdomen. Once this was done, I examined the right abdomen. There was noted to be extremely dilated small bowel. There was then noted to be an area of significant inflammation stricture in the ileocecal region. It was noted that the patient had adhesions of the cecum and distal il eum to the pelvis. These adhesions were taken down both bluntly and with the ligasure under direct visualization. This adhesiolysis took approximately 30 minutes. Once the right colon was mobilized, I began my medial approach. I did this by 1st recognizing and transecting the right colic vessels. This was taken down near the base of the mesentery with the LigaSure. Once this was done, I carried this plane towards the hepatic flexure until I encountered the duodenum which was mobilized posteriorly. I then began taking down the lateral attachments of the terminal ileum and right colon including taking down the white line of Toldt and the hepatic flexure. Once this was done my medial and lateral dissection planes met. I was able to easily manipulate the right colon. A this point, I extracorporealyzed the right colon and terminal ileum. I then transected the terminal ileum approximately 10 cm proximal to the ileo colic junction with a 75 MARIA ESTHER stapler. I then transected the ascending colon distal to the area of inflammation in the cecum. This was again done with a 75 MARIA ESTHER stapler. Of note, I was able to palpate the middle colic vessels and the transection was done proximal to the vessels. I then performed a [id number] functional end-to-end anastomosis between the ileum and proximal transverse colon with a 75 MARIA ESTHER stapler followed by a TL 60 stapler. The anastomosis was noted to be tension-free and widely patent. I closed the messenteric defect with a 3.0 silk suture. I also oversewed the staple line with imbricated interrupted 3-0 silk sutures. I then copiously irrigated the abdomen, no other pathology was noted. I then closed the hand port incision with a 0 PDS suture at the fascial level. The subcutaneous tissue was closed with 3-0 Vicryl suture. The skin was closed with 4 O Monocryl subcuticular sutures including the 5 mm ports sites. Dermabond was then placed on all wounds. The patient tolerated the procedure well. He was extubated in the operating room postoperatively and will be transferred to the recovery room in stable condition. Estimated Blood Loss 50 Drains No Packing No Pathology Yes Complications No immediate complications Condition Stable Disposition PACU [facility] Billing Surgery - Charge Forward: Surgery Billing
[2024-08-28] MEDS: fentaNYL CITRATE INJ (*CRX) 100 MCG/2 ML VIAL 25 MCG IV PUSH ×8 (13:44→14:09)
[2024-08-28] MEDS: HYDROmorphone HCL INJ (*CRX) 1 MG/ML SYR 0.5 MG IV PUSH ×2 (15:00→15:52)
[2024-08-28] MEDS: ceFAZolin 1 GM/NS 50 ML 1 GM/50 ML BAG IVPB ×2 (15:05→21:09)
[2024-08-28 16:20] LABS: Hematocrit 36.6 % (42.0-52.0); Hemoglobin 10.8 g/dL (14.0-18.0); Immature Granulocyte Absolute 0.02 K/mm3 (0.00-0.031); Immature Granulocyte Percent A 0.3 % (0-0.5); Lymphocytes Absolute Auto 0.22 K/mm3 (0.9-3.2); Lymphocytes Percent Auto 3.4 % (18.3-44.2); Mean Corpuscular HGB Conc 29.5 g/dl (32-36); Mean Corpuscular Hemoglobin 27.1 pg (26-34); Mean Platelet Volume 9.5 fl (7.4-10.4); Monocytes Absolute Auto 0.4 K/mm3 (0.1-0.6); Monocytes Percent Auto 6.4 % (2.6-8.5); Neutrophils Absolute Auto 5.9 K/mm3 (1.3-6.7); Neutrophils Percent Auto 89.9 % (45.5-73.1); Platelet Count Result 307 k/mm3 (150-375); Red Blood Count 3.98 M/mm3 (4.6-6.20); Red Cell Distribution Width 22.2 % (11.5-14.5); White Blood Count 6.6 K/mm3 (4.5-10.0)
[2024-08-28 16:34] LABS: Alanine Aminotransferase 10 U/L (6-50); Alkaline Phosphatase 55 U/L (58-237); Anion Gap 9 mmol/L (4-12); Aspartate Amino Transferase 15 U/L (17-59); Bilirubin,Total 0.5 mg/dL (0.2-1.3); Blood Urea Nitrogen 9 mg/dL (8-21); Calcium 7.8 mg/dL (8.9-10.7); Carbon Dioxide 21 mmol/L (22-30); Chloride 103 mmol/L (98-107); Estimated CRCL calculation 156 ml/min; Estimated Glomerular Filt Rate > 60; Glucose 86 mg/dL (65-110); Potassium 3.5 mmol/L (3.4-5.0); Sodium 133 mmol/L (134-143)
[2024-08-28 17:44] LABS: Anisocytosis 1+; Hypochromasia 1+; Platelet Estimate Adequate (Adequate); Schistocytes None Seen
[2024-08-28] MEDS: HYDROmorphone HCL INJ (*CRX) 1 MG/ML SYR IV PUSH ×3 (18:44→23:08)
[2024-08-28] MEDS: FAMOTIDINE 20 MG/2 ML VIAL IV PUSH (21:06)
[2024-08-29] VITALS (8 sets, daily range): BP systolic 112–134; BP diastolic 54–76; PULSE 100–116; RESP 16–18; TEMP 36.9–37.5; O2SAT 95–100
[2024-08-29] MEDS: SODIUM CHLORIDE 0.9% IV 1,000 ML 125 ML IV CONT ×3 (01:14→20:15)
[2024-08-29] MEDS: HYDROmorphone HCL INJ (*CRX) 1 MG/ML SYR IV PUSH ×5 (01:17→17:14)
[2024-08-29] MEDS: HYDROmorphone HCL INJ (*CRX) 1 MG/ML SYR 0.5 MG IV PUSH ×3 (05:57→10:11)
--- NOTE | 2024-08-29 06:56 | P.PNGI_ITS ---
Progress Note: A&P Assessment and Plan (1) Crohn's ileocolitis: Qualifiers: Digestive disease complication type: with intestinal obstruction Qualified Code(s): K50.812 - Crohn's disease of both small and large intestine with intestinal obstruction Code(s): K50.80 - Crohn's disease of both small and large intestine without complications Status: Acute Assessment and Plan: Post-operative day one following ileocecectomy for severe Crohn's-related inflammatory stenosis. Steroid taper will continue, with Solu-Medrol decreased from 30 mg to 24 mg daily. Azathioprine will be resumed when the patient tolerates oral intake. Biologic therapy approval is pending to prevent post- operative Crohn's recurrence. Will prescribe iron infusion as well. Time Spent With Patient Time with patient: less than 15 minutes Subjective Date/time seen: 08/29/24 06:56 Interval history: The patient had a good night, no further abdominal pain. Almost no NG tube drainage. Not passing gas yet. Exam Const: General: comfortable GI: Inspection: non-distended GI Palp: Yes Soft to palpation, No Tenderness to palpation present (GI) and No Guarding due to palpation present (GI) Other: small vertical post op mid abdominal scar Objective Data Vital Signs Vital Signs: Vital Signs - 24 hr 08/28/24 08:00 08/28/24 08:00 08/28/24 08:00 Temperature 98.6 F Pulse Rate 78 100 Respiratory Rate 18 Blood Pressure 147/81 H Pulse Oximetry 100 Oxygen Delivery Room Air Oxygen Flow Rate 08/28/24 09:13 08/28/24 09:23 08/28/24 12:51 Temperature 97.3 F L 99 F 98.0 F Pulse Rate 78 75 88 Respiratory Rate 16 20 12 Blood Pressure 128/81 119/73 124/72 Pulse Oximetry 100 100 100 Oxygen Delivery Room Air Simple Face Mask Oxygen Flow Rate 6 08/28/24 13:05 08/28/24 13:20 08/28/24 13:35 Temperature Pulse Rate 85 85 105 H Respiratory Rate 12 12 14 Blood Pressure 122/75 122/73 120/74 Pulse Oximetry 100 100 100 Oxygen Delivery Simple Face Mask Simple Face Mask Simple Face Mask Oxygen Flow Rate 6 6 6 08/28/24 13:50 08/28/24 14:05 08/28/24 14:25 Temperature Pulse Rate 93 95 Respiratory Rate 14 14 Blood Pressure 130/80 127/77 Pulse Oximetry 98 98 99 Oxygen Delivery Room Air Room Air Room Air Oxygen Flow Rate 08/28/24 14:30 08/28/24 14:45 08/28/24 15:15 Temperature 98 F 97.8 F 97.9 F Pulse Rate 92 98 104 H Respiratory Rate 18 18 18 Blood Pressure 131/68 126/66 122/68 Pulse Oximetry 100 100 100 Oxygen Delivery Oxygen Flow Rate 08/28/24 16:00 08/28/24 16:15 08/28/24 18:00 Temperature 98.7 F 98.9 F Pulse Rate 97 96 96 Respiratory Rate 18 16 Blood Pressure 127/60 121/54 L Pulse Oximetry 97 99 Oxygen Delivery Oxygen Flow Rate 08/28/24 19:59 08/28/24 20:02 08/28/24 21:09 Temperature 99.1 F Pulse Rate 89 96 Respiratory Rate 16 Blood Pressure 118/63 Pulse Oximetry 98 100 Oxygen Delivery Room Air Oxygen Flow Rate 08/28/24 23:59 08/29/24 00:04 08/29/24 03:59 Temperature 99.1 F 98.4 F Pulse Rate 108 H 100 104 H Respiratory Rate 16 16 Blood Pressure 133/71 121/66 Pulse Oximetry 100 98 Oxygen Delivery Oxygen Flow Rate 08/29/24 04:00 08/29/24 04:02 Temperature 98.4 F Pulse Rate 104 H 100 Respiratory Rate 16 Blood Pressure 121/66 Pulse Oximetry 98 Oxygen Delivery Oxygen Flow Rate Intake/Output Intake/Output: Intake & Output 08/26/24 08/27/24 08/28/24 08/29/24 23:59 23:59 23:59 23:59 Intake Total 2350 3200 2400.0 1000 Output Total 1115 757 3695 900 Balance 775 2300 -1930.0 100 Meds/Results Medications: Active Medications Generic Name Dose Route Start Last Admin Trade Name Freq PRN Reason Stop Dose Admin Acetaminophen 650 mg 08/25/24 17:02 Acetaminophen 650 Mg Suppository RECTAL Q6H PRN Mild Pain (1-3) or Fever Alvimopan 12 mg 08/29/24 21:00 Alvimopan 12 Mg Capsule PO 09/05/24 20:59 Q12HR [facility] Azathioprine 50 mg 08/26/24 12:05 08/28/24 08:23 Azathioprine 50 Mg Tablet PO Not Given QAM [facility] Azathioprine 25 mg 08/26/24 12:05 08/28/24 08:23 Azathioprine 25 Mg Tablet PO Not Given QAM [facility] Enoxaparin Sodium 40 mg 08/29/24 09:00 Enoxaparin 40 Mg/0.4 Ml Syringe SUB-Q DAILY [facility] Famotidine 20 mg 08/28/24 21:00 08/28/24 21:06 Famotidine 20 Mg/2 Ml Vial IV PUSH 20 mg Q12HR K[facility]ORE Administration Hydromorphone HCl 1 mg 08/28/24 14:14 08/29/24 03:18 Hydromorphone Hcl Inj (*Crx) 1 Mg/Ml Syr IV PUSH 1 mg Q2H PRN Administration Breakthrough Pain Rated 7-10 or NPO Hydromorphone HCl 0.5 mg 08/28/24 14:14 08/29/24 05:57 Hydromorphone Hcl Inj (*Crx) 1 Mg/Ml Syr IV PUSH 0.5 mg Q2H PRN Administration Breakthrough Pain Rated 4-6 or NPO Sodium Chloride 1,000 mls @ 125 mls/hr 08/25/24 16:30 08/29/24 01:14 Normal Saline Iv IV CONT 125 mls/hr .Q8H KISHORE Administration Ibuprofen 800 mg in 200 mls @ 400 mls/hr 08/28/24 14:14 Caldolor 800 Mg/200 Ml IVPB Q6H PRN Breakthrough Pain Rated 1-3 or NPO Methylprednisolone Sodium Succinate 40 mg 08/28/24 09:00 08/28/24 08:23 Methylprednisolone Sod Succ 40 Mg Vial IV PUSH 40 mg DAILY K[facility]ORE Administration Naloxone HCl 0.1 mg 08/28/24 14:14 Naloxone Hcl 0.4 Mg/Ml Vial IV PUSH Q2M PRN Opiate Reversal Ondansetron HCl 4 mg 08/28/24 14:14 Ondansetron Inj 4 Mg/2 Ml Vial IV PUSH Q4H PRN Nausea And Vomiting Radiology Results: ITS Impressions Abdomen X-Ray 08/26/24 09:33 IMPRESSION: 1. Nasogastric tube in expected position within the stomach. Abdomen/Pelvis CT 08/28/24 23:39 IMPRESSION: Imaging of the postoperative abdomen and pelvis, as detailed above. Labs Labs: Laboratory Results - last 24 hr 08/28/24 15:29 WBC 6.6 RBC 3.98 L Hgb 10.8 L Hct 36.6 L MCV 92.0 MCH 27.1 MCHC 29.5 L RDW 22.2 H Plt Count 307 MPV 9.5 Immature Gran % (Auto) 0.3 Neut % (Auto) 89.9 H Lymph % (Auto) 3.4 L [place] % (Auto) 6.4 Eos % (Auto) 0.0 Baso % (Auto) 0.0 L Lymph # (Auto) 0.22 L [place] # (Auto) 0.4 Eos # (Auto) 0.0 Baso # (Auto) 0.0 Abs Immat Gran (auto) 0.02 Absolute Neuts (auto) 5.9 Absolute Nucleated RBC 0.000 Nucleated RBC % 0.0 Platelet Estimate Adequate Hypochromasia 1+ Anisocytosis 1+ Schistocytes None seen Sodium 133 L Potassium 3.5 Chloride 103 Carbon Dioxide 21 L Anion Gap 9 BUN 9 Creatinine 0.48 L Estim Creat Clear Calc 156 Estimated GFR > 60 Glucose 86 Calcium 7.8 L Total Bilirubin 0.5 AST 15 L ALT 10 Alkaline Phosphatase 55 L Total Protein 5.0 L Albumin 3.0 L
[2024-08-29 07:43] LABS: Basophils Percent Auto 0.2 % (0.2-1.2); Hematocrit 36.2 % (42.0-52.0); Hemoglobin 10.9 g/dL (14.0-18.0); Immature Granulocyte Absolute 0.04 K/mm3 (0.00-0.031); Immature Granulocyte Percent A 0.3 % (0-0.5); Lymphocytes Absolute Auto 0.57 K/mm3 (0.9-3.2); Lymphocytes Percent Auto 4.5 % (18.3-44.2); Mean Corpuscular HGB Conc 30.1 g/dl (32-36); Mean Corpuscular Hemoglobin 27.4 pg (26-34); Mean Platelet Volume 9.3 fl (7.4-10.4); Monocytes Absolute Auto 0.4 K/mm3 (0.1-0.6); Neutrophils Absolute Auto 11.7 K/mm3 (1.3-6.7); Platelet Count Result 280 k/mm3 (150-375); Red Blood Count 3.98 M/mm3 (4.6-6.20); Red Cell Distribution Width 22.3 % (11.5-14.5); White Blood Count 12.8 K/mm3 (4.5-10.0)
[2024-08-29 07:51] LABS: Anion Gap 5 mmol/L (4-12); Blood Urea Nitrogen 5 mg/dL (8-21); Calcium 7.8 mg/dL (8.9-10.7); Carbon Dioxide 25 mmol/L (22-30); Chloride 102 mmol/L (98-107); Estimated CRCL calculation 121 ml/min; Estimated Glomerular Filt Rate > 60; Glucose 64 mg/dL (65-110); Potassium 3.7 mmol/L (3.4-5.0); Sodium 132 mmol/L (134-143)
[2024-08-29] MEDS: azaTHIOprine 25 MG TABLET PO (08:13)
[2024-08-29] MEDS: FAMOTIDINE 20 MG/2 ML VIAL IV PUSH ×2 (08:13→20:16)
[2024-08-29] MEDS: ENOXAPARIN 40 MG/0.4 ML SYRINGE SUB-Q (08:13)
[2024-08-29] MEDS: azaTHIOprine 50 MG TABLET PO (08:13)
[2024-08-29 08:17] LABS: Platelet Estimate Adequate (Adequate)
[2024-08-29 08:18] LABS: Anisocytosis 1+; Burr Cells 1+; Schistocytes None Seen
[2024-08-29] MEDS: IRON SUCROSE COMPLEX 400 MG in SODIUM CHLORIDE 0.9% IV 250 ML 108 MG IVPB (08:26)
--- NOTE | 2024-08-29 09:24 | P.PNIM_ITS ---
Progress Note: A&P Assessment and Plan (1) Crohn's disease: Qualifiers: Digestive disease complication type: with intestinal obstruction Gastrointestinal tract location: unspecified location Qualified Code(s): K50.912 - Crohn's disease, unspecified, with intestinal obstruction Code(s): K50.90 - Crohn's disease, unspecified, without complications Status: Chronic (2) Small bowel obstruction: Code(s): K56.609 - Unspecified intestinal obstruction, unspecified as to partial versus complete obstruction Status: Acute (3) Crohn's ileocolitis: Qualifiers: Digestive disease complication type: with intestinal obstruction Qualified Code(s): K50.812 - Crohn's disease of both small and large intestine with intestinal obstruction Code(s): K50.80 - Crohn's disease of both small and large intestine without complications Status: Acute Plan (1) Small bowel obstruction: Code(s): K56.609 - Unspecified intestinal obstruction, unspecified as to partial versus complete obstruction Status: Acute Assessment and Plan: - CT abd/pelvis: Persistent small bowel obstruction with transition point at the terminal ileum where there is prominent wall thickening suggesting terminal ileitis which could be due to Crohn's disease or infection. NG tube in place continue IV Solu-Medrol 40 mg IV daily per GI Status post laparoscopic right colectomy d1 Optimize pain management (2) Abdominal pain: Qualifiers: Abdominal location: periumbilical Qualified Code(s): R10.33 - Periumbilical pain Code(s): R10.9 - Unspecified abdominal pain Status: Acute Assessment and Plan: Due to bowel obstruction and Crohn disease see CT above given possibility of phlegmon, pt is on Flagyl and Ceftriaxone on 08/25 (3) Crohn's disease: Qualifiers: Digestive disease complication type: with intestinal obstruction Gastrointestinal tract location: unspecified location Qualified Code(s): K50.912 - Crohn's disease, unspecified, with intestinal obstruction Code(s): K50.90 - Crohn's disease, unspecified, without complications Status: Chronic Assessment and Plan: Consult GI, appreciate recommendation started on steroid course: Solu-Medrol 40 >24IV daily Hold immunotherapy by GI during p.o. Esophagitis: Code(s): K20.90 - Esophagitis, unspecified without bleeding Status: Acute Assessment and Plan: gastritis seen on CT, pantoprazole p.o. daily Subjective Date/time seen: 08/29/24 09:24 Interval history: I saw exam patient today, NG tube in-situ, patient denies abdomen pain, has not passed gas yet. Patient afebrile, blood pressure stable Exam Narrative: GENERAL: Pleasant, in no acute distress. Well-nourished. - EYES: EOMI. Anicteric. - HENT: Moist mucous membranes. - LUNGS: Clear to auscultation bilateral ly, no wheezing, rhonchi, or rales. - CARDIOVASCULAR: Regular rate and rhyth m. No murmur. No JVD. - ABDOMEN: Soft, diffuse tender and non- distended. Surgical wound is dry and clean. No palpable masses. - EXTREMITIES: No edema. Peripheral puls es 2+. Non-tender. - NEUROLOGIC: No focal neurological defi cits. CN II-XII grossly intact. - PSYCHIATRIC: Awake, Alert and oriented x 3. Appropriate mood and affect. - SKIN: No rashes or lesions. Warm. - LYMPH: No cervical lymphadenopathy. Objective Data Vital Signs Vital Signs: Vital Signs - 24 hr 08/28/24 12:51 08/28/24 13:05 08/28/24 13:20 Temperature 98.0 F Pulse Rate 88 85 85 Respiratory Rate 12 12 12 Blood Pressure 124/72 122/75 122/73 Pulse Oximetry 100 100 100 Oxygen Delivery Simple Face Mask Simple Face Mask Simple Face Mask Oxygen Flow Rate 6 6 6 08/28/24 13:35 08/28/24 13:50 08/28/24 14:05 Temperature Pulse Rate 105 H 93 95 Respiratory Rate 14 14 14 Blood Pressure 120/74 130/80 127/77 Pulse Oximetry 100 98 98 Oxygen Delivery Simple Face Mask Room Air Room Air Oxygen Flow Rate 6 08/28/24 14:25 08/28/24 14:30 08/28/24 14:45 Temperature 98 F 97.8 F Pulse Rate 92 98 Respiratory Rate 18 18 Blood Pressure 131/68 126/66 Pulse Oximetry 99 100 100 Oxygen Delivery Room Air Oxygen Flow Rate 08/28/24 15:15 08/28/24 16:00 08/28/24 16:15 Temperature 97.9 F 98.7 F Pulse Rate 104 H 97 96 Respiratory Rate 18 18 Blood Pressure 122/68 127/60 Pulse Oximetry 100 97 Oxygen Delivery Oxygen Flow Rate 08/28/24 18:00 08/28/24 19:59 08/28/24 20:02 Temperature 98.9 F 99.1 F Pulse Rate 96 89 96 Respiratory Rate 16 16 Blood Pressure 121/54 L 118/63 Pulse Oximetry 99 98 Oxygen Delivery Oxygen Flow Rate 08/28/24 21:09 08/28/24 23:59 08/29/24 00:04 Temperature 99.1 F Pulse Rate 108 H 100 Respiratory Rate 16 Blood Pressure 133/71 Pulse Oximetry 100 100 Oxygen Delivery Room Air Oxygen Flow Rate 08/29/24 03:59 08/29/24 04:00 08/29/24 04:02 Temperature 98.4 F 98.4 F Pulse Rate 104 H 104 H 100 Respiratory Rate 16 16 Blood Pressure 121/66 121/66 Pulse Oximetry 98 98 Oxygen Delivery Oxygen Flow Rate Intake/Output Intake/Output: Intake & Output 08/26/24 08/27/24 08/28/24 08/29/24 23:59 23:59 23:59 23:59 Intake Total 2350 3200 2400.0 1000 Output Total 0586 043 7855 900 Balance 775 2300 -1930.0 100 Meds/Results Medications: Active Medications Generic Name Dose Route Start Last Admin Trade Name Freq PRN Reason Stop Dose Admin Acetaminophen 650 mg 08/25/24 17:02 Acetaminophen 650 Mg Suppository RECTAL Q6H PRN Mild Pain (1-3) or Fever Alvimopan 12 mg 08/29/24 21:00 Alvimopan 12 Mg Capsule PO 09/05/24 20:59 Q12HR [facility] Azathioprine 50 mg 08/26/24 12:05 08/29/24 08:13 Azathioprine 50 Mg Tablet PO 50 mg QAM [facility]ORE Administration Azathioprine 25 mg 08/26/24 12:05 08/29/24 08:13 Azathioprine 25 Mg Tablet PO 25 mg QAM [facility] Administration Enoxaparin Sodium 40 mg 08/29/24 09:00 08/29/24 08:13 Enoxaparin 40 Mg/0.4 Ml Syringe SUB-Q 40 mg DAILY [facility] Administration Famotidine 20 mg 08/28/24 21:00 08/29/24 08:13 Famotidine 20 Mg/2 Ml Vial IV PUSH 20 mg Q12HR [facility] Administration Hydromorphone HCl 1 mg 08/28/24 14:14 08/29/24 03:18 Hydromorphone Hcl Inj (*Crx) 1 Mg/Ml Syr IV PUSH 1 mg Q2H PRN Administration Breakthrough Pain Rated 7-10 or NPO Hydromorphone HCl 0.5 mg 08/28/24 14:14 08/29/24 08:10 Hydromorphone Hcl Inj (*Crx) 1 Mg/Ml Syr IV PUSH 0.5 mg Q2H PRN Administration Breakthrough Pain Rated 4-6 or NPO Sodium Chloride 1,000 mls @ 125 mls/hr 08/25/24 16:30 08/29/24 01:14 Normal Saline Iv IV CONT 125 mls/hr .Q8H [facility] Administration Ibuprofen 800 mg in 200 mls @ 400 mls/hr 08/28/24 14:14 Caldolor 800 Mg/200 Ml IVPB Q6H PRN Breakthrough Pain Rated 1-3 or NPO Iron Sucrose 400 mg/ Sodium 270 mls @ 108 mls/hr 08/29/24 08:00 08/29/24 08:26 Chloride IVPB 08/29/24 10:29 108 mls/hr ONCE ONE Administration Methylprednisolone Sodium Succinate 24 mg 08/30/24 09:00 Methylprednisolone Sod Succ 40 Mg Vial IV PUSH DAILY [facility]ORE Naloxone HCl 0.1 mg 08/28/24 14:14 Naloxone Hcl 0.4 Mg/Ml Vial IV PUSH Q2M PRN Opiate Reversal Ondansetron HCl 4 mg 08/28/24 14:14 Ondansetron Inj 4 Mg/2 Ml Vial IV PUSH Q4H PRN Nausea And Vomiting Radiology Results: ITS Impressions Abdomen X-Ray 08/26/24 09:33 IMPRESSION: 1. Nasogastric tube in expected position within the stomach. Abdomen/Pelvis CT 08/28/24 23:39 IMPRESSION: Imaging of the postoperative abdomen and pelvis, as detailed above. Labs Labs: Laboratory Results - last 24 hr 08/28/24 08/29/24 15:29 07:30 WBC 6.6 12.8 H RBC 3.98 L 3.98 L Hgb 10.8 L 10.9 L Hct 36.6 L 36.2 L MCV 92.0 91.0 MCH 27.1 27.4 MCHC 29.5 L 30.1 L RDW 22.2 H 22.3 H Plt Count 307 280 MPV 9.5 9.3 Immature Gran % (Auto) 0.3 0.3 Neut % (Auto) 89.9 H 92.0 H Lymph % (Auto) 3.4 L 4.5 L [place] % (Auto) 6.4 3.0 Eos % (Auto) 0.0 0.0 Baso % (Auto) 0.0 L 0.2 Lymph # (Auto) 0.22 L 0.57 L [place] # (Auto) 0.4 0.4 Eos # (Auto) 0.0 0.0 Baso # (Auto) 0.0 0.0 Abs Immat Gran (auto) 0.02 0.04 H Absolute Neuts (auto) 5.9 11.7 H Absolute Nucleated RBC 0.000 0.000 Nucleated RBC % 0.0 0.0 Platelet Estimate Adequate Adequate Hypochromasia 1+ Anisocytosis 1+ 1+ Mio Cells 1+ Schistocytes None seen None seen Sodium 133 L 132 L Potassium 3.5 3.7 Chloride 103 102 Carbon Dioxide 21 L 25 Anion Gap 9 5 BUN 9 5 L Creatinine 0.48 L 0.63 L Estim Creat Clear Calc 156 121 Estimated GFR > 60 > 60 Glucose 86 64 L Calcium 7.8 L 7.8 L Total Bilirubin 0.5 AST 15 L ALT 10 Alkaline Phosphatase 55 L Total Protein 5.0 L Albumin 3.0 L
--- NOTE | 2024-08-29 10:38 | PM.PNGS ---
Progress Note: A&P Assessment and Plan (1) Small bowel obstruction: Code(s): K56.609 - Unspecified intestinal obstruction, unspecified as to partial versus complete obstruction Status: Acute Assessment and Plan: s/p R colectomy, await ROBF, encourage OOB/IS, melissa hilliard (2) Crohn's ileocolitis: Qualifiers: Digestive disease complication type: with intestinal obstruction Qualified Code(s): K50.812 - Crohn's disease of both small and large intestine with intestinal obstruction Code(s): K50.80 - Crohn's disease of both small and large intestine without complications Status: Acute Assessment and Plan: steroid taper per GI, await path Subjective Subjective Date/Time Seen: 08/29/24 10:38 Interval history: feels better this am, pain better controlled Review of Systems Review of Systems: All systems reviewed & are unremarkable except as noted in HPI and below Exam Const: General: cooperative, comfortable and no acute distress Resp: Auscultation: clear to auscultation bilaterally Cardio: Rate: regular rate Rhythm: regular rhythm GI: Inspection: normal to inspection, distended and incision GI Palp: Yes abdominal tenderness and Yes Soft to palpation Objective Data Vital Signs Vital Signs: Vital Signs - 24 hr 08/28/24 12:51 08/28/24 13:05 08/28/24 13:20 Temperature 36.7 C Pulse Rate 88 85 85 Respiratory Rate 12 12 12 Blood Pressure 124/72 122/75 122/73 Pulse Oximetry 100 100 100 Oxygen Delivery Simple Face Mask Simple Face Mask Simple Face Mask Oxygen Flow Rate 6 6 6 08/28/24 13:35 08/28/24 13:50 08/28/24 14:05 Temperature Pulse Rate 105 H 93 95 Respiratory Rate 14 14 14 Blood Pressure 120/74 130/80 127/77 Pulse Oximetry 100 98 98 Oxygen Delivery Simple Face Mask Room Air Room Air Oxygen Flow Rate 6 08/28/24 14:25 08/28/24 14:30 08/28/24 14:45 Temperature 36.6 C 36.6 C Pulse Rate 92 98 Respiratory Rate 18 18 Blood Pressure 131/68 126/66 Pulse Oximetry 99 100 100 Oxygen Delivery Room Air Oxygen Flow Rate 08/28/24 15:15 08/28/24 16:00 08/28/24 16:15 Temperature 36.6 C 37.1 C Pulse Rate 104 H 97 96 Respiratory Rate 18 18 Blood Pressure 122/68 127/60 Pulse Oximetry 100 97 Oxygen Delivery Oxygen Flow Rate 08/28/24 18:00 08/28/24 19:59 08/28/24 20:02 Temperature 37.2 C 37.3 C Pulse Rate 96 89 96 Respiratory Rate 16 16 Blood Pressure 121/54 L 118/63 Pulse Oximetry 99 98 Oxygen Delivery Oxygen Flow Rate 08/28/24 21:09 08/28/24 23:59 08/29/24 00:04 Temperature 37.3 C Pulse Rate 108 H 100 Respiratory Rate 16 Blood Pressure 133/71 Pulse Oximetry 100 100 Oxygen Delivery Room Air Oxygen Flow Rate 08/29/24 03:59 08/29/24 04:00 08/29/24 04:02 Temperature 36.9 C 36.9 C Pulse Rate 104 H 104 H 100 Respiratory Rate 16 16 Blood Pressure 121/66 121/66 Pulse Oximetry 98 98 Oxygen Delivery Oxygen Flow Rate Intake/Output Intake/Output: Intake & Output 08/26/24 08/27/24 08/28/24 08/29/24 23:59 23:59 23:59 23:59 Intake Total 2350 3200 2400.0 1000 Output Total 2441 385 7881 900 Balance 775 2300 -1930.0 100 Meds/Results Medications: Active Medications Generic Name Dose Route Start Last Admin Trade Name Freq PRN Reason Stop Dose Admin Acetaminophen 650 mg 08/25/24 17:02 Acetaminophen 650 Mg Suppository RECTAL Q6H PRN Mild Pain (1-3) or Fever Alvimopan 12 mg 08/29/24 21:00 Alvimopan 12 Mg Capsule PO 09/05/24 20:59 Q12HR KISHORE Azathioprine 50 mg 08/26/24 12:05 08/29/24 08:13 Azathioprine 50 Mg Tablet PO 50 mg QAM KISHORE Administration Azathioprine 25 mg 08/26/24 12:05 08/29/24 08:13 Azathioprine 25 Mg Tablet PO 25 mg QAM KISHORE Administration Enoxaparin Sodium 40 mg 08/29/24 09:00 08/29/24 08:13 Enoxaparin 40 Mg/0.4 Ml Syringe SUB-Q 40 mg DAILY KISHORE Administration Famotidine 20 mg 08/28/24 21:00 08/29/24 08:13 Famotidine 20 Mg/2 Ml Vial IV PUSH 20 mg Q12HR KISHORE Administration Hydromorphone HCl 1 mg 08/28/24 14:14 08/29/24 03:18 Hydromorphone Hcl Inj (*Crx) 1 Mg/Ml Syr IV PUSH 1 mg Q2H PRN Administration Breakthrough Pain Rated 7-10 or NPO Hydromorphone HCl 0.5 mg 08/28/24 14:14 08/29/24 10:11 Hydromorphone Hcl Inj (*Crx) 1 Mg/Ml Syr IV PUSH 0.5 mg Q2H PRN Administration Breakthrough Pain Rated 4-6 or NPO Sodium Chloride 1,000 mls @ 125 mls/hr 08/25/24 16:30 08/29/24 01:14 Normal Saline Iv IV CONT 125 mls/hr .Q8H KISHORE Administration Ibuprofen 800 mg in 200 mls @ 400 mls/hr 08/28/24 14:14 Caldolor 800 Mg/200 Ml IVPB Q6H PRN Breakthrough Pain Rated 1-3 or NPO Methylprednisolone Sodium Succinate 24 mg 08/30/24 09:00 Methylprednisolone Sod Succ 40 Mg Vial IV PUSH DAILY KISHORE Naloxone HCl 0.1 mg 08/28/24 14:14 Naloxone Hcl 0.4 Mg/Ml Vial IV PUSH Q2M PRN Opiate Reversal Ondansetron HCl 4 mg 08/28/24 14:14 Ondansetron Inj 4 Mg/2 Ml Vial IV PUSH Q4H PRN Nausea And Vomiting Radiology Results: ITS Impressions Abdomen X-Ray 08/26/24 09:33 IMPRESSION: 1. Nasogastric tube in expected position within the stomach. Abdomen/Pelvis CT 08/28/24 23:39 IMPRESSION: Imaging of the postoperative abdomen and pelvis, as detailed above. Labs Labs: Laboratory Results - last 24 hr 08/28/24 08/29/24 15:29 07:30 WBC 6.6 12.8 H RBC 3.98 L 3.98 L Hgb 10.8 L 10.9 L Hct 36.6 L 36.2 L MCV 92.0 91.0 MCH 27.1 27.4 MCHC 29.5 L 30.1 L RDW 22.2 H 22.3 H Plt Count 307 280 MPV 9.5 9.3 Immature Gran % (Auto) 0.3 0.3 Neut % (Auto) 89.9 H 92.0 H Lymph % (Auto) 3.4 L 4.5 L [place] % (Auto) 6.4 3.0 Eos % (Auto) 0.0 0.0 Baso % (Auto) 0.0 L 0.2 Lymph # (Auto) 0.22 L 0.57 L [place] # (Auto) 0.4 0.4 Eos # (Auto) 0.0 0.0 Baso # (Auto) 0.0 0.0 Abs Immat Gran (auto) 0.02 0.04 H Absolute Neuts (auto) 5.9 11.7 H Absolute Nucleated RBC 0.000 0.000 Nucleated RBC % 0.0 0.0 Platelet Estimate Adequate Adequate Hypochromasia 1+ Anisocytosis 1+ 1+ Mio Cells 1+ Schistocytes None seen None seen Sodium 133 L 132 L Potassium 3.5 3.7 Chloride 103 102 Carbon Dioxide 21 L 25 Anion Gap 9 5 BUN 9 5 L Creatinine 0.48 L 0.63 L Estim Creat Clear Calc 156 121 Estimated GFR > 60 > 60 Glucose 86 64 L Calcium 7.8 L 7.8 L Total Bilirubin 0.5 AST 15 L ALT 10 Alkaline Phosphatase 55 L Total Protein 5.0 L Albumin 3.0 L
--- NOTE | 2024-08-29 14:09 | WPDANESPN ---
Anes - Prog Note Post-Op Date/Time: 08/29/24 14:09 Cardiovascular status: normal Respiratory status: normal Airway patency: baseline Mental status: baseline Post-Op hydration status: normal Vital Signs: Last Vital Signs Temp 98.8 F 08/29/24 08:00 Pulse 106 H 08/29/24 08:00 Resp 16 08/29/24 08:00 BP 134/75 08/29/24 08:00 Pulse Ox 100 08/29/24 08:00 O2 Del Method Room Air 08/29/24 08:00 O2 Flow Rate 6 08/28/24 13:35 Pain Score (VAS): 0/10 I/O: Intake & Output 08/28/24 08/29/24 08/29/24 23:59 07:59 15:59 Intake Total 150.0 1000 1000 Output Total 1200 900 Balance -1050.0 100 1000 Laboratory Tests 08/29/24 07:30 08/29/24 07:30 08/28/24 08/29/24 15:29 07:30 WBC 6.6 12.8 H RBC 3.98 L 3.98 L Hgb 10.8 L 10.9 L Hct 36.6 L 36.2 L MCV 92.0 91.0 MCH 27.1 27.4 MCHC 29.5 L 30.1 L RDW 22.2 H 22.3 H Plt Count 307 280 MPV 9.5 9.3 Immature Gran % (Auto) 0.3 0.3 Neut % (Auto) 89.9 H 92.0 H Lymph % (Auto) 3.4 L 4.5 L [place] % (Auto) 6.4 3.0 Eos % (Auto) 0.0 0.0 Baso % (Auto) 0.0 L 0.2 Lymph # (Auto) 0.22 L 0.57 L [place] # (Auto) 0.4 0.4 Eos # (Auto) 0.0 0.0 Baso # (Auto) 0.0 0.0 Abs Immat Gran (auto) 0.02 0.04 H Absolute Neuts (auto) 5.9 11.7 H Absolute Nucleated RBC 0.000 0.000 Nucleated RBC % 0.0 0.0 Platelet Estimate Adequate Adequate Hypochromasia 1+ Anisocytosis 1+ 1+ Mio Cells 1+ Schistocytes None seen None seen Sodium 133 L 132 L Potassium 3.5 3.7 Chloride 103 102 Carbon Dioxide 21 L 25 Anion Gap 9 5 BUN 9 5 L Creatinine 0.48 L 0.63 L Estim Creat Clear Calc 156 121 Estimated GFR > 60 > 60 Glucose 86 64 L Calcium 7.8 L 7.8 L Total Bilirubin 0.5 AST 15 L ALT 10 Alkaline Phosphatase 55 L Total Protein 5.0 L Albumin 3.0 L Post-procedural complaints: none Patient Feedback: Patient satisfied with anesthetic care.
[2024-08-29] MEDS: ALVIMOPAN 12 MG CAPSULE PO (20:16)
[2024-08-30] VITALS (8 sets, daily range): BP systolic 111–115; BP diastolic 50–72; PULSE 85–121; RESP 16–18; TEMP 36.4–38.2; O2SAT 95–99
[2024-08-30] MEDS: SODIUM CHLORIDE 0.9% IV 1,000 ML 125 ML IV CONT ×3 (05:44→18:37)
[2024-08-30] MEDS: HYDROmorphone HCL INJ (*CRX) 1 MG/ML SYR IV PUSH ×2 (05:44→09:08)
[2024-08-30 06:29] LABS: Basophils Percent Auto 0.1 % (0.2-1.2); Hematocrit 33.7 % (42.0-52.0); Hemoglobin 10.1 g/dL (14.0-18.0); Immature Granulocyte Absolute 0.12 K/mm3 (0.00-0.031); Immature Granulocyte Percent A 0.6 % (0-0.5); Lymphocytes Absolute Auto 0.55 K/mm3 (0.9-3.2); Lymphocytes Percent Auto 2.7 % (18.3-44.2); Mean Corpuscular Hemoglobin 27.3 pg (26-34); Mean Corpuscular Volume 91.1 fl (80-100); Monocytes Absolute Auto 0.9 K/mm3 (0.1-0.6); Monocytes Percent Auto 4.2 % (2.6-8.5); Neutrophils Absolute Auto 19.2 K/mm3 (1.3-6.7); Neutrophils Percent Auto 92.4 % (45.5-73.1); Platelet Count Result 298 k/mm3 (150-375); Red Cell Distribution Width 22.5 % (11.5-14.5); White Blood Count 20.8 K/mm3 (4.5-10.0)
[2024-08-30] MEDS: azaTHIOprine 25 MG TABLET PO (09:07)
[2024-08-30] MEDS: methylPREDNISolone SOD SUCC 40 MG VIAL 24 MG IV PUSH (09:07)
[2024-08-30] MEDS: ALVIMOPAN 12 MG CAPSULE PO ×2 (09:07→21:03)
[2024-08-30] MEDS: ENOXAPARIN 40 MG/0.4 ML SYRINGE SUB-Q (09:07)
[2024-08-30] MEDS: FAMOTIDINE 20 MG/2 ML VIAL IV PUSH ×2 (09:07→21:03)
[2024-08-30] MEDS: azaTHIOprine 50 MG TABLET PO (09:07)
[2024-08-30 09:23] LABS: Anisocytosis 1+; Hypochromasia 1+; Platelet Estimate Adequate (Adequate); Schistocytes None Seen
[2024-08-30 09:24] LABS: Burr Cells 1+
[2024-08-30 09:25] LABS: Atypical Lymphocytes Present
--- NOTE | 2024-08-30 10:07 | P.PNIM_ITS ---
Progress Note: A&P Assessment and Plan (1) Crohn's disease: Qualifiers: Digestive disease complication type: with intestinal obstruction Gastrointestinal tract location: unspecified location Qualified Code(s): K50.912 - Crohn's disease, unspecified, with intestinal obstruction Code(s): K50.90 - Crohn's disease, unspecified, without complications Status: Chronic (2) Small bowel obstruction: Code(s): K56.609 - Unspecified intestinal obstruction, unspecified as to partial versus complete obstruction Status: Acute (3) Crohn's ileocolitis: Qualifiers: Digestive disease complication type: with intestinal obstruction Qualified Code(s): K50.812 - Crohn's disease of both small and large intestine with intestinal obstruction Code(s): K50.80 - Crohn's disease of both small and large intestine without complications Status: Acute Plan (1) Small bowel obstruction: Code(s): K56.609 - Unspecified intestinal obstruction, unspecified as to partial versus complete obstruction Status: Acute Assessment and Plan: - CT abd/pelvis: Persistent small bowel obstruction with transition point at the terminal ileum where there is prominent wall thickening suggesting terminal ileitis which could be due to Crohn's disease or infection. NG tube in place continue IV Solu-Medrol 40 mg IV daily per GI Status post laparoscopic right colectomy d1 Optimize pain management (2) Abdominal pain: Qualifiers: Abdominal location: periumbilical Qualified Code(s): R10.33 - Periumbilical pain Code(s): R10.9 - Unspecified abdominal pain Status: Acute Assessment and Plan: Due to bowel obstruction and Crohn disease and possible infection on CT scan, pt is on Flagyl and Ceftriaxone on 08/25 Patient has a low-grade fever and leukocytosis trending up, possible postop reaction and steroid CT abdomen pelvis showed 1. Prominent edematous wall thickening in the 3 cm ileum proximal to ileocolic anastomosis post recent ileocecal resection. This could be secondary in flammatory change related to the recent surgery and/or the pre-existing Crohn's disease versus less likely related to infection or ischemia. 2. Persistent small amount of free postoperative gas and fluid in the abdomen and pelvis. No organized-appearing abscess. 3. Small bilateral pleural effusion Continue ceftriaxone and Flagyl, order blood culture (3) Crohn's disease: Qualifiers: Digestive disease complication type: with intestinal obstruction Gastrointestinal tract location: unspecified location Qualified Code(s): K50.912 - Crohn's disease, unspecified, with intestinal obstruction Code(s): K50.90 - Crohn's disease, unspecified, without complications Status: Chronic Assessment and Plan: Consult GI, appreciate recommendation started on steroid course: Solu-Medrol 40 >24IV daily Hold immunotherapy by GI during p.o. Esophagitis: Code(s): K20.90 - Esophagitis, unspecified without bleeding Status: Acute Assessment and Plan: gastritis seen on CT, pantoprazole p.o. daily Subjective Date/time seen: 08/30/24 10:07 Interval history: I saw and examined patient today in presents of patient's family, NG tube in-situ on intermittent suction, patient denies abdomen pain, patient passed gas today. Patient afebrile, blood pressure stable Patient has low-grade fever 99.6, tachycardia tachypnea, blood pressure stable Labs reviewed, leukocytosis persists, trending up, 20,800, hemoglobin stable Exam Narrative: GENERAL: Pleasant, in no acute distress. Well-nourished. - EYES: EOMI. Anicteric. - HENT: Moist mucous membranes. - LUNGS: Clear to auscultation bilateral ly, no wheezing, rhonchi, or rales. - CARDIOVASCULAR: Regular rate and rhyth m. No murmur. No JVD. - ABDOMEN: Soft, diffuse tender and non- distended. Surgical wound is dry and clean. No palpable masses. - EXTREMITIES: No edema. Peripheral puls es 2+. Non-tender. - NEUROLOGIC: No focal neurological defi cits. CN II-XII grossly intact. - PSYCHIATRIC: Awake, Alert and oriented x 3. Appropriate mood and affect. - SKIN: No rashes or lesions. Warm. - LYMPH: No cervical lymphadenopathy. Objective Data Vital Signs Vital Signs: Vital Signs - 24 hr 08/29/24 12:00 08/29/24 12:00 08/29/24 16:00 Temperature 99.2 F 99.5 F Pulse Rate 116 H 114 H 109 H Respiratory Rate 18 16 Blood Pressure 112/62 114/54 L Pulse Oximetry 97 95 Oxygen Delivery 08/29/24 16:00 08/29/24 20:00 08/29/24 20:00 Temperature 98.6 F Pulse Rate 111 H 112 H Respiratory Rate 18 Blood Pressure 125/76 Pulse Oximetry 99 Oxygen Delivery Room Air 08/29/24 20:00 08/30/24 00:00 08/30/24 00:00 Temperature 100.7 F H Pulse Rate 114 H 121 H 119 H Respiratory Rate 18 Blood Pressure 111/50 L Pulse Oximetry 95 Oxygen Delivery 08/30/24 04:00 08/30/24 04:00 08/30/24 08:00 Temperature 99.5 F 99.6 F Pulse Rate 112 H 110 H 113 H Respiratory Rate 18 16 Blood Pressure 115/63 115/72 Pulse Oximetry 98 97 Oxygen Delivery Intake/Output Intake/Output: Intake & Output 08/27/24 08/28/24 08/29/24 08/30/24 23:59 23:59 23:59 23:59 Intake Total 3200 2400.0 3240 1000 Output Total 900 4330 1400 1400 Balance 2300 -1930.0 1840 -400 Meds/Results Medications: Active Medications Generic Name Dose Route Start Last Admin Trade Name Freq PRN Reason Stop Dose Admin Acetaminophen 650 mg 08/25/24 17:02 Acetaminophen 650 Mg Suppository RECTAL Q6H PRN Mild Pain (1-3) or Fever Alvimopan 12 mg 08/29/24 21:00 08/30/24 09:07 Alvimopan 12 Mg Capsule PO 09/05/24 20:59 12 mg Q12HR KISHORE Administration Azathioprine 50 mg 08/26/24 12:05 08/30/24 09:07 Azathioprine 50 Mg Tablet PO 50 mg QAM KISHORE Administration Azathioprine 25 mg 08/26/24 12:05 08/30/24 09:07 Azathioprine 25 Mg Tablet PO 25 mg QAM KISHORE Administration Enoxaparin Sodium 40 mg 08/29/24 09:00 08/30/24 09:07 Enoxaparin 40 Mg/0.4 Ml Syringe SUB-Q 40 mg DAILY KISHORE Administration Famotidine 20 mg 08/28/24 21:00 08/30/24 09:07 Famotidine 20 Mg/2 Ml Vial IV PUSH 20 mg Q12HR KISHORE Administration Hydromorphone HCl 1 mg 08/28/24 14:14 08/30/24 09:08 Hydromorphone Hcl Inj (*Crx) 1 Mg/Ml Syr IV PUSH 1 mg Q2H PRN Administration Breakthrough Pain Rated 7-10 or NPO Hydromorphone HCl 0.5 mg 08/28/24 14:14 08/29/24 10:11 Hydromorphone Hcl Inj (*Crx) 1 Mg/Ml Syr IV PUSH 0.5 mg Q2H PRN Administration Breakthrough Pain Rated 4-6 or NPO Sodium Chloride 1,000 mls @ 125 mls/hr 08/25/24 16:30 08/30/24 05:53 Normal Saline Iv IV CONT Not Given .Q8H KISHORE Ibuprofen 800 mg in 200 mls @ 400 mls/hr 08/28/24 14:14 Caldolor 800 Mg/200 Ml IVPB Q6H PRN Breakthrough Pain Rated 1-3 or NPO Methylprednisolone Sodium Succinate 24 mg 08/30/24 09:00 08/30/24 09:07 Methylprednisolone Sod Succ 40 Mg Vial IV PUSH 24 mg DAILY KISHORE Administration Naloxone HCl 0.1 mg 08/28/24 14:14 Naloxone Hcl 0.4 Mg/Ml Vial IV PUSH Q2M PRN Opiate Reversal Ondansetron HCl 4 mg 08/28/24 14:14 Ondansetron Inj 4 Mg/2 Ml Vial IV PUSH Q4H PRN Nausea And Vomiting Radiology Results: ITS Impressions Abdomen X-Ray 08/26/24 09:33 IMPRESSION: 1. Nasogastric tube in expected position within the stomach. Abdomen/Pelvis CT 08/28/24 23:39 IMPRESSION: Imaging of the postoperative abdomen and pelvis, as detailed above. Labs Labs: Laboratory Results - last 24 hr 08/30/24 06:12 WBC 20.8 H RBC 3.70 L Hgb 10.1 L Hct 33.7 L MCV 91.1 MCH 27.3 MCHC 30.0 L RDW 22.5 H Plt Count 298 MPV 9.0 Immature Gran % (Auto) 0.6 H Neut % (Auto) 92.4 H Lymph % (Auto) 2.7 L [place] % (Auto) 4.2 Eos % (Auto) 0.0 Baso % (Auto) 0.1 L Lymph # (Auto) 0.55 L [place] # (Auto) 0.9 H Eos # (Auto) 0.0 Baso # (Auto) 0.0 Abs Immat Gran (auto) 0.12 H Absolute Neuts (auto) 19.2 H Absolute Nucleated RBC 0.000 Nucleated RBC % 0.0 Atypical Lymphocytes Present Platelet Estimate Adequate Hypochromasia 1+ Anisocytosis 1+ Mio Cells 1+ Schistocytes None seen
--- NOTE | 2024-08-30 10:42 | PCNFU ---
Nutrition Follow-Up Complete: Severe protein calorie malnutrition related to acute Crohns, as evidenced by weight loss -6%/2 weeks; inadequate intake <50% needs ~5 days; moderate muscle wasting and fat loss Meet estimated protein energy needs - Not progressing. Goal: Pt current nutrition is NPO day 4. S/p ileocolectomy 08/28/24. Nutrition recommendation: Consider short term PPN : Clinmix E 4.25/5 @ 80 ml/h to provide 1153 kcal, 82 g protein, 2170 ml total volume Last recorded weight is 61.7 kg. Bowel Motility: No BMs yet Labs Reviewed: Hgb 10.1, Hct 33.7 Meds Noted: Pepcid, zofran, solumedrol Skin: Incision to abdomen Additional Notes: S/p ileocolectomy 08/28/24 secondary to Crohns. NG in place, not much drainage. No BMs yet. Discussed with LAMAR Gonzalez re: recommendation for possible PPN. Monitoring plan of care, diet orders, weights, labs, output Follow up in 3 days
--- NOTE | 2024-08-30 12:10 | PM.PNGS ---
Progress Note: A&P Assessment and Plan (1) Small bowel obstruction: Code(s): K56.609 - Unspecified intestinal obstruction, unspecified as to partial versus complete obstruction Status: Acute Assessment and Plan: POD2 following R colectomy, await ROBF, continue NG tube/bowel rest WBC up to 20 with tachycardia and low grade fever overnight. Will order CT abdomen/pelvis to evaluate for an intraabdominal source. (2) Crohn's ileocolitis: Qualifiers: Digestive disease complication type: with intestinal obstruction Qualified Code(s): K50.812 - Crohn's disease of both small and large intestine with intestinal obstruction Code(s): K50.80 - Crohn's disease of both small and large intestine without complications Status: Acute Assessment and Plan: steroid taper per GI Plan I have discussed the patient's case and plan of care with Dr. Lanier. Subjective Subjective Date/Time Seen: 08/30/24 12:10 Post Op day: 2 (Hand assisted laparoscopic right colectomy, mobilization of the hepatic flexure) Patient reports: no new complaints Interval history: Patient denies any abdominal pain. He is passing a little flatus this morning. No bowel movement. He feels like he needs to move his bowels. No nausea. NG tube still in place with 500 cc output documented overnight. White blood cell count up to 20,000 today from 12,000 yesterday, and low-grade fever of 100.7? F last night around midnight. He has been mildly tachycardic since yesterday morning and heart rate is gotten up into the 120's overnight. Review of Systems Review of Systems: All systems reviewed & are unremarkable except as noted in HPI and below Exam Const: General: comfortable and no acute distress Orientation/consciousness: patient oriented x3 GI: Inspection: distended and incision (dry and glue intact, no erythema or drainage) GI Palp: Yes Soft to palpation, Yes Tenderness to palpation present (GI) (diffusely tender), No Guarding due to palpation present (GI), No Hernia present and No Rebound tenderness present Auscultation: Hypoactive bowel sounds present Objective Data Vital Signs Vital Signs: Vital Signs - 24 hr 08/29/24 16:00 08/29/24 16:00 08/29/24 20:00 Temperature 99.5 F 98.6 F Pulse Rate 109 H 111 H 112 H Respiratory Rate 16 18 Blood Pressure 114/54 L 125/76 Pulse Oximetry 95 99 Oxygen Delivery 08/29/24 20:00 08/29/24 20:00 08/30/24 00:00 Temperature 100.7 F H Pulse Rate 114 H 121 H Respiratory Rate 18 Blood Pressure 111/50 L Pulse Oximetry 95 Oxygen Delivery Room Air 08/30/24 00:00 08/30/24 04:00 08/30/24 04:00 Temperature 99.5 F Pulse Rate 119 H 112 H 110 H Respiratory Rate 18 Blood Pressure 115/63 Pulse Oximetry 98 Oxygen Delivery 08/30/24 08:00 08/30/24 11:56 Temperature 99.6 F 97.8 F Pulse Rate 113 H 106 H Respiratory Rate 16 17 Blood Pressure 115/72 114/71 Pulse Oximetry 97 98 Oxygen Delivery Intake/Output Intake/Output: Intake & Output 08/27/24 08/28/24 08/29/24 08/30/24 23:59 23:59 23:59 23:59 Intake Total 3200 2400.0 3240 1000 Output Total 900 4330 1400 1400 Balance 2300 -1930.0 1840 -400 Meds/Results Medications: Active Medications Generic Name Dose Route Start Last Admin Trade Name Freq PRN Reason Stop Dose Admin Acetaminophen 650 mg 08/25/24 17:02 Acetaminophen 650 Mg Suppository RECTAL Q6H PRN Mild Pain (1-3) or Fever Alvimopan 12 mg 08/29/24 21:00 08/30/24 09:07 Alvimopan 12 Mg Capsule PO 09/05/24 20:59 12 mg Q12HR KISHORE Administration Azathioprine 50 mg 08/26/24 12:05 08/30/24 09:07 Azathioprine 50 Mg Tablet PO 50 mg QAM KISHORE Administration Azathioprine 25 mg 08/26/24 12:05 08/30/24 09:07 Azathioprine 25 Mg Tablet PO 25 mg QAM KISHORE Administration Enoxaparin Sodium 40 mg 08/29/24 09:00 08/30/24 09:07 Enoxaparin 40 Mg/0.4 Ml Syringe SUB-Q 40 mg DAILY KISHORE Administration Famotidine 20 mg 08/28/24 21:00 08/30/24 09:07 Famotidine 20 Mg/2 Ml Vial IV PUSH 20 mg Q12HR KISHORE Administration Hydromorphone HCl 1 mg 08/28/24 14:14 08/30/24 09:08 Hydromorphone Hcl Inj (*Crx) 1 Mg/Ml Syr IV PUSH 1 mg Q2H PRN Administration Breakthrough Pain Rated 7-10 or NPO Hydromorphone HCl 0.5 mg 08/28/24 14:14 08/29/24 10:11 Hydromorphone Hcl Inj (*Crx) 1 Mg/Ml Syr IV PUSH 0.5 mg Q2H PRN Administration Breakthrough Pain Rated 4-6 or NPO Sodium Chloride 1,000 mls @ 125 mls/hr 08/25/24 16:30 08/30/24 05:53 Normal Saline Iv IV CONT Not Given .Q8H KISHORE Ibuprofen 800 mg in 200 mls @ 400 mls/hr 08/28/24 14:14 Caldolor 800 Mg/200 Ml IVPB Q6H PRN Breakthrough Pain Rated 1-3 or NPO Methylprednisolone Sodium Succinate 24 mg 08/30/24 09:00 08/30/24 09:07 Methylprednisolone Sod Succ 40 Mg Vial IV PUSH 24 mg DAILY KISHORE Administration Naloxone HCl 0.1 mg 08/28/24 14:14 Naloxone Hcl 0.4 Mg/Ml Vial IV PUSH Q2M PRN Opiate Reversal Ondansetron HCl 4 mg 08/28/24 14:14 Ondansetron Inj 4 Mg/2 Ml Vial IV PUSH Q4H PRN Nausea And Vomiting Radiology Results: ITS Impressions Abdomen X-Ray 08/26/24 09:33 IMPRESSION: 1. Nasogastric tube in expected position within the stomach. Abdomen/Pelvis CT 08/28/24 23:39 IMPRESSION: Imaging of the postoperative abdomen and pelvis, as detailed above. Labs Labs: Laboratory Results - last 24 hr 08/30/24 06:12 WBC 20.8 H RBC 3.70 L Hgb 10.1 L Hct 33.7 L MCV 91.1 MCH 27.3 MCHC 30.0 L RDW 22.5 H Plt Count 298 MPV 9.0 Immature Gran % (Auto) 0.6 H Neut % (Auto) 92.4 H Lymph % (Auto) 2.7 L [place] % (Auto) 4.2 Eos % (Auto) 0.0 Baso % (Auto) 0.1 L Lymph # (Auto) 0.55 L [place] # (Auto) 0.9 H Eos # (Auto) 0.0 Baso # (Auto) 0.0 Abs Immat Gran (auto) 0.12 H Absolute Neuts (auto) 19.2 H Absolute Nucleated RBC 0.000 Nucleated RBC % 0.0 Atypical Lymphocytes Present Platelet Estimate Adequate Hypochromasia 1+ Anisocytosis 1+ Mio Cells 1+ Schistocytes None seen
[2024-08-30] MEDS: HYDROmorphone HCL INJ (*CRX) 1 MG/ML SYR 0.5 MG IV PUSH ×2 (13:13→16:32)
--- NOTE | 2024-08-30 15:49 | WPDGIPROGNO ---
Progress Note: A&P Assessment and Plan (1) Crohn's disease: Qualifiers: Digestive disease complication type: with intestinal obstruction Gastrointestinal tract location: unspecified location Qualified Code(s): K50.912 - Crohn's disease, unspecified, with intestinal obstruction Code(s): K50.90 - Crohn's disease, unspecified, without complications Status: Chronic Assessment and Plan: The patient is on postoperative day 2, presenting with a low-grade fever and a sharp increase in white blood cell count with a neutrophil predominance. A CT scan revealed expected early postoperative changes (small amounts of fluid and air) but no evidence of anastomotic leak. Given his immunosuppressed status, initiating antibiotic therapy should be considered. The planned [id number]-term strategy is to begin infliximab approximately one month post-operatively. This has been shown to be the most effective biologic therapy for maintaining surgically induced remission in Crohn's disease. Subjective Date/time seen: 08/30/24 15:49 Interval history: The patient feels hungry, however he has been complaining of lower abdominal pain and had a fever of 100.7 F. Exam Narrative: abdomen: Markedly tender to deep palpation in both lower quadrants. The rest of the examination within normal limits. Objective Data Vital Signs Vital Signs: Vital Signs - 24 hr 08/29/24 16:00 08/29/24 16:00 08/29/24 20:00 Temperature 99.5 F 98.6 F Pulse Rate 109 H 111 H 112 H Respiratory Rate 16 18 Blood Pressure 114/54 L 125/76 Pulse Oximetry 95 99 Oxygen Delivery 08/29/24 20:00 08/29/24 20:00 08/30/24 00:00 Temperature 100.7 F H Pulse Rate 114 H 121 H Respiratory Rate 18 Blood Pressure 111/50 L Pulse Oximetry 95 Oxygen Delivery Room Air 08/30/24 00:00 08/30/24 04:00 08/30/24 04:00 Temperature 99.5 F Pulse Rate 119 H 112 H 110 H Respiratory Rate 18 Blood Pressure 115/63 Pulse Oximetry 98 Oxygen Delivery 08/30/24 08:00 08/30/24 08:00 08/30/24 08:00 Temperature 99.6 F Pulse Rate 113 H 108 H Respiratory Rate 16 Blood Pressure 115/72 Pulse Oximetry 97 Oxygen Delivery Room Air 08/30/24 11:56 08/30/24 15:47 Temperature 97.8 F 97.7 F Pulse Rate 106 H 92 Respiratory Rate 17 16 Blood Pressure 114/71 112/69 Pulse Oximetry 98 99 Oxygen Delivery Intake/Output Intake/Output: Intake & Output 08/27/24 08/28/24 08/29/24 08/30/24 23:59 23:59 23:59 23:59 Intake Total 3200 2400.0 3240 2000 Output Total 900 4330 1400 1400 Balance 2300 -1930.0 1840 600 Meds/Results Medications: Active Medications Generic Name Dose Route Start Last Admin Trade Name Freq PRN Reason Stop Dose Admin Acetaminophen 650 mg 08/25/24 17:02 Acetaminophen 650 Mg Suppository RECTAL Q6H PRN Mild Pain (1-3) or Fever Alvimopan 12 mg 08/29/24 21:00 08/30/24 09:07 Alvimopan 12 Mg Capsule PO 09/05/24 20:59 12 mg Q12HR KISHORE Administration Azathioprine 50 mg 08/26/24 12:05 08/30/24 09:07 Azathioprine 50 Mg Tablet PO 50 mg QAM KISHORE Administration Azathioprine 25 mg 08/26/24 12:05 08/30/24 09:07 Azathioprine 25 Mg Tablet PO 25 mg QAM KISHORE Administration Enoxaparin Sodium 40 mg 08/29/24 09:00 08/30/24 09:07 Enoxaparin 40 Mg/0.4 Ml Syringe SUB-Q 40 mg DAILY KISHORE Administration Famotidine 20 mg 08/28/24 21:00 08/30/24 09:07 Famotidine 20 Mg/2 Ml Vial IV PUSH 20 mg Q12HR KISHORE Administration Hydromorphone HCl 1 mg 08/28/24 14:14 08/30/24 09:08 Hydromorphone Hcl Inj (*Crx) 1 Mg/Ml Syr IV PUSH 1 mg Q2H PRN Administration Breakthrough Pain Rated 7-10 or NPO Hydromorphone HCl 0.5 mg 08/28/24 14:14 08/30/24 13:13 Hydromorphone Hcl Inj (*Crx) 1 Mg/Ml Syr IV PUSH 0.5 mg Q2H PRN Administration Breakthrough Pain Rated 4-6 or NPO Sodium Chloride 1,000 mls @ 125 mls/hr 08/25/24 16:30 08/30/24 14:12 Normal Saline Iv IV CONT 125 mls/hr .Q8H KISHORE Administration Ibuprofen 800 mg in 200 mls @ 400 mls/hr 08/28/24 14:14 Caldolor 800 Mg/200 Ml IVPB Q6H PRN Breakthrough Pain Rated 1-3 or NPO Methylprednisolone Sodium Succinate 24 mg 08/30/24 09:00 08/30/24 09:07 Methylprednisolone Sod Succ 40 Mg Vial IV PUSH 24 mg DAILY KISHORE Administration Naloxone HCl 0.1 mg 08/28/24 14:14 Naloxone Hcl 0.4 Mg/Ml Vial IV PUSH Q2M PRN Opiate Reversal Ondansetron HCl 4 mg 08/28/24 14:14 Ondansetron Inj 4 Mg/2 Ml Vial IV PUSH Q4H PRN Nausea And Vomiting Radiology Results: ITS Impressions Abdomen X-Ray 08/26/24 09:33 IMPRESSION: 1. Nasogastric tube in expected position within the stomach. Abdomen/Pelvis CT 08/30/24 12:46 IMPRESSION: 1. Prominent edematous wall thickening in the 3 cm ileum proximal to ileocolic anastomosis post recent ileocecal resection. This could be secondary inflammatory change related to the recent surgery and/or the pre-existing Crohn's disease versus less likely related to infection or ischemia. 2. Persistent small amount of free postoperative gas and fluid in the abdomen and pelvis. No organized-appearing abscess. 3. Small bilateral pleural effusions. Labs Labs: Laboratory Results - last 24 hr 08/30/24 06:12 WBC 20.8 H RBC 3.70 L Hgb 10.1 L Hct 33.7 L MCV 91.1 MCH 27.3 MCHC 30.0 L RDW 22.5 H Plt Count 298 MPV 9.0 Immature Gran % (Auto) 0.6 H Neut % (Auto) 92.4 H Lymph % (Auto) 2.7 L [place] % (Auto) 4.2 Eos % (Auto) 0.0 Baso % (Auto) 0.1 L Lymph # (Auto) 0.55 L [place] # (Auto) 0.9 H Eos # (Auto) 0.0 Baso # (Auto) 0.0 Abs Immat Gran (auto) 0.12 H Absolute Neuts (auto) 19.2 H Absolute Nucleated RBC 0.000 Nucleated RBC % 0.0 Atypical Lymphocytes Present Platelet Estimate Adequate Hypochromasia 1+ Anisocytosis 1+ [place] Cells 1+ Schistocytes None seen
[2024-08-30] MEDS: IBUPROFEN IV 800 MG/200 ML 800 MG/200 ML BAG 400 MG IVPB (21:03)
[2024-08-31] VITALS: BP 113/72; PULSE 72; PULSE 90; RESP 18; TEMP 36.6; O2SAT 99
[2024-08-31] MEDS: SODIUM CHLORIDE 0.9% IV 1,000 ML 125 ML IV CONT ×3 (00:29→15:40)
[2024-08-31 04:00] VITALS: BP 119/65; PULSE 74; PULSE 85; RESP 18; TEMP 36.7; O2SAT 99
[2024-08-31 06:17] VITALS: BP 119/65; PULSE 85; RESP 18; TEMP 36.7; O2SAT 99
[2024-08-31 08:00] VITALS: BP 125/73; PULSE 104; PULSE 98; RESP 18; TEMP 36.7; O2SAT 100
[2024-08-31 08:14] LABS: Basophils Percent Auto 0.1 % (0.2-1.2); Hematocrit 31.7 % (42.0-52.0); Hemoglobin 9.7 g/dL (14.0-18.0); Immature Granulocyte Absolute 0.12 K/mm3 (0.00-0.031); Immature Granulocyte Percent A 0.7 % (0-0.5); Lymphocytes Absolute Auto 0.68 K/mm3 (0.9-3.2); Lymphocytes Percent Auto 3.8 % (18.3-44.2); Mean Corpuscular HGB Conc 30.6 g/dl (32-36); Mean Corpuscular Hemoglobin 27.7 pg (26-34); Mean Corpuscular Volume 90.6 fl (80-100); Mean Platelet Volume 9.4 fl (7.4-10.4); Monocytes Absolute Auto 0.6 K/mm3 (0.1-0.6); Monocytes Percent Auto 3.2 % (2.6-8.5); Neutrophils Absolute Auto 16.3 K/mm3 (1.3-6.7); Neutrophils Percent Auto 92.2 % (45.5-73.1); Platelet Count Result 272 k/mm3 (150-375); Red Cell Distribution Width 22.5 % (11.5-14.5); White Blood Count 17.7 K/mm3 (4.5-10.0)
[2024-08-31 08:24] LABS: Alanine Aminotransferase 10 U/L (6-50); Alkaline Phosphatase 66 U/L (58-237); Anion Gap 9 mmol/L (4-12); Aspartate Amino Transferase 15 U/L (17-59); Bilirubin,Total 0.7 mg/dL (0.2-1.3); Blood Urea Nitrogen 7 mg/dL (8-21); Calcium 8.2 mg/dL (8.9-10.7); Carbon Dioxide 22 mmol/L (22-30); Chloride 103 mmol/L (98-107); Estimated CRCL calculation 170 ml/min; Estimated Glomerular Filt Rate > 60; Glucose 78 mg/dL (65-110); Potassium 3.4 mmol/L (3.4-5.0); Sodium 134 mmol/L (134-143)
[2024-08-31] MEDS: HYDROcodone/acetaminophen (*CRX) 5-325 MG TABLET 1 TAB PO (08:27)
[2024-08-31] MEDS: azaTHIOprine 25 MG TABLET PO (08:27)
[2024-08-31] MEDS: ENOXAPARIN 40 MG/0.4 ML SYRINGE SUB-Q (08:27)
[2024-08-31] MEDS: azaTHIOprine 50 MG TABLET PO (08:27)
[2024-08-31] MEDS: ALVIMOPAN 12 MG CAPSULE PO (08:27)
[2024-08-31] MEDS: methylPREDNISolone SOD SUCC 40 MG VIAL 24 MG IV PUSH (08:28)
[2024-08-31] MEDS: FAMOTIDINE 20 MG/2 ML VIAL IV PUSH (08:28)
[2024-08-31 09:25] LABS: Anisocytosis 1+; Platelet Estimate Adequate (Adequate)
[2024-08-31 09:26] LABS: Burr Cells 1+; Schistocytes None Seen
--- NOTE | 2024-08-31 13:43 | P.PNIM_ITS ---
Progress Note: A&P Assessment and Plan (1) Crohn's disease: Qualifiers: Digestive disease complication type: with intestinal obstruction Gastrointestinal tract location: unspecified location Qualified Code(s): K50.912 - Crohn's disease, unspecified, with intestinal obstruction Code(s): K50.90 - Crohn's disease, unspecified, without complications Status: Chronic Assessment and Plan: (1) Small bowel obstruction: Code(s): K56.609 - Unspecified intestinal obstruction, unspecified as to partial versus complete obstruction Status: Acute Assessment and Plan: - CT abd/pelvis: Persistent small bowel obstruction with transition point at the terminal ileum where there is prominent wall thickening suggesting terminal ileitis which could be due to Crohn's disease or infection. NG tube in place continue IV Solu-Medrol 40 mg IV daily per GI Status post laparoscopic right colectomy d1 Optimize pain management 08/31/24: * POD#3, doing well. Pain controlled. Bowel sounds present and flatus present. * Surgery and GI covering, following and managing. (2) Small bowel obstruction: Code(s): K56.609 - Unspecified intestinal obstruction, unspecified as to partial versus complete obstruction Status: Acute Assessment and Plan: (2) Abdominal pain: Qualifiers: Abdominal location: periumbilical Qualified Code(s): R10.33 - Periumbilical pain Code(s): R10.9 - Unspecified abdominal pain Status: Acute Assessment and Plan: Due to bowel obstruction and Crohn disease and possible infection on CT scan, pt is on Flagyl and Ceftriaxone on 08/25 Patient has a low-grade fever and leukocytosis trending up, possible postop reaction and steroid CT abdomen pelvis showed 1. Prominent edematous wall thickening in the 3 cm ileum proximal to ileocolic anastomosis post recent ileocecal resection. This could be secondary inflammatory change related to the recent surgery and/or the pre-existing Crohn's disease versus less likely related to infection or ischemia. 2. Persistent small amount of free postoperative gas and fluid in the abdomen and pelvis. No organized-appearing abscess. 3. Small bilateral pleural effusion Continue ceftriaxone and Flagyl, order blood culture 08/31/24: * In setting of Crohn's disease and SBO. * Improving and pt is post op day#3. (3) Crohn's ileocolitis: Qualifiers: Digestive disease complication type: with intestinal obstruction Qualified Code(s): K50.812 - Crohn's disease of both small and large intestine with intestinal obstruction Code(s): K50.80 - Crohn's disease of both small and large intestine without complications Status: Acute Assessment and Plan: 08/31/24: * Treatment per GI and Surgery. (4) Leukocytosis: Code(s): D72.829 - Elevated white blood cell count, unspecified Status: Acute Assessment and Plan: 08/31/24: * Trending down from 20.8 yesterday --> 17.7 today. * As pt is immunosuppressed chronically and on steroids along with increased stress on the body following surgery, suspect that is the the reason for the increased WBC's. * Repeat CT performed yesterday did not show any abscess, infection or bleed. * Delay starting abx in the setting of pt physically improving and not meeting Sepsis criteria. * Continue to trend and follow recommendations of Gen Sgy and GI. * Trend labs and VS. Plan (3) Crohn's disease: Qualifiers: Digestive disease complication type: with intestinal obstruction Gastrointestinal tract location: unspecified location Qualified Code(s): K50.912 - Crohn's disease, unspecified, with intestinal obstruction Code(s): K50.90 - Crohn's disease, unspecified, without complications Status: Chronic Assessment and Plan: Consult GI, appreciate recommendation started on steroid course: Solu-Medrol 40 >24IV daily Hold immunotherapy by GI during p.o. Esophagitis: Code(s): K20.90 - Esophagitis, unspecified without bleeding Status: Acute Assessment and Plan: gastritis seen on CT, pantoprazole p.o. daily Time Spent With Patient Time with patient: 15 - 25 minutes Subjective Date/time seen: 08/31/24 1045 Interval history: Pt was examined at bedside today on POD #3 s/p Colectomy. Concern yesterday for increasing leukocytosis and CT abd and pelvis was negative for acute infection or abscess. His WBC's today are decreasing again and his WBC's are 17.7. He endorses passing gas without difficulty and no N/V. He remains NPO until seeing Surgery this afternoon. No new complaints, symptoms or concerns. Review of Systems Review of Systems: All systems reviewed & are unremarkable except as noted in HPI and below Exam Narrative: GENERAL: Pleasant, in no acute distress. Well-nourished. - EYES: EOMI. Anicteric. - HENT: Moist mucous membranes. - LUNGS: Clear to auscultation bilateral ly, no wheezing, rhonchi, or rales. - CARDIOVASCULAR: Regular rate and rhyth m. No murmur. No JVD. - ABDOMEN: Soft, diffuse tender and non- distended. Surgical wound is dry and clean. No palpable masses. No erythema present. Bowel sounds are active in all quadrants. - EXTREMITIES: No edema. Peripheral puls es 2+. Non-tender. - NEUROLOGIC: No focal neurological defi cits. CN II-XII grossly intact. - PSYCHIATRIC: Awake, Alert and oriented x 3. Appropriate mood and affect. - SKIN: No rashes or lesions. Warm. Surg ical incisions are C/D/I. No drainage or bleeding. Objective Data Vital Signs Vital Signs: Vital Signs - 24 hr 08/30/24 15:47 08/30/24 16:00 08/30/24 20:00 Temperature 97.7 F 97.5 F L Pulse Rate 92 96 87 Respiratory Rate 16 18 Blood Pressure 112/69 113/63 Pulse Oximetry 99 95 Oxygen Delivery 08/30/24 20:00 08/30/24 20:00 08/31/24 00:00 Temperature 97.9 F Pulse Rate 85 90 Respiratory Rate 18 Blood Pressure 113/72 Pulse Oximetry 99 Oxygen Delivery Room Air 08/31/24 00:00 08/31/24 04:00 08/31/24 04:00 Temperature 98.1 F Pulse Rate 72 85 74 Respiratory Rate 18 Blood Pressure 119/65 Pulse Oximetry 99 Oxygen Delivery 08/31/24 06:17 08/31/24 08:00 08/31/24 08:00 Temperature 98.1 F 98.1 F Pulse Rate 85 104 H Respiratory Rate 18 18 Blood Pressure 119/65 125/73 Pulse Oximetry 99 100 Oxygen Delivery Room Air 08/31/24 08:00 Temperature Pulse Rate 98 Respiratory Rate Blood Pressure Pulse Oximetry Oxygen Delivery Intake/Output Intake/Output: Intake & Output 08/28/24 08/29/24 08/30/24 08/31/24 23:59 23:59 23:59 23:59 Intake Total 2400.0 3240 2752.1 1543.7 Output Total 4330 1400 1999 Balance -1930.0 1840 752.1 1543.7 Meds/Results Medications: Active Medications Generic Name Dose Route Start Last Admin Trade Name Freq PRN Reason Stop Dose Admin Acetaminophen 650 mg 08/25/24 17:02 Acetaminophen 650 Mg Suppository RECTAL Q6H PRN Mild Pain (1-3) or Fever Acetaminophen 650 mg 08/30/24 21:25 Acetaminophen 325 Mg Tablet PO Q6H PRN Mild Pain (1-3) or Fever Hydrocodone Bitart/Acetaminophen 1 tab 08/30/24 21:25 08/31/24 08:27 Hydrocodone/Acetaminophen (*Crx) 5-325 Mg Tablet PO 1 tab Q6H PRN Administration Pain Rated 4-6 Alvimopan 12 mg 08/29/24 21:00 08/31/24 08:27 Alvimopan 12 Mg Capsule PO 09/05/24 20:59 12 mg Q12HR KISHORE Administration Azathioprine 50 mg 08/26/24 12:05 08/31/24 08:27 Azathioprine 50 Mg Tablet PO 50 mg QAM KISHORE Administration Azathioprine 25 mg 08/26/24 12:05 08/31/24 08:27 Azathioprine 25 Mg Tablet PO 25 mg QAM KISHORE Administration Enoxaparin Sodium 40 mg 08/29/24 09:00 08/31/24 08:27 Enoxaparin 40 Mg/0.4 Ml Syringe SUB-Q 40 mg DAILY KISHORE Administration Famotidine 20 mg 08/28/24 21:00 08/31/24 08:28 Famotidine 20 Mg/2 Ml Vial IV PUSH 20 mg Q12HR KISHORE Administration Hydromorphone HCl 1 mg 08/28/24 14:14 08/30/24 09:08 Hydromorphone Hcl Inj (*Crx) 1 Mg/Ml Syr IV PUSH 1 mg Q2H PRN Administration Breakthrough Pain Rated 7-10 or NPO Hydromorphone HCl 0.5 mg 08/28/24 14:14 08/30/24 16:32 Hydromorphone Hcl Inj (*Crx) 1 Mg/Ml Syr IV PUSH 0.5 mg Q2H PRN Administration Breakthrough Pain Rated 4-6 or NPO Sodium Chloride 1,000 mls @ 125 mls/hr 08/25/24 16:30 08/31/24 06:58 Normal Saline Iv IV CONT 125 mls/hr .Q8H KISHORE Administration Ibuprofen 800 mg in 200 mls @ 400 mls/hr 08/28/24 14:14 08/30/24 21:30 Caldolor 800 Mg/200 Ml IVPB Infused Q6H PRN Infusion Breakthrough Pain Rated 1-3 or NPO Methylprednisolone Sodium Succinate 24 mg 08/30/24 09:00 08/31/24 08:28 Methylprednisolone Sod Succ 40 Mg Vial IV PUSH 24 mg DAILY KISHORE Administration Naloxone HCl 0.1 mg 08/28/24 14:14 Naloxone Hcl 0.4 Mg/Ml Vial IV PUSH Q2M PRN Opiate Reversal Ondansetron HCl 4 mg 08/28/24 14:14 Ondansetron Inj 4 Mg/2 Ml Vial IV PUSH Q4H PRN Nausea And Vomiting Radiology Results: ITS Impressions Abdomen X-Ray 08/26/24 09:33 IMPRESSION: 1. Nasogastric tube in expected position within the stomach. Abdomen/Pelvis CT 08/30/24 12:46 IMPRESSION: 1. Prominent edematous wall thickening in the 3 cm ileum proximal to ileocolic anastomosis post recent ileocecal resection. This could be secondary inflammatory change related to the recent surgery and/or the pre-existing Crohn's disease versus less likely related to infection or ischemia. 2. Persistent small amount of free postoperative gas and fluid in the abdomen and pelvis. No organized-appearing abscess. 3. Small bilateral pleural effusions. Labs Labs: Laboratory Results - last 24 hr 08/31/24 08/31/24 07:48 07:49 WBC 17.7 H RBC 3.50 L Hgb 9.7 L Hct 31.7 L MCV 90.6 MCH 27.7 MCHC 30.6 L RDW 22.5 H Plt Count 272 MPV 9.4 Immature Gran % (Auto) 0.7 H Neut % (Auto) 92.2 H Lymph % (Auto) 3.8 L [place] % (Auto) 3.2 Eos % (Auto) 0.0 Baso % (Auto) 0.1 L Lymph # (Auto) 0.68 L [place] # (Auto) 0.6 Eos # (Auto) 0.0 Baso # (Auto) 0.0 Abs Immat Gran (auto) 0.12 H Absolute Neuts (auto) 16.3 H Absolute Nucleated RBC 0.000 Nucleated RBC % 0.0 Platelet Estimate Adequate Anisocytosis 1+ [place]io Cells 1+ Schistocytes None seen Sodium 134 Potassium 3.4 Chloride 103 Carbon Dioxide 22 Anion Gap 9 BUN 7 L Creatinine 0.46 L Estim Creat Clear Calc 170 Estimated GFR > 60 Glucose 78 Calcium 8.2 L Total Bilirubin 0.7 AST 15 L ALT 10 Alkaline Phosphatase 66 Total Protein 6.0 L Albumin 3.0 L Quality VTE Prophylaxis VTE prophylaxis: mechanical ordered
--- NOTE | 2024-08-31 14:41 | P.PNGI_ITS ---
Progress Note: A&P Assessment and Plan (1) Small bowel obstruction: Code(s): K56.609 - Unspecified intestinal obstruction, unspecified as to partial versus complete obstruction Status: Acute Plan - Switch to PO Prednisone 30 mg qD now - Keep this dose for 2 weeks, then taper to 25 mg qD and stay with that dose until seen in our office in 2-3 weeks, when we will continue monitored taper -Resume Azathioprine 50 mg once a day - We are still working on Infliximab approval, which should occur within next month (he can't receive it until 1 month after surgery regardless) Subjective Date/time seen: 08/31/24 14:41 Interval history: Patient currently in postop day 3., doing well, had a bowel movement and is passing gas. No abdominal pain, no fever. NG tube is out. Exam Narrative: Abdomen soft, nontender, not distended. Rest of the examination within normal limits. Objective Data Vital Signs Vital Signs: Vital Signs - 24 hr 08/30/24 15:47 08/30/24 16:00 08/30/24 20:00 Temperature 97.7 F 97.5 F L Pulse Rate 92 96 87 Respiratory Rate 16 18 Blood Pressure 112/69 113/63 Pulse Oximetry 99 95 Oxygen Delivery 08/30/24 20:00 08/30/24 20:00 08/31/24 00:00 Temperature 97.9 F Pulse Rate 85 90 Respiratory Rate 18 Blood Pressure 113/72 Pulse Oximetry 99 Oxygen Delivery Room Air 08/31/24 00:00 08/31/24 04:00 08/31/24 04:00 Temperature 98.1 F Pulse Rate 72 85 74 Respiratory Rate 18 Blood Pressure 119/65 Pulse Oximetry 99 Oxygen Delivery 08/31/24 06:17 08/31/24 08:00 08/31/24 08:00 Temperature 98.1 F 98.1 F Pulse Rate 85 104 H Respiratory Rate 18 18 Blood Pressure 119/65 125/73 Pulse Oximetry 99 100 Oxygen Delivery Room Air 08/31/24 08:00 Temperature Pulse Rate 98 Respiratory Rate Blood Pressure Pulse Oximetry Oxygen Delivery Intake/Output Intake/Output: Intake & Output 08/28/24 08/29/24 08/30/24 08/31/24 23:59 23:59 23:59 23:59 Intake Total 2400.0 3240 2752.1 1543.7 Output Total 4330 1400 2000 Balance -1930.0 1840 752.1 1543.7 Meds/Results Medications: Active Medications Generic Name Dose Route Start Last Admin Trade Name Freq PRN Reason Stop Dose Admin Acetaminophen 650 mg 08/25/24 17:02 Acetaminophen 650 Mg Suppository RECTAL Q6H PRN Mild Pain (1-3) or Fever Acetaminophen 650 mg 08/30/24 21:25 Acetaminophen 325 Mg Tablet PO Q6H PRN Mild Pain (1-3) or Fever Hydrocodone Bitart/Acetaminophen 1 tab 08/30/24 21:25 08/31/24 08:27 Hydrocodone/Acetaminophen (*Crx) 5-325 Mg Tablet PO 1 tab Q6H PRN Administration Pain Rated 4-6 Alvimopan 12 mg 08/29/24 21:00 08/31/24 08:27 Alvimopan 12 Mg Capsule PO 09/05/24 20:59 12 mg Q12HR KISHORE Administration Azathioprine 50 mg 08/26/24 12:05 08/31/24 08:27 Azathioprine 50 Mg Tablet PO 50 mg QAM KISHORE Administration Azathioprine 25 mg 08/26/24 12:05 08/31/24 08:27 Azathioprine 25 Mg Tablet PO 25 mg QAM KISHORE Administration Enoxaparin Sodium 40 mg 08/29/24 09:00 08/31/24 08:27 Enoxaparin 40 Mg/0.4 Ml Syringe SUB-Q 40 mg DAILY KISHORE Administration Famotidine 20 mg 08/28/24 21:00 08/31/24 08:28 Famotidine 20 Mg/2 Ml Vial IV PUSH 20 mg Q12HR KISHORE Administration Hydromorphone HCl 1 mg 08/28/24 14:14 08/30/24 09:08 Hydromorphone Hcl Inj (*Crx) 1 Mg/Ml Syr IV PUSH 1 mg Q2H PRN Administration Breakthrough Pain Rated 7-10 or NPO Hydromorphone HCl 0.5 mg 08/28/24 14:14 08/30/24 16:32 Hydromorphone Hcl Inj (*Crx) 1 Mg/Ml Syr IV PUSH 0.5 mg Q2H PRN Administration Breakthrough Pain Rated 4-6 or NPO Sodium Chloride 1,000 mls @ 125 mls/hr 08/25/24 16:30 08/31/24 06:58 Normal Saline Iv IV CONT 125 mls/hr .Q8H KISHORE Administration Ibuprofen 800 mg in 200 mls @ 400 mls/hr 08/28/24 14:14 08/30/24 21:30 Caldolor 800 Mg/200 Ml IVPB Infused Q6H PRN Infusion Breakthrough Pain Rated 1-3 or NPO Methylprednisolone Sodium Succinate 24 mg 08/30/24 09:00 08/31/24 08:28 Methylprednisolone Sod Succ 40 Mg Vial IV PUSH 24 mg DAILY KISHORE Administration Naloxone HCl 0.1 mg 08/28/24 14:14 Naloxone Hcl 0.4 Mg/Ml Vial IV PUSH Q2M PRN Opiate Reversal Ondansetron HCl 4 mg 08/28/24 14:14 Ondansetron Inj 4 Mg/2 Ml Vial IV PUSH Q4H PRN Nausea And Vomiting Radiology Results: ITS Impressions Abdomen X-Ray 08/26/24 09:33 IMPRESSION: 1. Nasogastric tube in expected position within the stomach. Abdomen/Pelvis CT 08/30/24 12:46 IMPRESSION: 1. Prominent edematous wall thickening in the 3 cm ileum proximal to ileocolic anastomosis post recent ileocecal resection. This could be secondary inflammatory change related to the recent surgery and/or the pre-existing Crohn's disease versus less likely related to infection or ischemia. 2. Persistent small amount of free postoperative gas and fluid in the abdomen and pelvis. No organized-appearing abscess. 3. Small bilateral pleural effusions. Labs Labs: Laboratory Results - last 24 hr 08/31/24 08/31/24 07:48 07:49 WBC 17.7 H RBC 3.50 L Hgb 9.7 L Hct 31.7 L MCV 90.6 MCH 27.7 MCHC 30.6 L RDW 22.5 H Plt Count 272 MPV 9.4 Immature Gran % (Auto) 0.7 H Neut % (Auto) 92.2 H Lymph % (Auto) 3.8 L [place] % (Auto) 3.2 Eos % (Auto) 0.0 Baso % (Auto) 0.1 L Lymph # (Auto) 0.68 L [place] # (Auto) 0.6 Eos # (Auto) 0.0 Baso # (Auto) 0.0 Abs Immat Gran (auto) 0.12 H Absolute Neuts (auto) 16.3 H Absolute Nucleated RBC 0.000 Nucleated RBC % 0.0 Platelet Estimate Adequate Anisocytosis 1+ [place]io Cells 1+ Schistocytes None seen Sodium 134 Potassium 3.4 Chloride 103 Carbon Dioxide 22 Anion Gap 9 BUN 7 L Creatinine 0.46 L Estim Creat Clear Calc 170 Estimated GFR > 60 Glucose 78 Calcium 8.2 L Total Bilirubin 0.7 AST 15 L ALT 10 Alkaline Phosphatase 66 Total Protein 6.0 L Albumin 3.0 L
--- NOTE | 2024-08-31 14:45 | PM.PNGS ---
Progress Note: A&P Assessment and Plan (1) Crohn's disease: Qualifiers: Digestive disease complication type: with intestinal obstruction Gastrointestinal tract location: unspecified location Qualified Code(s): K50.912 - Crohn's disease, unspecified, with intestinal obstruction Code(s): K50.90 - Crohn's disease, unspecified, without complications Status: Chronic Assessment and Plan: status post ileocecectomy, doing well, advance diet as tolerated, okay to DC home if tolerating diet, follow-up in 2 weeks, will need continued steroid taper per GI Subjective Subjective Date/Time Seen: 08/31/24 14:45 Interval history: feels good, salazar clears, +bowel fxn Review of Systems Review of Systems: All systems reviewed & are unremarkable except as noted in HPI and below Exam Const: General: cooperative, comfortable and no acute distress Resp: Auscultation: clear to auscultation bilaterally Cardio: Rate: regular rate Rhythm: regular rhythm GI: Inspection: normal to inspection, distended and incision GI Palp: Yes abdominal tenderness and Yes Soft to palpation Objective Data Vital Signs Vital Signs: Vital Signs - 24 hr 08/30/24 15:47 08/30/24 16:00 08/30/24 20:00 Temperature 36.5 C 36.4 C L Pulse Rate 92 96 87 Respiratory Rate 16 18 Blood Pressure 112/69 113/63 Pulse Oximetry 99 95 Oxygen Delivery 08/30/24 20:00 08/30/24 20:00 08/31/24 00:00 Temperature 36.6 C Pulse Rate 85 90 Respiratory Rate 18 Blood Pressure 113/72 Pulse Oximetry 99 Oxygen Delivery Room Air 08/31/24 00:00 08/31/24 04:00 08/31/24 04:00 Temperature 36.7 C Pulse Rate 72 85 74 Respiratory Rate 18 Blood Pressure 119/65 Pulse Oximetry 99 Oxygen Delivery 08/31/24 06:17 08/31/24 08:00 08/31/24 08:00 Temperature 36.7 C 36.7 C Pulse Rate 85 104 H Respiratory Rate 18 18 Blood Pressure 119/65 125/73 Pulse Oximetry 99 100 Oxygen Delivery Room Air 08/31/24 08:00 Temperature Pulse Rate 98 Respiratory Rate Blood Pressure Pulse Oximetry Oxygen Delivery Intake/Output Intake/Output: Intake & Output 08/28/24 08/29/24 08/30/2425 23:59 23:59 23:59 23:59 Intake Total 2400.0 3240 2752.1 1543.7 Output Total 4330 1400 2000 Balance -1930.0 1840 752.1 1543.7 Meds/Results Medications: Active Medications Generic Name Dose Route Start Last Admin Trade Name Freq PRN Reason Stop Dose Admin Acetaminophen 650 mg 08/25/24 17:02 Acetaminophen 650 Mg Suppository RECTAL Q6H PRN Mild Pain (1-3) or Fever Acetaminophen 650 mg 08/30/24 21:25 Acetaminophen 325 Mg Tablet PO Q6H PRN Mild Pain (1-3) or Fever Hydrocodone Bitart/Acetaminophen 1 tab 08/30/24 21:25 08/31/24 08:27 Hydrocodone/Acetaminophen (*Crx) 5-325 Mg Tablet PO 1 tab Q6H PRN Administration Pain Rated 4-6 Alvimopan 12 mg 08/29/24 21:00 08/31/24 08:27 Alvimopan 12 Mg Capsule PO 09/05/24 20:59 12 mg Q12HR KISHORE Administration Azathioprine 50 mg 08/26/24 12:05 08/31/24 08:27 Azathioprine 50 Mg Tablet PO 50 mg QAM KISHORE Administration Azathioprine 25 mg 08/26/24 12:05 08/31/24 08:27 Azathioprine 25 Mg Tablet PO 25 mg QAM KISHORE Administration Enoxaparin Sodium 40 mg 08/29/24 09:00 08/31/24 08:27 Enoxaparin 40 Mg/0.4 Ml Syringe SUB-Q 40 mg DAILY KISHORE Administration Famotidine 20 mg 08/28/24 21:00 08/31/24 08:28 Famotidine 20 Mg/2 Ml Vial IV PUSH 20 mg Q12HR KISHORE Administration Hydromorphone HCl 1 mg 08/28/24 14:14 08/30/24 09:08 Hydromorphone Hcl Inj (*Crx) 1 Mg/Ml Syr IV PUSH 1 mg Q2H PRN Administration Breakthrough Pain Rated 7-10 or NPO Hydromorphone HCl 0.5 mg 08/28/24 14:14 08/30/24 16:32 Hydromorphone Hcl Inj (*Crx) 1 Mg/Ml Syr IV PUSH 0.5 mg Q2H PRN Administration Breakthrough Pain Rated 4-6 or NPO Sodium Chloride 1,000 mls @ 125 mls/hr 08/25/24 16:30 08/31/24 06:58 Normal Saline Iv IV CONT 125 mls/hr .Q8H KISHORE Administration Ibuprofen 800 mg in 200 mls @ 400 mls/hr 08/28/24 14:14 08/30/24 21:30 Caldolor 800 Mg/200 Ml IVPB Infused Q6H PRN Infusion Breakthrough Pain Rated 1-3 or NPO Methylprednisolone Sodium Succinate 24 mg 08/30/24 09:00 08/31/24 08:28 Methylprednisolone Sod Succ 40 Mg Vial IV PUSH 24 mg DAILY KISHORE Administration Naloxone HCl 0.1 mg 08/28/24 14:14 Naloxone Hcl 0.4 Mg/Ml Vial IV PUSH Q2M PRN Opiate Reversal Ondansetron HCl 4 mg 08/28/24 14:14 Ondansetron Inj 4 Mg/2 Ml Vial IV PUSH Q4H PRN Nausea And Vomiting Radiology Results: ITS Impressions Abdomen X-Ray 08/26/24 09:33 IMPRESSION: 1. Nasogastric tube in expected position within the stomach. Abdomen/Pelvis CT 08/30/24 12:46 IMPRESSION: 1. Prominent edematous wall thickening in the 3 cm ileum proximal to ileocolic anastomosis post recent ileocecal resection. This could be secondary inflammatory change related to the recent surgery and/or the pre-existing Crohn's disease versus less likely related to infection or ischemia. 2. Persistent small amount of free postoperative gas and fluid in the abdomen and pelvis. No organized-appearing abscess. 3. Small bilateral pleural effusions. Labs Labs: Laboratory Results - last 24 hr 08/31/24 08/31/24 07:48 07:49 WBC 17.7 H RBC 3.50 L Hgb 9.7 L Hct 31.7 L MCV 90.6 MCH 27.7 MCHC 30.6 L RDW 22.5 H Plt Count 272 MPV 9.4 Immature Gran % (Auto) 0.7 H Neut % (Auto) 92.2 H Lymph % (Auto) 3.[address] [place] % (Auto) 3.2 Eos % (Auto) 0.0 Baso % (Auto) 0.1 L Lymph # (Auto) 0.[address] [place] # (Auto) 0.6 Eos # (Auto) 0.0 Baso # (Auto) 0.0 Abs Immat Gran (auto) 0.12 H Absolute Neuts (auto) 16.3 H Absolute Nucleated RBC 0.000 Nucleated RBC % 0.0 Platelet Estimate Adequate Anisocytosis 1+ Reliance Cells 1+ Schistocytes None seen Sodium 134 Potassium 3.4 Chloride 103 Carbon Dioxide 22 Anion Gap 9 BUN 7 L Creatinine 0.46 L Estim Creat Clear Calc 170 Estimated GFR > 60 Glucose 78 Calcium 8.2 L Total Bilirubin 0.7 AST 15 L ALT 10 Alkaline Phosphatase 66 Total Protein 6.0 L Albumin 3.0 L
[2024-08-31 16:00] VITALS: BP 124/77; PULSE 93; PULSE 97; RESP 20; TEMP 36.6; O2SAT 99
[2024-08-31 20:00] VITALS: BP 119/73; PULSE 78; PULSE 90; RESP 16; TEMP 37.2; O2SAT 100
[2024-09-01] VITALS: BP 109/73; PULSE 71; PULSE 78; RESP 16; TEMP 36.7; O2SAT 99
[2024-09-01] MEDS: SODIUM CHLORIDE 0.9% IV 1,000 ML 125 ML IV CONT (01:00)
[2024-09-01 04:00] VITALS: BP 115/71; PULSE 83; PULSE 87; RESP 16; TEMP 37.2; O2SAT 100
[2024-09-01] MEDS: ALVIMOPAN 12 MG CAPSULE PO (05:30)
[2024-09-01 06:29] LABS: Basophils Percent Auto 0.1 % (0.2-1.2); Eosinophils Percent Auto 0.2 % (0-4.4); Hematocrit 27.9 % (42.0-52.0); Hemoglobin 8.5 g/dL (14.0-18.0); Immature Granulocyte Absolute 0.06 K/mm3 (0.00-0.031); Immature Granulocyte Percent A 0.6 % (0-0.5); Lymphocytes Absolute Auto 0.75 K/mm3 (0.9-3.2); Mean Corpuscular HGB Conc 30.5 g/dl (32-36); Mean Corpuscular Hemoglobin 27.5 pg (26-34); Mean Corpuscular Volume 90.3 fl (80-100); Monocytes Absolute Auto 0.6 K/mm3 (0.1-0.6); Monocytes Percent Auto 5.2 % (2.6-8.5); Neutrophils Absolute Auto 9.3 K/mm3 (1.3-6.7); Neutrophils Percent Auto 86.9 % (45.5-73.1); Platelet Count Result 253 k/mm3 (150-375); Red Blood Count 3.09 M/mm3 (4.6-6.20); Red Cell Distribution Width 22.2 % (11.5-14.5); White Blood Count 10.7 K/mm3 (4.5-10.0)
[2024-09-01 06:40] LABS: Alanine Aminotransferase 9 U/L (6-50); Albumin Level 2.4 g/dL (3.7-5.6); Alkaline Phosphatase 57 U/L (58-237); Anion Gap 5 mmol/L (4-12); Aspartate Amino Transferase 14 U/L (17-59); Bilirubin,Total 0.4 mg/dL (0.2-1.3); Blood Urea Nitrogen 5 mg/dL (8-21); Calcium 7.7 mg/dL (8.9-10.7); Carbon Dioxide 24 mmol/L (22-30); Chloride 105 mmol/L (98-107); Estimated CRCL calculation 196 ml/min; Estimated Glomerular Filt Rate > 60; Glucose 105 mg/dL (65-110); Potassium 3.2 mmol/L (3.4-5.0); Sodium 134 mmol/L (134-143)
[2024-09-01 08:00] VITALS: BP 122/69; PULSE 93; RESP 16; TEMP 36.7; O2SAT 100
[2024-09-01 08:03] LABS: Anisocytosis 1+; Hypochromasia 1+; Platelet Estimate Adequate (Adequate); Schistocytes None Seen
[2024-09-01] MEDS: HYDROmorphone HCL INJ (*CRX) 1 MG/ML SYR IV PUSH (08:07)
[2024-09-01 08:15] VITALS: PULSE 112
[2024-09-01] MEDS: predniSONE 20 MG, predniSONE 10 MG 30 MG PO (08:17)
[2024-09-01] MEDS: azaTHIOprine 25 MG TABLET PO (08:17)
[2024-09-01] MEDS: azaTHIOprine 50 MG TABLET PO (08:17)
--- NOTE | 2024-09-01 09:25 | P.DS_ITS ---
DS: Admitting Diagnosis Discharge Date 09/02/2024 Admitting Diagnosis Abdominal Pain DS: Discharge Diagnosis Discharge Diagnosis (1) Crohn's disease: Qualifiers: Digestive disease complication type: with intestinal obstruction Gastrointestinal tract location: unspecified location Qualified Code(s): K50.912 - Crohn's disease, unspecified, with intestinal obstruction Code(s): K50.90 - Crohn's disease, unspecified, without complications Status: Chronic Assessment and Plan: (1) Small bowel obstruction: Code(s): K56.609 - Unspecified intestinal obstruction, unspecified as to partial versus complete obstruction Status: Acute Assessment and Plan: - CT abd/pelvis: Persistent small bowel obstruction with transition point at the terminal ileum where there is prominent wall thickening suggesting terminal ileitis which could be due to Crohn's disease or infection. NG tube in place continue IV Solu-Medrol 40 mg IV daily per GI Status post laparoscopic right colectomy d1 Optimize pain management 08/31/24: * POD#3, doing well. Pain controlled. Bowel sounds present and flatus present. * Surgery and GI covering, following and managing 09/01 ok to dc today as per surgery MD (2) Small bowel obstruction: Code(s): K56.609 - Unspecified intestinal obstruction, unspecified as to partial versus complete obstruction Status: Acute Assessment and Plan: (2) Abdominal pain: Qualifiers: Abdominal location: periumbilical Qualified Code(s): R10.33 - Periumbilical pain Code(s): R10.9 - Unspecified abdominal pain Status: Acute Assessment and Plan: Due to bowel obstruction and Crohn disease and possible infection on CT scan, pt is on Flagyl and Ceftriaxone on 08/25 Patient has a low-grade fever and leukocytosis trending up, possible postop reaction and steroid CT abdomen pelvis showed 1. Prominent edematous wall thickening in the 3 cm ileum proximal to ileocolic anastomosis post recent ileocecal resection. This could be secondary inflammat ory change related to the recent surgery and/or the pre-existing Crohn's disease versus less likely related to infection or ischemia. 2. Persistent small amount of free postoperative gas and fluid in the abdomen and pelvis. No organized-appearing abscess. 3. Small bilateral pleural effusion Continue ceftriaxone and Flagyl, order blood culture 08/31/24: * In setting of Crohn's disease and SBO. * Improving and pt is post op day#3. 09/01 post op day 4 ok to dc as per surgery MD (3) Crohn's ileocolitis: Qualifiers: Digestive disease complication type: with intestinal obstruction Qualified Code(s): K50.812 - Crohn's disease of both small and large intestine with intestinal obstruction Code(s): K50.80 - Crohn's disease of both small and large intestine without complications Status: Acute Assessment and Plan: 08/31/24: * Treatment per GI and Surgery. 09/01: stable to dc today (4) Leukocytosis: Code(s): D72.829 - Elevated white blood cell count, unspecified Status: Acute Assessment and Plan: 08/31/24: * Trending down from 20.8 yesterday --> 17.7 today. * As pt is immunosuppressed chronically and on steroids along with increased stress on the body following surgery, suspect that is the the reason for the increased WBC's. * Repeat CT performed yesterday did not show any abscess, infection or bleed. * Delay starting abx in the setting of pt physically improving and not meeting Sepsis criteria. * Continue to trend and follow recommendations of Gen Sgy and GI. * Trend labs and VS. 09/01 stable to dc today Plan (3) Crohn's disease: Qualifiers: Digestive disease complication type: with intestinal obstruction Gastrointestinal tract location: unspecified location Qualified Code(s): K50.912 - Crohn's disease, unspecified, with intestinal obstruction Code(s): K50.90 - Crohn's disease, unspecified, without complications Status: Chronic Assessment and Plan: Consult GI, appreciate recommendation started on steroid course: Solu-Medrol 40 >24IV daily Hold immunotherapy by GI during p.o. Esophagitis: Code(s): K20.90 - Esophagitis, unspecified without bleeding Status: Acute Assessment and Plan: gastritis seen on CT, pantoprazole p.o. daily 09/01 stable to dc today DS: Summary Hospital Course Hospital Course: Pt was examined at bedside today on POD #3 s/p Colectomy. Concern yesterday for increasing leukocytosis and CT abd and pelvis was negative for acute infection or abscess. His WBC's today are decreasing again and his WBC's are 17.7. He endorses passing gas without difficulty and no N/V. He remains NPO until seeing Surgery this afternoon. No new complaints, symptoms or concerns. plan dc 09/01 with surgery follow up as per surgery MD Time Spent with Patient Time attestation: Total time spent providing and/or coordinating discharge services:55 minutes on day of dc Exam Narrative: GENERAL: Pleasant, in no acute distress. Well-nourished. - EYES: EOMI. Anicteric. - HENT: Moist mucous membranes. - LUNGS: Clear to auscultation bilateral ly, no wheezing, rhonchi, or rales. - CARDIOVASCULAR: Regular rate and rhyth m. No murmur. No JVD. - ABDOMEN: Soft, diffuse tender and non- distended. Surgical wound is dry and clean. No palpable masses. No erythema present. Bowel sounds are active in all quadrants. - EXTREMITIES: No edema. Peripheral puls es 2+. Non-tender. - NEUROLOGIC: No focal neurological defi cits. CN II-XII grossly intact. - PSYCHIATRIC: Awake, Alert and oriented x 3. Appropriate mood and affect. - SKIN: No rashes or lesions. Warm. Surg ical incisions are C/D/I. No drainage or bleeding. DS: Data Data Completed and Pending Completed studies during hospitalization: Pending at discharge 08/28/24 12:02 Surgical [PTH] Routine Labs on day of discharge: Labs from last 24 hours 09/01/24 08/31/24 06:09 07:49 WBC 10.7 H RBC 3.09 L Hgb 8.5 L Hct 27.9 L MCV 90.3 MCH 27.5 MCHC 30.5 L RDW 22.2 H Plt Count 253 MPV 9.0 Immature Gran % (Auto) 0.6 H Neut % (Auto) 86.9 H Lymph % (Auto) 7.0 L [place] % (Auto) 5.2 Eos % (Auto) 0.2 Baso % (Auto) 0.1 L Lymph # (Auto) 0.75 L [place] # (Auto) 0.6 Eos # (Auto) 0.0 Baso # (Auto) 0.0 Abs Immat Gran (auto) 0.06 H Absolute Neuts (auto) 9.3 H Absolute Nucleated RBC 0.000 Nucleated RBC % 0.0 Platelet Estimate Adequate Adequate Hypochromasia 1+ Anisocytosis 1+ 1+ [place] Cells 1+ Schistocytes None seen None seen Sodium 134 Potassium 3.2 L Chloride 105 Carbon Dioxide 24 Anion Gap 5 BUN 5 L Creatinine 0.39 L Estim Creat Clear Calc 196 Estimated GFR > 60 Glucose 105 Calcium 7.7 L Total Bilirubin 0.4 AST 14 L ALT 9 Alkaline Phosphatase 57 L Total Protein 5.0 L Albumin 2.4 L Preliminary micro results at discharge 08/30/24 11:20 Blood Culture - Preliminary Blood 08/30/24 11:12 Blood Culture - Preliminary Blood Discharge Plan Discharge Attending physician on discharge: Temitope Sanders Consulting providers: Ga Ramos; Nasreen Lanier Discharging Clinician: Temitope Sanders Anticipated Discharge Date/Time: 09/01/24 09:21 Patient Disposition: Home, Self-Care Activity: no straining Diet: as tolerated Wound Care Instructions: incision open to air Discharge Instructions: ok to shower over incisions with soap and water Patient Instructions: Antibiotic Form Patient Language: Tajik Stand Alone Forms: General Discharge Information Follow-up/Referrals: Nasreen Lanier MD [Physician] - 2 Weeks Discharge Medications: New oxycodone-acetaminophen [Percocet] 5-325 mg tablet 1 tablet PO Q6H PRN (Reason: pain) Qty: 20 0RF prednisone 10 mg Tablet 30 mg PO DAILY@0800 Qty: 30 0RF hydrocodone-acetaminophen 5-325 mg Tablet 1 tablet PO Q8H PRN (Reason: Pain Rated 4-6) Qty: 12 0RF Continued azathioprine 75 mg tablet 75 mg PO DAILY Qty: 30 0RF Discontinued Venofer 100 mg iron/5 mL solution 500 mg IV ONCE Rx Instructions: administer over 1.5 hrs acetaminophen 500 mg capsule 1,000 mg PO Q4-6H PRN (Reason: pain) prednisone 20 mg tablet 40 mg PO DAILY Qty: 60 0RF Date of admission: 08/26/24 07:13 Primary Care Provider: Edwin Velazquez Admitting Provider: Arash Gonzales Attending physician on admission: Caty Guerrero Condition: Stable
--- NOTE | 2024-09-01 11:59 | PC.NURSE ---
On 09/01/24, the LIFE MANAGEMENT TEACHER, Angella, provided care and completed [facility] on this patient. I have reviewed the LIFE MANAGEMENT TEACHER's documentation and agree with the findings.
== END 2024-09-01 10:21 | disposition home or self-care (01) | DRG 231 ==
LOC: ANHED 14:09 → ANH3MEDSUR 18:33
PROVIDERS: Hospitalist; Internal Medicine; Surgery; Admitting Provider Internal Medicine; Emergency Provider Physician Assistant; PCP Family Medicine; Visit Provider Nurse Practitioner Adult Health
PROC: 0DTF4ZZ Resection of Right Large Intestine, Percutaneous Endoscopic Approach (ICD-10-PCS; CPT 44204; principal; 2024-08-28 10:00)
DX: K50.812 Crohn's disease of both small and large intestine with intestinal obstruction (principal); D50.9 Iron deficiency anemia, unspecified; K20.90 Esophagitis, unspecified without bleeding; E44.0 Moderate protein-calorie malnutrition; R50.82 Postprocedural fever; D72.829 Elevated white blood cell count, unspecified
CPT/HCPCS: 36415; 74176; 74177; 80048; 80053; 81001; 82948; 83605; 83690; 83735; 85025; 87040; 88307; 96365; 96367; 96368; 96374; 96375; 99285; A9270; G0378; G0379; J0690; J0696; J1171; J1650; J1720; J1741; J1756; J1836; J2003; J2250; J2270; J2371; J2405; J2470; J2704; J2919; J3010; J7030; J7050; J7120; J7512; Q9967

== ENCOUNTER 2025-03-28 01:11 | Day surgery (SDC) | payer OTHER, SELFPAY ==
[2025-03-18 14:05] VITALS: BMI 18.3
[2025-03-28 13:29] VITALS: BP 102/70; PULSE 93; RESP 16; TEMP 36.6; O2SAT 99
[2025-03-28] MEDS: LACTATED RINGERS 1,000 ML 150 ML IV CONT (13:40)
--- NOTE | 2025-03-28 14:21 | WPDANESEPPF ---
Anes - Initial Pre Proc Eval Procedure: Operation Date: 03/28/25 14:30 Proposed Procedures p Diagnostic Colonoscopy - Ga Ramos MD Date/Time: 03/28/25 14:21 Surgeon: Ga Ramos MD Pre Op Diagnosis: Crohn's disesase Patient Data Age: 19 Gender: M Height: 1.83 m Weight: 62.9 kg Last Vital Signs Temp 98 F 03/28/25 13:29 Pulse 93 03/28/25 13:29 Resp 16 03/28/25 13:29 BP 102/70 03/28/25 13:29 Pulse Ox 99 03/28/25 13:29 O2 Del Method Room Air 03/28/25 13:29 Allergies Allergy/AdvReac Type Severity Reaction Status Date / Time No Known Allergies Allergy Verified 03/18/25 14:03 Home Medications ?Medication ?Instructions ?Recorded ?Confirmed ?Type azathioprine 75 mg tablet 75 mg PO DAILY #30 tabs 08/13/24 03/18/25 Rx adalimumab 80 mg/0.8 mL 80 mg (0.8 mL) subcut .COMPLEX #3 09/28/24 03/18/25 Rx subcutaneous pen kit (Humira(CF) ea Pen Crohn's-Ulc Colitis-Hid Sup Strt) adalimumab 40 mg/0.4 mL 40 mg (0.4 mL) subcut .Every other 10/24/24 03/28/25 Rx subcutaneous pen kit (Humira(CF) Week #2 ea Pen) Patient hx anesthesia problems: none Family hx anesthesia problems: none Results Review: All pre-operative results and documents have been reviewed as part of the pre-operative evaluation. [facility] Past Medical History Medical History (Updated 09/18/24 @ 13:58 by Maria G Ribera) Leukocytosis Crohn's disease LULU (iron deficiency anemia) SBO (small bowel obstruction) Surgical History Surgical History (Updated 09/18/24 @ 13:13 by COY Velez) H/O colectomy 08/28/24 hand assisted laparoscopic right colectomy, mobilization of the hepatic flexure Dr. Lanier Family History Family History Other Unknown family medical history Social History Social History Smoking status: Never smoker Second hand tobacco smoke exposure: No Alcohol intake: never Substance use: never Substance use type: does not use Do You Feel Safe in your Home?: Yes Lack of Transportation: No Lack of Food: Never True Current Housing: I Have Housing Concerned About Future Housing: No Difficulty Paying Gas/Electric Bills: No Difficulty Paying for Meds: No Currently Unemployed: No Education: Bachelor's Degree Difficulty w/ Childcare or Family Care: No Living arrangements: with roommate(s) Occupation/Education: student Gender identity (if verbalized by the patient): Male Sexual Orientation (if Verbalized by the Patient): Straight or Heterosexual Spiritual care concerns: No Agree to blood products: Yes Anes - Eval Final PreProcedure Day of Procedure 03/28/25 14:21 Patient weight: normal Heart: regular rate and rhythm Lungs: clear to auscultation Airway: Mallampati scale class II Neurological: alert and oriented Last oral intake: >/= 8 hours ASA classification: II Emergent: no Anesthetic plan: proceed Anesthesia type and monitoring: general GIVS and standard monitoring Results Review: All pre-operative results and documents have been reviewed as part of the pre-operative evaluation. Informed Consent: The patient's anesthetic plan and its attendant risks and benefits were discussed with the patient/family/POA. Questions were solicited and answers provided to the satisfaction of the patient/family/POA.
--- NOTE | 2025-03-28 15:08 | PM.IMHP ---
H&P: [facility] History of Present Illness Date/Time: 03/28/25 15:08 Chief Complaint: Crohn's disease Narrative: the patient was diagnosed with Crohn's disease in late May last year, and underwent ileocecal resection in August. For administrative reasons, he was receiving Humira injections but stopped receiving them in November this year. However, patient is currently asymptomatic, has gained weight about 16 lb, and denies diarrhea abdominal pain. Review of Systems Review of Systems: All systems reviewed & are unremarkable except as noted in HPI and below PMFSH Past Medical History Medical History (Updated 09/18/24 @ 13:58 by Maria G Ribera) Leukocytosis Crohn's disease LULU (iron deficiency anemia) SBO (small bowel obstruction) Surgical History Surgical History (Updated 09/18/24 @ 13:13 by COY Velez) H/O colectomy 08/28/24 hand assisted laparoscopic right colectomy, mobilization of the hepatic flexure Dr. Lanier Family History Family History Other Unknown family medical history Social History Social History Smoking status: Never smoker Second hand tobacco smoke exposure: No Alcohol intake: never Substance use: never Substance use type: does not use Do You Feel Safe in your Home?: Yes Lack of Transportation: No Lack of Food: Never True Current Housing: I Have Housing Concerned About Future Housing: No Difficulty Paying Gas/Electric Bills: No Difficulty Paying for Meds: No Currently Unemployed: No Education: Bachelor's Degree Difficulty w/ Childcare or Family Care: No Living arrangements: with roommate(s) Occupation/Education: student Gender identity (if verbalized by the patient): Male Sexual Orientation (if Verbalized by the Patient): Straight or Heterosexual Spiritual care concerns: No Agree to blood products: Yes Meds Home Medications and Allergies Home Medications ?Medication ?Instructions ?Recorded ?Confirmed ?Type azathioprine 75 mg tablet 75 mg PO DAILY #30 tabs 08/13/24 03/18/25 Rx adalimumab 80 mg/0.8 mL 80 mg (0.8 mL) subcut .COMPLEX #3 09/28/24 03/18/25 Rx subcutaneous pen kit (Humira(CF) ea Pen Crohn's-Ulc Colitis-Hid Sup Strt) adalimumab 40 mg/0.4 mL 40 mg (0.4 mL) subcut .Every other 10/24/24 03/28/25 Rx subcutaneous pen kit (Humira(CF) Week #2 ea Pen) Allergies Allergy/AdvReac Type Severity Reaction Status Date / Time No Known Allergies Allergy Verified 03/18/25 14:03 Vital Signs Vital Signs - 24 hr 03/28/25 13:29 Temperature 98 F Pulse Rate 93 Respiratory Rate 16 Blood Pressure 102/70 Pulse Oximetry 99 Oxygen Delivery Room Air Exam Const: General: cooperative and healthy appearing Resp: Effort & Inspection: normal respiratory effort and able to speak in complete sentences Auscultation: clear to auscultation bilaterally Cardio: Rate: regular rate Rhythm: regular rhythm GI: Inspection: normal to inspection GI Palp: No No hepatosplenomegaly present Auscultation: normal bowel sounds Rectal Exam: deferred Skin: General skin exam: normal color Psych: Appearance: grossly normal Mental Status: mental status grossly normal Assessment and Plan Assessment and plan (1) Crohn's ileocolitis: Qualifiers: Digestive disease complication type: with intestinal obstruction Qualified Code(s): K50.812 - Crohn's disease of both small and large intestine with intestinal obstruction Code(s): K50.80 - Crohn's disease of both small and large intestine without complications Status: Acute Assessment and Plan: The patient is deemed a good candidate for the procedure. Consent signed. Will proceed.
[2025-03-28 15:29] VITALS: BP 80/46; PULSE 71; RESP 18; O2SAT 99
[2025-03-28 15:39] VITALS: BP 94/55; PULSE 67; RESP 18; O2SAT 98
[2025-03-28 15:49] VITALS: BP 113/75; PULSE 76; RESP 20; O2SAT 100
== END 2025-03-28 16:03 | disposition home or self-care (01) ==
PROVIDERS: PCP Family Medicine; Referring Provider Internal Medicine Gastroenterology; Visit Provider Internal Medicine Gastroenterology
PROC: 0DJD8ZZ Inspection of Lower Intestinal Tract, Via Natural or Artificial Opening Endoscopic (ICD-10-PCS; CPT 45378; principal; 2025-03-28 14:30)
DX: K50.812 Crohn's disease of both small and large intestine with intestinal obstruction (principal); Z98.0 Intestinal bypass and anastomosis status; Z90.49 Acquired absence of other specified parts of digestive tract
CPT/HCPCS: 45378; J2003; J2704; J7120